=== PATIENT | female | born 1970 | race Caucasian/White ===

== ENCOUNTER 2019-02-23 17:58 | Emergency (ER) | payer SELFPAY ==
[~2019-02-23] VITALS: Ht 172.7 cm; Wt 212.3 kg
--- OUTSIDE RECORDS SUMMARY | ~2019-02-23 | XMS | Encounter Summary ---
Demographics + + + | Address | [address] | | | [place] [address] | + + + | Home Phone | | + + + | Preferred Language | Unknown | + + + | Marital Status | | + + + | Sikhism Affiliation | PEN | + + + | Race | White | + + + | Ethnic Group | Not or | + + + Author + + + | Author | [facility] | + + + | Organization | [facility] | + + + | Address | Unknown | + + + | Phone | Unavailable | + + + Support + + + + + | Name | Relationship | Address | Phone | + + + + + | Gigi nuno | [address] | | | | [place] | | | | | [phone] | | + + + + + Care Team Providers + +------+ + | Care Drywall Stripper Helper Name | Role | Phone | + +------+ + | No Pcp Per Patient | PCP | Unavailable | + +------+ + Reason for Visit + + + | Reason | Comments | + + + | Gallstones | | + + + | Obesity | | + + + AUTH/CERT +--------+--------+ + + + + | Status | Reason | Specialty | Diagnoses / | Referred By | Referred To | | | | | Procedures | Contact | Contact | +--------+--------+ + + + + | Closed | | | | | | +--------+--------+ + + + + Encounter Details +--------+---------+ + + + | Date | Type | Department | Care Team | Description | +--------+---------+ + + + | 07/19/ | Surgery | 6A Intra Op [facility] | Jaimee Gomez, | Hemodialysis | | 2014 | | [facility] | MD [address] | catheter placement | | | | Admitting Desk | [place], [place] | | | | | Located on the | [address] | | | | | floor [address] [facility] | [phone] | | | | | [address] | | | | | | [place], [place] | | | | | | [address] | | | +--------+---------+ + + + Social History + +-------+ +--------+------+ | Tobacco Use | Types | Packs/Day | Years | Date | | | | | Used | | + +-------+ +--------+------+ | Never Smoker | | | | | + +-------+ +--------+------+ + + +---------+ + | Alcohol Use | Drinks/Week | oz/Week | Comments | + + +---------+ + | No | | | | + + +---------+ + + + + | Sex Assigned at | Date Recorded | | | | + + + | Not on file | | + + + + + + + | Job Start Date | Occupation | Industry | + + + + | Not on file | Not on file | Not on file | + + + + + + + + | Travel History | Travel Start | Travel End | + + + + + + | No recent travel history available. | + + documented as of this encounter Last Filed Vital Signs + + + + + | Vital Sign | Reading | Time Taken | Comments | + + + + + | Blood Pressure | 141/73 | 07/27/2014 3:54 PM | | | | | PDT | | + + + + + | Pulse | 84 | 07/27/2014 3:54 PM | | | | | PDT | | + + + + + | Temperature | 37 C (98.6 F) | 07/27/2014 3:54 PM | | | | | PDT | | + + + + + | Respiratory Rate | 18 | 07/27/2014 3:54 PM | | | | | PDT | | + + + + + | Oxygen Saturation | 100% | 07/27/2014 3:54 PM | | | | | PDT | | + + + + + | Inhaled Oxygen | - | - | | | Concentration | | | | + + + + + | Weight | 198.2 kg (436 lb | 07/16/2014 11:00 AM | | | | 15.2 oz) | PDT | | + + + + + | Height | 172.7 cm (5' 8") | 07/16/2014 11:00 AM | | | | | PDT | | + + + + + | Body Mass Index | 66.44 | 07/16/2014 11:00 AM | | | | | PDT | | + + + + + documented in this encounter Discharge Summaries Dhaval Peres MD - 07/28/2014 2:49 PM PDT INPATIENT PROVIDER DISCHARGE Admission Date: 07/14/2014 Discharge Date: 07/27/2014 Service: General Medicine Patient PCP: KRYSTAL Malagon Principal Final Diagnosis: Diagnoses Patients Hospital Problem List: Active Hospital Problems 1) *Symptomatic cholelithiasis 2) Acute kidney injury 3) Acute tubular necrosis 4) Morbid obesity 5) Non-traumatic rhabdomyolysis 6) Chronic back pain 7) Physical deconditioning 8) Hyponatremia with excess extracellular fluid volume 9) Diabetes mellitus type 2, controlled, without complications 10) Essential hypertension 11) Mild intermittent asthma without complication 12) Gastroesophageal reflux disease without esophagitis Procedures while in house: Significant images/lab findings: Admitting Presentation: Borrowed and adapted from Dr. Case and Dr. Mayers's documentation: Ms. Nuno is a 43 yoF with morbid obesity, asthma, DM2, HTN, GERD, chronic low back pain wh o was transferred from [facility] in [facility] on 07/15 for abdominal pain, cholecy stitis and transferred for high-risk cholecystectomy. Underwent cholecystectomy on 07/16 at [facility]. Per gen surg, operation was done laparoscopically, but was very difficult, taking sever al hours because of her body habitus. She was transferred to the ICU post op for respiratory failure that resolved quickly. Post operatively, she had severe back and buttock pain which made it difficult for her to lie in bed, and so she sat in a bedside chair for many hours ( in spite of multiple attempt to get her to walk or get back into bed) with little movement. On POD#1, her creatinine began to rise and she became oliguric despite of aggressive fluid r esuscitation. The nephrology team was consulted on POD#2 and labs were checked, including a CK which was > 26K. She remained anuric.. Her CK peaked at >42K on 4. A RIJ HD line was p laced on 07/19 and iHD was initiated on 07/20. She continues on iHD with her last run 07/21. H er CK continued to trend down and her creatinine and urine output began to recover. Eventua lly she returned to a normal urine output and her creatinine trended down from 5.6 down to 3 .2 on discharge. She was discharged home to [place] with close follow up from her PCP and plans for a local referral to a general surgeon and a vocational nurse lvn for one visit, repeated labs to ensure resolution of ARF. 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 Brief Hospital Course: #Oliguric BARBIE - resolved #Rhabdo #Hyperhosphatemia - resolved 2/2 ATN with muddy brown casts in the setting of rhabdo likely due to immobility post-op. P atient with 2L UOP on day of discharge and downtending BUN/Cr with Cr at 3.2 on DC . Phos no rmalized. We discharged her on renal and diabetic diet while she recovers from ARF. Will malik ve short term follow up with labs next week. - Diabetic and renal diet until renal function improves - Renal panel within a week #Hyponatremia - resolved #Volume status - improving Difficult to tell volume status on exam, but likely volume up given IV fluids. Will closely monitor UOP as she is at risk for post-ATN diuresis. Per renal, will give small bolus of IV F for SBP <100. Sodium has normalized, 137 today. -Instructed patient to not take her diuretics on discharge -PCP to determine optimal time for restarting diuretics #Chronic low back pain - stable, constant #Post-op pain - improving Post-op pain is stable, but low back pain is chronic and we will have patient follow up wit h PCP to determine if referral to ortho spine as an outpatient for further management would be useful. Per patient, pain is controlled on the current regimen, no changes. Provided wit h short term oxycodone prescription. Has post-op instructions and precautions for post-chol e. -acetaminophen 650mg q6h prn -Lidocaine patch q24h to low back -oxycodone 5mg q6h prn #DM2 - CBGs conrolled 100s-140s in house. Resume metformin on discharge #Asthma - continue home albuterol #KYLER - RT following in house. Will need outpatient sleep study #HTN - continue home metoprolol #GERD - continue home omeprazole Discharge Physical Exam: Vital Signs at discharge as appropriate: BP: 141/73 mmHg (07/27/14 1554) Pulse: 84 (07/27/14 1554) Resp: 18 (07/27/14 1554) Weight: 198.2 kg (436 lb 15.2 oz) (07/16/14 1100) Gen: NAD, pleasant, cooperative HEENT: EOMI, anicteric sclerae, MMM Resp: CTAB CV: Distant heart sounds, but normal rate, regular rhythm, no m/g/r Abd: obese, soft, non-tender. Multiple incision sites from laparoscope c/d/i, with no drain age or hematoma. Ext: BLE edema +1 pitting Discharge Medications: Discharge Medication List as of 07/27/2014 3:25 PM START taking these medications Details acetaminophen 325 mg oral tablet Take 2 tablets by mouth every six hours., OTC albuterol 90 mcg/actuation inhalation HFA aerosol inhaler Inhale 2 puffs every four hours a s needed., Disp-18 g, R-0, Print Prescription lidocaine 5 %(700 mg/patch) topical adhesive patch,medicated Apply 2 patches to skin every twenty-four hours. Apply patch to most painful area; Patch may remain in place for up to 12 hours in any 24-hour period., Disp-60 patch, R-0, Print Prescription oxyCODONE, immediate release, 5 mg oral tablet Take 1 tablet by mouth every four hours as n eeded for moderate pain., Disp-10 tablet, R-0, Print Prescription polyethylene glycol 17 gram/dose oral powder Take 17 g by mouth once daily., Disp-119 g, R- 0, Print Prescription senna-docusate 8.6-50 mg oral tablet Take 1 tablet by mouth two times daily., Disp-60 table t, R-0, Print Prescription CONTINUE these medications which have NOT CHANGED Details aspirin 81.25 mg oral tablet Take by mouth once daily., Historical Med cholecalciferol, Vitamin D3, 1,000 unit oral tablet Take 1,000 Units by mouth once daily., Historical Med ferrous sulfate 325 mg (65 mg iron) oral tablet Take by mouth once daily. Patient does not know dose that she takes., Historical Med metFORMIN 500 mg oral tablet Take 500 mg by mouth once daily., Historical Med metoprolol tartrate 50 mg oral tablet Take 50 mg by mouth two times daily., Historical Med omeprazole 20 mg oral capsule,delayed release(DR/EC) Take 20 mg by mouth once daily., Histo rical Med zinc sulfate 220 (50) mg oral capsule Take 50 mg by mouth once daily., Historical Med STOP taking these medications furosemide 40 mg oral tablet Comments: Reason for Stopping: metolazone 5 mg oral tablet Comments: Reason for Stopping: potassium chloride SR 10 mEq oral tablet,ER particles/crystals Comments: Reason for Stopping: Discharge Activity: Activity No activity restrictions, follow surgery precautions Follow Up Appointments: Destination: Destination: Home Condition on Discharge Good Schedule the following appointment(s) when you get home Follow up with Ophelia Villalta On 07/31/2014. Specialty: NURSE PRACTITIONER FAMILY Why: hospital follow up Contact information [facility] [address] [place] [address] [place] [address] Follow up with Local nephrology In 2 weeks. Contact information PCP will make referral Follow up with Local general surgery In 2 weeks. Contact information PCP will make a referral Follow Up Tests: None Need BMP within 1 week Determine when to start diuretics Nephrology and Gen Surg referral Discharging Attending: Jerry Bañuelos MD Physician Signature: Dhaval Peres MD Internal Medicine, PGY-3 Pager: [phone] Associated attestation - Jerry Bañuelos MD - 07/29/2014 11:36 AM PDTGeneral Medicine Att ending Note I personally evaluated the patient, performed the sosa elements of the physical examination, and personally formulated the assessment and plan with Dr. Peres. I have reviewed the [facility] documentation and I agree with the findings, assessment, advice, orders and plan as [facility] are documented. Jerry Bañuelos MD Systems Designer Clinical Hospitalist and Medicine Teaching Services [facility] DEPARTMENT: Hosp- [id number] Place of Service: Date of Service: 07/27/2014 CSN: [id number] Modifiers:GC Resident Involved: Yes Suggested CPT: 29706 Discharge Management < 30 minute I spent 10 minutes in coordination of care and mxja-fz-[id number] with the patient and/or their s urrogate of which greater than 50% was spent counseling. documented in this encounter Discharge Instructions Instructions Zuleika Shaw - 07/27/2014 [facility] for home Physical and Occup ational therapies.- [phone]. Home health will come out early next week to see you, vince park will call you to set up appointment. documented in this encounter Medications at Time of Discharge + + + +---------+ + + | Medication | Sig | Dispensed | Refills | Start | End Date | | | | | | Date | | + + + +---------+ + + | acetaminophen 325 | Take 2 tablets by | | 0 | 07/28/19 | | | mg oral tablet | mouth every six | | | 15 | | | | hours. | | | | | + + + +---------+ + + | albuterol 90 | Inhale 2 puffs every | 18 g | 0 | 07/28/19 | | | mcg/actuation | four hours as | | | 15 | | | inhalation HFA | needed. | | | | | | aerosol inhaler | | | | | | + + + +---------+ + + | aspirin 81.25 mg | Take by mouth once | | 0 | | | | oral tablet | daily. | | | | | + + + +---------+ + + | cholecalciferol, | Take 1,000 Units by | | 0 | | | | Vitamin D3, 1,000 | mouth once daily. | | | | | | unit oral tablet | | | | | | + + + +---------+ + + | ferrous sulfate | Take by mouth once | | 0 | | | | 325 mg (65 mg iron) | daily. Patient does | | | | | | oral tablet | not know dose that | | | | | | | she takes. | | | | | + + + +---------+ + + | lidocaine 5 %(700 | Apply 2 patches to | 60 | 0 | 05/01/20 | | | mg/patch) topical | skin every | patch | | 15 | | | adhesive | twenty-four hours. | | | | | | patch,medicated | Apply patch to most | | | | | | | painful area; Patch | | | | | | | may remain in place | | | | | | | for up to 12 hours | | | | | | | in any 24-hour | | | | | | | period. | | | | | + + + +---------+ + + | metFORMIN 500 mg | Take 500 mg by mouth | | 0 | | | | oral tablet | once daily. | | | | | + + + +---------+ + + | metoprolol | Take 50 mg by mouth | | 0 | | | | tartrate 50 mg oral | two times daily. | | | | | | tablet | | | | | | + + + +---------+ + + | omeprazole 20 mg | Take 20 mg by mouth | | 0 | | | | oral capsule,delayed | once daily. | | | | | | release(DR/EC) | | | | | | + + + +---------+ + + | oxyCODONE, | Take 1 tablet by | 10 | 0 | /04/17 | | | immediate release, 5 | mouth every four | tablet | | 15 | | | mg oral tablet | hours as needed for | | | | | | | moderate pain. | | | | | + + + +---------+ + + | polyethylene | Take 17 g by mouth | 119 g | 0 | 07/28/19 | | | glycol 17 gram/dose | once daily. | | | 15 | | | oral powder | | | | | | + + + +---------+ + + | senna-docusate | Take 1 tablet by | 60 | 0 | 07/28/19 | | | 8.6-50 mg oral | mouth two times | tablet | | 15 | | | tablet | daily. | | | | | + + + +---------+ + + | zinc sulfate 220 | Take 50 mg by mouth | | 0 | | | | (50) mg oral capsule | once daily. | | | | | + + + +---------+ + + documented as of this encounter Progress Notes Rosa Marti MD - 07/27/2014 9:20 AM PDTFormatting of this note might be different f rom the original. Nephrology Inpatient Consult Follow Up Note IDENTIFICATION: PATIENT NAME: Vineet Nuno : 1970 DATE OF ADMISSION: 07/14/2014 DATE OF SERVICE: 07/27/2014 HOSPITAL DAY: 13 PCP: KRYSTAL Malagon REQUESTING PROVIDER: General Surgery Team REASON FOR CONSULTATION: BARBIE, low UOP IMPRESSION & RECOMMENDATIONS: Mrs. Vineet Nuno is a 43 y/o female with PMH significant for obesity, pre-DM on metformin, asthma, GERD, HTN, LE edema s/p laparoscopic cholecystectomy on 07/16/14 for acute on chroni c cholecystitis. Had anuric BARBIE requiring HD, improving. Problem List BARBIE w/ ATN 584.5 Oliguria, Anuria 788.5 Hypertension, Essential Benign 401.1 Periphreal Edema 782.3 Hyponatremia 276.1 #Acute Renal Failure: In setting of rhabdo. Showing continued improvement in UOP and Cr no w trending down. -Urine microscopy: [place] brown casts -UOP picking up -Started on iHD 07/19/14 (Access: Right Tempt line placed 07/19/14) -Dialyzed last 07/23/14 with 3 liter UF. Tolerated it well -removing RIJ today is appropriate #Volume/BP: Renal function improving, now starting to experience post-ATN diuresis. Having some contraction alkalosis (as BUN and bicarb both up today in setting of 2.5L UOP), likely 2/2 auto-diuresis. Would monitor I&O closely and avoid volume depletion. -If SBP <100, would give small fluid bolus (250 ml) to ensure adequate renal perfusion duri ng tenuous time of improvement -would avoid net negative >1L, goal closer to even #Hyponatremia: Currently 139. Improving. -Stable/improving -ok to remove fluid restriction on diet #Hyperphosphatemia; in setting of BARBIE; -monitor We will sign off at this time. Expect continued improvement, but at risk for post-ATN diure sis. Education provided to patient regarding importance of keeping ins = outs so that new pr e-renal insult doesn't develop. Would appreciate primary team also re-iterating this with clarence lindsey prior to discharge. Patient was staffed with Dr. Torres, who agrees with the assessment and plan. Please do not hesitate to call our team with any questions. Rosa Marti MD Internal Medicine PGY2 Pg [id number] Interval events/subjective: -no acute overnight events -feeling well this am MEDICATIONS: Scheduled Medications Medication Dose Route Frequency Last Rate acetaminophen (TYLENOL) tablet 650 mg 650 mg oral Q6H heparin injection 5,000 Units 5,000 Units subcutaneous Q8H lidocaine (LIDODERM) 5 %(700 mg/patch) patch 2 patch 2 patch transdermal Q24H metoprolol tartrate (LOPRESSOR) tablet 75 mg 75 mg oral BID nystatin (MYCOSTATIN) powder topical BID omeprazole (PRILOSEC) capsule 20 mg 20 mg oral DAILY polyethylene glycol (MIRALAX) powder 17 g 17 g oral DAILY senna-docusate (SENOKOT S) 8.6-50 mg 1 tablet 1 tablet oral BID PRN Medications Medication Dose Route Frequency Last Rate albuterol (PROVENTIL, VENTOLIN) 90 mcg/actuation inhaler 2 puff 2 puff inhalation Q4H PRN bisacodyl (DULCOLAX) suppository 10 mg 10 mg rectal DAILY PRN ondansetron (ZOFRAN) injection 4 mg 4 mg intravenous Q12H PRN oxyCODONE (immediate release) (ROXICODONE) tablet 5 mg 5 mg oral Q4H PRN PHYSICAL EXAM: Last Vitals: BP 148/61 | Pulse 97 | Temp 36.5 C (97.7 F) | RR 16 | Ht 1.727 m (5' 8") | Wt 198.2 kg (436 lb 15.2 oz) | SpO2 99% | BMI 66.45 kg/(m^2)FIO2 (%): 40 fraction of O2 (07/16/141999) O2 Delivery Device: None (room air) (07/27/14 0832) 24 Hour Vital Min/Max: Systolic (24hrs), Av mmHg, Min:122 mmHg, Max:148 mmHg Diastolic (24hrs), Av mmHg, Min:57 mmHg, Max:61 mmHg Pulse Min: 80 Max: 97 Temp Min: 36.5 C (97.7 F) Max: 36.9 C (98.4 F) Resp Min: 16 Max: 16 SpO2 Min: 98 % Max: 100 % Intake/Output Summary (Last 24 hours) at 07/27/14 0920 Last data filed at 07/27/14 0830 Gross per 24 hour Intake 1030 ml Output 3500 ml Net -2470 ml Constitutional: NAD, alert, chatty and pleasant. Lying in bed. HEENT: NCAT, anicteric sclera, mucosa moist, oropharynx is clear. Neck: Supple, trachea midline. Respiratory: Clear to auscultation bilaterally, normal respiratory effort. CV: Regular rhythm, normal rate. S1 and S2 normal, no m/r/g. Pulses JVD difficult to asses s GI: Soft, non-tender, non-distended, normoactive bowel sounds. No Organomegaly. Extremities: Obese extremities, difficult to assess edema, but does have 1+ in both hands a nd lower ext. Skin: Warm and dry. No rashes or concerning lesions noted. Normal nail-beds. Neurologic / Musculoskeletal: Grossly non-focal. No Tremor or asterixis. Psychiatric: Normal mood and affect. Access: Right IJ temp line 07/19/14 LAB / STUDIES: All blood, urine, radiographic, and other diagnostic test results noted below were personal ly reviewed. Recent Labs 07/14/14200107/17/14 0255 07/25/14 0745 07/26/14 0530 07/27/14 0518 NA 136 < > 134* < > 134* 137 139 K 3.3* < > 3.9 < > 3.9 4.0 3.9 CL 98 < > 97 < > 100 101 103 BICARB 30 < > 29 < > 25 26 28 BUN 12 < > 15 < > 46* 55* 63* CR 1.04 < > 2.04* < > 4.19* 3.76* 3.28* GLU 128* < > 138* < > 103* 108* 104* CA 8.8 < > 7.8* < > 7.7* 8.2* 8.2* AST 46* -- 696* -- -- -- -- ALT 40 -- 189* -- -- -- -- AP -- -- -- -- TBILI 1.0 -- 0.9 -- -- -- -- TP 7.6 -- 7.5 -- -- -- -- ALB 3.5 < > 2.7* < > 2.0* 2.2* 2.3* < > = values in this interval not displayed. Recent Labs 07/14/14200107/17/14 0255 07/25/14 0745 07/26/14 0530 07/27/14 0518 AST 46* -- 696* -- -- -- -- ALT 40 -- 189* -- -- -- -- TBILI 1.0 -- 0.9 -- -- -- -- AP -- -- -- -- ALB 3.5 < > 2.7* < > 2.0* 2.2* 2.3* TP 7.6 -- 7.5 -- -- -- -- < > = values in this interval not displayed. YNEWhJerry rich M D - 07/26/2014 10:32 PM PDT General Medicine Attending Note I personally evaluated the patient, performed the sosa elements of the physical examination, and personally formulated the assessment and plan with Drs. Peres and Joce. I have revie wed the written documentation and I agree with the findings, assessment, advice, orders and plan as they are documented with the following clarifications. Assessment 1. Acute kidney injury, oligoanuric, with acute tubular necrosis, due to pigment nephropath y 2. Rhabdomyolysis, resolved 3. Morbid obesity 4. Obstructive sleep apnea, probable 5. Asthma 6. Essential hypertension 7. Symptomatic cholelithiasis, s/p laparoscopic cholecystectomy 8. Hyperphosphatemia 9. Hyponatremia 10. Hypoalbuminemia 11. Volume overload, due to renal failure 12. Acute post operative nociceptive pain 13. Chronic low back pain Jerry Bañuelos MD Systems Designer Clinical Hospitalist and Medicine Teaching Services [facility] DEPARTMENT: Hosp- [id number] Place of Service: - Date of Service: 07/26/2014 CSN: [id number] Modifiers:GC Resident Involved: Yes Suggested CPT: 91131 Subsequent Visit Exp Prob Foc/Mod Complexity 25 min I spent more than 20 minutes in coordination of care and [id number] with the patient and/ or their surrogate of which 10 minutes was spent counseling. ice, Brenda Mariano MD - 07/26/2014 4:17 PM PDT [facility] PROGRESS NOTE/Transfer Accept Note Date: 07/22/2014 Hospital Day: 12 Author: BRENDA MAYERS MD, MD Attending Physician: Jerry Bañuelos MD Interval events: -Last HD 07/23 -No events o/n Subjective: Patient feeling well, reports that her low back pain is better this AM. Some drainage from MICHELE drain site - clear. No increased abdominal pain. Medications: Current Inpatient Medications Medication Dose Route Frequency acetaminophen (TYLENOL) tablet 650 mg 650 mg oral Q6H albuterol (PROVENTIL, VENTOLIN) 90 mcg/actuation inhaler 2 puff 2 puff inhalation Q4H PRN bisacodyl (DULCOLAX) suppository 10 mg 10 mg rectal DAILY PRN heparin injection 5,000 Units 5,000 Units subcutaneous Q8H lidocaine (LIDODERM) 5 %(700 mg/patch) patch 2 patch 2 patch transdermal Q24H metoprolol tartrate (LOPRESSOR) tablet 75 mg 75 mg oral BID nystatin (MYCOSTATIN) powder topical BID omeprazole (PRILOSEC) capsule 20 mg 20 mg oral DAILY ondansetron (ZOFRAN) injection 4 mg 4 mg intravenous Q12H PRN oxyCODONE (immediate release) (ROXICODONE) tablet 5 mg 5 mg oral Q4H PRN polyethylene glycol (MIRALAX) powder 17 g 17 g oral DAILY senna-docusate (SENOKOT S) 8.6-50 mg 1 tablet 1 tablet oral BID Physical Exam: Last Vitals: BP 147/43 | Pulse 85 | Temp 36.7 C (98.1 F) | RR 16 | Ht 1.727 m (5' 8") | Wt 198.2 kg (436 lb 15.2 oz) | SpO2 99% | BMI 66.45 kg/(m^2) 24 Hour Vital Min/Max: Systolic (24hrs), Av mmHg, Min:90 mmHg, Max:147 mmHg Diastolic (24hrs), Av mmHg, Min:30 mmHg, Max:63 mmHg Pulse Min: 85 Max: 88 Temp Min: 36.4 C (97.5 F) Max: 36.8 C (98.2 F) Resp Min: 16 Max: 16 SpO2 Min: 97 % Max: 100 % Intake/Output Summary (Last 24 hours) at 07/26/14 1621 Last data filed at 07/26/14 1400 Gross per 24 hour Intake 1005 ml Output 2405 ml Net -1400 ml Gen: NAD, pleasant, cooperative HEENT: EOMI, anicteric sclerae, MMM Neck: Dialysis line in R neck Resp: CTAB CV: Distant heart sounds, but normal rate, regular rhythm, no m/g/r Abd: obese, soft, non-tender. Multiple incision sites from laparoscope c/d/i, with no drain age or hematoma. Ext: BLE edema +1 pitting Labs/Imaging: Chemistries: Last 72 Hours (or 3 results): Recent Labs 07/24/14 0510 07/25/14 0745 07/26/14 0530 NA 134* 134* 137 K 3.6 3.9 4.0 CL 100 100 101 BICARB 29 25 26 BUN 32* 46* 55* CR 4.06* 4.19* 3.76* GLU 109* 103* 108* CA 7.2* 7.7* 8.2* MG 1.9 2.0 2.0 PO4 3.6 4.0 4.1 CBC with diff last 72 hours (or 3 results) Recent Labs 07/26/14 0530 WBC 9.95 HB 7.6* HCT 24.7* PLT 182 Assessment & Plan: 43 y.o. female with PMH of morbid obesity, asthma, DM2 (on metformin), asthma, HTN, GERD, c hronic low back pain, s/p laparoscopic cholecystectomy, course complicated by rhabdo with ol igo-anuric BARBIE requiring HD, now improving. #Oliguric BARBIE - resolving #Rhabdo #Hyperhosphatemia - resolved 2/2 ATN with muddy brown casts in the setting of rhabdo likely due to immobility post-op. P atient with 1.8L UOP yesterday and downtending BUN/Cr despite no HD since Wednesday. Can pull f oley today, with continued close monitoring of UOP, patient at risk for post-ATN diuresis. P er renal, would not want to see more than a 1L out. Anticipate removal of IJ cath tomorrow w ith discharge home after that (patient cleared for home by PT). Of note, CK peaked >42k, sto pped checking after <5k. Phos normalized. -Appreciate renal assistance -D/C vigil -Strict UOP monitoring with bedpan -No HD today -Daily renal function panel and magnesium -Consider removing R IJ, will call EGS -Renal diet -Nutrition consult for education -Consider phos binders if phos becomes elevated #Hyponatremia - resolved #Volume status - improving Difficult to tell volume status on exam, but likely volume up given IV fluids. Will closely monitor UOP as she is at risk for post-ATN diuresis. Per renal, will give small bolus of IV F for SBP <100. Sodium has normalized, 137 today. -Small 250ml IVF bolus for SBP <100 per renal -Monitor volume status -Volume restrict 1.5 L #Chronic low back pain - stable, constant #Post-op pain - improving Per post-op pain is stable, but low back pain is chronic and we will have patient follow up with ortho spine as an outpatient for further management. Per patient, pain is controlled o n the current regimen, no changes today. -Scheduled acetaminophen 650mg q6h -Lidocaine patch q24h to low back -oxycodone 5mg q3h #Deconditioning -PT/OT - okay to d/c home -Encourage mobilization, OOB as frequently as possible. -Limit chair to 1-2 hours at a time Chronic, stable, resolved issues: #DM2 - CBGs conrolled 100s-140s in house. Stopped insulin and CBGs. #S/p [place] - f/u with Gen Surg for outpatient follow up plan #Asthma - continue home albuterol #KYLER - RT following in house. Will need outpatient sleep study, order placed #HTN - continue home metoprolol #GERD - continue home omeprazole Food: Renal diet Access: Dialysis line in R neck, PIV DVT: heparin subQ, SCDs Code: Full Dispo: Pending This patient has been seen and discussed with Dr. Bañuelos who agrees with the assessment an d plan. Brenda Mayers MD Neurology PGY-1 Medicine Service Pager [phone] eiss, Brenda Frances MD - 07/26/2014 9:53 AM PDTNephrology Attending Note I have seen and examined this patient and I have discussed this patient with Dr. Marti; I agree with the assessment and plan in Dr. Marti's note. I have reviewed laboratory data f rom today. Please d/w nephrology fellow in am on 07/27 BEFORE removing HD catheter so we can assess her recovery with you prior to that step (given OR required to place catheter). In ad dition, should uop become very brisk today (>3L), please consider bid labs to ensure she triana s not require electrolyte repletion in the setting of post-ATN diuresis. Please call with questions/concerns. Brenda Mark Division of Nephrology and Hypertension Pager #[phone] Office: [phone] [facility] DEPARTMENT: [id number]- [facility] NEPHROLOGY [facility] Place of Service: [id number] - IP CSN: [id number] Suggested Modifier: GC Resident Involved Rosa Tobar M D - 07/26/2014 9:53 AM PDT Nephrology Inpatient Consult Follow Up Note IDENTIFICATION: PATIENT NAME: Vineet Nuno : 1970 DATE OF ADMISSION: 07/14/2014 DATE OF SERVICE: 07/26/2014 HOSPITAL DAY: 12 PCP: KRYSTAL Malagon REQUESTING PROVIDER: General Surgery Team REASON FOR CONSULTATION: BARBIE, low UOP IMPRESSION & RECOMMENDATIONS: Mrs. Vineet Nuno is a 43 y/o female with PMH significant for obesity, pre-DM on metformin, asthma, GERD, HTN, LE edema s/p laparoscopic cholecystectomy on 07/16/14 for acute on chroni c cholecystitis. Had anuric BARBIE requiring HD, improving. Problem List BARBIE w/ ATN 584.5 Oliguria, Anuria 788.5 Hypertension, Essential Benign 401.1 Periphreal Edema 782.3 Hyponatremia 276.1 #Acute Renal Failure: In setting of rhabdo. Showing continued improvement in UOP and Cr no w trending down. -Urine microscopy: [place] brown casts -UOP picking up -ok to remove Vigil today -Started on iHD 07/19/14 (Access: Right Tempt line placed 07/19/14) -Dialyzed last 07/23/14 with 3 liter UF. Tolerated it well -plan to hold off further iHD at this time -- would consider removing RIJ tomorrow am (marianne mariano for today, primary team should touch base with surgery as they placed the line) #Volume/BP: Renal function improving, at risk for post-ATN diuresis, would monitor for this and avoid volume depletion. -If SBP <100, would give small fluid bolus (250 ml) to ensure adequate renal perfusion duri ng tenuous time of improvement -would avoid net negative >1L, goal closer to even -Volume up in setting of IV fluids and anuric BARBIE but suspect continued improvement as UOP picks up -no need for HD today #Hyponatremia: Suspect hypervolemic, currently 137. Improving. -Stable/improving -Fluid restrict to 1.5 liters #Hyperphosphatemia; in setting of BARBIE; -monitor General Recs: -continue Renal and Diabetic diet with 1.5L fluid restriction Patient was staffed with Dr. Mark, who agrees with the assessment and plan. Please do not hesitate to call our team with any questions. Rosa Marti MD Internal Medicine PGY2 Pg [phone] Interval events/subjective: -no acute overnight events -feeling well this am -made 1.8L urine in past 24 hours! MEDICATIONS: Scheduled Medications Medication Dose Route Frequency Last Rate acetaminophen (TYLENOL) tablet 650 mg 650 mg oral Q6H heparin injection 5,000 Units 5,000 Units subcutaneous Q8H lidocaine (LIDODERM) 5 %(700 mg/patch) patch 2 patch 2 patch transdermal Q24H metoprolol tartrate (LOPRESSOR) tablet 75 mg 75 mg oral BID nystatin (MYCOSTATIN) powder topical BID omeprazole (PRILOSEC) capsule 20 mg 20 mg oral DAILY polyethylene glycol (MIRALAX) powder 17 g 17 g oral DAILY senna-docusate (SENOKOT S) 8.6-50 mg 1 tablet 1 tablet oral BID PRN Medications Medication Dose Route Frequency Last Rate albuterol (PROVENTIL, VENTOLIN) 90 mcg/actuation inhaler 2 puff 2 puff inhalation Q4H PRN bisacodyl (DULCOLAX) suppository 10 mg 10 mg rectal DAILY PRN ondansetron (ZOFRAN) injection 4 mg 4 mg intravenous Q12H PRN oxyCODONE (immediate release) (ROXICODONE) tablet 5 mg 5 mg oral Q4H PRN PHYSICAL EXAM: Last Vitals: BP 147/43 | Pulse 85 | Temp 36.7 C (98.1 F) | RR 16 | Ht 1.727 m (5' 8") | Wt 198.2 kg (436 lb 15.2 oz) | SpO2 99% | BMI 66.45 kg/(m^2)FIO2 (%): 40 fraction of O2 (07/16/141999) O2 Delivery Device: None (room air) (07/26/14 0816) 24 Hour Vital Min/Max: Systolic (24hrs), Av mmHg, Min:90 mmHg, Max:147 mmHg Diastolic (24hrs), Av mmHg, Min:30 mmHg, Max:63 mmHg Pulse Min: 85 Max: 89 Temp Min: 36.4 C (97.5 F) Max: 36.8 C (98.2 F) Resp Min: 16 Max: 16 SpO2 Min: 97 % Max: 100 % Intake/Output Summary (Last 24 hours) at 07/26/14 0953 Last data filed at 07/26/14 0830 Gross per 24 hour Intake 1175 ml Output 1680 ml Net -505 ml Constitutional: NAD, alert, chatty and pleasant. Lying in bed. HEENT: NCAT, anicteric sclera, mucosa moist, oropharynx is clear. Neck: Supple, trachea midline. Respiratory: Clear to auscultation bilaterally, normal respiratory effort. CV: Regular rhythm, normal rate. S1 and S2 normal, no m/r/g. Pulses JVD difficult to asses s GI: Soft, non-tender, non-distended, normoactive bowel sounds. No Organomegaly. Extremities: Obese extremities, difficult to assess edema, but does have 1+ in both hands a nd lower ext. Skin: Warm and dry. No rashes or concerning lesions noted. Normal nail-beds. Neurologic / Musculoskeletal: Grossly non-focal. No Tremor or asterixis. Psychiatric: Normal mood and affect. Access: Right IJ temp line 07/19/14 LAB / STUDIES: All blood, urine, radiographic, and other diagnostic test results noted below were personal ly reviewed. Recent Labs 07/14/14200107/17/14 0255 07/24/14 0510 07/25/14 0745 07/26/14 0530 NA 136 < > 134* < > 134* 134* 137 K 3.3* < > 3.9 < > 3.6 3.9 4.0 CL 98 < > 97 < > 100 100 101 BICARB 30 < > 29 < > 29 25 26 BUN 12 < > 15 < > 32* 46* 55* CR 1.04 < > 2.04* < > 4.06* 4.19* 3.76* GLU 128* < > 138* < > 109* 103* 108* CA 8.8 < > 7.8* < > 7.2* 7.7* 8.2* AST 46* -- 696* -- -- -- -- ALT 40 -- 189* -- -- -- -- AP 67 -- 89 -- -- -- -- TBILI 1.0 -- 0.9 -- -- -- -- TP 7.6 -- 7.5 -- -- -- -- ALB 3.5 < > 2.7* < > 1.9* 2.0* 2.2* < > = values in this interval not displayed. Lab Results Component Value Date WBC 9.95 07/26/2014 HB 7.6 07/26/2014 HCT 24.7 07/26/2014 PLT 182 07/26/2014 MCV 101.6 07/26/2014 RDW 57.1 07/26/2014 Recent Labs 07/14/14200107/17/14 0255 07/24/14 0510 07/25/14 0745 07/26/14 0530 AST 46* -- 696* -- -- -- -- ALT 40 -- 189* -- -- -- -- TBILI 1.0 -- 0.9 -- -- -- -- AP 67 -- 89 -- -- -- -- ALB 3.5 < > 2.7* < > 1.9* 2.0* 2.2* TP 7.6 -- 7.5 -- -- -- -- < > = values in this interval not displayed. Tony Herrera - 7:09 AM PDT Medical Student Progress Note - for educational purposes only Overnight: -no acute events overnight -nephrology would like to take Musa out today. Plan to remove IJ Wednesday, with possibly d/c home Wednesday. -PT will assess today for safety at home -no PRN oxycodone used on 07/25, 5mg last night Subjective: Back pain much better this morning. Increased drainage from surgical site; rashel r fluid, no change in color or pain over site. Objective: Vitals: Last Vitals: BP 119/30 | Pulse 88 | Temp 36.5 C (97.7 F) | RR 16 | Ht 1.727 m ( 5' 8") | Wt 198.2 kg (436 lb 15.2 oz) | SpO2 100% | BMI 66.45 kg/(m^2) 24 Hour Vital Min/Max: Systolic (24hrs), Av mmHg, Min:90 mmHg, Max:145 mmHg Diastolic (24hrs), Av mmHg, Min:30 mmHg, Max:103 mmHg Pulse Min: 86 Max: 89 Temp Min: 36.5 C (97.7 F) Max: 36.9 C (98.4 F) Resp Min: 16 Max: 16 SpO2 Min: 98 % Max: 100 % Intake/Output Summary (Last 24 hours) at 07/26/14 0709 Last data filed at 07/26/14 0500 Gross per 24 hour Intake 1060 ml Output 1880 ml Net -820 ml General: resting comfortably in bed, NAD HEENT: anicteric sclerae, extraocular movements intact, mucus membranes moist Neck: dialysis line in right neck Heart: regular rate and rhythm, no m/r/g, JVP not able to visualize due to body habitus Lungs: no increased work of breathing, good air movement. Lungs clear to auscultation bilat erally, no wheezes rales or rhonchi. Abd: bowel sounds present, soft, nondistended. Some tenderness on the left side, no guardin g. Drain site covered by gauze with no drainage. Right surgical site has mild erythema, no w armth, no drainage seen. Ext: LE pitting edema unchanged from yest, no rashes Neuro: ANOx4 Pertinent Medications: Current Inpatient Medications Medication Dose Route Frequency acetaminophen (TYLENOL) tablet 650 mg 650 mg oral Q6H albuterol (PROVENTIL, VENTOLIN) 90 mcg/actuation inhaler 2 puff 2 puff inhalation Q4H PRN bisacodyl (DULCOLAX) suppository 10 mg 10 mg rectal DAILY PRN heparin injection 5,000 Units 5,000 Units subcutaneous Q8H lidocaine (LIDODERM) 5 %(700 mg/patch) patch 2 patch 2 patch transdermal Q24H metoprolol tartrate (LOPRESSOR) tablet 75 mg 75 mg oral BID nystatin (MYCOSTATIN) powder topical BID omeprazole (PRILOSEC) capsule 20 mg 20 mg oral DAILY ondansetron (ZOFRAN) injection 4 mg 4 mg intravenous Q12H PRN oxyCODONE (immediate release) (ROXICODONE) tablet 5 mg 5 mg oral Q4H PRN polyethylene glycol (MIRALAX) powder 17 g 17 g oral DAILY senna-docusate (SENOKOT S) 8.6-50 mg 1 tablet 1 tablet oral BID Pertinent Labs/Studies: Mg 2 CBC HCt 24.7 Renal function set: BUN 55 (yest 46), Cr 3.76 (yest 4.19), EGFR 13 mL/min (yest 12), Na 137 (normalized), K 4.0, Ca 8.2 (yest 7.7), alb 2.2 (stable since 07/19) Assessment/Plan: Ms. Nuno is a 43 year old woman with morbid obesity, DM2 on metformin, HT N, and chronic low back pain who presents s/p laproscopic cholecystectomy on 07/16 c/b rhabdo myalysis peak 42K on 07/19 with anuric BARBIE requiring intermittent hemodialysis, now improving . #Anuric BARBIE: Acute tubular necrosis with muddy brown casts secondary to rhabdomyalysis s/p cholecystectomy. CK peaked 07/19, trending downward. GFR continues to be very low but stable since 07/19. Nephrology following. Receiving iHD. 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 Fluid overload risks pulmonary edema a nd volume overload. Hyponatremia corrected on 07/26. -no further action needed #Obesity/immmobility/deconditiong: Chronic obesity and limited mobility with acute post op immobility. On bariatric bed, in chair 1 hour at a time. Encourage patient to ambulate. -PT/OT consulting; signing off today because back to baseline function -Patient will be self sufficient enough for discharge home per PT/OT, with help from katlyn saul #S/p cholecystectomy: Recovered well. Renal diet. Increased weeping from right surgical sit e. No increase erythema or warmth, no fever or leukocytosis so no concern for infection at t his time. -Being followed peripherally by EGS -F/u with EGS outpt in 2 weeks. -Aggressive bowel regimen per surg recs -Check wound site tomorrow AM #Acute post operative pain: Improving. IV dilaudid d/c on 07/23. Currently using oxycodone. -Limit opioids as possible #Chronic low back pain: Constant and unchanged. Ortho spine says no further action at this time. -Pain control as above -lidocaine patches q24 to low back -Continue heat application #KYLER: Needs outpatient polysomnography. RT following while in house. -overnight oximetry also a viable option to obtain more information Stable or resolved: #DM: prediabetes per chart. Blood glucose WNL at hospital. CBG, insulin discontinued. -order A1C value #Hyperphosphatemia: Secondary to BARBIE. Peaked at 6.1 on 07/21, now 4.6 -continue to monitor with daily renal f(x) labs -consider phosphate binders if phos becomes elevated again #HTN: On home dose metoprolol PO #GERD: Omeprazole #PPX: On SQ heparin, SCD's #Asthma: Home albuterol Dispo: Discharge home when cleared by nephrology team. If UOP remains stable or improves, n ephrology team will feel comfortable with removing Vigil tomorrow and dialysis line the day. If improvement continues, anticipate discharge by end of week. Discharge planning: -f/u EGS 2 weeks -outpatient polysomnography -ortho f/u spine scans as outpatient Routine care: DVT prophylaxis: heparin Diet: renal Code: full TONY Elizabeth hJerry rich MD - 07/25/2014 10:28 PM PDT General Medicine Attending Note I personally evaluated the patient, performed the sosa elements of the physical examination, and personally formulated the assessment and plan with Dr. Mera. I have reviewed the peoples hospital documentation and I agree with the findings, assessment, advice, orders and plan as they a re documented. Assessment 1. Acute kidney injury, oligoanuric, with acute tubular necrosis, due to pigment nephropath y 2. Rhabdomyolysis, resolved 3. Morbid obesity 4. Obstructive sleep apnea, probable 5. Asthma 6. Essential hypertension 7. Symptomatic cholelithiasis, s/p laparoscopic cholecystectomy 8. Hyperphosphatemia 9. Hyponatremia 10. Hypoalbuminemia 11. Volume overload, due to renal failure 12. Acute post operative nociceptive pain 13. Chronic low back pain Jerry Bañuelos MD Systems Designer Clinical Hospitalist and Medicine Teaching Services [facility] DEPARTMENT: Hosp- [id number] Place of Service: - Date of Service: 07/25/2014 CSN: [id number] Modifiers:GC Resident Involved: Yes Suggested CPT: 67321 Subsequent Visit Exp Prob Foc/Mod Complexity 25 min I spent more than 20 minutes in coordination of care and [id number] with the patient and/ or their surrogate of which 15 minutes was spent in face to face and counseling. Brenda Engle MD - 07/25/2014 9:51 AM PDTNephrology Attending Note I have seen and examined this patient and I have discussed this patient with Dr. Marti; I agree with the assessment and plan in Dr. Marti's note. I have reviewed laboratory data f rom today. Increase in uop encouraging - holding HD today and will assess uop and clearance daily. Agree with vigil out tomorrow; if uop appears to decline p vigil removal, may requir e intermittent straight cath to ensure no retention (do not feel bladder scans would be accu rate given body habitus). Please call with questions/concerns. Brenda Mark Division of Nephrology and Hypertension Pager #[phone] Office: [phone] [facility] DEPARTMENT: [id number] Place of Service: CSN: [id number] Suggested Modifier: GC Resident Involved Rosa Tobar M D - 07/25/2014 9:51 AM PDT Nephrology Inpatient Consult Follow Up Note IDENTIFICATION: PATIENT NAME: Vineet Nuno : 1970 DATE OF ADMISSION: 07/14/2014 DATE OF SERVICE: 07/25/2014 HOSPITAL DAY: 11 PCP: KRYSTAL Malagon REQUESTING PROVIDER: General Surgery Team REASON FOR CONSULTATION: BARBIE, low UOP IMPRESSION & RECOMMENDATIONS: Mrs. Vineet Nuno is a 43 y/o female with PMH significant for obesity, pre-DM on metformin, asthma, GERD, HTN, LE edema s/p laparoscopic cholecystectomy on 07/16/14 for acute on chroni c cholecystitis. Now with anuric BARBIE requiring HD. Problem List BARBIE w/ ATN 584.5 Oliguria, Anuria 788.5 Hypertension, Essential Benign 401.1 Periphreal Edema 782.3 Hyponatremia 276.1 #Acute Renal Failure: In setting of rhabdo. Showing some improvement in UOP and Cr did not rise significantly in between HD sessions, this is encouraging. Will trial without HD today to see how she tolerates this. -Urine microscopy: [place] brown casts -UOP starting to slowly picker tender -please keep in Vigil for 1 more day -- need very accurate UOP as this is our main measurem ent of improvement in renal function -- likely able to remove tomorrow (07/26) and have patie nt use bedside commode for accurate I&O's -Started on iHD 07/19/14 (Access: Right Tempt line placed 07/19/14) -Dialyzed last 07/23/14 with 3 liter UF. Tolerated it well -plan to hold off on iHD today and reassess needs tomorrow #Volume/BP -BP at goal -Volume up in setting of IV fluids and anuric BARBIE -Avoid IVF -Will remove volume with iHD as tolerated #Hyponatremia: Currently 141. -Stable/improving -Fluid restrict to 1.5 liters #Hyperphosphatemia; in setting of BARBIE; -Will manage with iHD and diet for now, but will consider binders if phos high General Recs: -continue Renal and Diabetic diet with 1.5L fluid restriction -no IVF given anuric Patient was staffed with Dr. Mark, who agrees with the assessment and plan. Please do not hesitate to call our team with any questions. Rosa Marti MD Internal Medicine [place]2 [place] [phone] Interval events/subjective: -no acute overnight events -feeling well this am -worked with PT and OT, did well MEDICATIONS: Scheduled Medications Medication Dose Route Frequency Last Rate acetaminophen (TYLENOL) tablet 650 mg 650 mg oral Q6H heparin injection 5,000 Units 5,000 Units subcutaneous Q8H lidocaine (LIDODERM) 5 %(700 mg/patch) patch 2 patch 2 patch transdermal Q24H metoprolol tartrate (LOPRESSOR) tablet 75 mg 75 mg oral BID nystatin (MYCOSTATIN) powder topical BID omeprazole (PRILOSEC) capsule 20 mg 20 mg oral DAILY polyethylene glycol (MIRALAX) powder 17 g 17 g oral DAILY senna-docusate (SENOKOT S) 8.6-50 mg 1 tablet 1 tablet oral BID PRN Medications Medication Dose Route Frequency Last Rate albuterol (PROVENTIL, VENTOLIN) 90 mcg/actuation inhaler 2 puff 2 puff inhalation Q4H PRN bisacodyl (DULCOLAX) suppository 10 mg 10 mg rectal DAILY PRN ondansetron (ZOFRAN) injection 4 mg 4 mg intravenous Q12H PRN oxyCODONE (immediate release) (ROXICODONE) tablet 5 mg 5 mg oral Q3H PRN PHYSICAL EXAM: Last Vitals: BP 120/103 | Pulse 89 | Temp 36.9 C (98.4 F) | RR 16 | Ht 1.727 m (5' 8") | Wt 198.2 kg (436 lb 15.2 oz) | SpO2 98% | BMI 66.45 kg/(m^2)FIO2 (%): 40 fraction of O2 (07/16/141999) O2 Delivery Device: None (room air) (07/25/14 0802) 24 Hour Vital Min/Max: Systolic (24hrs), Av mmHg, Min:114 mmHg, Max:140 mmHg Diastolic (24hrs), Av mmHg, Min:45 mmHg, Max:103 mmHg Pulse Min: 86 Max: 92 Temp Min: 36.6 C (97.9 F) Max: 36.9 C (98.4 F) Resp Min: 16 Max: 16 SpO2 Min: 96 % Max: 98 % Intake/Output Summary (Last 24 hours) at 07/25/14 0951 Last data filed at 07/25/14 0800 Gross per 24 hour Intake 710 ml Output 950 ml Net -240 ml Constitutional: NAD, alert, chatty and pleasant. Lying in bed. HEENT: NCAT, anicteric sclera, mucosa moist, oropharynx is clear. Neck: Supple, trachea midline. Respiratory: Clear to auscultation bilaterally, normal respiratory effort. CV: Regular rhythm, normal rate. S1 and S2 normal, no m/r/g. Pulses JVD difficult to asses s GI: Soft, non-tender, non-distended, normoactive bowel sounds. No Organomegaly. Extremities: Obese extremities, difficult to assess edema, but does have 1+ in both hands a nd lower ext. Skin: Warm and dry. No rashes or concerning lesions noted. Normal nail-beds. Neurologic / Musculoskeletal: Grossly non-focal. No Tremor or asterixis. Psychiatric: Normal mood and affect. Access: Right IJ temp line 07/19/14 LAB / STUDIES: All blood, urine, radiographic, and other diagnostic test results noted below were personal ly reviewed. Recent Labs 07/14/14200107/17/14 0255 07/23/14 0520 07/23/14 2220 07/24/14 0510 07/25/14 0745 NA 136 < > 134* < > 131* -- 134* 134* K 3.3* < > 3.9 < > 3.3* -- 3.6 3.9 CL 98 < > 97 < > 95* -- 100 100 BICARB 30 < > 29 < > 27 -- 29 25 BUN 12 < > 15 < > 45* -- 32* 46* CR 1.04 < > 2.04* < > 5.81* -- 4.06* 4.19* GLU 128* < > 138* < > 109* 139* 109* 103* CA 8.8 < > 7.8* < > 7.4* -- 7.2* 7.7* AST 46* -- 696* -- -- -- -- -- ALT 40 -- 189* -- -- -- -- -- AP 67 -- 89 -- -- -- -- -- TBILI 1.0 -- 0.9 -- -- -- -- -- TP 7.6 -- 7.5 -- -- -- -- -- ALB 3.5 < > 2.7* < > 2.0* -- 1.9* 2.0* < > = values in this interval not displayed. Lab Results Component Value Date WBC 10.52 07/22/2014 HB 8.5 07/22/2014 HCT 26.9 07/22/2014 PLT 180 07/22/2014 MCV 100.7 07/22/2014 RDW 56.4 07/22/2014 Recent Labs 07/14/14200107/17/14 0255 07/23/14 0520 07/24/14 0510 07/25/14 0745 AST 46* -- 696* -- -- -- -- ALT 40 -- 189* -- -- -- -- TBILI 1.0 -- 0.9 -- -- -- -- AP 67 -- 89 -- -- -- -- ALB 3.5 < > 2.7* < > 2.0* 1.9* 2.0* TP 7.6 -- 7.5 -- -- -- -- < > = values in this interval not displayed. Lab Results Component Value Date CK 4953 07/24/2014 CK 7423 07/23/2014 CK 9587 07/22/2014 [place] [address] 07/22/2014 [place] [address] 07/21/2014 [place] [address] 07/21/2014 [place] [address] 07/21/2014 Urine Cr 316 Urine sodium 7 TTE 07/15/14: EF normal Mild increased RVSP of 50 mmHg Urine spin revealed muddy brown casts Arielle Crowe Md, I - 07/25/2014 8:23 AM PDT Progress Note: 24hr events -no HD yeseterday S: no complaints Last 24 hour min/max Temp: 36.9 C (98.4 F) Temp Min: 36.6 C (97.9 F) Max: 36.9 C (98.4 F) Pulse: 89 Pulse Min: 86 Max: 92 Resp: 16 Resp Min: 16 Max: 16 BP: 120/103 mmHg BP Min: 114/50 Max: 140/61 SpO2: 98 % SpO2 Min: 96 % Max: 98 % Body mass index is 66.45 kg/(m^2). Sitting in chair, NAD brething comfortably, ctab Heart rrr no murmur A&O Labs: BUN 32-->46, Cr 4-->4.2. Phos 4. CBGs 90-140 Imaging/other data No new imaging Assessment and Plan: 43yoF with h/o morbid obesity, asthma, TIIDM, HTN, GERD, chronic LBP, who presented with ch olecystitis and is s/p lap [place], with a course c/b rhabdomyolysis resulting in oliguria ATN requiring HD. #ATN #Oliguric renal failure #Rhabdomyolysis #Hyponatremia ATN (muddy brown casts) with renal failure requiring HD 2/2 rhabdo in the s/o prolonged sit ting post-op. CK peaked 40K, stopped checking once <5K. UOP improving. Lat HD 07/23, UOP impr oving, will cont to monitor daily for HD needs. If all goes well, will pull vigil tomorrow, remove IJ Wednesday and DC home Wednesday. Hyponatremia from vol overload in the s/o oliguria impr oving. Hyperphosphatemia resolved. -appreciate nephrology assistance -no HD today -DC vigil tomorrow if UOP still doing well -fluid restrict 1.5L -petit renal panel #Chronic LBP: improving with improved mobility. Xray with severe L4-S1 disease. Per ortho, no IP surgical mgmt needed. -f/u with ortho as OP -cont pain regimen as below. #Post-op pain: s/p cholecystectomy. Pain improving. C/b chronic LBP. -scheduled tylenol -lidocaine patch -prn oxycodone q3h --> q4h #Deconditioning -PT/OT -Limit chair to 1-2 hours at a time (rhabdo) -home with HHPT, possibly Wednesday Chronic, stable, resolved issues: #DM2: CBGs 100-140 without intervention, stopped checking CBGs. Stop MFN 2/2 renal function . #S/p [place]: this admission. F/u with Gen Surg as OP #Asthma: cont home albuterol #KYLER: Will need outpatient sleep study, order placed #HTN: cont home metoprolol #GERD: cont home omeprazole Diet: renal PPX: sqhep Code: FULL CODE Dispo: pending renal recovery, still evaluating need for OP hemodialysis The assessment and plan were discussed with Dr. Bañuelos who agrees with the above. Arielle Mera MD Internal Medicine Resident [id number] signed by Arielle Mera Md at 07/25/2014 11:51 AM PDTTony Elizabeth - 07/25/2014 6:51 AM PDT Medical Student Progress Note - for educational purposes only Interval: -nephrology would like to keep vigil in; will re-evaluate daily -overnight, nystatin powder was started for itchy right breast -no dialysis needed this morning -OT is signing off; feels she has returned to home baseline and has her for assista nce. -10mg PRN oxycodone used yesterday (25mg the day before) Subjective: Experiencing back pain this morning, but at baseline from before hospitalizati on. Objective: Vitals: Last Vitals: BP 125/45 | Pulse 86 | Temp 36.8 C (98.2 F) | RR 16 | Ht 1.727 m ( 5' 8") | Wt 198.2 kg (436 lb 15.2 oz) | SpO2 96% | BMI 66.45 kg/(m^2) 24 Hour Vital Min/Max: Systolic (24hrs), Av mmHg, Min:114 mmHg, Max:140 mmHg Diastolic (24hrs), Av mmHg, Min:45 mmHg, Max:66 mmHg Pulse Min: 86 Max: 92 Temp Min: 36.6 C (97.9 F) Max: 36.9 C (98.4 F) Resp Min: 16 Max: 16 SpO2 Min: 96 % Max: 99 % Intake/Output Summary (Last 24 hours) at 07/25/14 0652 Last data filed at 07/24/14 2100 Gross per 24 hour Intake 705 ml Output 600 ml Net 105 ml UOP down from 675 yesterday. 350ml this AM General: resting comfortably in bed, NAD HEENT: anicteric sclerae, extraocular movements intact, mucus membranes moist Neck: dialysis line in right neck Heart: regular rate and rhythm, no m/r/g, JVP not able to visualize due to body habitus Lungs: no increased work of breathing, good air movement. Lungs clear to auscultation bilat erally, no wheezes rales or rhonchi. Abd: bowel sounds present, soft, nondistended. Some tenderness on the left side, no guardin g. Drain site covered by gauze with no drainage. Ext: LE pitting edema unchanged from yest, no rashes Neuro: ANOx4 Pertinent Medications: Current Inpatient Medications Medication Dose Route Frequency acetaminophen (TYLENOL) tablet 650 mg 650 mg oral Q6H albuterol (PROVENTIL, VENTOLIN) 90 mcg/actuation inhaler 2 puff 2 puff inhalation Q4H PRN bisacodyl (DULCOLAX) suppository 10 mg 10 mg rectal DAILY PRN heparin injection 5,000 Units 5,000 Units subcutaneous Q8H lidocaine (LIDODERM) 5 %(700 mg/patch) patch 2 patch 2 patch transdermal Q24H metoprolol tartrate (LOPRESSOR) tablet 75 mg 75 mg oral BID nystatin (MYCOSTATIN) powder topical BID omeprazole (PRILOSEC) capsule 20 mg 20 mg oral DAILY ondansetron (ZOFRAN) injection 4 mg 4 mg intravenous Q12H PRN oxyCODONE (immediate release) (ROXICODONE) tablet 5 mg 5 mg oral Q3H PRN polyethylene glycol (MIRALAX) powder 17 g 17 g oral DAILY senna-docusate (SENOKOT S) 8.6-50 mg 1 tablet 1 tablet oral BID Pertinent Labs/Studies: Mg 2 Renal function set: BUN 46 (yest 32), Cr 4.19 (yest 4.06), EGFR 12 mL/min (yest 12), Na 134 , K 3.9, Ca 7.7 (stable since 07/18), alb 2.0 (stable since 07/19) Assessment/Plan: Ms. Nuno is a 43 year old woman with morbid obesity, DM2 on metformin, HT N, and chronic low back pain who presents s/p laproscopic cholecystectomy on 07/16 c/b rhabdo myalysis peak 42K on 07/19 with anuric BARBIE requiring intermittent hemodialysis, now improving . #Anuric BARBIE: Acute tubular necrosis with muddy brown casts secondary to rhabdomyalysis s/p cholecystectomy. CK peaked 07/19, trending downward. GFR continues to be very low but stable since 07/19. Nephrology following. Receiving iHD. No longer oliguric (UOP >500ml) -Vigil in place for uop monitoring, nephrology will notify GM team when it can be removed, likely tomorrow -Next HD TBD -Recs from nephrology, appreciate involvement -Daily labs: Mg, renal f(x) -Renal diet #Hypervolemic hyponatremia: Secondary to anuric BARBIE. Fluid overload risks pulmonary edema a nd volume overload. Hyponatremia has been stable. -Fluid restricted 1500 ml. -Careful daily physical exam for lung crackles, extremity edema, elevated JVP -Hemodialysis to remove volume -lower Na bath with dialysis per nephrology #Obesity/immmobility/deconditiong: Chronic obesity and limited mobility with acute post op immobility. On bariatric bed, in chair 1 hour at a time. Encourage patient to ambulate. -PT/OT consulting; signing off today because back to baseline function -Patient will be self sufficient enough for discharge home, with help from #S/p cholecystectomy: Recovered well. Renal diet. -Being followed peripherally by EGS -F/u with EGS outpt in 2 weeks. -Aggressive bowel regimen per surg recs #Acute post operative pain: Improving. IV dilaudid d/c on 07/23. Currently using oxycodone. -Limit opioids as possible #Chronic low back pain: Constant and unchanged. Ortho spine says no further action at this time. -Pain control as above -lidocaine patches q24 to low back -Continue heat application #KYLER: Needs outpatient polysomnography. RT following while in house. -overnight oximetry also a viable option to obtain more information Stable or resolved: #DM: prediabetes per chart. Blood glucose WNL at hospital. CBG, insulin discontinued. -order A1C value #Hyperphosphatemia: Secondary to BARBIE. Peaked at 6.1 on 07/21, now 4.6 -continue to monitor with daily renal f(x) labs -consider phosphate binders if phos becomes elevated again #HTN: On home dose metoprolol PO #GERD: Omeprazole #PPX: On SQ heparin, SCD's #Asthma: Home albuterol Dispo: Discharge home when cleared by nephrology team. If UOP remains stable or improves, n ephrology team will feel comfortable with removing Vigil tomorrow and dialysis line the day. If improvement continues, anticipate discharge by end of week. Discharge planning: -f/u EGS 2 weeks -outpatient polysomnography -ortho f/u spine scans as outpatient Routine care: DVT prophylaxis: heparin Diet: renal Code: full TONY LINNEY Tony Linney Jerry Rosenbaum MD - 07/24/2014 5:27 PM PDT General Medicine Attending Note I personally evaluated the patient, performed the sosa elements of the physical examination, and personally formulated the assessment and plan with Drs. Mera and Joce. I have reviewed the written documentation and I agree with the findings, assessment, advice, orders and plan as they are documented with the following clarifications. Assessment 1. Acute kidney injury, oligoanuric, with acute tubular necrosis, due to pigment nephropath y 2. Rhabdomyolysis, resolved 3. Morbid obesity 4. Obstructive sleep apnea, probable 5. Asthma 6. Essential hypertension 7. Symptomatic cholelithiasis, s/p laparoscopic cholecystectomy 8. Hyperphosphatemia 9. Hyponatremia 10. Hypoalbuminemia 11. Volume overload, due to renal failure 12. Acute post operative nociceptive pain 13. Chronic low back pain Jerry Bañuelos MD Systems Designer Clinical Hospitalist and Medicine Teaching Services [facility] DEPARTMENT: Hosp- [phone] Place of Service: - Date of Service: 07/24/2014 CSN: [id number] Modifiers:GC Resident Involved: Yes Suggested CPT: 80223 Subsequent Visit Exp Prob Foc/Mod Complexity 25 min I spent more than 20 minutes in coordination of care and [id number] with the patient and/ or their surrogate of which greater than 50% was spent counseling. Brenda Lane MD - 07/24/2014 11:29 AM PDT GM3 PROGRESS NOTE/Transfer Accept Note Date: 07/22/2014 Hospital Day: 10 Author: BRENDA MAYERS MD, MD Attending Physician: Jerry Bañuelos MD Interval events: -HD yesterday, 3L UF removed - tripped on cath last night, now with small amount of bloody output -Continuous pulse ox d/c'd last night per tele -Ortho spin rec outpatient f/u Subjective: Patient feeling well, reports that her low back pain is better this AM. No new complaints. Medications: Current Inpatient Medications Medication Dose Route Frequency acetaminophen (TYLENOL) tablet 650 mg 650 mg oral Q6H albuterol (PROVENTIL, VENTOLIN) 90 mcg/actuation inhaler 2 puff 2 puff inhalation Q4H PRN bisacodyl (DULCOLAX) suppository 10 mg 10 mg rectal DAILY PRN heparin injection 5,000 Units 5,000 Units subcutaneous Q8H lidocaine (LIDODERM) 5 %(700 mg/patch) patch 2 patch 2 patch transdermal Q24H metoprolol tartrate (LOPRESSOR) tablet 75 mg 75 mg oral BID omeprazole (PRILOSEC) capsule 20 mg 20 mg oral DAILY ondansetron (ZOFRAN) injection 4 mg 4 mg intravenous Q12H PRN oxyCODONE (immediate release) (ROXICODONE) tablet 5 mg 5 mg oral Q3H PRN polyethylene glycol (MIRALAX) powder 17 g 17 g oral DAILY senna-docusate (SENOKOT S) 8.6-50 mg 1 tablet 1 tablet oral BID Physical Exam: Last Vitals: Ht 1.727 m (5' 8"), Wt 198.2 kg (436 lb 15.2 oz), BP 115/52, Pulse 88, Temperature 36.8 C (98.2 F), RR 16, SpO2 98%, BMI 66.45 kg/(m^2). 24 Hour Min/Max: Temp Av.7 C (98.1 F) Min: 36.4 C (97.5 F) Max: 36.9 C (98.4 F) Pulse Av.7 Min: 80 Max: 89 Systolic (24hrs), Av mmHg, Min:97 mmHg, Max:151 mmHg Diastolic (24hrs), Av mmHg, Min:52 mmHg, Max:77 mmHg Resp Av.2 Min: 16 Max: 20 SpO2 Av % Min: 94 % Max: 100 % Intake/Output Summary (Last 24 hours) at 07/22/14 1611 Last data filed at 07/22/14 1521 Gross per 24 hour Intake 650 ml Output 155 ml Net 495 ml Gen: NAD, sitting up in chair, pleasant cooperative HEENT: EOMI, anicteric sclerae, MMM Neck: Dialysis line in R neck Resp: CTAB CV: Distant heart sounds, but normal rate, regular rhythm, no m/g/r Abd: obese, soft, non-tender. Multiple incision sites from laparoscope c/d/i, with no drain age or hematoma. Ext: Interval improvement in BLE edema, +1 pitting Skin: No rashes or erythema Labs/Imaging: Chemistries: Last 72 Hours (or 3 results): Recent Labs 07/21/14 1939 07/22/14 0556 07/22/14 1013 07/22/14 1217 07/22/14 1423 NA 131* -- 130* -- 131* -- K 3.7 -- 4.0 -- 3.9 -- CL 96* -- 96* -- 95* -- BICARB 27 -- 22 -- 24 -- BUN 26* -- 31* -- 34* -- CR 4.60* -- 5.16* -- 5.45* -- GLU 94 < > 86 111* 103* 99 CA 7.3* -- 7.4* -- 7.4* -- PO4 3.9 -- 4.9* -- 4.6 -- < > = values in this interval not displayed. CBC with diff last 72 hours (or 3 results) Recent Labs 07/20/14 0239 07/22/14 0917 WBC 15.91* 10.52 HB 8.7* 8.5* HCT 27.4* 26.9* PLT 228 180 NEUTROPERC 83.2* -- LYMPHPERC 6.0* -- MONOPERC 6.8 -- BASOPERC 0.2 -- EOSPERC 0.3* -- 07/20/14 XR - Lumbosacral IMPRESSION: Moderate to severe L4-S1 degenerative disc disease. No acute osseous abnormality. 07/20/14 XR Thoracolumbar IMPRESSION: Mild degenerative disc disease of the lower thoracic spine. No acute osseous abnormality.. Assessment & Plan: 43 y.o. female with PMH of morbid obesity, asthma, DM2 (on metformin), asthma, HTN, GERD, c hronic low back pain, now POD#8 s/p laparoscopic cholecystectomy for cholecystitis, course c omplicated by rhabdo with oligo-anuric BARBIE requiring HD. #Oliguric BARBIE #Rhabdo #Hyperhosphatemia - resolved 2/2 ATN with muddy brown casts in the setting of rhabdo likely due to immobility post-op. T delilah patient is not oliguric, UOP up to 675ml yesterday (double UOP from day before - 305ml) . Too early to tell any renal recovery. CK peaked to >42k, consistently trending down, CK 49 53 today, no need to check further. Phos peaked at 6.1 on 07/21, down today at 3.6. Will sharad sely monitor electrolytes with daily labs. Per renal, we will continue vigil as it is requir ed for strict UOP monitoring. -Nephrology on board -Next HD planned for tomorrow, 07/25 -Last HD yesterday, tolerated well, 3L UF off -Daily renal function panel -Daily magnesium -Continue vigil - will continue to assess daily -Renal diet -Consider phos binders if phos becomes elevated #Hyponatremia - stable #Volume status - improving Hypervolemic in the setting of anuric BARBIE. She is at risk for pulmonary edema given anuric /oliguric state, will monitor volume status closely as HD will be needed to remove volume. P atient's sodium stable at 134, improved from 131 previously, presumed 2/2 hypervolemia. -Monitor volume status, HD as above -Volume restrict 1.5 L -Lower Na bath with dialysis per nephrology #Chronic low back pain - stable, constant #Post-op pain - improving Per post-op pain is stable, but low back pain is chronic and we will have patient follow up with ortho spine as an outpatient for further management. Per patient, pain is controlled o nt he current regimen, no changes today. -Scheduled acetaminophen 650mg q6h -Lidocaine patch q24h to low back -oxycodone 5mg q3h #Deconditioning -PT/OT -Encourage mobilization, OOB as frequently as possible. -Limit chair to 1-2 hours at a time -Per PT, patient progressing well, may be able to d/c home wih HHPT vs SNF Chronic, stable, resolved issues: #DM2 - CBGs conrolled 100s-140s in house. Stopped insulin and CBGs. #S/p [place] - f/u with Gen Surg for outpatient follow up plan #Asthma - continue home albuterol #KYLER - RT following in house. Will need outpatient sleep study, order placed #HTN - continue home metoprolol #GERD - continue home omeprazole Food: Renal diet Access: Dialysis line in R neck, PIV, vigil - will reassess need daily DVT: heparin subQ, SCDs Code: Full Dispo: Pending This patient has been seen and discussed with Dr. Bañuelos who agrees with the assessment an d plan. Brenda Mayers MD Neurology PGY-1 Medicine Service Pager [phone] eiss, Brenda Frances MD - 07/24/2014 9:48 AM PDTNephrology Attending Note I have seen and examined this patient and I have discussed this patient with Dr. Marti; I agree with the assessment and plan in Dr. Marti's note. I have reviewed laboratory data f rom today. Some ?vigil injury per IM note ( tripped on it?) - given uop a bit lower today than yesterday, please consider flushing vigil to ensure no blood clot inhibiting flow . No urgent dialytic indications today but we will cont to assess daily with you. Likely nex t HD tomorrow. We will follow c you. Please call with questions/concerns. Brenda Mark Division of Nephrology and Hypertension Pager #[phone] Office: [phone] [facility] DEPARTMENT: [id number]- [facility] Place of Service: [id number] - CSN: [id number] Suggested Modifier: GC Resident Involved Rosa Tobar M D - 07/24/2014 9:48 AM PDT Nephrology Inpatient Consult Follow Up Note IDENTIFICATION: PATIENT NAME: Vineet Nuno : 1970 DATE OF ADMISSION: 07/14/2014 DATE OF SERVICE: 07/24/2014 HOSPITAL DAY: 10 PCP: KRYSTAL Malagon REQUESTING PROVIDER: General Surgery Team REASON FOR CONSULTATION: BARBIE, low UOP IMPRESSION & RECOMMENDATIONS: Mrs. Vineet Nuno is a 43 y/o female with PMH significant for obesity, pre-DM on metformin, asthma, GERD, HTN, LE edema s/p laparoscopic cholecystectomy on 07/16/14 for acute on chroni c cholecystitis. Now with anuric BARBIE requiring HD. Problem List BARBIE w/ ATN 584.5 Oliguria, Anuria 788.5 Hypertension, Essential Benign 401.1 Periphreal Edema 782.3 Hyponatremia 276.1 #Acute Renal Failure 2/2 ATN, anuric: In setting of rhabdo -Urine microscopy: [place] brown casts -Still very minimal urine out-put; essentially anuric-oliguric --> though slight improvemen t -please keep in Vigil for now -- need very accurate UOP as this is our main measurement of improvement in renal function (given on HD now). Understand risks of infection with Vigil ho wever feel this is important enough for her care plan to keep in for now. Suspect she would not be able to collect urine easily otherwise. We will think about this daily and alert prim percy team to when we can take it out. -Started on iHD 07/19/14 (Access: Right Tempt line placed 07/19/14) -Dialyzed last 07/23/14 with 3 liter UF. Tolerated it well -plan for iHD next 07/25 #Volume/BP -BP at goal -Volume up in setting of IV fluids and anuric BARBIE -At risk for developing pulmonary edema -Avoid IVF -Will remove volume with iHD as tolerated #Hyponatremia: Hypervolemic, in setting of BARBIE (poor free water clearance) and likely a com ponent of SIADH -Stable/improving -Will use lower Na bath with dialysis -Fluid restrict to 1.5 liters #Hyperphosphatemia; in setting of BARBIE; -Will manage with iHD and diet for now, but will consider binders if phos continues to stay high. General Recs: -continue Renal and Diabetic diet with 1.5L fluid restriction -no IVF given anuric Patient was staffed with Dr. Mark, who agrees with the assessment and plan. Please do not hesitate to call our team with any questions. Rosa Marti MD Internal Medicine [place]2 [place] [phone] Interval events/subjective: -no acute overnight events -had HD yesterday, 3L removed MEDICATIONS: Scheduled Medications Medication Dose Route Frequency Last Rate acetaminophen (TYLENOL) tablet 650 mg 650 mg oral Q6H heparin injection 5,000 Units 5,000 Units subcutaneous Q8H lidocaine (LIDODERM) 5 %(700 mg/patch) patch 2 patch 2 patch transdermal Q24H metoprolol tartrate (LOPRESSOR) tablet 75 mg 75 mg oral BID omeprazole (PRILOSEC) capsule 20 mg 20 mg oral DAILY polyethylene glycol (MIRALAX) powder 17 g 17 g oral DAILY senna-docusate (SENOKOT S) 8.6-50 mg 1 tablet 1 tablet oral BID PRN Medications Medication Dose Route Frequency Last Rate albuterol (PROVENTIL, VENTOLIN) 90 mcg/actuation inhaler 2 puff 2 puff inhalation Q4H PRN bisacodyl (DULCOLAX) suppository 10 mg 10 mg rectal DAILY PRN ondansetron (ZOFRAN) injection 4 mg 4 mg intravenous Q12H PRN oxyCODONE (immediate release) (ROXICODONE) tablet 5 mg 5 mg oral Q3H PRN PHYSICAL EXAM: Last Vitals: BP 134/60 | Pulse 90 | Temp 36.8 C (98.2 F) | RR 16 | Ht 1.727 m (5' 8") | Wt 198.2 kg (436 lb 15.2 oz) | SpO2 98% | BMI 66.45 kg/(m^2)FIO2 (%): 40 fraction of O2 (07/16/141999) O2 Delivery Device: Nasal cannula (07/24/14 0436) 24 Hour Vital Min/Max: Systolic (24hrs), Av mmHg, Min:97 mmHg, Max:151 mmHg Diastolic (24hrs), Av mmHg, Min:54 mmHg, Max:77 mmHg Pulse Min: 81 Max: 96 Temp Min: 36.6 C (97.9 F) Max: 37.6 C (99.7 F) Resp Min: 16 Max: 18 SpO2 Min: 98 % Max: 100 % Intake/Output Summary (Last 24 hours) at 07/24/14 0916 Last data filed at 07/24/14 0403 Gross per 24 hour Intake 400 ml Output 3675 ml Net -3275 ml Constitutional: NAD, more alert today. Lying in bed. HEENT: NCAT, anicteric sclera, mucosa moist, oropharynx is clear. Neck: Supple, trachea midline. Respiratory: Clear to auscultation bilaterally, normal respiratory effort. CV: Regular rhythm, normal rate. S1 and S2 normal, no m/r/g. Pulses JVD difficult to asses s GI: Soft, non-tender, non-distended, normoactive bowel sounds. No Organomegaly. Extremities: Obese extremities, difficult to assess edema, but does have 1+ in both hands a nd lower ext. Skin: Warm and dry. No rashes or concerning lesions noted. Normal nail-beds. Neurologic / Musculoskeletal: Grossly non-focal. No Tremor or asterixis. Psychiatric: Normal mood and affect. Access: Right IJ temp line 07/19/14 LAB / STUDIES: All blood, urine, radiographic, and other diagnostic test results noted below were personal ly reviewed. Recent Labs 07/14/14200107/17/14 0255 07/22/14 1217 07/23/14 0520 07/23/14 2220 07/24/14 0510 NA 136 < > 134* < > 131* -- 131* -- 134* K 3.3* < > 3.9 < > 3.9 -- 3.3* -- 3.6 CL 98 < > 97 < > 95* -- 95* -- 100 BICARB 30 < > 29 < > 24 -- 27 -- 29 BUN 12 < > 15 < > 34* -- 45* -- 32* CR 1.04 < > 2.04* < > 5.45* -- 5.81* -- 4.06* GLU 128* < > 138* < > 103* < > 109* 139* 109* CA 8.8 < > 7.8* < > 7.4* -- 7.4* -- 7.2* AST 46* -- 696* -- -- -- -- -- -- ALT 40 -- 189* -- -- -- -- -- -- AP 67 -- 89 -- -- -- -- -- -- TBILI 1.0 -- 0.9 -- -- -- -- -- -- TP 7.6 -- 7.5 -- -- -- -- -- -- ALB 3.5 < > 2.7* < > 1.9* -- 2.0* -- 1.9* < > = values in this interval not displayed. Lab Results Component Value Date WBC 10.52 07/22/2014 HB 8.5 07/22/2014 HCT 26.9 07/22/2014 PLT 180 07/22/2014 MCV 100.7 07/22/2014 RDW 56.4 07/22/2014 Recent Labs 07/14/14200107/17/14 0255 07/22/14 1217 07/23/14 0520 07/24/14 0510 AST 46* -- 696* -- -- -- -- ALT 40 -- 189* -- -- -- -- TBILI 1.0 -- 0.9 -- -- -- -- AP 67 -- 89 -- -- -- -- ALB 3.5 < > 2.7* < > 1.9* 2.0* 1.9* TP 7.6 -- 7.5 -- -- -- -- < > = values in this interval not displayed. Lab Results Component Value Date CK 4953 07/24/2014 CK 7423 07/23/2014 CK 9587 07/22/2014 [place] [address] 07/22/2014 [place] [address] 07/21/2014 [place] [address] 07/21/2014 [place] [address] 07/21/2014 Urine Cr 316 Urine sodium 7 TTE 07/15/14: EF normal Mild increased RVSP of 50 mmHg Urine spin revealed muddy brown casts Tony Herrera - 6:50 AM PDT Medical Student Progress Note - for educational purposes only Interval: -dialysis completed -no change in renal recs, next anticipated HD 07/25 -ortho/spine: no further intervention -d/c pulse ox (no desats for entire stay) -25mg oxycodone PRN used yesterday Subjective: Feels much better this morning. Was able to adjust bed to be more comfortable. Back pain is better. Using hot pack was helpful. tripped over Vigil last night; josh e blood in the urine. Objective: Vitals: Last Vitals: BP 134/60 | Pulse 90 | Temp 36.8 C (98.2 F) | RR 16 | Ht 1.727 m ( 5' 8") | Wt 198.2 kg (436 lb 15.2 oz) | SpO2 98% | BMI 66.45 kg/(m^2) 24 Hour Vital Min/Max: Systolic (24hrs), Av mmHg, Min:97 mmHg, Max:151 mmHg Diastolic (24hrs), Av mmHg, Min:54 mmHg, Max:77 mmHg Pulse Min: 81 Max: 96 Temp Min: 36.6 C (97.9 F) Max: 37.6 C (99.7 F) Resp Min: 16 Max: 20 SpO2 Min: 98 % Max: 100 % Intake/Output Summary (Last 24 hours) at 07/24/14 0650 Last data filed at 07/24/14 0403 Gross per 24 hour Intake 410 ml Output 3675 ml Net -3265 ml UOP 675 (305 yest), ultrafiltrate 3000 General: resting comfortably in bed, NAD HEENT: anicteric sclerae, extraocular movements intact, mucus membranes moist Neck: dialysis line in left neck Heart: regular rate and rhythm, no m/r/g, JVP not able to visualize due to body habitus Lungs: no increased work of breathing, good air movement. Lungs clear to auscultation bilat erally, no wheezes rales or rhonchi. Abd: bowel sounds present, soft, nondistended. Some tenderness on the left side, no guardin g. Drain site covered by gauze with no drainage. Ext: LE pitting edema extending mid calf, no rashes Neuro: ANOx4 Pertinent Medications: Current Inpatient Medications Medication Dose Route Frequency acetaminophen (TYLENOL) tablet 650 mg 650 mg oral Q6H albuterol (PROVENTIL, VENTOLIN) 90 mcg/actuation inhaler 2 puff 2 puff inhalation Q4H PRN bisacodyl (DULCOLAX) suppository 10 mg 10 mg rectal DAILY PRN heparin injection 5,000 Units 5,000 Units subcutaneous Q8H lidocaine (LIDODERM) 5 %(700 mg/patch) patch 2 patch 2 patch transdermal Q24H metoprolol tartrate (LOPRESSOR) tablet 75 mg 75 mg oral BID omeprazole (PRILOSEC) capsule 20 mg 20 mg oral DAILY ondansetron (ZOFRAN) injection 4 mg 4 mg intravenous Q12H PRN oxyCODONE (immediate release) (ROXICODONE) tablet 5 mg 5 mg oral Q3H PRN polyethylene glycol (MIRALAX) powder 17 g 17 g oral DAILY senna-docusate (SENOKOT S) 8.6-50 mg 1 tablet 1 tablet oral BID Pertinent Labs/Studies: Plasma CK: 4953 (peak 42K on 07/19) Renal function set: BUN 32 (yest 45), Cr 4.06 (yest 5.81), EGFR 12 mL/min (yest 8), Na 131 (L), K 3.3 (slight L), Ca 7.2 (stable since 07/18), alb 1.9 (stable since 07/19) M.9 Assessment/Plan: Ms. Nuno is a 43 year old woman with morbid obesity, DM2 on metformin, HT N, and chronic low back pain who presents s/p laproscopic cholecystectomy on 07/16 c/b rhabdo myalysis peak 42K on 07/19 with anuric BARBIE requiring intermittent hemodialysis, now improving . #Anuric BARBIE: Acute tubular necrosis with muddy brown casts secondary to rhabdomyalysis s/p cholecystectomy. CK peaked 07/19, trending downward. GFR continues to be very low but stable since 07/19. Nephrology following. Receiving iHD. No longer oliguric (UOP >500ml) -Vigil in place for uop monitoring. -Next HD 07/25 -Recs from nephrology, appreciate involvement -Daily labs: Mg, renal f(x) -Renal diet -Talk to nephrology about Vigil removal date -stop checking CK #Hypervolemic hyponatremia: Secondary to anuric BARBIE. Fluid overload risks pulmonary edema a nd volume overload. Hyponatremia has been stable. -Fluid restricted 1500 ml. -Careful daily physical exam for lung crackles, extremity edema, elevated JVP -Hemodialysis to remove volume -lower Na bath with dialysis per nephrology #Obesity/immmobility/deconditiong: post op immobility. On bariatric bed, in chair 1 hour at a time. Encourage patient to ambulate. -PT/OT consulting. -Will likely need SNF for d/c. Patient is aware and agrees. #S/p cholecystectomy: Recovered well. Renal diet. -Being followed peripherally by EGS -F/u with EGS outpt in 2 weeks. -Aggressive bowel regimen per surg recs #Acute post operative pain: Improving. IV dilaudid d/c on 07/23. Currently using oxycodone. -Limit opioids as possible #Chronic low back pain: Constant and unchanged. Ortho spine says no further action at this time. -Pain control as above -lidocaine patches q24 to low back -Continue heat application #KYLER: Needs outpatient polysomnography. RT following while in house. -overnight oximetry also a viable option to obtain more information #DM: prediabetes per chart. Blood glucose WNL at hospital. -order A1C value Stable or resolved: #Hyperphosphatemia: Secondary to BARBIE. Peaked at 6.1 on 07/21, now 4.6 -continue to monitor with daily renal f(x) labs -consider phosphate binders if phos becomes elevated again #HTN: On home dose metoprolol PO #GERD: Omeprazole #PPX: On SQ heparin, SCD's #Asthma: Home albuterol Dispo: Discharge to SNF when medically stable. Dispo criteria: improvement of renal functio n and determination of the rate of recovery. If recovery will need continued dialysis, will need dialysis center arranged and vocational nurse lvn to follow. Discharge planning: -f/u EGS 2 weeks -outpatient polysomnography -ortho f/u scans as outpatient Routine care: DVT prophylaxis: heparin Diet: renal Code: full TONY Elizabeth Jerry Rosenbaum MD - 07/23/2014 10:38 PM PDT General Medicine Attending Note I personally evaluated the patient, performed the sosa elements of the physical examination, and personally formulated the assessment and plan with Dr. Mayers. I have reviewed the writte n documentation and I agree with the findings, assessment, advice, orders and plan as they a re documented. Assessment 1. Acute kidney injury, oligoanuric, with acute tubular necrosis, due to pigment nephropath y 2. Rhabdomyolysis 3. Morbid obesity 4. Obstructive sleep apnea, probable 5. Asthma 6. Essential hypertension 7. Symptomatic cholelithiasis, s/p laparoscopic cholecystectomy 8. Hyperphosphatemia 9. Hyponatremia 10. Volume overload, due to renal failure 11. Acute post operative nociceptive pain 12. Chronic low back pain Jerry Bañuelos MD Systems Designer Clinical Hospitalist and Medicine Teaching Services [facility] DEPARTMENT: Hosp- [id number] Place of Service: - [id number] Date of Service: 07/23/2014 CSN: [id number] Modifiers:GC Resident Involved: Yes Suggested CPT: 39866 Subsequent Visit Detailed/High complexity 35 min I spent more than 40 minutes in coordination of care and [id number] with the patient and/ or their surrogate of which greater than 50% was spent counseling. ice, Brenda Mariano MD - 07/23/2014 4:44 PM PDT GM3 PROGRESS NOTE/Transfer Accept Note Date: 07/22/2014 Hospital Day: 9 Author: BRENDA MAYERS MD, MD Attending Physician: Jerry Bañuelos MD Interval events: -No acute events o/n -305ml UOP yesterday Subjective: Patient laying down in bed this AM. Low back pain worse today. Medications: Current Inpatient Medications Medication Dose Route Frequency acetaminophen (TYLENOL) tablet 650 mg 650 mg oral Q6H albuterol (PROVENTIL, VENTOLIN) 90 mcg/actuation inhaler 2 puff 2 puff inhalation Q4H PRN bisacodyl (DULCOLAX) suppository 10 mg 10 mg rectal DAILY PRN heparin injection 5,000 Units 5,000 Units subcutaneous Q8H lidocaine (LIDODERM) 5 %(700 mg/patch) patch 2 patch 2 patch transdermal Q24H metoprolol tartrate (LOPRESSOR) tablet 75 mg 75 mg oral BID omeprazole (PRILOSEC) capsule 20 mg 20 mg oral DAILY ondansetron (ZOFRAN) injection 4 mg 4 mg intravenous Q12H PRN oxyCODONE (immediate release) (ROXICODONE) tablet 5 mg 5 mg oral Q3H PRN polyethylene glycol (MIRALAX) powder 17 g 17 g oral DAILY senna-docusate (SENOKOT S) 8.6-50 mg 1 tablet 1 tablet oral BID Physical Exam: Last Vitals: Ht 1.727 m (5' 8"), Wt 198.2 kg (436 lb 15.2 oz), BP 143/77, Pulse 88, Temperature 36.6 C (97.9 F), RR 16, SpO2 99%, BMI 66.45 kg/(m^2). 24 Hour Min/Max: Temp Av.7 C (98.1 F) Min: 36.4 C (97.5 F) Max: 36.9 C (98.4 F) Pulse Av.7 Min: 80 Max: 89 Systolic (24hrs), Av mmHg, Min:97 mmHg, Max:151 mmHg Diastolic (24hrs), Av mmHg, Min:53 mmHg, Max:77 mmHg Resp Av.2 Min: 16 Max: 20 SpO2 Av % Min: 94 % Max: 100 % Intake/Output Summary (Last 24 hours) at 07/22/14 1611 Last data filed at 07/22/14 1521 Gross per 24 hour Intake 650 ml Output 155 ml Net 495 ml Gen: NAD, laying in bed, resting comfortably. AAOx3 HEENT: EOMI, anicteric sclerae, MMM Neck: Dialysis line in R neck Resp: CTAB CV: Distant heart sounds, but normal rate, regular rhythm, no m/g/r Abd: obese, but soft, non-tender. Multiple incision sites from laparoscope c/d/i, with no d rainage or hematoma. Ext: Edematous, but non-pitting Skin: No rashes or erythema Labs/Imaging: Chemistries: Last 72 Hours (or 3 results): Recent Labs 07/21/14 1939 07/22/14 0556 07/22/14 1013 07/22/14 1217 07/22/14 1423 NA 131* -- 130* -- 131* -- K 3.7 -- 4.0 -- 3.9 -- CL 96* -- 96* -- 95* -- BICARB 27 -- 22 -- 24 -- BUN 26* -- 31* -- 34* -- CR 4.60* -- 5.16* -- 5.45* -- GLU 94 < > 86 111* 103* 99 CA 7.3* -- 7.4* -- 7.4* -- PO4 3.9 -- 4.9* -- 4.6 -- < > = values in this interval not displayed. CBC with diff last 72 hours (or 3 results) Recent Labs 07/20/14 0239 07/22/14 0917 WBC 15.91* 10.52 HB 8.7* 8.5* HCT 27.4* 26.9* PLT 228 180 NEUTROPERC 83.2* -- LYMPHPERC 6.0* -- MONOPERC 6.8 -- BASOPERC 0.2 -- EOSPERC 0.3* -- 07/20/14 XR - Lumbosacral IMPRESSION: Moderate to severe L4-S1 degenerative disc disease. No acute osseous abnormality. 07/20/14 XR Thoracolumbar IMPRESSION: Mild degenerative disc disease of the lower thoracic spine. No acute osseous abnormality.. Assessment & Plan: 43 y.o. female with PMH of morbid obesity, asthma, DM2 (on metformin), asthma, HTN, GERD, c hronic low back pain, now POD#6 s/p laparoscopic cholecystectomy for cholecystitis, course c omplicated by rhabdo with anuric BARBIE requiring HD. #Oliguric BARBIE #Rhabdo #Hyperhosphatemia - resolved 2/2 ATN with muddy brown casts in the setting of rhabdo likely due to immobility post-op. U OP 305ml yesterday, more of oliguric picture. Too early to tell any renal recovery. CK nayely d to >42k, now consistently trending down, CK 7423 today. Phos peaked at 6.1 on 07/21, now s table at 4.6 again today. Will closely monitor electrolytes with daily labs. -Nephrology on board -Anticipate HD today. Last HD 07/21/14. -Daily renal function panel -Daily magnesium -Trend daily CK -Renal diet -Consider phos binders if phos becomes elevated #Hyponatremia - stable #Volume status Hypervolemic in the setting of anuric BARBIE. She is at risk for pulmonary edema and volume ov erload given anuric/oliguric state, will monitor volume status closely as HD will be needed to remove volume. Patient's sodium stable at 131, unchanged from previous, presumed 2/2 hype rvolemia. -Monitor volume status, HD as above -Volume restrict 1.5 L -Lower Na bath with dialysis per nephrology #Chronic low back pain - stable, constant #Post-op pain - improving Discussed spine images with ortho spine today, no current indication for surgical managemen t, patient should follow up in clinic in several weeks. Per post-op pain is stable, but low back pain continues to be a problem. Per patient, pain is controlled with orals, will discontinue IV dilaudid today as patient was rarely using it. -Scheduled acetaminophen 650mg q6h -Lidocaine patch q24h to low back -oxycodone 5mg q3h -D/C dilaudid IV #Deconditioning -PT/OT -Encourage mobilization, OOB as frequently as possible. -Limit chair to 1-2 hours at a time -Anticipate SNF for discharge. Patient understands and agrees. Chronic, stable, resolved issues: #DM2 - CBGs conrolled 100s-140s in house. Stopped insulin and CBGs. #S/p [place] - f/u with Gen Surg for outpatient follow up plan #Asthma - continue home albuterol #KYLER - RT following in house. Will need outpatient sleep study, order placed #HTN - continue home metoprolol #GERD - continue home omeprazole Food: Renal diet Access: Dialysis line in R neck, PIV, vigil DVT: heparin subQ, SCDs Code: Full Dispo: Pending This patient has been seen and discussed with Dr. Bañuelos who agrees with the assessment an d plan. Brenda Mayers MD Neurology PGY-1 Medicine Service Pager [phone] Brenda Engle MD - 07/23/2014 10:15 AM PDTNephrology Attending Note I have seen and examined this patient and I have discussed this patient with Dr. Marti; I agree with the assessment and plan in Dr. Marti's note. I have reviewed laboratory data f rom today. Patient remains oliguric with brisk creatinine rise during 24 hr non-dialytic in terval. Plan for HD today; anticipate next HD 07/25 unless urgent indications prior. Cont to monitor for any e/o renal recovery. Please call with questions/concerns. Brenda Mark Division of Nephrology and Hypertension Pager #[phone] Office: [phone] [facility] DEPARTMENT: [id number] NEPHROLOGY [facility] Place of Service: [id number] - CSN: [id number] Suggested Modifier: GC Resident Involved Rosa Tobar M D - 07/23/2014 10:15 AM PDT Nephrology Inpatient Consult Follow Up Note IDENTIFICATION: PATIENT NAME: Vineet Nuno : 1970 DATE OF ADMISSION: 07/14/2014 DATE OF SERVICE: 07/23/2014 HOSPITAL DAY: 9 PCP: KRYSTAL Malagon REQUESTING PROVIDER: General Surgery Team REASON FOR CONSULTATION: BARBIE, low UOP IMPRESSION & RECOMMENDATIONS: Mrs. Vineet Nuno is a 43 y/o female with PMH significant for obesity, pre-DM on metformin, asthma, GERD, HTN, LE edema s/p laparoscopic cholecystectomy on 07/16/14 for acute on chroni c cholecystitis. Now with anuric BARBIE requiring HD. Problem List BARBIE w/ ATN 584.5 Oliguria, Anuria 788.5 Hypertension, Essential Benign 401.1 Periphreal Edema 782.3 Hyponatremia 276.1 #Acute Renal Failure 2/2 ATN, anuric: In setting of rhabdo -Urine microscopy: [place] brown casts -Still very minimal urine out-put; essentially anuric-oliguric. -Started on iHD 07/19/14 (Access: Right Tempt line placed 07/19/14) -Dialyzed last 07/21/14 with 2.2 liter UF. Tolerated it well -plan for iHD today #Volume/BP -BP at goal -Volume up in setting of IV fluids and anuric BARBIE -At risk for developing pulmonary edema -Avoid IVF -Will remove volume with iHD as tolerated #Hyponatremia: Hypervolemic, in setting of BARBIE (poor free water clearance) and likely a com ponent of SIAD -Stable/improving -Will use lower Na bath with dialysis -Fluid restrict to 1.5 liters #Hyperphosphatemia; in setting of BARBIE; -Will manage with iHD and diet for now, but will consider binders if phos continues to stay high. General Recs: -continue Renal and Diabetic diet with 1.5L fluid restriction -no IVF given anuric Patient was staffed with Dr. Mark, who agrees with the assessment and plan. Please do not hesitate to call our team with any questions. Rosa Marti MD Internal Medicine PGY2 Pg [phone] Interval events/subjective: -no acute overnight events -transferred to [facility] Team -denies any shortness of breath -feeling sleepy MEDICATIONS: Scheduled Medications Medication Dose Route Frequency Last Rate acetaminophen (TYLENOL) tablet 650 mg 650 mg oral Q6H heparin injection 5,000 Units 5,000 Units subcutaneous Q8H lidocaine (LIDODERM) 5 %(700 mg/patch) patch 2 patch 2 patch transdermal Q24H metoprolol tartrate (LOPRESSOR) tablet 75 mg 75 mg oral BID omeprazole (PRILOSEC) capsule 20 mg 20 mg oral DAILY polyethylene glycol (MIRALAX) powder 17 g 17 g oral DAILY senna-docusate (SENOKOT S) 8.6-50 mg 1 tablet 1 tablet oral BID PRN Medications Medication Dose Route Frequency Last Rate albuterol (PROVENTIL, VENTOLIN) 90 mcg/actuation inhaler 2 puff 2 puff inhalation Q4H PRN bisacodyl (DULCOLAX) suppository 10 mg 10 mg rectal DAILY PRN HYDROmorphone (DILAUDID) injection 0.2-0.4 mg 0.2-0.4 mg intravenous Q2H PRN nalOXone (NARCAN) injection intravenous PRN ondansetron (ZOFRAN) injection 4 mg 4 mg intravenous Q12H PRN oxyCODONE (immediate release) (ROXICODONE) tablet 5 mg 5 mg oral Q3H PRN PHYSICAL EXAM: Last Vitals: BP 113/56 | Pulse 85 | Temp 36.6 C (97.9 F) | RR 20 | Ht 1.727 m (5' 8") | Wt 198.2 kg (436 lb 15.2 oz) | SpO2 94% | BMI 66.45 kg/(m^2)FIO2 (%): 40 fraction of O2 (07/16/141999) O2 Delivery Device: Nasal cannula (07/23/14 0900) 24 Hour Vital Min/Max: Systolic (24hrs), Av mmHg, Min:100 mmHg, Max:143 mmHg Diastolic (24hrs), Av mmHg, Min:53 mmHg, Max:64 mmHg Pulse Min: 80 Max: 85 Temp Min: 36.6 C (97.9 F) Max: 36.9 C (98.4 F) Resp Min: 20 Max: 20 SpO2 Min: 94 % Max: 100 % Intake/Output Summary (Last 24 hours) at 07/23/14 1015 Last data filed at 07/23/14 0515 Gross per 24 hour Intake 780 ml Output 305 ml Net 475 ml Constitutional: NAD, sleepy, but arousable. Lying in bed. HEENT: NCAT, anicteric sclera, mucosa moist, oropharynx is clear. Neck: Supple, trachea midline. Respiratory: Clear to auscultation bilaterally, normal respiratory effort. CV: Regular rhythm, normal rate. S1 and S2 normal, no m/r/g. Pulses JVD difficult to asses s GI: Soft, non-tender, non-distended, normoactive bowel sounds. No Organomegaly. Extremities: Obese extremities, difficult to assess edema, but does have 1+ in both hands a nd lower ext. Skin: Warm and dry. No rashes or concerning lesions noted. Normal nail-beds. Neurologic / Musculoskeletal: Grossly non-focal. No Tremor or asterixis. Psychiatric: Normal mood and affect. Access: Right IJ temp line 07/19/14 LAB / STUDIES: All blood, urine, radiographic, and other diagnostic test results noted below were personal ly reviewed. Recent Labs 04/18/15 2002 07/17/1425407/22/1456 07/22/14121607/22/14 1934 07/22/14224507/23/14 0520 NA 136 < > 134* < > 130* -- 131* -- -- -- 131* K 3.3* < > 3.9 < > 4.0 -- 3.9 -- -- -- 3.3* CL 98 < > 97 < > 96* -- 95* -- -- -- 95* BICARB 30 < > 29 < > 22 -- 24 -- -- -- 27 BUN 12 < > 15 < > 31* -- 34* -- -- -- 45* CR 1.04 < > 2.04* < > 5.16* -- 5.45* -- -- -- 5.81* GLU 128* < > 138* < > 86 < > 103* < > 120* 125* 109* CA 8.8 < > 7.8* < > 7.4* -- 7.4* -- -- -- 7.4* AST 46* -- 696* -- -- -- -- -- -- -- -- ALT 40 -- 189* -- -- -- -- -- -- -- -- AP 67 -- 89 -- -- -- -- -- -- -- -- TBILI 1.0 -- 0.9 -- -- -- -- -- -- -- -- TP 7.6 -- 7.5 -- -- -- -- -- -- -- -- ALB 3.5 < > 2.7* < > 1.7* -- 1.9* -- -- -- 2.0* < > = values in this interval not displayed. Lab Results Component Value Date WBC 10.52 07/22/2014 HB 8.5 07/22/2014 HCT 26.9 07/22/2014 PLT 180 07/22/2014 MCV 100.7 07/22/2014 RDW 56.4 07/22/2014 Recent Labs 07/14/14200107/17/1425407/22/[id number]/22/14121607/23/14 0520 AST 46* -- 696* -- -- -- -- ALT 40 -- 189* -- -- -- -- TBILI 1.0 -- 0.9 -- -- -- -- AP 67 -- 89 -- -- -- -- ALB 3.5 < > 2.7* < > 1.7* 1.9* 2.0* TP 7.6 -- 7.5 -- -- -- -- < > = values in this interval not displayed. Lab Results Component Value Date CK 7423 07/23/2014 CK 9587 07/22/[place] [address] 07/22/2014 [place] [address] 07/21/2014 [place] [address] 07/21/2014 [place] [address] 07/21/2014 [place] [address] 07/20/2014 Urine Cr 316 Urine sodium 7 TTE 07/15/14: EF normal Mild increased RVSP of 50 mmHg Urine spin revealed muddy brown casts Tony Herrera - 7:07 AM PDT Medical Student Progress Note - for educational purposes only Overnight: -SpO2 sats mostly 100%, with brief dips into the 70s and 80s at night while sleeping -no acute overnight events Subjective: -ate breakfast in chair -bad back pain this morning, lower back bilaterally Objective: Vitals: Last Vitals: BP 121/53 | Pulse 81 | Temp 36.9 C (98.4 F) | RR 20 | Ht 1.727 m ( 5' 8") | Wt 198.2 kg (436 lb 15.2 oz) | SpO2 94% | BMI 66.45 kg/(m^2) 24 Hour Vital Min/Max: Systolic (24hrs), Av mmHg, Min:100 mmHg, Max:143 mmHg Diastolic (24hrs), Av mmHg, Min:53 mmHg, Max:70 mmHg Pulse Min: 80 Max: 83 Temp Min: 36.7 C (98.1 F) Max: 36.9 C (98.4 F) Resp Min: 20 Max: 20 SpO2 Min: 94 % Max: 100 % Intake/Output Summary (Last 24 hours) at 07/23/14 0707 Last data filed at 07/23/14 0515 Gross per 24 hour Intake 1280 ml Output 305 ml Net 975 ml Net 16L positive during hospitalization General: resting comfortably in bed, NAD HEENT: anicteric sclerae, extraocular movements intact, mucus membranes moist Neck: dialysis line in left neck Heart: regular rate and rhythm, no m/r/g, JVP not able to visualize due to body habitus Lungs: no increased work of breathing, good air movement. Lungs clear to auscultation bilat erally, no wheezes rales or rhonchi. Abd: bowel sounds present, soft, nondistended. Some tenderness on the left side, no guardin g. Drain site covered by gauze with no drainage. Ext: LE pitting edema extending mid calf, no rashes Neuro: ANOx4 Pertinent Medications: Current Inpatient Medications Medication Dose Route Frequency acetaminophen (TYLENOL) tablet 650 mg 650 mg oral Q6H albuterol (PROVENTIL, VENTOLIN) 90 mcg/actuation inhaler 2 puff 2 puff inhalation Q4H PRN bisacodyl (DULCOLAX) suppository 10 mg 10 mg rectal DAILY PRN heparin injection 5,000 Units 5,000 Units subcutaneous Q8H HYDROmorphone (DILAUDID) injection 0.2-0.4 mg 0.2-0.4 mg intravenous Q2H PRN lidocaine (LIDODERM) 5 %(700 mg/patch) patch 2 patch 2 patch transdermal Q24H metoprolol tartrate (LOPRESSOR) tablet 75 mg 75 mg oral BID nalOXone (NARCAN) injection intravenous PRN omeprazole (PRILOSEC) capsule 20 mg 20 mg oral DAILY ondansetron (ZOFRAN) injection 4 mg 4 mg intravenous Q12H PRN oxyCODONE (immediate release) (ROXICODONE) tablet 5 mg 5 mg oral Q3H PRN polyethylene glycol (MIRALAX) powder 17 g 17 g oral DAILY senna-docusate (SENOKOT S) 8.6-50 mg 1 tablet 1 tablet oral BID Pertinent Labs/Studies: Plasma CK: 7423 (peak 42K on 07/19) Renal function set: BUN 45, Cr 5.81 (both trending up since 07/21), EGFR 8 mL/min (stable si nce 07/19), Na 131 (L), K 3.3 (slight L), Ca 7.4 (stable since 07/18), alb 2.0 (stable since ) M.2 Blood glucose: 100-125 CBC 07/22: WBC WNL, HCt 26.9 (L, down and stable postop) Assessment/Plan: Ms. Nuno is a 43 year old woman with morbid obesity, DM2 on metformin, HT N, and chronic low back pain who presents s/p laproscopic cholecystectomy on 07/16 c/b rhabdo myalysis peak 42K on 07/19 with anuric BARBIE requiring intermittent hemodialysis, now improving . #Anuric BARBIE: Acute tubular necrosis with muddy brown casts secondary to rhabdomyalysis s/p cholecystectomy. CK peaked 07/19, trending downward. GFR continues to be very low but stable since 07/19. Nephrology following. Receiving iHD. -Vigil in place for uop monitoring. -Hemodialysis this afternoon (last HD 07/21/14) -Recs from nephrology, appreciate involvement -Daily labs: Mg, CK, renal f(x) -Renal diet #Hypervolemic hyponatremia: Secondary to anuric BARBIE. Fluid overload risks pulmonary edema a nd volume overload. Hyponatremia has been stable. -Fluid restricted 1500 ml. -Careful daily physical exam for lung crackles, extremity edema, elevated JVP -Hemodialysis to remove volume -lower Na bath with dialysis per nephrology #Obesity/immmobility/deconditiong: post op immobility. On bariatric bed, in chair 1 hour at a time. Encourage patient to ambulate. -PT/OT consulting. -Will likely need SNF for d/c. Patient is aware and agrees. #S/p cholecystectomy: Recovered well. Renal diet. -Being followed peripherally by EGS -F/u with EGS outpt in 2 weeks. -Aggressive bowel regimen per surg recs #Acute post operative pain: Improving -oxycodone, dilaudid -Limit opioids as possible -D/c IV dilaudid #Chronic low back pain: Constant and unchanged. -Pain control as above -lidocaine patches q24 to low back -Ortho spine to review x rays from 07/20 and make recs (likely outpatient mgmt) -Try heat application #KYLER: Needs outpatient polysomnography. RT following while in house. #DM: prediabetes per chart. Blood glucose WNL at hospital. -look up A1C value Stable or resolved: #Hyperphosphatemia: Secondary to BARBIE. Peaked at 6.1 on 07/21, now 4.6 -continue to monitor with daily renal f(x) labs -consider phosphate binders if phos becomes elevated again #HTN: On home dose metoprolol PO #GERD: Omeprazole #PPX: On SQ heparin, SCD's #Asthma: Home albuterol Dispo: Discharge to SNF when medically stable. Dispo criteria: improvement of renal functio n and determination of the rate of recovery. If recovery will need continued dialysis, will need dialysis center arranged and vocational nurse lvn to follow. Discharge planning: -f/u EGS 2 weeks -outpatient polysomnography -ortho f/u scans as outpatient Routine care: DVT prophylaxis: heparin Diet: renal Code: full TONY Elizabeth ice, Brenda Mariano MD - 07/22/2014 4:11 PM PDT GM3 PROGRESS NOTE/Transfer Accept Note Date: 07/22/2014 Hospital Day: 8 Author: BRENDA MAYERS MD, MD Attending Physician: Jerry Bañuelos MD Transfer Summary: Adapted from Dr. Case's excellent note 07/22/14: Ms. Nuno is a 43 yoF with morbid obesity, asthma, DM2, HTN, GERD, chronic low back pain wh o was transferred from [facility] in [facility] on 07/15 for abdominal pain, cholecy stitis and transferred for high-risk cholecystectomy. Now s/p cholecystectomy on 07/16 at [facility]. Per gen surg, operation was done laparoscopically, but was very difficult, taking several hours because of her body habitus. She was transferred to the ICU post op for respiratory f ailure. Post operatively, she had severe back and buttock pain which made it difficult for h er to lie in bed, and so she sat in a bedside chair for many hours (in spite of multiple att empt to get her to walk or get back into bed) with little movement. On POD#1, her creatinine began to rise and she became oliguric in spite of aggressive fluid resuscitation. The nephr ology team was consulted on POD#2 and labs were checked, including a CK which was > 26K. She remained anuric.. Her CK peaked at >42K on 07/19. A RIJ HD line was placed on 07/19 and iHD w as initiated on 07/20. She continues on iHD with her last run 07/21, with next planned 07/23/14 . Given acute kidney failure, HD needs, and rhabdomyolysis, patient is being transferred to [facility] general medicine service. Of note, the ortho spine team was called to evaluate her severe back pain and recommended s pine x-rays which were not obtained because of her inability to stand long enough for the im ages Subjective: Patient sitting up on edge of bed this PM. She feels diffusely weak with only mild muscle s oreness. She is trying to get up out of bed as much as she can, so so far she has been up (w ith assistance) around the room and to the bathroom. She complains of her chronic, persisten t low back pain without radiation, as well as some tenderness on the L side of her abdomen. Medications: Current Inpatient Medications Medication Dose Route Frequency acetaminophen (TYLENOL) tablet 650 mg 650 mg oral Q6H albuterol (PROVENTIL, VENTOLIN) 90 mcg/actuation inhaler 2 puff 2 puff inhalation Q4H PRN bisacodyl (DULCOLAX) suppository 10 mg 10 mg rectal DAILY PRN dextrose 50 % IV 25 mL 25 mL intravenous PRN glucagon (GLUCAGEN) injection 1 mg 1 mg intramuscular PRN glucose chewable tablet 16 g 16 g oral PRN heparin injection 5,000 Units 5,000 Units subcutaneous Q8H HYDROmorphone (DILAUDID) injection 0.2-0.4 mg 0.2-0.4 mg intravenous Q2H PRN insulin lispro (HUMALOG) injection subcutaneous QID lidocaine (LIDODERM) 5 %(700 mg/patch) patch 2 patch 2 patch transdermal Q24H metoprolol tartrate (LOPRESSOR) tablet 75 mg 75 mg oral BID nalOXone (NARCAN) injection intravenous PRN omeprazole (PRILOSEC) capsule 20 mg 20 mg oral DAILY ondansetron (ZOFRAN) injection 4 mg 4 mg intravenous Q12H PRN oxyCODONE (immediate release) (ROXICODONE) tablet 5 mg 5 mg oral Q3H PRN polyethylene glycol (MIRALAX) powder 17 g 17 g oral DAILY senna-docusate (SENOKOT S) 8.6-50 mg 1 tablet 1 tablet oral BID Physical Exam: Last Vitals: Ht 1.727 m (5' 8"), Wt 198.2 kg (436 lb 15.2 oz), BP 100/61, Pulse 80, Temperature 36.9 C (98.4 F), RR 20, SpO2 99%, BMI 66.45 kg/(m^2). 24 Hour Min/Max: Temp Av.7 C (98.1 F) Min: 36.4 C (97.5 F) Max: 36.9 C (98.4 F) Pulse Av.7 Min: 80 Max: 89 Systolic (24hrs), Av mmHg, Min:100 mmHg, Max:131 mmHg Diastolic (24hrs), Av mmHg, Min:56 mmHg, Max:76 mmHg Resp Av.2 Min: 16 Max: 20 SpO2 Av % Min: 94 % Max: 100 % Intake/Output Summary (Last 24 hours) at 07/22/14 1611 Last data filed at 07/22/14 1521 Gross per 24 hour Intake 650 ml Output 155 ml Net 495 ml Gen: NAD, pleasant, cooperative Neuro: Non-focal. Strength 5/5 in BUE and bilat DF,PF. HEENT: EOMI, anicteric sclerae, MMM Neck: Dialysis line in L neck Resp: CTAB CV: Distant heart sounds, but normal rate, regular rhythm, no m/g/r Abd: obese, but soft, non-tender. Multiple incision sites from laparoscope c/d/i, with no d rainage or hematoma. Drain site covered by gauze, but no drainage. Some serous discoloration of bandage. Ext: Edematous, but non-pitting. Skin: No rashes or erythema Labs/Imaging: Chemistries: Last 72 Hours (or 3 results): Recent Labs 07/21/14 1939 07/22/14 0556 07/22/14 1013 07/22/14 1217 07/22/14 1423 NA 131* -- 130* -- 131* -- K 3.7 -- 4.0 -- 3.9 -- CL 96* -- 96* -- 95* -- BICARB 27 -- 22 -- 24 -- BUN 26* -- 31* -- 34* -- CR 4.60* -- 5.16* -- 5.45* -- GLU 94 < > 86 111* 103* 99 CA 7.3* -- 7.4* -- 7.4* -- PO4 3.9 -- 4.9* -- 4.6 -- < > = values in this interval not displayed. CBC with diff last 72 hours (or 3 results) Recent Labs 07/20/14 0239 07/22/14 0917 WBC 15.91* 10.52 HB 8.7* 8.5* HCT 27.4* 26.9* PLT 228 180 NEUTROPERC 83.2* -- LYMPHPERC 6.0* -- MONOPERC 6.8 -- BASOPERC 0.2 -- EOSPERC 0.3* -- 07/20/14 XR - Lumbosacral IMPRESSION: Moderate to severe L4-S1 degenerative disc disease. No acute osseous abnormality. 07/20/14 XR Thoracolumbar IMPRESSION: Mild degenerative disc disease of the lower thoracic spine. No acute osseous abnormality.. Assessment & Plan: 43 y.o. female with PMH of morbid obesity, asthma, DM2 (on metformin), asthma, HTN, GERD, c hronic low back pain, now POD#6 s/p laparoscopic cholecystectomy for cholecystitis, course c omplicated by rhabdo with anuric BARBIE requiring HD. #Anuric BARBIE #Rhabdo #Hyperhosphatemia - resolved 2/2 ATN with muddy brown casts in the setting of rhabdo likely due to immobility post-op. U OP 55ml today. CK peaked to >42k, now consistently trending down, CK 9587 today. Phos nayely d at 6.1 on 07/21, now down to 4.6. Will closely monitor electrolytes with daily labs. -Nephrology on board -Anticipate HD tomorrow. Last HD 07/21/14. -Daily renal function -Daily magnesium -Trend daily CK -Renal diet -Consider phos binders if phos becomes elevated #Hyponatremia - stable #Volume status Hypervolemic in the setting of anuric BARBIE. She is at risk for pulmonary edema and volume ov erload given anuric/oliguric state, will monitor volume status closely as HD will be needed to remove volume. -Monitor volume status -Volume restrict 1.5 L -Lower Na bath with dialysis per nephrology #Chronic low back pain - stable, constant #Post-op pain - improving Ortho spine consulted for low back pain and recommended AP ad lateral images of Thoracic an d L/S spine, but was initially unable to get these images. XR able to be completed on 07/20, so will re-consult ortho spine to review the imaging tomorrow. As post-op pain improves, patient has continued, chronic low back pain. Pain does not radia te into the legs, does not have radicular pattern. Pain is persistent, but would like to tra nsition away from IV pain meds in consideration of future placement for rehab once medical i ssues resolve. -Call ortho spine re: spine XR completed 07/20 -Scheduled acetaminophen 650mg q6h -Lidocaine patch q24h to low back -oxycodone 5mg q3h -Dilaudid IV 0.2-0.4 mg q2h - would like to minimize use. Currently using about 1x per day #DM2 Per chart, pre-diabetes, but cannot find Hgb A1c on initial chart review. Will review furth er. CBGs conrolled 100s-140s in house. Will d/c insulin and CBGs. -D/C insulin -D/C CBGs #Deconditioning -PT/OT -Encourage mobilization, OOB as frequently as possible. -Limit chair to 1-2 hours at a time -Anticipate SNF for discharge. Patient understands and agrees. Chronic, stable, resolved issues: #S/p [place] - f/u with Gen Surg for outpatient follow up plan #Asthma - continue home albuterol #KYLER - RT following in house. Will need outpatient sleep study, order placed #HTN - continue home metoprolol #GERD - continue home omeprazole Food: Renal diet Access: Dialysis line in R neck, PIV, vigil DVT: heparin subQ, SCDs Code: Full Dispo: Pending This patient will be staffed with Dr. Bañuelos within 24 hours. Brenda Mayers MD Neurology PGY-1 Medicine Service Pager [phone] Ailyn Ni MD - 07/22/2014 7:01 AM PDTI saw and examined this patient with Dr. Garrett and agree with his findings and plan. Answered Mr. Nuno's many excellent questions today. Plan for HD tomorrow absent e/o renal recovery. [facility] DEPARTMENT: [id number] NEPHROLOGY [facility] Place of Service: [id number] - CSN: [id number] Suggested Modifier: GC Resident Involved Mark Arce MD - 07/22/2014 7:01 AM PDT Nephrology Inpatient Consult Follow Up Note IDENTIFICATION: PATIENT NAME: Vineet Nuno : 1970 DATE OF ADMISSION: 07/14/2014 DATE OF SERVICE: 07/20/2014 HOSPITAL DAY: 8 PCP: No Pcp Per PATIENT REQUESTING PROVIDER: General Surgery Team REASON FOR CONSULTATION: BARBIE, low UOP IMPRESSION & RECOMMENDATIONS: Mrs. Vineet Nuno is a 43 y/o female with PMH significant for obesity, pre-DM on metformin, asthma, GERD, HTN, LE edema s/p laparoscopic cholecystectomy on 07/16/14 for acute on chroni c cholecystitis. Now with anuric BARBIE requiring HD. Problem List BARBIE w/ ATN 584.5 Oliguria, Anuria 788.5 Hypertension, Essential Benign 401.1 Periphreal Edema 782.3 Hyponatremia 276.1 #Acute Renal Failure 2/2 ATN, anuric: In setting of rhabdo -Urine microscopy: [place] brown casts -Still very minimal urine out-put; essentially anuric-oliguric. -Started on iHD 07/19/14 (Access: Right Tempt line placed 07/19/14) -Dialyzed yesterday, 07/21/14 with 2.2 liter UF. Tolerated it well -No iHD today, but will assess dialytic need tomorrow. #Volume/BP -BP at goal -Volume up in setting of IV fluids and anuric BARBIE -At risk for developing pulmonary edema -Avoid IVF -Will remove volume with iHD as tolerated - #Hyponatremia: Hypervolemic, in setting of BARBIE (poor free water clearance) and likely a com ponent of SIAD -Stable/improving -Will use lower Na bath with dialysis -Fluid restrict to 1.5 liters Hyperphosphatemia; in setting of BARBIE; resolved -Will manage with iHD and diet for now, but will consider binders if phos continues to stay high. -continue Renal and Diabetic diet with 1.5L fluid restriction -no IVF given anuric Patient was staffed with Dr. Adams, who agrees with the assessment and plan. Please do not hesitate to call our team with any questions. Osiel Garrett MD Nephrology Fellow Pager [phone] Interval events/subjective: Dialyzed yesterday No acute overnight events Denies any shortness of breath, nausea and vomiting ROS 5/8 Ros are negative unless stated otherwise MEDICATIONS: Scheduled Medications Medication Dose Route Frequency Last Rate acetaminophen (TYLENOL) tablet 650 mg 650 mg oral Q6H heparin injection 5,000 Units 5,000 Units subcutaneous Q8H insulin lispro (HUMALOG) injection subcutaneous QID lidocaine (LIDODERM) 5 %(700 mg/patch) patch 2 patch 2 patch transdermal Q24H metoprolol tartrate (LOPRESSOR) tablet 75 mg 75 mg oral BID omeprazole (PRILOSEC) capsule 20 mg 20 mg oral DAILY polyethylene glycol (MIRALAX) powder 17 g 17 g oral DAILY senna-docusate (SENOKOT S) 8.6-50 mg 1 tablet 1 tablet oral BID PRN Medications Medication Dose Route Frequency Last Rate albuterol (PROVENTIL, VENTOLIN) 90 mcg/actuation inhaler 2 puff 2 puff inhalation Q4H PRN bisacodyl (DULCOLAX) suppository 10 mg 10 mg rectal DAILY PRN dextrose 50 % IV 25 mL 25 mL intravenous PRN glucagon (GLUCAGEN) injection 1 mg 1 mg intramuscular PRN glucose chewable tablet 16 g 16 g oral PRN HYDROmorphone (DILAUDID) injection 0.2-0.4 mg 0.2-0.4 mg intravenous Q2H PRN nalOXone (NARCAN) injection intravenous PRN ondansetron (ZOFRAN) injection 4 mg 4 mg intravenous Q12H PRN oxyCODONE (immediate release) (ROXICODONE) tablet 5 mg 5 mg oral Q3H PRN PHYSICAL EXAM: Last Vitals: BP 128/76 | Pulse 81 | Temp 36.9 C (98.4 F) | RR 20 | Ht 1.727 m (5' 8") | Wt 198.2 kg (436 lb 15.2 oz) | SpO2 99% | BMI 66.45 kg/(m^2)FIO2 (%): 40 fraction of O2 (07/16/141999) O2 Delivery Device: Nasal cannula (07/22/14420) 24 Hour Vital Min/Max: Systolic (24hrs), Av mmHg, Min:101 mmHg, Max:171 mmHg Diastolic (24hrs), Av mmHg, Min:43 mmHg, Max:87 mmHg Pulse Min: 81 Max: 100 Temp Min: 36.4 C (97.5 F) Max: 36.9 C (98.4 F) Resp Min: 16 Max: 26 SpO2 Min: 94 % Max: 99 % Intake/Output Summary (Last 24 hours) at 07/22/14 0701 Last data filed at 07/22/14 0517 Gross per 24 hour Intake 180 ml Output 2408 ml Net -2228 ml Constitutional: NAD, sleepy, but arousable. Lying in bed. HEENT: NCAT, anicteric sclera, mucosa moist, oropharynx is clear. Neck: Supple, trachea midline. Respiratory: Clear to auscultation bilaterally, normal respiratory effort. CV: Regular rhythm, normal rate. S1 and S2 normal, no m/r/g. Pulses JVD difficult to asses s GI: Soft, non-tender, non-distended, normoactive bowel sounds. No Organomegaly. Extremities: Obese extremities, difficult to assess edema, but does have 1+ in both hands a nd lower ext. Skin: Warm and dry. No rashes or concerning lesions noted. Normal nail-beds. Neurologic / Musculoskeletal: Grossly non-focal. No Tremor or asterixis. Psychiatric: Normal mood and affect. Access: Right IJ tempt line 07/19/14 LAB / STUDIES: All blood, urine, radiographic, and other diagnostic test results noted below were personal ly reviewed. Recent Labs 07/14/14200107/17/1425407/21/[id number]/21/14171307/21/14192707/21/14193807/21/14 2251 NA 136 < > 134* < > 127* -- 131* -- 131* -- K 3.3* < > 3.9 < > 3.5 -- 4.0 -- 3.7 -- CL 98 < > 97 < > 90* -- 96* -- 96* -- BICARB 30 < > 29 < > 23 -- 26 -- 27 -- BUN 12 < > 15 < > 42* -- 26* -- 26* -- CR 1.04 < > 2.04* < > 6.78* -- 4.29* -- 4.60* -- GLU 128* < > 138* < > 82 < > 85 92 94 97 CA 8.8 < > 7.8* < > 7.1* -- 7.3* -- 7.3* -- AST 46* -- 696* -- -- -- -- -- -- -- ALT 40 -- 189* -- -- -- -- -- -- -- AP 67 -- 89 -- -- -- -- -- -- -- TBILI 1.0 -- 0.9 -- -- -- -- -- -- -- TP 7.6 -- 7.5 -- -- -- -- -- -- -- ALB 3.5 < > 2.7* < > 1.9* -- 2.1* -- 1.8* -- < > = values in this interval not displayed. Lab Results Component Value Date WBC 15.91 07/20/2014 HB 8.7 07/20/2014 HCT 27.4 07/20/2014 PLT 228 07/20/2014 MCV 99.6 07/20/2014 RDW 54.9 07/20/2014 Recent Labs 04/18/15 2002 04/21/15 0255 04/25/15 0534 04/25/15 1714 04/25/15 1939 AST 46* -- 696* -- -- -- -- ALT 40 -- 189* -- -- -- -- TBILI 1.0 -- 0.9 -- -- -- -- AP 67 -- 89 -- -- -- -- ALB 3.5 < > 2.7* < > 1.9* 2.1* 1.8* TP 7.6 -- 7.5 -- -- -- -- < > = values in this interval not displayed. [place] [address] 07/21/2014 [place] [address] 07/21/2014 [place] 41172 07/21/2014 [place] [address] 07/20/2014 [place] [address] 07/20/2014 CK >62941 07/20/2014 [place] [address] 07/20/2014 [place] [address] 07/19/2014 Urine Cr 316 Urine sodium 7 TTE 07/15/14: EF normal Mild increased RVSP of 50 mmHg Urine spin revealed muddy brown casts Ailyn Ni MD - 0 07/21/2014 8:45 AM PDTI saw and examined patient on hemodialysis with Dr. Garrett and faustino mariano with his findings and plan. [facility] DEPARTMENT: [id number] NEPHROLOGY [facility] Place of Service: CSN: [id number] Suggested Modifier: GC Resident Involved Mrak Arce MD - 07/21/2014 8:45 AM PDT Nephrology Inpatient Consult Follow Up Note IDENTIFICATION: PATIENT NAME: Vineet Nuno : 1970 DATE OF ADMISSION: 07/14/2014 DATE OF SERVICE: 07/20/2014 HOSPITAL DAY: 7 PCP: No Pcp Per PATIENT REQUESTING PROVIDER: General Surgery Team REASON FOR CONSULTATION: BARBIE, low UOP IMPRESSION & RECOMMENDATIONS: Mrs. Vineet Nuno is a 43 y/o female with PMH significant for obesity, pre-DM on metformin, asthma, GERD, HTN, LE edema s/p laparoscopic cholecystectomy on 4/20/15 for acute on chroni c cholecystitis. Now with anuric BARBIE requiring HD. Problem List BARBIE w/ ATN 584.5 Oliguria, Anuria 788.5 Hypertension, Essential Benign 401.1 Periphreal Edema 782.3 Hyponatremia 276.1 #Acute Renal Failure 2/2 ATN, anuric: In setting of rhabdo -Urine microscopy: [place] brown casts -Very minimal improve to urine out-put, but still essentially anuric-oliguric. -Unable to tolerate fluids. -Started on iHD 07/19/14 (Access: Right Tempt line placed 07/19/14) -Unable to complete iHD run yesterday due to high catheter pressure, less likely clot, but most likely positional -Packed with tPA. -Will dialyze again today with heparin (OK with primary team) -no IVF, including maintenance -Strict Is/Os #Volume/BP -BP at goal -Volume up in setting of IV fluids and anuric BARBIE -At risk for developing pulmonary edema -Avoid IVF - #Hyponatremia: Hypervolemic, in setting of BARBIE (poor free water clearance) and likely a com ponent of SIAD -Stable/improving -Will use lower Na bath -Fluid restrict to 1.5 liters Hyperphosphatemia; in setting of BARBIE -On renal diet -Will manage with iHD and diet for now, but will consider binders if phos continues to stay high. Pyuria on UA: -will f/u UCx and consider treating UTI if clinically indicated --monitor UOP -avoid nephrotoxins, no NSAIDs or toradol -ensure Vigil adequately draining please -continue Renal and Diabetic diet with 1.5L fluid restriction -no IVF given anuric Patient was staffed with Dr. Adams, who agrees with the assessment and plan. Please do not hesitate to call our team with any questions. Osiel Garrett MD Nephrology Fellow Pager [phone] Interval events/subjective: Dialyzed yesterday, but was shorter run due to dialysis catheter problems Catheter was packed with tPA More awake this morning, back pain is 7/10 Denies any shortness of breath, nausea and vomiting ROS 5/8 Ros are negative unless stated otherwise MEDICATIONS: Scheduled Medications Medication Dose Route Frequency Last Rate acetaminophen (TYLENOL) tablet 650 mg 650 mg oral Q6H heparin injection 5,000 Units 5,000 Units subcutaneous Q8H insulin lispro (HUMALOG) injection subcutaneous QID lidocaine (LIDODERM) 5 %(700 mg/patch) patch 2 patch 2 patch transdermal Q24H metoprolol tartrate (LOPRESSOR) tablet 75 mg 75 mg oral BID omeprazole (PRILOSEC) capsule 20 mg 20 mg oral DAILY polyethylene glycol (MIRALAX) powder 17 g 17 g oral DAILY senna-docusate (SENOKOT S) 8.6-50 mg 1 tablet 1 tablet oral BID PRN Medications Medication Dose Route Frequency Last Rate albuterol (PROVENTIL, VENTOLIN) 90 mcg/actuation inhaler 2 puff 2 puff inhalation Q4H PRN bisacodyl (DULCOLAX) suppository 10 mg 10 mg rectal DAILY PRN dextrose 50 % IV 25 mL 25 mL intravenous PRN glucagon (GLUCAGEN) injection 1 mg 1 mg intramuscular PRN glucose chewable tablet 16 g 16 g oral PRN HYDROmorphone (DILAUDID) injection 0.2-0.4 mg 0.2-0.4 mg intravenous Q2H PRN nalOXone (NARCAN) injection intravenous PRN ondansetron (ZOFRAN) injection 4 mg 4 mg intravenous Q12H PRN oxyCODONE (immediate release) (ROXICODONE) tablet 5 mg 5 mg oral Q3H PRN PHYSICAL EXAM: Last Vitals: BP 134/67 | Pulse 91 | Temp 36.7 C (98.1 F) | RR 18 | Ht 1.727 m (5' 8") | Wt 198.2 kg (436 lb 15.2 oz) | SpO2 98% | BMI 66.45 kg/(m^2)FIO2 (%): 40 fraction of O2 (07/16/14 2000) O2 Delivery Device: Nasal cannula (07/21/14 0715) 24 Hour Vital Min/Max: Systolic (24hrs), Av mmHg, Min:83 mmHg, Max:144 mmHg Diastolic (24hrs), Av mmHg, Min:31 mmHg, Max:72 mmHg Pulse Min: 85 Max: 91 Temp Min: 36.3 C (97.4 F) Max: 37 C (98.6 F) Resp Min: 14 Max: 26 SpO2 Min: 93 % Max: 98 % Intake/Output Summary (Last 24 hours) at 07/21/14 0845 Last data filed at 07/21/14 0549 Gross per 24 hour Intake 990 ml Output 1215 ml Net -225 ml Constitutional: NAD. More awake, sitting up in bed, just came out of bathroom. Trying to ly down in bed. HEENT: NCAT, anicteric sclera, mucosa moist, oropharynx is clear. Neck: Supple, trachea midline. Respiratory: Clear to auscultation bilaterally, normal respiratory effort. CV: Regular rhythm, normal rate. S1 and S2 normal, no m/r/g. Pulses JVD difficult to asses s GI: Soft, non-tender, non-distended, normoactive bowel sounds. No Organomegaly. Extremities: Obese extremities, difficult to assess edema, but does have 1+ in both hands Skin: Warm and dry. No rashes or concerning lesions noted. Normal nail-beds. Neurologic / Musculoskeletal: Grossly non-focal. No Tremor or asterixis. Psychiatric: Normal mood and affect. Access: Right IJ tempt line 07/19/14 LAB / STUDIES: All blood, urine, radiographic, and other diagnostic test results noted below were personal ly reviewed. Recent Labs 07/14/14200107/17/14 0255 07/20/14 1037 07/20/14 2034 07/20/14 2222 07/21/14 0534 NA 136 < > 134* < > 124* 125* -- 127* K 3.3* < > 3.9 < > 3.7 3.6 -- 3.5 CL 98 < > 97 < > 90* 91* -- 90* BICARB 30 < > 29 < > 22 22 -- 23 BUN 12 < > 15 < > 47* 39* -- 42* CR 1.04 < > 2.04* < > 7.12* 6.26* -- 6.78* GLU 128* < > 138* < > 83 80 93 82 CA 8.8 < > 7.8* < > 7.0* 7.2* -- 7.1* AST 46* -- 696* -- -- -- -- -- ALT 40 -- 189* -- -- -- -- -- AP - 89 -- -- -- -- -- TBILI 1.0 -- 0.9 -- -- -- -- -- TP 7.6 -- 7.5 -- -- -- -- -- ALB 3.5 < > 2.7* < > 1.9* 1.9* -- 1.9* < > = values in this interval not displayed. Lab Results Component Value Date WBC 15.91 07/20/2014 HB 8.7 07/20/2014 HCT 27.4 07/20/2014 PLT 228 07/20/2014 MCV 99.6 07/20/2014 RDW 54.9 07/20/2014 Recent Labs 07/14/14 2002 07/17/14 0255 07/20/14103607/20/14203307/21/14 0534 AST 46* -- 696* -- -- -- -- ALT 40 -- 189* -- -- -- -- TBILI 1.0 -- 0.9 -- -- -- -- AP -- -- -- -- ALB 3.5 < > 2.7* < > 1.9* 1.9* 1.9* TP 7.6 -- 7.5 -- -- -- -- < > = values in this interval not displayed. [place] [address] 07/21/2014 [place] [address]67 07/20/2014 [place] 18547 07/20/2014 CK >99731 07/20/2014 [place] [address]980 07/20/2014 [place] [address]649 07/19/2014 [place] 20627 07/19/2014 [place] [address]22 07/19/2014 Urine Cr 316 Urine sodium 7 TTE 07/15/14: EF normal Mild increased RVSP of 50 mmHg Urine spin revealed muddy brown casts Aleena Estrella DO - 07/21/2014 6:23 AM PDT [facility] DEPARTMENT OF SURGERY EMERGENCY GENERAL SURGERY Division of Trauma and Critical Care Attending Physician: Deacon Mendez MD Progress Note Note Date: 07/21/2014 Admission Date: 07/14/2014 VINEET NUNO, Hospital Day #7 HPI: 43 y/o morbidly obese F s/p laparoscopic cholecystectomy 07/16/14 INTERVAL HISTORY: To dialysis on 07/20 Hypotensive overnight to 70's/30's when asleep, rechecked at 90's/50's when awake Made 215 mL urine in past 24 hours Pain improving Plan for dialysis on 07/21 REVIEW OF SYSTEMS: Pain lumbar pain poorly controlled Flatus: YES Tolerating diet: YES Nausea/Vomiting: Nausea Bowel movement: NO Progressing with Physical Therapy NO The remainder of the complete review of system was negative. OBJECTIVE: I have reviewed the interval history and events. I have revewed the patients medications, l abs, vitals, and other applicable data points. Please refer to [facility] for this information . PHYSICAL EXAM: LAST VITALS: BP 133/70 | Pulse 89 | Temp 36.8 C (98.2 F) | RR 20 | Ht 1.727 m (5' 8") | Wt 198.2 kg (436 lb 15.2 oz) | SpO2 97% | BMI 66.45 kg/(m^2) 24 Hour Vital Min/Max: Systolic (24hrs), Av mmHg, Min:83 mmHg, Max:144 mmHg Diastolic (24hrs), Av mmHg, Min:31 mmHg, Max:72 mmHg GENERAL: laying in bed, somnolent, NAD NEURO: AAOx3 LUNGS: significantly diminished 2/2 body habitus, unlabored on 2L NC CV: RRR ABDOMEN: obese, soft, mildly TTP at port sites : scant clear yellow urine in Vigil tubing Extremities:cool and grossly edematous bilaterally, pulses biphasic on doppler but non-palp able 2/2 edema, SCDs in place Intake/Output Summary (Last 24 hours) at 07/21/14 0623 Last data filed at 07/21/14 0549 Gross per 24 hour Intake 995 ml Output 1215 ml Net -220 ml CBC with diff last 72 hours (or 3 results) Recent Labs 07/19/14 1250 07/20/14 0239 WBC 18.09* 15.91* HB 8.9* 8.7* HCT 27.7* 27.4* PLT 213 228 NEUTROPERC 80.9* 83.2* LYMPHPERC 6.0* 6.0* MONOPERC 8.6 6.8 BASOPERC 0.3 0.2 EOSPERC 0.2* 0.3* Chemistries: Last 72 Hours (or 3 results): Recent Labs 07/18/14 2143 07/19/14 0517 07/20/14 0231 07/20/14 1037 07/20/14 2034 07/20/14 2222 NA 127* -- 126* < > 123* -- 124* 125* -- K 3.6 -- 3.8 < > 3.8 -- 3.7 3.6 -- CL 90* -- 88* < > 90* -- 90* 91* -- BICARB 23 -- 22 < > 20* -- 22 22 -- BUN 31* -- 34* < > 44* -- 47* 39* -- CR 5.11* -- 5.49* < > 6.73* -- 7.12* 6.26* -- GLU 108* < > 109* < > 84 < > 83 80 93 CA 7.5* -- 7.6* < > 7.1* -- 7.0* 7.2* -- MG 1.8 -- 1.8 -- -- -- -- -- -- PO4 4.5 -- 5.2* < > 5.9* -- 6.0* 5.1* -- < > = values in this interval not displayed. No Data Recorded Last Patients Hospital Problem List: Active Hospital Problems 1) Symptomatic cholelithiasis ASSESSMENT, MEDICAL DECISION MAKING AND PLAN: VINEET NUNO- 43 y.o. y/o female admitted on 07/14/2014 6:21 PM and hospital day 7 with following current issues. Cholelithiasis s/p cholecystectomy c/b liver laceration - pain management with APAP, oxycodone, IV dilaudid -Limit opioids 2/2 somnolence and obesity associated hypoventilation - bowel regimen - ppx: hep SQ BARBIE, likely 2/2 increased OR time with high abd presures - appreciate nephrology recs - Continue hemodialysis per Nephro recs -Patient making urine Acute on chronic lumbar back pain - c/s ortho today for recs on imaging to assess and thoughts on pain management - appreciate ortho recs for diazepam for muscle spasms - add lidocaine patch KYLER, post-op adm to ICU to monitor resp status - order in place for outpatient referral to polysomnography when pt returns to [place] - Will ask RT to provide CPAP while inpt if able Discharge Plan: Requires acute care Signed: Aleena Boswell DO PGY-1 [facility] General Surgery EGS Surgery Service Pager: [phone] oops, Kemi Mariano MD - 07/20/2014 5:40 AM PDTEGS DAILY PROGRESS NOTE S: Slept OK Pain well controlled CK downtrending, creatinine still rising. K still low (3.8) O: BP 136/73 | Pulse 94 | Temp 37 C (98.6 F) | RR 15 | Ht 1.727 m (5' 8") | Wt 198.2 kg (4 36 lb 15.2 oz) | SpO2 88% | BMI 66.45 kg/(m^2) Gen: sitting on edge of bed, NAD Neuro: AAOx4, CN II-XII grossly intact HENT: NC/AT Neck: HD cath in RIJ. Site without erythema Resp: CTAB, unlabored CV: RRR Abd: obese, soft, minimally tender around incisions. Incisions c/d/i with dermabond in plac e, no erythema : vigil with minimal concentrated urine in bag Ext: WWP, BLE edema A/P: Vineet Nuno is a 43 y.o. Female with BARBIE, rhabdomyolysis s/p lap [place] on 07/17/2014. No event overnight in the ICU s/p temporary hemodialysis catheter placement 07/19 in the OR under GETA. - Transfer to floor this morning - Hemodialysis per nephrology today - continuous pulse ox - continue vigil - trend CK, BMP - renal diet - frequent turns Kemi Posadas MD General Surgery Resident, R2 EGS Julien Pager [phone] Mark Arce MD - 07/19/2014 5:14 PM PDT Nephrology Addendum: Still waiting for dialysis line to be placed. She was in pre-op, waiting to be taken to OR to have the line placed. As discussed with primary team earlier, there is no emergent need for dialysis today based on volume or electrolytes. However, she continues to be anuric and we don't expect her to malik ve much renal recovery soon. Will check labs tonight, after she is back from OR. If there is an urgent need, e.g. Hyperk alemia, we will dialyze her tonight. Otherwise will plan to dialyze her tomorrow morning. Plan was discussed with surgery team. Please call for questions or concerns Osiel Garrett MD Nephrology Fellow Pager [phone] Darius Damico - 07/19/2014 2:04 PM PDTMed Student Procedure Note 07/19/2014 14:06 RUQ drain removed due to low drain output. The patient tolerated the procedure well. The dr tenorio site was clean and pink, without erythema or purulent material. The stitch was removed a nd the site was covered with clean gauze and medipore tape Darius Cantrell [id number] signed by Aleena Boswell DO at 07/19/2014 6:14 PM PDT Richar Craft MD - 07/19/2014 1:21 AM PDTInterval events note Emergency General Surgery Author: Richar Craft MD Had long discussion this evening with patient, patient's partner, and patient's RN about he r acute kidney failure. Patient with rising Cr since 07/16. Cr 0.93-->2.04-->3.25--->3.59-->4 .1 (07/18 AM). CK noted to be extremely high at 26k this morning, consistent with rhabdomyoly sis, Nephrology consulted. Repeat labs this evening at 9:40PM showed further increase in Cr to 5.11, CK with continued rise to 33,200. Possible etiology of rhabdo includes long period of immobility during OR case in the context of morbid obesity. After obtaining PM repeat CK we spoke with on-call vocational nurse lvn again who recommended d/c'ing IVF given that patient is o liguric to prevent fluid overload, and repeating BMP and CK at 5AM, which is ordered. Discus sed with on-call vocational nurse lvn and then with patient that there is currently no indication fo r emergent dialysis. K 3.6, Phos 4.5. Volume up per I/Os, however no clinical evidence of pu lmonary edema as she is breathing comfortably on RA. If AM CK continues to rise, may pursue further studies to identify which muscle group is leading to rhabdo. Otherwise has been hemodynamically stable with good respiratory status. EGS team to continu e to follow closely overnight. Richar Craft MD R1, Department of General Surgery [facility] Pager [phone] YNETBabita hairston MD - 07/18/2014 10:26 PM PDTAcute Pain Service Note: Consult for possible epidural placement. History obtained from chart review and discussion with primary team provider. Vineet Nuno is a 43 yo F with PMH of morbid obesity, GERD, asthma, nephrolithiasis, and ch ronic low back pain (takes ibuprofen as outpatient, opioid naive) who was admitted with acut e cholecystitis and is now POD#2 s/p laparoscopic cholecystectomy with course complicated by acute renal failure and rhabo. She has complained of worse low back pain since her operati on which was approximately 6 hours in duration. Since the operation, she is only comfortabl e sitting upright in a chair and is unable to stand or lay on her back due to pain. Her [facility] team is concerned that she will develop compartment syndrome if she remains immobile an d with lower extremities in a dependent position. APS was consulted for possible epidural p lacement for analgesia and mobility. An epidural is not indicated in this patient. Because her pain is in the low back, a lumba r epidural would be necessary for analgesia. A lumbar epidural would cause numbness in her lower extremities and render her immobile. In addition, it could mask pain in her lower ext remities if she were to develop compartment syndrome. We will evaluate the patient in the morning for consideration for trigger point injections if the pain is myofascial. This would only be a temporizing measure but could potentially i mprove her pain in the short-term. Prior to a procedure, we would need to review spine imag ing. Unfortunately, the patient has been unable to tolerate standing for lumbar spine radio graphs. Our initial recommendations include: --Schedule acetaminophen 650 mg po q4h. --Lidocaine patches to low back. Not to exceed 2 patches due to renal failure. --Continue oxycodone prn. --Consider long acting opioid like OxyContin 10 mg po BID for short-term. --Continue remote NEUROPSYCHIATRIST while on opioids and diazepam. --Offer heating pad and ice for back pain. --Use abdominal binder. --Consult PT for TENS unit. --Obtain thoracolumbar and lumbar spinal radiographs. APS will evaluate Ms. Nuno in the morning for consideration of trigger point injections. Discussed with attending physician, Yarely Boone MD who agrees with the above recommenda tions. Recommendations communicated to primary bioinformatics team member, Rolando Case MD. Babita Grey MD Anesthesiology/[facility] [place] Pager [phone] Snehal Pradhan MD - 07/18/2014 11:42 AM PDT [facility] DEPARTMENT OF SURGERY EMERGENCY GENERAL SURGERY Division of Trauma and Critical Care Attending Physician: Deacon Mendez MD Progress Note Note Date: 07/18/2014 Admission Date: 07/14/2014 VINEET NUNO, Hospital Day #4 HPI: 43 y/o morbidly obese F s/p laparoscopic cholecystectomy 07/16/14 INTERVAL HISTORY: BARBIE with UOP <150 over 24 hrs and Cr 4.1 this AM Lumbar pain positional and she is unable to lay flat in bed for an extended period of time. Has been trying to sleep standing up. Abd pain well controlled REVIEW OF SYSTEMS: Pain lumbar pain poorly controlled Flatus: YES Tolerating diet: YES Nausea/Vomiting: Nausea Bowel movement: NO Progressing with Physical Therapy NO The remainder of the complete review of system was negative. OBJECTIVE: I have reviewed the interval history and events. I have revewed the patients medications, l abs, vitals, and other applicable data points. Please refer to [facility] for this information . PHYSICAL EXAM: LAST VITALS: BP 132/46 | Pulse 94 | Temp 36.7 C (98.1 F) | RR 18 | Ht 1.727 m (5' 8") | Wt 198.2 kg (436 lb 15.2 oz) | SpO2 94% | BMI 66.45 kg/(m^2) 24 Hour Vital Min/Max: Systolic (24hrs), Av mmHg, Min:104 mmHg, Max:137 mmHg Diastoli c (24hrs), Av mmHg, Min:46 mmHg, Max:92 mmHg GENERAL: sitting at side of bed in chair, NAD NEURO: AAOx3 LUNGS: significantly diminished 2/2 body habitus, unlabored on 1L O2 CV: RRR ABDOMEN: obses, soft, mildly TTP at port sites, drain with serosanguinous output (mostly se oleg) : scant dark anupama urine in Vigil tubing Extremities:cool and grossly edematous bilaterally, pulses biphasic on doppler but non-palp able 2/2 edema, SCDs in place Intake/Output Summary (Last 24 hours) at 07/18/14 1142 Last data filed at 07/18/14 1100 Gross per 24 hour Intake 3466.67 ml Output 137 ml Net 3329.67 ml CBC with diff last 72 hours (or 3 results) Recent Labs 07/16/14 0629 07/17/14 0255 WBC 12.40* 20.80* HB 10.6* 11.3* HCT 33.3* 35.7* PLT 169 263 Chemistries: Last 72 Hours (or 3 results): Recent Labs 07/16/14 0629 07/17/14 1715 07/17/14 2222 07/18/14 0028 07/18/14 0542 07/18/14 0807 NA 137 < > 130* -- 132* -- 129* -- K 3.2* < > 3.9 -- 3.8 -- 3.9 -- CL 99 < > 96* -- 94* -- 94* -- BICARB 30 < > 27 -- 28 -- 25 -- BUN 6 < > 21* -- 21* -- 25* -- CR 0.93 < > 3.25* -- 3.59* -- 4.10* -- GLU 134* < > 130* < > 125* 116* 128* 122* CA 8.0* < > 7.7* -- 7.3* -- 7.2* -- MG 2.2 -- -- -- -- -- 2.0 -- PO4 1.9* -- -- -- -- -- 4.5 -- < > = values in this interval not displayed. No Data Recorded Last Patients Hospital Problem List: Active Hospital Problems 1) Symptomatic cholelithiasis ASSESSMENT, MEDICAL DECISION MAKING AND PLAN: VINEET NUNO- 43 y.o. y/o female admitted on 07/14/2014 6:21 PM and hospital day 4 with following current issues. Cholelithiasis s/p cholecystectomy c/b liver laceration - pain management with APAP, oxycodone, IV dilaudid - bowel regimen - anticipate d/c drain 07/19 if continues to be non-bilious - ppx: hep SQ BARBIE, likely 2/2 increased OR time with high abd presures - appreciate nephrology recs - FeNa 0.1, so will continue low rate of fluids at 100 ml/hr - holding home lasix - f/u UA with micro - holding off on renal US at this time - Unable to accurately assess bladder pressure as pt unable to lay supine Acute on chronic lumbar back pain - c/s ortho today for recs on imaging to assess and thoughts on pain management - appreciate ortho recs for diazepam for muscle spasms - add lidocaine patch KYLER, post-op adm to ICU to monitor resp status - order in place for outpatient referral to polysomnography when pt returns to [place] - Will ask RT to provide CPAP while inpt if able Discharge Plan: Requires acute care Signed: Hien Solo MD [facility] General Surgery R1 Pager #[phone] Alverto Villegas MD - 07/17/2014 5:04 AM PDTEGS progress note Lap marietta yesterday To ICU after for respiratory monitoring Satting well on 5L NC this am Lots of back pain issues overnight UOP low o/n. Bolus x 500 ml Cr up to 2 this am Tolerating CLD O: BP 128/77 | Pulse 98 | Temp 36.9 C (98.4 F) | RR 20 | Ht 1.727 m (5' 8") | Wt 198.2 kg (436 lb 15.2 oz) | SpO2 99% | BMI 66.45 kg/(m^2) Gen: NAD, responds appropriately CV: Regular, slight tachycardia Lungs: Breathing comfortably Abd: Obese, soft, appropriately tender, port sites c/d/i, drain sso Ext: wwp AP: 43F POD#1 s/p lap marietta for acute on chronic cholecystitis. In ICU overnight for respir atory monitoring given obesity. S/p lap marietta: ADAT today. Continue drain until tolerating diet. OOBTC, IS, PT. Lovenox ton ight. Acute post operative pain: PO as tolerated BARBIE: Likely dry, bolus 1L. Recheck Cr later today, follow lytes, uop. Hold home diuretics f or now. Respiratory insufficiency/Asthma: Home inhalers, nebs prn. Wean O2 as tolerated GERD: Home omep HTN: Hold home diuretics for now. Give home metop Pre DM/DM: SSI Dispo: To floor today as long as respiratory status stable, urinating. ALVERTO CASE MD SURGERY [phone] Ren Mendoza - 07/16/2014 6:58 PM PDTPatient extubated on 10L high flow oxymask with O2 sat of 88-90%. Virgilio bert on CPAP due to concern for respiratory insufficiency. Will transfer to ICU for closer mo nitoring of respiratory status and BIPAP. Electronically signed by Ren Castellanos at 2014 7:00 PM Monica Flannery MD - 07/16/2014 4:56 PM PDTINPATIENT BRIEF OPERATIVE NOTE Procedure Date: 07/16/2014 Author: REN CASTELLANOS Attending Physician: Jaimee Gomez MD Assistants: Monica Yanez MD. Alex Whitehead MD. Ren Castellanos MD. Prior to the beginning of the procedure, the team paused to verify the patient s identity , the procedure to be performed (in accordance with the consent,) and the correct side/site. The patient was positioned appropriately. All relevant images and results were properly lab eled and displayed. We addressed antibiotic prophylaxis and fluids for irrigation as applica ble to this patient. Any safety precautions were addressed. Preoperative Diagnosis: Acute on chronic cholecystitis Postoperative Diagnosis: Same Procedure Performed: Laparoscopic cholecystectomy Estimated Blood Loss: 150 ml Fluids: 1600 ml crystalloid Specimens: Gallbladder Complications: liver laceration Drains: subhepatic 19 [place] Piero drain in the gallbladder fossa Disposition: to florez Findings: Very large gallstone 2 x 3 cm obstructing the neck. Very edematous, thick gallbla dder wall. Dictatioon [id number] signed by Monica Yanez MD at 07/16/2014 7:38 PM PDTPeters on, June - 07/15/2014 2:36 PM PDTTransthoracic echocardiogram completed. Final report t o follow. documented in this enco unter Plan of Treatment Not on filedocumented as of this encounter Procedures + +--------+ + + + | Procedure Name | Priori | Date/Time | Associated Diagnosis | Comments | | | ty | | | | + +--------+ + + + | PROCEDURE NOTE | Routin | 05/02/2015 | | Results for this | | | e | 2:41 PM | | procedure are in the | | | | PST | | results section. | + +--------+ + + + | PROCEDURE NOTE | Routin | 05/02/2015 | | Results for this | | | e | 2:41 PM | | procedure are in the | | | | PST | | results section. | + +--------+ + + + | PROCEDURE NOTE | Routin | 05/02/2015 | | Results for this | | | e | 2:32 PM | | procedure are in the | | | | PST | | results section. | + +--------+ + + + | PROCEDURE NOTE | Routin | 05/02/2015 | | Results for this | | | e | 2:32 PM | | procedure are in the | | | | PST | | results section. | + +--------+ + + + | PROCEDURE NOTE | Routin | 05/02/2015 | | Results for this | | | e | 2:28 PM | | procedure are in the | | | | PST | | results section. | + +--------+ + + + | PROCEDURE NOTE | Routin | 05/02/2015 | | Results for this | | | e | 2:28 PM | | procedure are in the | | | | PST | | results section. | + +--------+ + + + | OPERATION RECORD | | 07/29/2014 | | Results for this | | | | 12:52 PM | | procedure are in the | | | | PDT | | results section. | + +--------+ + + + | RENAL FUNCTION SET | Routin | 07/27/2014 | | Results for this | | (NA,K,CL,CO2,BUN,CRE | e | 5:18 AM | | procedure are in the | | AT,GLUC,CA,PHOS,ALB | | PDT | | results section. | | ) | | | | | + +--------+ + + + | MAGNESIUM, PLASMA | Routin | 07/27/2014 | | Results for this | | | e | 5:18 AM | | procedure are in the | | | | PDT | | results section. | + +--------+ + + + | CBC (HEMOGRAM) ONLY | Routin | 07/26/2014 | | Results for this | | | e | 5:30 AM | | procedure are in the | | | | PDT | | results section. | + +--------+ + + + | RENAL FUNCTION SET | Routin | 07/26/2014 | | Results for this | | (NA,K,CL,CO2,BUN,CRE | e | 5:30 AM | | procedure are in the | | AT,GLUC,CA,PHOS,ALB | | PDT | | results section. | | ) | | | | | + +--------+ + + + | CBC ONLY | Routin | 07/26/2014 | | Results for this | | | e | 5:30 AM | | procedure are in the | | | | PDT | | results section. | + +--------+ + + + | MAGNESIUM, PLASMA | Routin | 07/26/2014 | | Results for this | | | e | 5:30 AM | | procedure are in the | | | | PDT | | results section. | + +--------+ + + + | RENAL FUNCTION SET | Routin | 07/25/2014 | | Results for this | | (NA,K,CL,CO2,BUN,CRE | e | 7:45 AM | | procedure are in the | | AT,GLUC,CA,PHOS,ALB | | PDT | | results section. | | ) | | | | | + +--------+ + + + | MAGNESIUM, PLASMA | Urgent | 07/25/2014 | | Results for this | | | | 7:45 AM | | procedure are in the | | | | PDT | | results section. | + +--------+ + + + | RENAL FUNCTION SET | Routin | 07/24/2014 | | Results for this | | (NA,K,CL,CO2,BUN,CRE | e | 5:10 AM | | procedure are in the | | AT,GLUC,CA,PHOS,ALB | | PDT | | results section. | | ) | | | | | + +--------+ + + + | MAGNESIUM, PLASMA | Routin | 07/24/2014 | | Results for this | | | e | 5:10 AM | | procedure are in the | | | | PDT | | results section. | + +--------+ + + + | CK, PLASMA | Routin | 07/24/2014 | | Results for this | | | e | 5:10 AM | | procedure are in the | | | | PDT | | results section. | + +--------+ + + + | CAPILLARY BLOOD | Routin | 07/23/2014 | | Results for this | | GLUCOSE (NO CHG), | e | 10:20 PM | | procedure are in the | | POC | | PDT | | results section. | + +--------+ + + + | HEMODIALYSIS | Routin | 07/23/2014 | | | | | e | 10:10 AM | | | | | | PDT | | | + +--------+ + + + | RENAL FUNCTION SET | Routin | 07/23/2014 | | Results for this | | (NA,K,CL,CO2,BUN,CRE | e | 5:20 AM | | procedure are in the | | AT,GLUC,CA,PHOS,ALB | | PDT | | results section. | | ) | | | | | + +--------+ + + + | MAGNESIUM, PLASMA | Routin | 07/23/2014 | | Results for this | | | e | 5:20 AM | | procedure are in the | | | | PDT | | results section. | + +--------+ + + + | CK, PLASMA | Routin | 07/23/2014 | | Results for this | | | e | 5:20 AM | | procedure are in the | | | | PDT | | results section. | + +--------+ + + + | CARDIOLOGY | | 07/23/2014 | | Results for this | | | | 12:00 AM | | procedure are in the | | | | PDT | | results section. | + +--------+ + + + | CARDIOLOGY | | 07/23/2014 | | Results for this | | | | 12:00 AM | | procedure are in the | | | | PDT | | results section. | + +--------+ + + + | CAPILLARY BLOOD | Routin | 07/22/2014 | | Results for this | | GLUCOSE (NO CHG), | e | 10:46 PM | | procedure are in the | | POC | | PDT | | results section. | + +--------+ + + + | CAPILLARY BLOOD | Routin | 07/22/2014 | | Results for this | | GLUCOSE (NO CHG), | e | 7:34 PM | | procedure are in the | | POC | | PDT | | results section. | + +--------+ + + + | CAPILLARY BLOOD | Routin | 07/22/2014 | | Results for this | | GLUCOSE (NO CHG), | e | 2:23 PM | | procedure are in the | | POC | | PDT | | results section. | + +--------+ + + + | RENAL FUNCTION SET | Routin | 07/22/2014 | | Results for this | | (NA,K,CL,CO2,BUN,CRE | e | 12:17 PM | | procedure are in the | | AT,GLUC,CA,PHOS,ALB | | PDT | | results section. | | ) | | | | | + +--------+ + + + | CK, PLASMA | Routin | 07/22/2014 | | Results for this | | | e | 12:17 PM | | procedure are in the | | | | PDT | | results section. | + +--------+ + + + | CAPILLARY BLOOD | Routin | 07/22/2014 | | Results for this | | GLUCOSE (NO CHG), | e | 10:13 AM | | procedure are in the | | POC | | PDT | | results section. | + +--------+ + + + | CBC (HEMOGRAM) ONLY | Routin | 07/22/2014 | | Results for this | | | e | 9:17 AM | | procedure are in the | | | | PDT | | results section. | + +--------+ + + + | CBC ONLY | Routin | 07/22/2014 | | Results for this | | | e | 9:17 AM | | procedure are in the | | | | PDT | | results section. | + +--------+ + + + | RENAL FUNCTION SET | Routin | 07/22/2014 | | Results for this | | (NA,K,CL,CO2,BUN,CRE | e | 5:56 AM | | procedure are in the | | AT,GLUC,CA,PHOS,ALB | | PDT | | results section. | | ) | | | | | + +--------+ + + + | CK, PLASMA | Routin | 07/22/2014 | | Results for this | | | e | 5:56 AM | | procedure are in the | | | | PDT | | results section. | + +--------+ + + + | CARDIOLOGY | | 07/22/2014 | | Results for this | | | | 12:00 AM | | procedure are in the | | | | PDT | | results section. | + +--------+ + + + | CARDIOLOGY | | 07/22/2014 | | Results for this | | | | 12:00 AM | | procedure are in the | | | | PDT | | results section. | + +--------+ + + + | CARDIOLOGY | | 07/22/2014 | | Results for this | | | | 12:00 AM | | procedure are in the | | | | PDT | | results section. | + +--------+ + + + | CAPILLARY BLOOD | Routin | 07/21/2014 | | Results for this | | GLUCOSE (NO CHG), | e | 10:51 PM | | procedure are in the | | POC | | PDT | | results section. | + +--------+ + + + | RENAL FUNCTION SET | Routin | 07/21/2014 | | Results for this | | (NA,K,CL,CO2,BUN,CRE | e | 7:39 PM | | procedure are in the | | AT,GLUC,CA,PHOS,ALB | | PDT | | results section. | | ) | | | | | + +--------+ + + + | CK, PLASMA | Routin | 07/21/2014 | | Results for this | | | e | 7:39 PM | | procedure are in the | | | | PDT | | results section. | + +--------+ + + + | CAPILLARY BLOOD | Routin | 07/21/2014 | | Results for this | | GLUCOSE (NO CHG), | e | 7:28 PM | | procedure are in the | | POC | | PDT | | results section. | + +--------+ + + + | RENAL FUNCTION SET | Routin | 07/21/2014 | | Results for this | | (NA,K,CL,CO2,BUN,CRE | e | 5:14 PM | | procedure are in the | | AT,GLUC,CA,PHOS,ALB | | PDT | | results section. | | ) | | | | | + +--------+ + + + | CK, PLASMA | Routin | 07/21/2014 | | Results for this | | | e | 5:14 PM | | procedure are in the | | | | PDT | | results section. | + +--------+ + + + | CAPILLARY BLOOD | Routin | 07/21/2014 | | Results for this | | GLUCOSE (NO CHG), | e | 5:00 PM | | procedure are in the | | POC | | PDT | | results section. | + +--------+ + + + | CAPILLARY BLOOD | Routin | 07/21/2014 | | Results for this | | GLUCOSE (NO CHG), | e | 3:50 PM | | procedure are in the | | POC | | PDT | | results section. | + +--------+ + + + | HEMODIALYSIS | Routin | 07/21/2014 | | | | | e | 9:10 AM | | | | | | PDT | | | + +--------+ + + + | CAPILLARY BLOOD | Routin | 07/21/2014 | | Results for this | | GLUCOSE (NO CHG), | e | 9:03 AM | | procedure are in the | | POC | | PDT | | results section. | + +--------+ + + + | RENAL FUNCTION SET | Routin | 07/21/2014 | | Results for this | | (NA,K,CL,CO2,BUN,CRE | e | 5:34 AM | | procedure are in the | | AT,GLUC,CA,PHOS,ALB | | PDT | | results section. | | ) | | | | | + +--------+ + + + | CK, PLASMA | Routin | 07/21/2014 | | Results for this | | | e | 5:34 AM | | procedure are in the | | | | PDT | | results section. | + +--------+ + + + | CAPILLARY BLOOD | Routin | 07/20/2014 | | Results for this | | GLUCOSE (NO CHG), | e | 10:22 PM | | procedure are in the | | POC | | PDT | | results section. | + +--------+ + + + | RENAL FUNCTION SET | Routin | 07/20/2014 | | Results for this | | (NA,K,CL,CO2,BUN,CRE | e | 8:34 PM | | procedure are in the | | AT,GLUC,CA,PHOS,ALB | | PDT | | results section. | | ) | | | | | + +--------+ + + + | CK, PLASMA | Routin | 07/20/2014 | | Results for this | | | e | 8:34 PM | | procedure are in the | | | | PDT | | results section. | + +--------+ + + + | X-RAY SPINE | Routin | 07/20/2014 | | Results for this | | THORACOLUMBAR 2 | e | 3:57 PM | | procedure are in the | | VIEWS | | PDT | | results section. | + +--------+ + + + | X-RAY SPINE | Routin | 07/20/2014 | | Results for this | | LUMBOSACRAL 2 VIEWS | e | 3:57 PM | | procedure are in the | | | | PDT | | results section. | + +--------+ + + + | HEPATITIS B SURFACE | Routin | 07/20/2014 | | Results for this | | AG, SERUM | e | 11:36 AM | | procedure are in the | | | | PDT | | results section. | + +--------+ + + + | RENAL FUNCTION SET | Routin | 07/20/2014 | | Results for this | | (NA,K,CL,CO2,BUN,CRE | e | 10:37 AM | | procedure are in the | | AT,GLUC,CA,PHOS,ALB | | PDT | | results section. | | ) | | | | | + +--------+ + + + | CK, PLASMA | Routin | 07/20/2014 | | Results for this | | | e | 10:37 AM | | procedure are in the | | | | PDT | | results section. | + +--------+ + + + | CK, PLASMA | Routin | 07/20/2014 | | Results for this | | | e | 10:37 AM | | procedure are in the | | | | PDT | | results section. | + +--------+ + + + | HEMODIALYSIS | Routin | 07/20/2014 | | | | | e | 9:46 AM | | | | | | PDT | | | + +--------+ + + + | CAPILLARY BLOOD | Routin | 07/20/2014 | | Results for this | | GLUCOSE (NO CHG), | e | 8:23 AM | | procedure are in the | | POC | | PDT | | results section. | + +--------+ + + + | CBC AND AUTO DIFF | Urgent | 07/20/2014 | | Results for this | | | | 2:39 AM | | procedure are in the | | | | PDT | | results section. | + +--------+ + + + | CBC, WITH | Urgent | 07/20/2014 | | Results for this | | DIFFERENTIAL | | 2:39 AM | | procedure are in the | | | | PDT | | results section. | + +--------+ + + + | RENAL FUNCTION SET | Routin | 07/20/2014 | | Results for this | | (NA,K,CL,CO2,BUN,CRE | e | 2:31 AM | | procedure are in the | | AT,GLUC,CA,PHOS,ALB | | PDT | | results section. | | ) | | | | | + +--------+ + + + | CK, PLASMA | Routin | 07/20/2014 | | Results for this | | | e | 2:31 AM | | procedure are in the | | | | PDT | | results section. | + +--------+ + + + | RENAL FUNCTION SET | Routin | 07/19/2014 | | Results for this | | (NA,K,CL,CO2,BUN,CRE | e | 7:08 PM | | procedure are in the | | AT,GLUC,CA,PHOS,ALB | | PDT | | results section. | | ) | | | | | + +--------+ + + + | CK, PLASMA | Urgent | 07/19/2014 | | Results for this | | | | 7:08 PM | | procedure are in the | | | | PDT | | results section. | + +--------+ + + + | X-RAY PORTABLE CHEST | Urgent | 07/19/2014 | | Results for this | | 1 VIEW | | 7:04 PM | | procedure are in the | | | | PDT | | results section. | + +--------+ + + + | CAPILLARY BLOOD | Routin | 07/19/2014 | | Results for this | | GLUCOSE (NO CHG), | e | 7:00 PM | | procedure are in the | | POC | | PDT | | results section. | + +--------+ + + + | CENTRAL VENOUS | | 07/19/2014 | Acute renal | | | CATHETER PLACEMENT | | 4:34 PM | failure | | | TUNNELED | | PDT | | | + +--------+ + + + | BLOOD GASES, | Urgent | 07/19/2014 | | Results for this | | ARTERIAL - LAB | | 1:47 PM | | procedure are in the | | | | PDT | | results section. | + +--------+ + + + | RBC MORPHOLOGY | Routin | 07/19/2014 | | Results for this | | | e | 12:50 PM | | procedure are in the | | | | PDT | | results section. | + +--------+ + + + | CBC AND AUTO DIFF | Routin | 07/19/2014 | | Results for this | | | e | 12:50 PM | | procedure are in the | | | | PDT | | results section. | + +--------+ + + + | CBC, WITH | Routin | 07/19/2014 | | Results for this | | DIFFERENTIAL | e | 12:50 PM | | procedure are in the | | | | PDT | | results section. | + +--------+ + + + | RENAL FUNCTION SET | Routin | 07/19/2014 | | Results for this | | (NA,K,CL,CO2,BUN,CRE | e | 12:50 PM | | procedure are in the | | AT,GLUC,CA,PHOS,ALB | | PDT | | results section. | | ) | | | | | + +--------+ + + + | CK, PLASMA | Routin | 07/19/2014 | | Results for this | | | e | 12:50 PM | | procedure are in the | | | | PDT | | results section. | + +--------+ + + + | CAPILLARY BLOOD | Routin | 07/19/2014 | | Results for this | | GLUCOSE (NO CHG), | e | 11:21 AM | | procedure are in the | | POC | | PDT | | results section. | + +--------+ + + + | RENAL FUNCTION SET | Routin | 07/19/2014 | | Results for this | | (NA,K,CL,CO2,BUN,CRE | e | 5:17 AM | | procedure are in the | | AT,GLUC,CA,PHOS,ALB | | PDT | | results section. | | ) | | | | | + +--------+ + + + | MAGNESIUM, PLASMA | Routin | 07/19/2014 | | Results for this | | | e | 5:17 AM | | procedure are in the | | | | PDT | | results section. | + +--------+ + + + | CK, PLASMA | Urgent | 07/19/2014 | | Results for this | | | | 5:17 AM | | procedure are in the | | | | PDT | | results section. | + +--------+ + + + | CAPILLARY BLOOD | Routin | 07/18/2014 | | Results for this | | GLUCOSE (NO CHG), | e | 11:58 PM | | procedure are in the | | POC | | PDT | | results section. | + +--------+ + + + | RENAL FUNCTION SET | Urgent | 07/18/2014 | | Results for this | | (NA,K,CL,CO2,BUN,CRE | | 9:43 PM | | procedure are in the | | AT,GLUC,CA,PHOS,ALB | | PDT | | results section. | | ) | | | | | + +--------+ + + + | MAGNESIUM, PLASMA | Urgent | 07/18/2014 | | Results for this | | | | 9:43 PM | | procedure are in the | | | | PDT | | results section. | + +--------+ + + + | CK, PLASMA | Urgent | 07/18/2014 | | Results for this | | | | 9:43 PM | | procedure are in the | | | | PDT | | results section. | + +--------+ + + + | CAPILLARY BLOOD | Routin | 07/18/2014 | | Results for this | | GLUCOSE (NO CHG), | e | 8:37 PM | | procedure are in the | | POC | | PDT | | results section. | + +--------+ + + + | UA, DIPSTICK ONLY | Routin | 07/18/2014 | | Results for this | | | e | 3:45 PM | | procedure are in the | | | | PDT | | results section. | + +--------+ + + + | URINE, MICROSCOPIC | Routin | 07/18/2014 | | Results for this | | EXAM | e | 3:45 PM | | procedure are in the | | | | PDT | | results section. | + +--------+ + + + | CAPILLARY BLOOD | Routin | 07/18/2014 | | Results for this | | GLUCOSE (NO CHG), | e | 1:33 PM | | procedure are in the | | POC | | PDT | | results section. | + +--------+ + + + | CAPILLARY BLOOD | Routin | 07/18/2014 | | Results for this | | GLUCOSE (NO CHG), | e | 8:07 AM | | procedure are in the | | POC | | PDT | | results section. | + +--------+ + + + | BASIC METABOLIC SET | Urgent | 07/18/2014 | | Results for this | | (NA, K, CL, TCO2, | | 5:42 AM | | procedure are in the | | BUN, CR, GLU, CA) | | PDT | | results section. | + +--------+ + + + | PHOSPHORUS, PLASMA | Routin | 07/18/2014 | | Results for this | | | e | 5:42 AM | | procedure are in the | | | | PDT | | results section. | + +--------+ + + + | MAGNESIUM, PLASMA | Routin | 07/18/2014 | | Results for this | | | e | 5:42 AM | | procedure are in the | | | | PDT | | results section. | + +--------+ + + + | CK, PLASMA | Routin | 07/18/2014 | | Results for this | | | e | 5:42 AM | | procedure are in the | | | | PDT | | results section. | + +--------+ + + + | CAPILLARY BLOOD | Routin | 07/18/2014 | | Results for this | | GLUCOSE (NO CHG), | e | 12:28 AM | | procedure are in the | | POC | | PDT | | results section. | + +--------+ + + + | SODIUM TOTAL, URINE | Routin | 07/17/2014 | | Results for this | | | e | 11:08 PM | | procedure are in the | | | | PDT | | results section. | + +--------+ + + + | UREA NITROGEN, URINE | Routin | 07/17/2014 | | Results for this | | | e | 11:08 PM | | procedure are in the | | | | PDT | | results section. | + +--------+ + + + | CREATININE, URINE | Routin | 07/17/2014 | | Results for this | | | e | 11:08 PM | | procedure are in the | | | | PDT | | results section. | + +--------+ + + + | BASIC METABOLIC SET | Routin | 07/17/2014 | | Results for this | | (NA, K, CL, TCO2, | e | 10:22 PM | | procedure are in the | | BUN, CR, GLU, CA) | | PDT | | results section. | + +--------+ + + + | CAPILLARY BLOOD | Routin | 07/17/2014 | | Results for this | | GLUCOSE (NO CHG), | e | 8:09 PM | | procedure are in the | | POC | | PDT | | results section. | + +--------+ + + + | CAPILLARY BLOOD | Routin | 07/17/2014 | | Results for this | | GLUCOSE (NO CHG), | e | 5:18 PM | | procedure are in the | | POC | | PDT | | results section. | + +--------+ + + + | BASIC METABOLIC SET | Urgent | 07/17/2014 | | Results for this | | (NA, K, CL, TCO2, | | 5:15 PM | | procedure are in the | | BUN, CR, GLU, CA) | | PDT | | results section. | + +--------+ + + + | CAPILLARY BLOOD | Routin | 07/17/2014 | | Results for this | | GLUCOSE (NO CHG), | e | 2:13 PM | | procedure are in the | | POC | | PDT | | results section. | + +--------+ + + + | CAPILLARY BLOOD | Routin | 07/17/2014 | | Results for this | | GLUCOSE (NO CHG), | e | 8:45 AM | | procedure are in the | | POC | | PDT | | results section. | + +--------+ + + + | CBC (HEMOGRAM) ONLY | Urgent | 07/17/2014 | | Results for this | | | | 2:55 AM | | procedure are in the | | | | PDT | | results section. | + +--------+ + + + | LIVER SET | Urgent | 07/17/2014 | | Results for this | | (AST,ALT,BILI | | 2:55 AM | | procedure are in the | | TOTAL,BILI | | PDT | | results section. | | DIRECT,ALK | | | | | | PHOS,ALB,PROT TOTAL) | | | | | + +--------+ + + + | BASIC METABOLIC SET | Urgent | 07/17/2014 | | Results for this | | (NA, K, CL, TCO2, | | 2:55 AM | | procedure are in the | | BUN, CR, GLU, CA) | | PDT | | results section. | + +--------+ + + + | CBC ONLY | Urgent | 07/17/2014 | | Results for this | | | | 2:55 AM | | procedure are in the | | | | PDT | | results section. | + +--------+ + + + | CAPILLARY BLOOD | Routin | 07/16/2014 | | Results for this | | GLUCOSE (NO CHG), | e | 10:00 PM | | procedure are in the | | POC | | PDT | | results section. | + +--------+ + + + | CBC (HEMOGRAM) ONLY | Routin | 07/16/2014 | | Results for this | | | e | 6:29 AM | | procedure are in the | | | | PDT | | results section. | + +--------+ + + + | RENAL FUNCTION SET | Routin | 07/16/2014 | | Results for this | | (NA,K,CL,CO2,BUN,CRE | e | 6:29 AM | | procedure are in the | | AT,GLUC,CA,PHOS,ALB | | PDT | | results section. | | ) | | | | | + +--------+ + + + | CBC ONLY | Routin | 07/16/2014 | | Results for this | | | e | 6:29 AM | | procedure are in the | | | | PDT | | results section. | + +--------+ + + + | MAGNESIUM, PLASMA | Routin | 07/16/2014 | | Results for this | | | e | 6:29 AM | | procedure are in the | | | | PDT | | results section. | + +--------+ + + + | CAPILLARY BLOOD | Routin | 07/16/2014 | | Results for this | | GLUCOSE (NO CHG), | e | 6:10 AM | | procedure are in the | | POC | | PDT | | results section. | + +--------+ + + + | 12 LEAD ECG | Routin | 07/16/2014 | | Results for this | | | e | 12:48 AM | | procedure are in the | | | | PDT | | results section. | + +--------+ + + + | SURGICAL PATHOLOGY | Routin | 07/16/2014 | | Results for this | | | e | | | procedure are in the | | | | | | results section. | + +--------+ + + + | CAPILLARY BLOOD | Routin | 07/15/2014 | | Results for this | | GLUCOSE (NO CHG), | e | 11:48 PM | | procedure are in the | | POC | | PDT | | results section. | + +--------+ + + + | CAPILLARY BLOOD | Routin | 07/15/2014 | | Results for this | | GLUCOSE (NO CHG), | e | 5:33 PM | | procedure are in the | | POC | | PDT | | results section. | + +--------+ + + + | HCG QUAL, URINE | Urgent | 07/15/2014 | | Results for this | | | | 2:54 PM | | procedure are in the | | | | PDT | | results section. | + +--------+ + + + | EJECTION FRACTION | Routin | 07/15/2014 | | Results for this | | | e | 2:09 PM | | procedure are in the | | | | PDT | | results section. | + +--------+ + + + | X-RAY PORTABLE CHEST | Routin | 07/15/2014 | | Results for this | | 1 VIEW | e | 1:44 PM | | procedure are in the | | | | PDT | | results section. | + +--------+ + + + | CAPILLARY BLOOD | Routin | 07/15/2014 | | Results for this | | GLUCOSE (NO CHG), | e | 11:40 AM | | procedure are in the | | POC | | PDT | | results section. | + +--------+ + + + | CBC (HEMOGRAM) ONLY | Routin | 07/15/2014 | | Results for this | | | e | 10:38 AM | | procedure are in the | | | | PDT | | results section. | + +--------+ + + + | RENAL FUNCTION SET | Routin | 07/15/2014 | | Results for this | | (NA,K,CL,CO2,BUN,CRE | e | 10:38 AM | | procedure are in the | | AT,GLUC,CA,PHOS,ALB | | PDT | | results section. | | ) | | | | | + +--------+ + + + | CBC ONLY | Routin | 07/15/2014 | | Results for this | | | e | 10:38 AM | | procedure are in the | | | | PDT | | results section. | + +--------+ + + + | MAGNESIUM, PLASMA | Routin | 07/15/2014 | | Results for this | | | e | 10:38 AM | | procedure are in the | | | | PDT | | results section. | + +--------+ + + + | CAPILLARY BLOOD | Routin | 07/15/2014 | | Results for this | | GLUCOSE (NO CHG), | e | 5:55 AM | | procedure are in the | | POC | | PDT | | results section. | + +--------+ + + + | TRANSTHORACIC | Routin | 07/15/2014 | | Results for this | | ECHOCARDIOGRAM, | e | 12:00 AM | | procedure are in the | | ADULT | | PDT | | results section. | + +--------+ + + + | CAPILLARY BLOOD | Routin | 07/14/2014 | | Results for this | | GLUCOSE (NO CHG), | e | 11:40 PM | | procedure are in the | | POC | | PDT | | results section. | + +--------+ + + + | CBC (HEMOGRAM) ONLY | Routin | 07/14/2014 | | Results for this | | | e | 8:02 PM | | procedure are in the | | | | PDT | | results section. | + +--------+ + + + | COMPLETE METABOLIC | Routin | 07/14/2014 | | Results for this | | SET | e | 8:02 PM | | procedure are in the | | (NA,K,CL,CO2,BUN,CRE | | PDT | | results section. | | AT,GLUC,CA,AST,ALT,B | | | | | | ROSIO TOTAL,ALK | | | | | | PHOS,ALB,PROT TOTAL) | | | | | + +--------+ + + + | CBC ONLY | Routin | 07/14/2014 | | Results for this | | | e | 8:02 PM | | procedure are in the | | | | PDT | | results section. | + +--------+ + + + | ANTIBODY SCREEN | Routin | 07/14/2014 | | Results for this | | | e | 8:02 PM | | procedure are in the | | | | PDT | | results section. | + +--------+ + + + | TYPE AND SCREEN | Routin | 07/14/2014 | | Results for this | | | e | 8:02 PM | | procedure are in the | | | | PDT | | results section. | + +--------+ + + + | ABO & RH TYPE | Routin | 07/14/2014 | | Results for this | | | e | 8:02 PM | | procedure are in the | | | | PDT | | results section. | + +--------+ + + + | LIPASE, PLASMA | Routin | 07/14/2014 | | Results for this | | | e | 8:02 PM | | procedure are in the | | | | PDT | | results section. | + +--------+ + + + | MAGNESIUM, PLASMA | Routin | 07/14/2014 | | Results for this | | | e | 8:02 PM | | procedure are in the | | | | PDT | | results section. | + +--------+ + + + | CARDIOLOGY | | 07/14/2014 | | Results for this | | | | 12:00 AM | | procedure are in the | | | | PDT | | results section. | + +--------+ + + + | CARDIOLOGY | | 07/14/2014 | | Results for this | | | | 12:00 AM | | procedure are in the | | | | PDT | | results section. | + +--------+ + + + | CARDIOLOGY | | 07/14/2014 | | Results for this | | | | 12:00 AM | | procedure are in the | | | | PDT | | results section. | + +--------+ + + + | CARDIOLOGY | | 07/14/2014 | | Results for this | | | | 12:00 AM | | procedure are in the | | | | PDT | | results section. | + +--------+ + + + documented in this encounter Results PROCEDURE NOTE (05/02/2015 2:41 PM PST)PROCEDURE NOTE (05/02/2015 2:41 PM PST)PROCEDURE N ARLENE (05/02/2015 2:32 PM PST) + + | Transcriptions | + + | Other, Faculty - 07/26/2014 9:37 AM PDT | + + PROCEDURE NOTE (05/02/2015 2:32 PM PST) + + | Transcriptions | + + | Other Faculty - 07/26/2014 9:37 AM PDT | + + PROCEDURE NOTE (05/02/2015 2:28 PM PST)PROCEDURE NOTE (05/02/2015 2:28 PM PST)OPERATION R ECORD (07/29/2014 12:52 PM PDT) + + | Transcriptions | + + | Monica Yanez MD - 07/16/2014 9:16 PM PDT Date of Service: 07/16/2014 Attending | | Surgeon: Jaimee Gomez MD Developmental Services Worker(s): Reji Whitehead MD. | | Developmental Services Worker(s): Monica Yanez MD, R5. Ren Castellanos MD, R3. | | Preoperative Diagnosis: Acute on chronic cholecystitis.Postoperative Diagnosis: Acute | | on chronic cholecystitis.Procedure Performed: Laparoscopic cholecystectomy.Estimated | | Blood Loss: 150 cc.Iv Fluids: 1.6 L crystalloid.Urinary Output: 40 cc.Specimens: | | Gallbladder.Drains: Piero in Morison's pouch.Indications: Ms. Nuno is a 43-year-old | | woman with morbid obesity, who was had over a year long history of bilateral upper | | quadrant abdominal pain which acutely worsened, most recently. She was subsequently | | admitted at a referring facility where a cholelithiasis with a very large gallstone | | measuring 2.9 cm. Subsequent ultrasound also demonstrated cholelithiasis but there was | | some thought that the stone was impacted at the infundibulum. She also had a notable | | leukocytosis in the low teens, but normal liver function tests and lipase levels. Given | | her morbid obesity, the patient was transferred to [facility] for further evaluation and | | care. A full PARQ discussion was held regarding the above procedure and the patient | | consented.Intraoperative Findings: The gallbladder was very thickened and inflamed upon | | aspiration of the fluid. It was noted to be clear, consistent with hydrops. There was | | a huge stone that was impacted at the neck of the gallbladder. We did have to use a | | liver tractor to help with our exposure given her morbid obesity, and unfortunately we | | did have a liver laceration with retraction using the liver retractor.Intraoperative | | Details: The patient was identified in the preoperative holding area and brought to the | | operating suite. She was placed in supine position on the operating table. Anesthesia | | proceeded with induction of general endotracheal anesthetic. Bilateral SCDs were | | placed on lower extremities. Orogastric tube was placed. Vigil catheter was placed. | | She was already receiving preoperative cefoxitin. Her abdomen was then prepped and | | draped in normal sterile fashion. A time clock inspector-out was performed. We began with entry | | into the abdomen via Veress needle in the left upper quadrant just off the subcostal | | margin. We checked with a saline drop test to ensure we were within the abdomen. We | | did have to attempt this a total of 3 times before we were successful. We then | | insufflated the abdomen with carbon dioxide. Given her morbid obesity, her starting | | pressures were already in the high teens, and we had to turn up the insufflation to | | 18mmHg to help with our insufflation. We proceeded then with placing a supraumbilical | | port which was actually approximately 10 cm above the umbilicus. This was done with the | | 12 mm Optiview trocar. Once we got into the abdomen, we could see that our working | | space was quite small given her morbid obesity. She had severely fatty liver which was | | easily injured with just very minor traction on the edges. We proceeded to place a | | total of 3 additional ports; a 12 mm in the subxiphoid region and two 5 mm in the right | | upper quadrant. The gallbladder was thick and tense so we did aspirate it and | | immediately noted return of clear fluid consistent with hydrops. We then grasped the | | fundus of the gallbladder and retracted this cephalad. Given her obesity, it was very | | difficult to get down towards the infundibulum. We could feel that there was a very | | large stone impacted at the neck of the gallbladder. We were able to carefully milk | | this more towards the body of the gallbladder. We then used the Bovie cautery to | | carefully incise the rind on the gallbladder along the medial edge and along the lateral | | edge. After doing so, we were able to begin getting into a plane which was higher on | | the mid body of the gallbladder between the gallbladder and the liver bed. We really | | could not dissect down safely towards the cystic duct because of the severe inflammation | | and chronic adhesions in this location. After a certain point, we were relatively well | | dissected posterior to the gallbladder between the gallbladder and liver bed; however, | | we could not fully achieve a window to the other side, given the large stone in the | | gallbladder. We thus decided it would be best to just proceed with a top-down approach. | | During this dissection, in order to help with our visualization, we did have to place | | an additional 5 mm port in the right upper quadrant, to place a triangular liver | | retractor to help with our exposure. We thus proceeded using the Bovie cautery to come | | through via a top-down approach. The posterior aspect of the posterior wall was | | somewhat necrotic and difficult to dissect off the liver bed, so there was some | | posterior wall of the gallbladder which was left near the fundus in the gallbladder. In | | doing so, we did get into the gallbladder. We spilled a significant amount of the | | clear bile. We suctioned it out as best as we could and then completed our top-down | | approach with the Bovie cautery until we got down towards the cystic duct. We were able | | to identify artery running adjacent to the cystic duct, which was running into the | | gallbladder, and we isolated this and placed 2 clips towards the patient's side and 1 | | clip towards the gallbladder side and transected. It appeared to be consistent with the | | cystic artery. Once we narrowed it down to the cystic duct, we then were able to use a | | total of 3 Endoloops, 2 PDS, and 1 Polysorb Endoloop to ligate the cystic duct. We then | | came through just distal to all the Endoloops with Bovie cautery. The gallbladder was | | retrieved with an EndoCatch bag via the subxiphoid port. We did have to extend the | | fascial opening in the skin incision in order to do so. When we did so, there was a | | very large subcutaneous vein approximately 5 mm in diameter which we got into and had to | | tie off with some 2-0 Polysorb ties. The gallbladder was externalized from the | | subxiphoid port and the port was placed back in. We used a 2nd EndoCatch bag to | | retrieve the gallstone separately as it did not fit together with the gallbladder. We | | then took a look back inside. We thoroughly irrigated and noted that we had good | | hemostasis. There was about a 4 cm liver laceration on the medial aspect of the | | gallbladder fossa from our liver retractor, but this was hemostatic by the end of the | | case. We then threaded a MICHELE drain through one of our right upper quadrant ports and | | placed it into Morison's pouch. It was stitched in with a 3-0 nylon stitch. The ports | | were then removed. The abdomen was desufflated. The supraumbilical port site felt very | | small, and given her morbid obesity we could not close it, but we did not feel it | | required closure. The subxiphoid port site was closed with interrupted 0-Vicryl | | stitches. We thoroughly irrigated all the subcutaneous ports. We then closed the skin | | incisions with subcuticular 4-0 Monocryl, and Dermabond was used as a dressing. The | | drain was placed to bulb suction. All counts were correct at the end of the case. The | | patient tolerated the procedure without any issues and was extubated in the operating | | room. However, given her morbid obesity, she will be requiring CPAP postoperatively and | | will be monitored in the ICU overnight. Dr. Gomez was present and scrubbed for the | | critical portions of the case.Lee Miller MDLYC/MODLDD: 07/16/2014 | | 19:38:09DT: 07/16/2014 21:16:14Job #: [id number] was present for the critical | | portions of the procedure as described in the note for this encounter.Jaimee Gomez, | | [id number] [place] [address] | + + MAGNESIUM, PLASMA (07/27/2014 5:18 AM PDT) + +---------+ + + + | Component | Value | Ref Range | Performed | Pathologist | | | | | At | Signature | + +---------+ + + + | MAGNESIUM,P | 1.6 (L) | 1.8 - 2.5 mg/dL | [facility] | | | LASMA | | | LABORATORY | | | | | | SERVICES, | | | | | | CORE | | + +---------+ + + + + + | Specimen | + + | Blood - Blood | + + + + + + + | Performing | Address | City/State/Zipcode | Phone Number | | Organization | | | | + + + + + | [facility] | [address] | [place] [address] | | | SERVICES, CORE | [address] | | | + + + + + RENAL FUNCTION SET (NA,K,CL,CO2,BUN,CREAT,GLUC,CA,PHOS,ALB ) (07/27/2014 5:18 AM PDT) + + + + + + | Component | Value | Ref Range | Performed | Pathologist | | | | | At | Signature | + + + + + + | GLUCOSE, | 104 (H) | 60 - 99 mg/dL | [facility] | | | PLASMA | | | LABORATORY | | | (LAB) | | | SERVICES, | | | | | | CORE | | + + + + + + | BUN, PLASMA | 63 (H) | 6 - 20 mg/dL | [facility] | | | (LAB) | | | LABORATORY | | | | | | SERVICES, | | | | | | CORE | | + + + + + + | CREATININE | 3.28 (H) | 0.60 - 1.10 | [facility] | | | PLASMA | | mg/dL | LABORATORY | | | (LAB) | | | SERVICES, | | | | | | CORE | | + + + + + + | EGFR | 19 (L) | >60 mL/min | [facility] | | | - | | | LABORATORY | | | CROATIAN | | | SERVICES, | | | | | | CORE | | + + + + + + | EGFR NON | 15 (L) | >60 mL/min | [facility] | | | -SANDY | | | LABORATORY | | | RICAN | | | SERVICES, | | | | | | CORE | | + + + + + + | SODIUM, | 139 | 136 - 145 | [facility] | | | PLASMA | | mmol/L | LABORATORY | | | (LAB) | | | SERVICES, | | | | | | CORE | | + + + + + + | POTASSIUM, | 3.9 | 3.4 - 5.0 | [facility] | | | PLASMA | | mmol/L | LABORATORY | | | (LAB) | | | SERVICES, | | | | | | CORE | | + + + + + + | CHLORIDE, | 103 | 97 - 108 mmol/L | [facility] | | | PLASMA | | | LABORATORY | | | (LAB) | | | SERVICES, | | | | | | CORE | | + + + + + + | TOTAL CO2, | 28 | 21 - 32 mmol/L | [facility] | | | PLASMA | | | LABORATORY | | | (LAB) | | | SERVICES, | | | | | | CORE | | + + + + + + | CALCIUM, | 8.2 (L) | 8.6 - 10.2 | [facility] | | | PLASMA | | mg/dL | LABORATORY | | | (LAB) | | | SERVICES, | | | | | | CORE | | + + + + + + | ALBUMIN, | 2.3 (L) | 3.5 - 4.7 g/dL | [facility] | | | PLASMA | | | LABORATORY | | | (LAB) | | | SERVICES, | | | | | | CORE | | + + + + + + | PHOSPHORUS, | 4.2 | 2.4 - 4.7 mg/dL | [facility] | | | PLASMA | | | LABORATORY | | | (LAB) | | | SERVICES, | | | | | | CORE | | + + + + + + | POTASSIUM | No Hemo | | [facility] | | | CMNT | | | LABORATORY | | | | | | SERVICES, | | | | | | CORE | | + + + + + + | ANION GAP | 8 | mmol/L | [facility] | | | | | | LABORATORY | | | | | | SERVICES, | | | | | | CORE | | + + + + + + | ANION | 12 (H) | 4 - 11 mmol/L | [facility] | | | GAP(ALB | | | LABORATORY | | | CORRECTED) | | | SERVICES, | | | | | | CORE | | + + + + + + + + | Specimen | + + | Blood - Blood | + + + + + | Narrative | Performed At | + + + | GFR is estimated using the MDRD equation recommended by the | [facility] | | National Kidney Disease Education Program. Estimated GFR | LABORATORY | | Interpretive Information: <60 mL/min/1.73 sq m | SERVICES, CORE | | Chronic Kidney Disease <15 mL/min/1.73 sq m | | | Kidney Failure Estimated GFR greater that 60 mL/min/1.73 sq m is of | | | limited clinical value. The MDRD equation is not valid in the | | | following situations: - Patients under 18 years of age - Severe | | | malnutrition or obesity - Vegetarian diet - Rapidly changing kidney | | | function | | + + + + + + + + | Performing | Address | City/State/Zipcode | Phone Number | | Organization | | | | + + + + + | [facility] | [address] | [place] [address] | | | SERVICES, CORE | [address] | | | + + + + + CBC (HEMOGRAM) ONLY (07/26/2014 5:30 AM PDT) + + + + + + | Component | Value | Ref Range | Performed | Pathologist | | | | | At | Signature | + + + + + + | WHITE CELL | 9.95 | 4.40 - 11.00 | [facility] | | | COUNT | | K/cu mm | LABORATORY | | | | | | SERVICES, | | | | | | CORE | | + + + + + + | RED CELL | 2.43 (L) | 4.00 - 5.20 | [facility] | | | COUNT | | M/cu mm | LABORATORY | | | | | | SERVICES, | | | | | | CORE | | + + + + + + | HEMOGLOBIN | 7.6 (L) | 12.0 - 16.0 | [facility] | | | | | g/dL | LABORATORY | | | | | | SERVICES, | | | | | | CORE | | + + + + + + | HEMATOCRIT | 24.7 (L) | 36.0 - 46.0 % | [facility] | | | | | | LABORATORY | | | | | | SERVICES, | | | | | | CORE | | + + + + + + | MCV | 101.6 (H) | 80.0 - 96.0 fL | [facility] | | | | | | LABORATORY | | | | | | SERVICES, | | | | | | CORE | | + + + + + + | MCHC | 30.8 | 33.0 - 35.5 | [facility] | | | | | g/dL | LABORATORY | | | | | | SERVICES, | | | | | | CORE | | + + + + + + | RDW SD | 57.1 (H) | 35.1 - 46.3 fL | [facility] | | | | | | LABORATORY | | | | | | SERVICES, | | | | | | CORE | | + + + + + + | PLATELET | 182 | 150 - 400 K/cu | [facility] | | | COUNT | | mm | LABORATORY | | | | | | SERVICES, | | | | | | CORE | | + + + + + + | MPV | 11.1 | 9.7 - 12.3 fL | [facility] | | | | | | LABORATORY | | | | | | SERVICES, | | | | | | CORE | | + + + + + + | NRBC% | 0.0 | 0.0 - 0.3 % | [facility] | | | | | | LABORATORY | | | | | | SERVICES, | | | | | | CORE | | + + + + + + | NRBC# | 0.00 | 0.00 - 0.02 | [facility] | | | | | K/cu mm | LABORATORY | | | | | | SERVICES, | | | | | | CORE | | + + + + + + + + | Specimen | + + | Blood - Blood | + + + + + + + | Performing | Address | City/State/Zipcode | Phone Number | | Organization | | | | + + + + + | [facility] | [address] | [place] [address] | | | SERVICES, CORE | [address] | | | + + + + + MAGNESIUM, PLASMA (07/26/2014 5:30 AM PDT) + +-------+ + + + | Component | Value | Ref Range | Performed | Pathologist | | | | | At | Signature | + +-------+ + + + | MAGNESIUM,P | 2.0 | 1.8 - 2.5 mg/dL | [facility] | | | LASMA | | | LABORATORY | | | | | | SEVEN, | | | | | | CORE | | + +-------+ + + + + + | Specimen | + + | Blood - Blood | + + + + + + + | Performing | Address | City/State/Zipcode | Phone Number | | Organization | | | | + + + + + | [facility] | [address] | [place] [address] | | | SERVICES, CORE | [address] | | | + + + + + RENAL FUNCTION SET (NA,K,CL,CO2,BUN,CREAT,GLUC,CA,PHOS,ALB ) (07/26/2014 5:30 AM PDT) + + + + + + | Component | Value | Ref Range | Performed | Pathologist | | | | | At | Signature | + + + + + + | GLUCOSE, | 108 (H) | 60 - 99 mg/dL | [facility] | | | PLASMA | | | LABORATORY | | | (LAB) | | | SERVICES, | | | | | | CORE | | + + + + + + | BUN, PLASMA | 55 (H) | 6 - 20 mg/dL | [facility] | | | (LAB) | | | LABORATORY | | | | | | SERVICES, | | | | | | CORE | | + + + + + + | CREATININE | 3.76 (H) | 0.60 - 1.10 | [facility] | | | PLASMA | | mg/dL | LABORATORY | | | (LAB) | | | SERVICES, | | | | | | CORE | | + + + + + + | EGFR | 16 (L) | >60 mL/min | [facility] | | | - | | | LABORATORY | | | CROATIAN | | | SERVICES, | | | | | | CORE | | + + + + + + | EGFR NON | 13 (L) | >60 mL/min | [facility] | | | -SANDY | | | LABORATORY | | | RICAN | | | SERVICES, | | | | | | CORE | | + + + + + + | SODIUM, | 137 | 136 - 145 | [facility] | | | PLASMA | | mmol/L | LABORATORY | | | (LAB) | | | SERVICES, | | | | | | CORE | | + + + + + + | POTASSIUM, | 4.0 | 3.4 - 5.0 | [facility] | | | PLASMA | | mmol/L | LABORATORY | | | (LAB) | | | SERVICES, | | | | | | CORE | | + + + + + + | CHLORIDE, | 101 | 97 - 108 mmol/L | [facility] | | | PLASMA | | | LABORATORY | | | (LAB) | | | SERVICES, | | | | | | CORE | | + + + + + + | TOTAL CO2, | 26 | 21 - 32 mmol/L | [facility] | | | PLASMA | | | LABORATORY | | | (LAB) | | | SERVICES, | | | | | | CORE | | + + + + + + | CALCIUM, | 8.2 (L) | 8.6 - 10.2 | [facility] | | | PLASMA | | mg/dL | LABORATORY | | | (LAB) | | | SERVICES, | | | | | | CORE | | + + + + + + | ALBUMIN, | 2.2 (L) | 3.5 - 4.7 g/dL | [facility] | | | PLASMA | | | LABORATORY | | | (LAB) | | | SERVICES, | | | | | | CORE | | + + + + + + | PHOSPHORUS, | 4.1 | 2.4 - 4.7 mg/dL | [facility] | | | PLASMA | | | LABORATORY | | | (LAB) | | | SERVICES, | | | | | | CORE | | + + + + + + | POTASSIUM | No Hemo | | [facility] | | | CMNT | | | LABORATORY | | | | | | SERVICES, | | | | | | CORE | | + + + + + + | ANION GAP | 10 | mmol/L | [facility] | | | | | | LABORATORY | | | | | | SERVICES, | | | | | | CORE | | + + + + + + | ANION | 14 (H) | 4 - 11 mmol/L | [facility] | | | GAP(ALB | | | LABORATORY | | | CORRECTED) | | | SERVICES, | | | | | | CORE | | + + + + + + + + | Specimen | + + | Blood - Blood | + + + + + | Narrative | Performed At | + + + | GFR is estimated using the MDRD equation recommended by the | [facility] | | National Kidney Disease Education Program. Estimated GFR | LABORATORY | | Interpretive Information: <60 mL/min/1.73 sq m | SERVICES, CORE | | Chronic Kidney Disease <15 mL/min/1.73 sq m | | | Kidney Failure Estimated GFR greater that 60 mL/min/1.73 sq m is of | | | limited clinical value. The MDRD equation is not valid in the | | | following situations: - Patients under 18 years of age - Severe | | | malnutrition or obesity - Vegetarian diet - Rapidly changing kidney | | | function | | + + + + + + + + | Performing | Address | City/State/Zipcode | Phone Number | | Organization | | | | + + + + + | [facility] | [address] | [place] [address] | | | SEVEN, CORE | [address] | | | + + + + + MAGNESIUM, PLASMA (07/25/2014 7:45 AM PDT) + +-------+ + + + | Component | Value | Ref Range | Performed | Pathologist | | | | | At | Signature | + +-------+ + + + | MAGNESIUM,P | 2.0 | 1.8 - 2.5 mg/dL | [facility] | | | [facility] | | | LABORATORY | | | | | | SEVEN, | | | | | | CORE | | + +-------+ + + + + + | Specimen | + + | Blood - Blood | + + + + + + + | Performing | Address | City/State/Zipcode | Phone Number | | Organization | | | | + + + + + | [facility] | [address] | [place] [address] | | | SERVICES, CORE | [address] | | | + + + + + RENAL FUNCTION SET (NA,K,CL,CO2,BUN,CREAT,GLUC,CA,PHOS,ALB ) (07/25/2014 7:45 AM PDT) + + + + + + | Component | Value | Ref Range | Performed | Pathologist | | | | | At | Signature | + + + + + + | GLUCOSE, | 103 (H) | 60 - 99 mg/dL | [facility] | | | PLASMA | | | LABORATORY | | | (LAB) | | | SERVICES, | | | | | | CORE | | + + + + + + | BUN, PLASMA | 46 (H) | 6 - 20 mg/dL | [facility] | | | (LAB) | | | LABORATORY | | | | | | SERVICES, | | | | | | CORE | | + + + + + + | CREATININE | 4.19 (H) | 0.60 - 1.10 | [facility] | | | PLASMA | | mg/dL | LABORATORY | | | (LAB) | | | SERVICES, | | | | | | CORE | | + + + + + + | EGFR | 14 (L) | >60 mL/min | [facility] | | | - | | | LABORATORY | | | CROATIAN | | | SERVICES, | | | | | | CORE | | + + + + + + | EGFR NON | 12 (L) | >60 mL/min | [facility] | | | -SANDY | | | LABORATORY | | | RICAN | | | SERVICES, | | | | | | CORE | | + + + + + + | SODIUM, | 134 (L) | 136 - 145 | [facility] | | | PLASMA | | mmol/L | LABORATORY | | | (LAB) | | | SERVICES, | | | | | | CORE | | + + + + + + | POTASSIUM, | 3.9 | 3.4 - 5.0 | [facility] | | | PLASMA | | mmol/L | LABORATORY | | | (LAB) | | | SERVICES, | | | | | | CORE | | + + + + + + | CHLORIDE, | 100 | 97 - 108 mmol/L | [facility] | | | PLASMA | | | LABORATORY | | | (LAB) | | | SERVICES, | | | | | | CORE | | + + + + + + | TOTAL CO2, | 25 | 21 - 32 mmol/L | [facility] | | | PLASMA | | | LABORATORY | | | (LAB) | | | SERVICES, | | | | | | CORE | | + + + + + + | CALCIUM, | 7.7 (L) | 8.6 - 10.2 | [facility] | | | PLASMA | | mg/dL | LABORATORY | | | (LAB) | | | SERVICES, | | | | | | CORE | | + + + + + + | ALBUMIN, | 2.0 (L) | 3.5 - 4.7 g/dL | [facility] | | | PLASMA | | | LABORATORY | | | (LAB) | | | SERVICES, | | | | | | CORE | | + + + + + + | PHOSPHORUS, | 4.0 | 2.4 - 4.7 mg/dL | [facility] | | | PLASMA | | | LABORATORY | | | (LAB) | | | SERVICES, | | | | | | CORE | | + + + + + + | POTASSIUM | No Hemo | | [facility] | | | CMNT | | | LABORATORY | | | | | | SERVICES, | | | | | | CORE | | + + + + + + | ANION GAP | 9 | mmol/L | [facility] | | | | | | LABORATORY | | | | | | SERVICES, | | | | | | CORE | | + + + + + + | ANION | 14 (H) | 4 - 11 mmol/L | [facility] | | | GAP(ALB | | | LABORATORY | | | CORRECTED) | | | SERVICES, | | | | | | CORE | | + + + + + + + + | Specimen | + + | Blood - Blood | + + + + + | Narrative | Performed At | + + + | GFR is estimated using the MDRD equation recommended by the | [facility] | | National Kidney Disease Education Program. Estimated GFR | LABORATORY | | Interpretive Information: <60 mL/min/1.73 sq m | SERVICES, CORE | | Chronic Kidney Disease <15 mL/min/1.73 sq m | | | Kidney Failure Estimated GFR greater that 60 mL/min/1.73 sq m is of | | | limited clinical value. The MDRD equation is not valid in the | | | following situations: - Patients under 18 years of age - Severe | | | malnutrition or obesity - Vegetarian diet - Rapidly changing kidney | | | function | | + + + + + + + + | Performing | Address | City/State/Zipcode | Phone Number | | Organization | | | | + + + + + | [facility] | [address] | [place] [address] | | | SEVEN, MAGDA | [address] | | | + + + + + MAGNESIUM, PLASMA (07/24/2014 5:10 AM PDT) + +-------+ + + + | Component | Value | Ref Range | Performed | Pathologist | | | | | At | Signature | + +-------+ + + + | MAGNESIUM,P | 1.9 | 1.8 - 2.5 mg/dL | [facility] | | | LASMA | | | LABORATORY | | | | | | SERVICES, | | | | | | CORE | | + +-------+ + + + + + | Specimen | + + | Blood - Blood | + + + + + + + | Performing | Address | City/State/Zipcode | Phone Number | | Organization | | | | + + + + + | [facility] | [address] | [place] [address] | | | SERVICES, CORE | [address] | | | + + + + + RENAL FUNCTION SET (NA,K,CL,CO2,BUN,CREAT,GLUC,CA,PHOS,ALB ) (07/24/2014 5:10 AM PDT) + + + + + + | Component | Value | Ref Range | Performed | Pathologist | | | | | At | Signature | + + + + + + | GLUCOSE, | 109 (H) | 60 - 99 mg/dL | [facility] | | | PLASMA | | | LABORATORY | | | (LAB) | | | SEVEN, | | | | | | CORE | | + + + + + + | BUN, PLASMA | 32 (H) | 6 - 20 mg/dL | [facility] | | | (LAB) | | | LABORATORY | | | | | | SERVICES, | | | | | | CORE | | + + + + + + | CREATININE | 4.06 (H) | 0.60 - 1.10 | [facility] | | | PLASMA | | mg/dL | LABORATORY | | | (LAB) | | | SERVICES, | | | | | | CORE | | + + + + + + | EGFR | 15 (L) | >60 mL/min | [facility] | | | - | | | LABORATORY | | | CROATIAN | | | SERVICES, | | | | | | CORE | | + + + + + + | EGFR NON | 12 (L) | >60 mL/min | [facility] | | | -SANDY | | | LABORATORY | | | RICAN | | | SERVICES, | | | | | | CORE | | + + + + + + | SODIUM, | 134 (L) | 136 - 145 | [facility] | | | PLASMA | | mmol/L | LABORATORY | | | (LAB) | | | SERVICES, | | | | | | CORE | | + + + + + + | POTASSIUM, | 3.6 | 3.4 - 5.0 | [facility] | | | PLASMA | | mmol/L | LABORATORY | | | (LAB) | | | SERVICES, | | | | | | CORE | | + + + + + + | CHLORIDE, | 100 | 97 - 108 mmol/L | [facility] | | | PLASMA | | | LABORATORY | | | (LAB) | | | SERVICES, | | | | | | CORE | | + + + + + + | TOTAL CO2, | 29 | 21 - 32 mmol/L | [facility] | | | PLASMA | | | LABORATORY | | | (LAB) | | | SERVICES, | | | | | | CORE | | + + + + + + | CALCIUM, | 7.2 (L) | 8.6 - 10.2 | [facility] | | | PLASMA | | mg/dL | LABORATORY | | | (LAB) | | | SERVICES, | | | | | | CORE | | + + + + + + | ALBUMIN, | 1.9 (L) | 3.5 - 4.7 g/dL | [facility] | | | PLASMA | | | LABORATORY | | | (LAB) | | | SERVICES, | | | | | | CORE | | + + + + + + | PHOSPHORUS, | 3.6 | 2.4 - 4.7 mg/dL | [facility] | | | PLASMA | | | LABORATORY | | | (LAB) | | | SERVICES, | | | | | | CORE | | + + + + + + | POTASSIUM | No Hemo | | [facility] | | | CMNT | | | LABORATORY | | | | | | SERVICES, | | | | | | CORE | | + + + + + + | ANION GAP | 5 | mmol/L | [facility] | | | | | | LABORATORY | | | | | | SERVICES, | | | | | | CORE | | + + + + + + | ANION | 10 | 4 - 11 mmol/L | [facility] | | | GAP(ALB | | | LABORATORY | | | CORRECTED) | | | SERVICES, | | | | | | CORE | | + + + + + + + + | Specimen | + + | Blood - Blood | + + + + + | Narrative | Performed At | + + + | GFR is estimated using the MDRD equation recommended by the | [facility] | | National Kidney Disease Education Program. Estimated GFR | LABORATORY | | Interpretive Information: <60 mL/min/1.73 sq m | SERVICES, CORE | | Chronic Kidney Disease <15 mL/min/1.73 sq m | | | Kidney Failure Estimated GFR greater that 60 mL/min/1.73 sq m is of | | | limited clinical value. The MDRD equation is not valid in the | | | following situations: - Patients under 18 years of age - Severe | | | malnutrition or obesity - Vegetarian diet - Rapidly changing kidney | | | function | | + + + + + + + + | Performing | Address | City/State/Zipcode | Phone Number | | Organization | | | | + + + + + | [facility] | [address] | [place] [address] | | | SEVEN, MAGDA | [address] | | | + + + + + CK, PLASMA (07/24/2014 5:10 AM PDT) + + + + + + | Component | Value | Ref Range | Performed | Pathologist | | | | | At | Signature | + + + + + + | CK | 4,953 (H) | 38 - 234 U/L | [facility] | | | | | | LABORATORY | | | | | | SERVICES, | | | | | | CORE | | + + + + + + + + | Specimen | + + | Blood - Blood | + + + + + + + | Performing | Address | City/State/Zipcode | Phone Number | | Organization | | | | + + + + + | [facility] | [address] | [place] [address] | | | MAGDA AMEZCUA | [address] | | | + + + + + CAPILLARY BLOOD GLUCOSE (NO CHG), POC (07/23/2014 10:20 PM PDT) + +---------+ + + + | Component | Value | Ref Range | Performed | Pathologist | | | | | At | Signature | + +---------+ + + + | BLOOD | 139 (H) | 60 - 99 mg/dL | [facility] | | | GLUCOSE, | | | [facility] | | | POC | | | [facility] | | | | | | OF CARE | | | | | | TESTS | | + +---------+ + + + + + | Specimen | + + | | + + + + + + + | Performing | Address | City/State/Zipcode | Phone Number | | Organization | | | | + + + + + | [facility] | [address] | [place], [place] | | | [facility] | [address] | [address] | | | TESTS | | | | + + + + + MAGNESIUM, PLASMA (07/23/2014 5:20 AM PDT) + +-------+ + + + | Component | Value | Ref Range | Performed | Pathologist | | | | | At | Signature | + +-------+ + + + | MAGNESIUM,P | 2.2 | 1.8 - 2.5 mg/dL | [facility] | | | LASMA | | | LABORATORY | | | | | | SERVICES, | | | | | | CORE | | + +-------+ + + + + + | Specimen | + + | Blood - Blood | + + + + + + + | Performing | Address | City/State/Zipcode | Phone Number | | Organization | | | | + + + + + | [facility] | [address] | [place] [address] | | | SERVICES, CORE | [address] | | | + + + + + RENAL FUNCTION SET (NA,K,CL,CO2,BUN,CREAT,GLUC,CA,PHOS,ALB ) (07/23/2014 5:20 AM PDT) + + + + + + | Component | Value | Ref Range | Performed | Pathologist | | | | | At | Signature | + + + + + + | GLUCOSE, | 109 (H) | 60 - 99 mg/dL | [facility] | | | PLASMA | | | LABORATORY | | | (LAB) | | | SERVICES, | | | | | | CORE | | + + + + + + | BUN, PLASMA | 45 (H) | 6 - 20 mg/dL | [facility] | | | (LAB) | | | LABORATORY | | | | | | SERVICES, | | | | | | CORE | | + + + + + + | CREATININE | 5.81 (H) | 0.60 - 1.10 | [facility] | | | PLASMA | | mg/dL | LABORATORY | | | (LAB) | | | SERVICES, | | | | | | CORE | | + + + + + + | EGFR | 10 (L) | >60 mL/min | [facility] | | | - | | | LABORATORY | | | CROATIAN | | | SERVICES, | | | | | | CORE | | + + + + + + | EGFR NON | 8 (L) | >60 mL/min | [facility] | | | -SANDY | | | LABORATORY | | | RICAN | | | SERVICES, | | | | | | CORE | | + + + + + + | SODIUM, | 131 (L) | 136 - 145 | [facility] | | | PLASMA | | mmol/L | LABORATORY | | | (LAB) | | | SERVICES, | | | | | | CORE | | + + + + + + | POTASSIUM, | 3.3 (L) | 3.4 - 5.0 | [facility] | | | PLASMA | | mmol/L | LABORATORY | | | (LAB) | | | SERVICES, | | | | | | CORE | | + + + + + + | CHLORIDE, | 95 (L) | 97 - 108 mmol/L | [facility] | | | PLASMA | | | LABORATORY | | | (LAB) | | | SERVICES, | | | | | | CORE | | + + + + + + | TOTAL CO2, | 27 | 21 - 32 mmol/L | [facility] | | | PLASMA | | | LABORATORY | | | (LAB) | | | SERVICES, | | | | | | CORE | | + + + + + + | CALCIUM, | 7.4 (L) | 8.6 - 10.2 | [facility] | | | PLASMA | | mg/dL | LABORATORY | | | (LAB) | | | SERVICES, | | | | | | CORE | | + + + + + + | ALBUMIN, | 2.0 (L) | 3.5 - 4.7 g/dL | [facility] | | | PLASMA | | | LABORATORY | | | (LAB) | | | SERVICES, | | | | | | CORE | | + + + + + + | PHOSPHORUS, | 4.6 | 2.4 - 4.7 mg/dL | [facility] | | | PLASMA | | | LABORATORY | | | (LAB) | | | SERVICES, | | | | | | CORE | | + + + + + + | POTASSIUM | No Hemo | | [facility] | | | CMNT | | | LABORATORY | | | | | | SERVICES, | | | | | | CORE | | + + + + + + | ANION GAP | 9 | mmol/L | [facility] | | | | | | LABORATORY | | | | | | SERVICES, | | | | | | CORE | | + + + + + + | ANION | 14 (H) | 4 - 11 mmol/L | [facility] | | | GAP(ALB | | | LABORATORY | | | CORRECTED) | | | SERVICES, | | | | | | CORE | | + + + + + + + + | Specimen | + + | Blood - Blood | + + + + + | Narrative | Performed At | + + + | GFR is estimated using the MDRD equation recommended by the | [facility] | | National Kidney Disease Education Program. Estimated GFR | LABORATORY | | Interpretive Information: <60 mL/min/1.73 sq m | SERVICES, CORE | | Chronic Kidney Disease <15 mL/min/1.73 sq m | | | Kidney Failure Estimated GFR greater that 60 mL/min/1.73 sq m is of | | | limited clinical value. The MDRD equation is not valid in the | | | following situations: - Patients under 18 years of age - Severe | | | malnutrition or obesity - Vegetarian diet - Rapidly changing kidney | | | function | | + + + + + + + + | Performing | Address | City/State/Zipcode | Phone Number | | Organization | | | | + + + + + | [facility] | [address] | [place] [address] | | | SERVICES, CORE | [address] | | | + + + + + CK, PLASMA (07/23/2014 5:20 AM PDT) + + + + + + | Component | Value | Ref Range | Performed | Pathologist | | | | | At | Signature | + + + + + + | CK | 7,423 (H) | 38 - 234 U/L | [facility] | | | | | | LABORATORY | | | | | | SERVICES, | | | | | | CORE | | + + + + + + + + | Specimen | + + | Blood - Blood | + + + + + + + | Performing | Address | City/State/Zipcode | Phone Number | | Organization | | | | + + + + + | [facility] | [address] | [place] [address] | | | SERVICES, CORE | [address] | | | + + + + + CARDIOLOGY (07/23/2014 12:00 AM PDT) + + + | Narrative | Performed At | + + + | | | | | | + + + + + | Procedure Note | + + | Cherry Woodard - 07/23/2014 9:27 PM PDT | + + CARDIOLOGY (07/23/2014 12:00 AM PDT) + + + | Narrative | Performed At | + + + | | | | | | + + + + + | Procedure Note | + + | Other, Faculty - 07/23/2014 10:10 AM PDT | + + CAPILLARY BLOOD GLUCOSE (NO CHG), POC (07/22/2014 10:46 PM PDT) + +---------+ + + + | Component | Value | Ref Range | Performed | Pathologist | | | | | At | Signature | + +---------+ + + + | BLOOD | 125 (H) | 60 - 99 mg/dL | [facility] - | | | GLUCOSE, | | | [facility] | | | POC | | | [facility] | | | | | | OF CARE | | | | | | TESTS | | + +---------+ + + + + + | Specimen | + + | | + + + + + + + | Performing | Address | City/State/Zipcode | Phone Number | | Organization | | | | + + + + + | [facility] | [address] | [place], [place] | | | [facility] | [address] | [address] | | | TESTS | | | | + + + + + CAPILLARY BLOOD GLUCOSE (NO CHG), POC (07/22/2014 7:34 PM PDT) + +---------+ + + + | Component | Value | Ref Range | Performed | Pathologist | | | | | At | Signature | + +---------+ + + + | BLOOD | 120 (H) | 60 - 99 mg/dL | [facility] - | | | GLUCOSE, | | | [facility] | | | POC | | | [facility] | | | | | | OF CARE | | | | | | TESTS | | + +---------+ + + + + + | Specimen | + + | | + + + + + + + | Performing | Address | City/State/Zipcode | Phone Number | | Organization | | | | + + + + + | [facility] | [address] | [place], [place] | | | [facility] | [address] | [address] | | | TESTS | | | | + + + + + CAPILLARY BLOOD GLUCOSE (NO CHG), POC (07/22/2014 2:23 PM PDT) + +-------+ + + + | Component | Value | Ref Range | Performed | Pathologist | | | | | At | Signature | + +-------+ + + + | BLOOD | 99 | 60 - 99 mg/dL | [facility] - | | | GLUCOSE, | | | [facility] | | | POC | | | [facility] | | | | | | OF CARE | | | | | | TESTS | | + +-------+ + + + + + | Specimen | + + | | + + + + + + + | Performing | Address | City/State/Zipcode | Phone Number | | Organization | | | | + + + + + | [facility] | [address] | [place], [place] | | | [facility] | [address] | [address] | | | TESTS | | | | + + + + + CK, PLASMA (07/22/2014 12:17 PM PDT) + + + + + + | Component | Value | Ref Range | Performed | Pathologist | | | | | At | Signature | + + + + + + | CK | 9,587 (H) | 38 - 234 U/L | [facility] | | | | | | LABORATORY | | | | | | SERVICES, | | | | | | CORE | | + + + + + + + + | Specimen | + + | Blood - Blood | + + + + + + + | Performing | Address | City/State/Zipcode | Phone Number | | Organization | | | | + + + + + | [facility] | [address] | [place] [address] | | | SERVICES, CORE | [address] | | | + + + + + RENAL FUNCTION SET (NA,K,CL,CO2,BUN,CREAT,GLUC,CA,PHOS,ALB ) (07/22/2014 12:17 PM PDT) + + + + + + | Component | Value | Ref Range | Performed | Pathologist | | | | | At | Signature | + + + + + + | GLUCOSE, | 103 (H) | 60 - 99 mg/dL | [facility] | | | PLASMA | | | LABORATORY | | | (LAB) | | | SERVICES, | | | | | | CORE | | + + + + + + | BUN, PLASMA | 34 (H) | 6 - 20 mg/dL | [facility] | | | (LAB) | | | LABORATORY | | | | | | SERVICES, | | | | | | CORE | | + + + + + + | CREATININE | 5.45 (H) | 0.60 - 1.10 | [facility] | | | PLASMA | | mg/dL | LABORATORY | | | (LAB) | | | SERVICES, | | | | | | CORE | | + + + + + + | EGFR | 10 (L) | >60 mL/min | [facility] | | | - | | | LABORATORY | | | CROATIAN | | | SERVICES, | | | | | | CORE | | + + + + + + | EGFR NON | 9 (L) | >60 mL/min | [facility] | | | -SANDY | | | LABORATORY | | | RICAN | | | SERVICES, | | | | | | CORE | | + + + + + + | SODIUM, | 131 (L) | 136 - 145 | [facility] | | | PLASMA | | mmol/L | LABORATORY | | | (LAB) | | | SERVICES, | | | | | | CORE | | + + + + + + | POTASSIUM, | 3.9 | 3.4 - 5.0 | [facility] | | | PLASMA | | mmol/L | LABORATORY | | | (LAB) | | | SERVICES, | | | | | | CORE | | + + + + + + | CHLORIDE, | 95 (L) | 97 - 108 mmol/L | [facility] | | | PLASMA | | | LABORATORY | | | (LAB) | | | SERVICES, | | | | | | CORE | | + + + + + + | TOTAL CO2, | 24 | 21 - 32 mmol/L | [facility] | | | PLASMA | | | LABORATORY | | | (LAB) | | | SERVICES, | | | | | | CORE | | + + + + + + | CALCIUM, | 7.4 (L) | 8.6 - 10.2 | [facility] | | | PLASMA | | mg/dL | LABORATORY | | | (LAB) | | | SERVICES, | | | | | | CORE | | + + + + + + | ALBUMIN, | 1.9 (L) | 3.5 - 4.7 g/dL | [facility] | | | PLASMA | | | LABORATORY | | | (LAB) | | | SERVICES, | | | | | | CORE | | + + + + + + | PHOSPHORUS, | 4.6 | 2.4 - 4.7 mg/dL | [facility] | | | PLASMA | | | LABORATORY | | | (LAB) | | | SERVICES, | | | | | | CORE | | + + + + + + | POTASSIUM | No Hemo | | [facility] | | | CMNT | | | LABORATORY | | | | | | SERVICES, | | | | | | CORE | | + + + + + + | ANION GAP | 12 | mmol/L | [facility] | | | | | | LABORATORY | | | | | | SERVICES, | | | | | | CORE | | + + + + + + | ANION | 17 (H) | 4 - 11 mmol/L | [facility] | | | GAP(ALB | | | LABORATORY | | | CORRECTED) | | | SERVICES, | | | | | | CORE | | + + + + + + + + | Specimen | + + | Blood - Blood | + + + + + | Narrative | Performed At | + + + | GFR is estimated using the MDRD equation recommended by the | [facility] | | National Kidney Disease Education Program. Estimated GFR | LABORATORY | | Interpretive Information: <60 mL/min/1.73 sq m | [facility], CORE | | Chronic Kidney Disease <15 mL/min/1.73 sq m | | | Kidney Failure Estimated GFR greater that 60 mL/min/1.73 sq m is of | | | limited clinical value. The MDRD equation is not valid in the | | | following situations: - Patients under 18 years of age - Severe | | | malnutrition or obesity - Vegetarian diet - Rapidly changing kidney | | | function | | + + + + + + + + | Performing | Address | City/State/Zipcode | Phone Number | | Organization | | | | + + + + + | [facility] | [address] | [place] [address] | | | [place] | [address] | | | + + + + + CAPILLARY BLOOD GLUCOSE (NO CHG), POC (07/22/2014 10:13 AM PDT) + +---------+ + + + | Component | Value | Ref Range | Performed | Pathologist | | | | | At | Signature | + +---------+ + + + | BLOOD | 111 (H) | 60 - 99 mg/dL | [facility] - | | | GLUCOSE, | | | [facility] | | | POC | | | [facility] | | | | | | OF CARE | | | | | | TESTS | | + +---------+ + + + + + | Specimen | + + | | + + + + + + + | Performing | Address | City/State/Zipcode | Phone Number | | Organization | | | | + + + + + | [facility] | [address] | [place], [place] | | | [facility] | [address] | [address] | | | TESTS | | | | + + + + + CBC (HEMOGRAM) ONLY (07/22/2014 9:17 AM PDT) + + + + + + | Component | Value | Ref Range | Performed | Pathologist | | | | | At | Signature | + + + + + + | WHITE CELL | 10.52 | 4.40 - 11.00 | [facility] | | | COUNT | | K/cu mm | LABORATORY | | | | | | SERVICES, | | | | | | CORE | | + + + + + + | RED CELL | 2.67 (L) | 4.00 - 5.20 | [facility] | | | COUNT | | M/cu mm | LABORATORY | | | | | | SERVICES, | | | | | | CORE | | + + + + + + | HEMOGLOBIN | 8.5 (L) | 12.0 - 16.0 | [facility] | | | | | g/dL | LABORATORY | | | | | | SERVICES, | | | | | | CORE | | + + + + + + | HEMATOCRIT | 26.9 (L) | 36.0 - 46.0 % | [facility] | | | | | | LABORATORY | | | | | | SERVICES, | | | | | | CORE | | + + + + + + | MCV | 100.7 (H) | 80.0 - 96.0 fL | [facility] | | | | | | LABORATORY | | | | | | SERVICES, | | | | | | CORE | | + + + + + + | MCHC | 31.6 | 33.0 - 35.5 | [facility] | | | | | g/dL | LABORATORY | | | | | | SERVICES, | | | | | | CORE | | + + + + + + | RDW SD | 56.4 (H) | 35.1 - 46.3 fL | [facility] | | | | | | LABORATORY | | | | | | SERVICES, | | | | | | CORE | | + + + + + + | PLATELET | 180 | 150 - 400 K/cu | [facility] | | | COUNT | | mm | LABORATORY | | | | | | SERVICES, | | | | | | CORE | | + + + + + + | MPV | 10.8 | 9.7 - 12.3 fL | [facility] | | | | | | LABORATORY | | | | | | SERVICES, | | | | | | CORE | | + + + + + + | NRBC% | 0.4 (H) | 0.0 - 0.3 % | [facility] | | | | | | LABORATORY | | | | | | SERVICES, | | | | | | CORE | | + + + + + + | NRBC# | 0.04 (H) | 0.00 - 0.02 | [facility] | | | | | K/cu mm | LABORATORY | | | | | | SERVICES, | | | | | | CORE | | + + + + + + + + | Specimen | + + | Blood - Blood | + + + + + + + | Performing | Address | City/State/Zipcode | Phone Number | | Organization | | | | + + + + + | [facility] | [address] | [place] [address] | | | SERVICES, CORE | [address] | | | + + + + + CK, PLASMA (07/22/2014 5:56 AM PDT) + + + + + + | Component | Value | Ref Range | Performed | Pathologist | | | | | At | Signature | + + + + + + | CK | 10,255 (H) | 38 - 234 U/L | [facility] | | | | | | LABORATORY | | | | | | SERVICES, | | | | | | CORE | | + + + + + + + + | Specimen | + + | Blood - Blood | + + + + + + + | Performing | Address | City/State/Zipcode | Phone Number | | Organization | | | | + + + + + | [facility] | [address] | [place] [address] | | | SERVICES, CORE | [address] | | | + + + + + RENAL FUNCTION SET (NA,K,CL,CO2,BUN,CREAT,GLUC,CA,PHOS,ALB ) (07/22/2014 5:56 AM PDT) + + + + + + | Component | Value | Ref Range | Performed | Pathologist | | | | | At | Signature | + + + + + + | GLUCOSE, | 86 | 60 - 99 mg/dL | [facility] | | | PLASMA | | | LABORATORY | | | (LAB) | | | SERVICES, | | | | | | CORE | | + + + + + + | BUN, PLASMA | 31 (H) | 6 - 20 mg/dL | [facility] | | | (LAB) | | | LABORATORY | | | | | | SERVICES, | | | | | | CORE | | + + + + + + | CREATININE | 5.16 (H) | 0.60 - 1.10 | [facility] | | | PLASMA | | mg/dL | LABORATORY | | | (LAB) | | | SERVICES, | | | | | | CORE | | + + + + + + | EGFR | 11 (L) | >60 mL/min | [facility] | | | - | | | LABORATORY | | | CROATIAN | | | SERVICES, | | | | | | CORE | | + + + + + + | EGFR NON | 9 (L) | >60 mL/min | [facility] | | | -SANDY | | | LABORATORY | | | RICAN | | | SERVICES, | | | | | | CORE | | + + + + + + | SODIUM, | 130 (L) | 136 - 145 | [facility] | | | PLASMA | | mmol/L | LABORATORY | | | (LAB) | | | SERVICES, | | | | | | CORE | | + + + + + + | POTASSIUM, | 4.0 | 3.4 - 5.0 | [facility] | | | PLASMA | | mmol/L | LABORATORY | | | (LAB) | | | SERVICES, | | | | | | CORE | | + + + + + + | CHLORIDE, | 96 (L) | 97 - 108 mmol/L | [facility] | | | PLASMA | | | LABORATORY | | | (LAB) | | | SERVICES, | | | | | | CORE | | + + + + + + | TOTAL CO2, | 22 | 21 - 32 mmol/L | [facility] | | | PLASMA | | | LABORATORY | | | (LAB) | | | SERVICES, | | | | | | CORE | | + + + + + + | CALCIUM, | 7.4 (L) | 8.6 - 10.2 | [facility] | | | PLASMA | | mg/dL | LABORATORY | | | (LAB) | | | SERVICES, | | | | | | CORE | | + + + + + + | ALBUMIN, | 1.7 (L) | 3.5 - 4.7 g/dL | [facility] | | | PLASMA | | | LABORATORY | | | (LAB) | | | SERVICES, | | | | | | CORE | | + + + + + + | PHOSPHORUS, | 4.9 (H) | 2.4 - 4.7 mg/dL | [facility] | | | PLASMA | | | LABORATORY | | | (LAB) | | | SERVICES, | | | | | | CORE | | + + + + + + | POTASSIUM | Sl Hemo | | [facility] | | | CMNT | | | LABORATORY | | | | | | SERVICES, | | | | | | CORE | | + + + + + + | ANION GAP | 12 | mmol/L | [facility] | | | | | | LABORATORY | | | | | | SERVICES, | | | | | | CORE | | + + + + + + | ANION | 17 (H) | 4 - 11 mmol/L | [facility] | | | GAP(ALB | | | LABORATORY | | | CORRECTED) | | | SERVICES, | | | | | | CORE | | + + + + + + + + | Specimen | + + | Blood - Blood | + + + + + | Narrative | Performed At | + + + | Sample hemolyzed. Results for K, Total Bili, Direct Bili, AST, | [facility] | | LDH, or HDL may be inaccurate. Refer to comment under test result. | LABORATORY | | GFR is estimated using the MDRD equation recommended by the National | SERVICES, [facility] | | Kidney Disease Education Program. Estimated GFR Interpretive | | | Information: <60 mL/min/1.73 sq m Chronic Kidney | | | Disease <15 mL/min/1.73 sq m Kidney Failure | | | Estimated GFR greater that 60 mL/min/1.73 sq m is of limited clinical | | | value. The MDRD equation is not valid in the following situations: | | | - Patients under 18 years of age - Severe malnutrition or obesity | | | - Vegetarian diet - Rapidly changing kidney function | | + + + + + + + + | Performing | Address | City/State/Zipcode | Phone Number | | Organization | | | | + + + + + | [facility] | [address] | [place] [address] | | | SERVICES, [facility] | [address] | | | + + + + + CARDIOLOGY (07/22/2014 12:00 AM PDT) + + + | Narrative | Performed At | + + + | | | + + + CARDIOLOGY (07/22/2014 12:00 AM PDT) + + + | Narrative | Performed At | + + + | | | | | | + + + + + | Procedure Note | + + | Cherry Woodard - 07/23/2014 7:58 AM PDT | + + CARDIOLOGY (07/22/2014 12:00 AM PDT) + + + | Narrative | Performed At | + + + | | | | | | + + + + + | Procedure Note | + + | Other, Faculty - 07/22/2014 6:06 PM PDT | + + CAPILLARY BLOOD GLUCOSE (NO CHG), POC (07/21/2014 10:51 PM PDT) + +-------+ + + + | Component | Value | Ref Range | Performed | Pathologist | | | | | At | Signature | + +-------+ + + + | BLOOD | 97 | 60 - 99 mg/dL | [facility] - | | | GLUCOSE, | | | [facility] | | | POC | | | [facility] | | | | | | OF CARE | | | | | | TESTS | | + +-------+ + + + + + | Specimen | + + | | + + + + + + + | Performing | Address | City/State/Zipcode | Phone Number | | Organization | | | | + + + + + | [facility] | [address] | [place], [place] | | | [facility] | [facility] | [address] | | | TESTS | | | | + + + + + CK, PLASMA (07/21/2014 7:39 PM PDT) + + + + + + | Component | Value | Ref Range | Performed | Pathologist | | | | | At | Signature | + + + + + + | CK | 12,077 (H) | 38 - 234 U/L | [facility] | | | | | | LABORATORY | | | | | | SERVICES, | | | | | | CORE | | + + + + + + + + | Specimen | + + | Blood - Blood | + + + + + + + | Performing | Address | City/State/Zipcode | Phone Number | | Organization | | | | + + + + + | [facility] | [address] | [place] [address] | | | SERVICES, CORE | [address] | | | + + + + + RENAL FUNCTION SET (NA,K,CL,CO2,BUN,CREAT,GLUC,CA,PHOS,ALB ) (07/21/2014 7:39 PM PDT) + + + + + + | Component | Value | Ref Range | Performed | Pathologist | | | | | At | Signature | + + + + + + | GLUCOSE, | 94 | 60 - 99 mg/dL | [facility] | | | PLASMA | | | LABORATORY | | | (LAB) | | | SERVICES, | | | | | | CORE | | + + + + + + | BUN, PLASMA | 26 (H) | 6 - 20 mg/dL | [facility] | | | (LAB) | | | LABORATORY | | | | | | SERVICES, | | | | | | CORE | | + + + + + + | CREATININE | 4.60 (H) | 0.60 - 1.10 | [facility] | | | PLASMA | | mg/dL | LABORATORY | | | (LAB) | | | SERVICES, | | | | | | CORE | | + + + + + + | EGFR | 13 (L) | >60 mL/min | [facility] | | | - | | | LABORATORY | | | CROATIAN | | | SERVICES, | | | | | | CORE | | + + + + + + | EGFR NON | 10 (L) | >60 mL/min | [facility] | | | -SANDY | | | LABORATORY | | | RICAN | | | SERVICES, | | | | | | CORE | | + + + + + + | SODIUM, | 131 (L) | 136 - 145 | [facility] | | | PLASMA | | mmol/L | LABORATORY | | | (LAB) | | | SERVICES, | | | | | | CORE | | + + + + + + | POTASSIUM, | 3.7 | 3.4 - 5.0 | [facility] | | | PLASMA | | mmol/L | LABORATORY | | | (LAB) | | | SERVICES, | | | | | | CORE | | + + + + + + | CHLORIDE, | 96 (L) | 97 - 108 mmol/L | [facility] | | | PLASMA | | | LABORATORY | | | (LAB) | | | SERVICES, | | | | | | CORE | | + + + + + + | TOTAL CO2, | 27 | 21 - 32 mmol/L | [facility] | | | PLASMA | | | LABORATORY | | | (LAB) | | | SERVICES, | | | | | | CORE | | + + + + + + | CALCIUM, | 7.3 (L) | 8.6 - 10.2 | [facility] | | | PLASMA | | mg/dL | LABORATORY | | | (LAB) | | | SERVICES, | | | | | | CORE | | + + + + + + | ALBUMIN, | 1.8 (L) | 3.5 - 4.7 g/dL | [facility] | | | PLASMA | | | LABORATORY | | | (LAB) | | | SERVICES, | | | | | | CORE | | + + + + + + | PHOSPHORUS, | 3.9 | 2.4 - 4.7 mg/dL | [facility] | | | PLASMA | | | LABORATORY | | | (LAB) | | | SERVICES, | | | | | | CORE | | + + + + + + | POTASSIUM | No Hemo | | [facility] | | | CMNT | | | LABORATORY | | | | | | SERVICES, | | | | | | CORE | | + + + + + + | ANION GAP | 8 | mmol/L | [facility] | | | | | | LABORATORY | | | | | | SERVICES, | | | | | | CORE | | + + + + + + | ANION | 13 (H) | 4 - 11 mmol/L | [facility] | | | GAP(ALB | | | LABORATORY | | | CORRECTED) | | | SERVICES, | | | | | | CORE | | + + + + + + + + | Specimen | + + | Blood - Blood | + + + + + | Narrative | Performed At | + + + | GFR is estimated using the MDRD equation recommended by the | [facility] | | National Kidney Disease Education Program. Estimated GFR | LABORATORY | | Interpretive Information: <60 mL/min/1.73 sq m | SERVICES, CORE | | Chronic Kidney Disease <15 mL/min/1.73 sq m | | | Kidney Failure Estimated GFR greater that 60 mL/min/1.73 sq m is of | | | limited clinical value. The MDRD equation is not valid in the | | | following situations: - Patients under 18 years of age - Severe | | | malnutrition or obesity - Vegetarian diet - Rapidly changing kidney | | | function | | + + + + + + + + | Performing | Address | City/State/Zipcode | Phone Number | | Organization | | | | + + + + + | [facility] | [address] | [place] [address] | | | SERVICES, CORE | [address] | | | + + + + + CAPILLARY BLOOD GLUCOSE (NO CHG), POC (07/21/2014 7:28 PM PDT) + +-------+ + + + | Component | Value | Ref Range | Performed | Pathologist | | | | | At | Signature | + +-------+ + + + | BLOOD | 92 | 60 - 99 mg/dL | [facility] - | | | GLUCOSE, | | | [facility] | | | POC | | | [facility] | | | | | | OF CARE | | | | | | TESTS | | + +-------+ + + + + + | Specimen | + + | | + + + + + + + | Performing | Address | City/State/Zipcode | Phone Number | | Organization | | | | + + + + + | [facility] | [address] | [place], [place] | | | [facility] | [address] | [address] | | | TESTS | | | | + + + + + CK, PLASMA (07/21/2014 5:14 PM PDT) + + + + + + | Component | Value | Ref Range | Performed | Pathologist | | | | | At | Signature | + + + + + + | CK | 13,071 (H) | 38 - 234 U/L | [facility] | | | | | | LABORATORY | | | | | | SERVICES, | | | | | | CORE | | + + + + + + + + | Specimen | + + | Blood - Blood | + + + + + + + | Performing | Address | City/State/Zipcode | Phone Number | | Organization | | | | + + + + + | [facility] | [address] | [place] [address] | | | SERVICES, CORE | [address] | | | + + + + + RENAL FUNCTION SET (NA,K,CL,CO2,BUN,CREAT,GLUC,CA,PHOS,ALB ) (07/21/2014 5:14 PM PDT) + + + + + + | Component | Value | Ref Range | Performed | Pathologist | | | | | At | Signature | + + + + + + | GLUCOSE, | 85 | 60 - 99 mg/dL | [facility] | | | PLASMA | | | LABORATORY | | | (LAB) | | | SERVICES, | | | | | | CORE | | + + + + + + | BUN, PLASMA | 26 (H) | 6 - 20 mg/dL | [facility] | | | (LAB) | | | LABORATORY | | | | | | SERVICES, | | | | | | CORE | | + + + + + + | CREATININE | 4.29 (H) | 0.60 - 1.10 | [facility] | | | PLASMA | | mg/dL | LABORATORY | | | (LAB) | | | SERVICES, | | | | | | CORE | | + + + + + + | EGFR | 14 (L) | >60 mL/min | [facility] | | | - | | | LABORATORY | | | CROATIAN | | | SERVICES, | | | | | | CORE | | + + + + + + | EGFR NON | 11 (L) | >60 mL/min | [facility] | | | -SANDY | | | LABORATORY | | | RICAN | | | SERVICES, | | | | | | CORE | | + + + + + + | SODIUM, | 131 (L) | 136 - 145 | [facility] | | | PLASMA | | mmol/L | LABORATORY | | | (LAB) | | | SERVICES, | | | | | | CORE | | + + + + + + | POTASSIUM, | 4.0 | 3.4 - 5.0 | [facility] | | | PLASMA | | mmol/L | LABORATORY | | | (LAB) | | | SERVICES, | | | | | | CORE | | + + + + + + | CHLORIDE, | 96 (L) | 97 - 108 mmol/L | [facility] | | | PLASMA | | | LABORATORY | | | (LAB) | | | SERVICES, | | | | | | CORE | | + + + + + + | TOTAL CO2, | 26 | 21 - 32 mmol/L | [facility] | | | PLASMA | | | LABORATORY | | | (LAB) | | | SERVICES, | | | | | | CORE | | + + + + + + | CALCIUM, | 7.3 (L) | 8.6 - 10.2 | [facility] | | | PLASMA | | mg/dL | LABORATORY | | | (LAB) | | | SERVICES, | | | | | | CORE | | + + + + + + | ALBUMIN, | 2.1 (L) | 3.5 - 4.7 g/dL | [facility] | | | PLASMA | | | LABORATORY | | | (LAB) | | | SERVICES, | | | | | | CORE | | + + + + + + | PHOSPHORUS, | 3.7 | 2.4 - 4.7 mg/dL | [facility] | | | PLASMA | | | LABORATORY | | | (LAB) | | | SERVICES, | | | | | | CORE | | + + + + + + | POTASSIUM | No Hemo | | [facility] | | | CMNT | | | LABORATORY | | | | | | SERVICES, | | | | | | CORE | | + + + + + + | ANION GAP | 9 | mmol/L | [facility] | | | | | | LABORATORY | | | | | | SERVICES, | | | | | | CORE | | + + + + + + | ANION | 13 (H) | 4 - 11 mmol/L | [facility] | | | GAP(ALB | | | LABORATORY | | | CORRECTED) | | | SERVICES, | | | | | | CORE | | + + + + + + + + | Specimen | + + | Blood - Blood | + + + + + | Narrative | Performed At | + + + | GFR is estimated using the MDRD equation recommended by the | [facility] | | National Kidney Disease Education Program. Estimated GFR | LABORATORY | | Interpretive Information: <60 mL/min/1.73 sq m | SERVICES, CORE | | Chronic Kidney Disease <15 mL/min/1.73 sq m | | | Kidney Failure Estimated GFR greater that 60 mL/min/1.73 sq m is of | | | limited clinical value. The MDRD equation is not valid in the | | | following situations: - Patients under 18 years of age - Severe | | | malnutrition or obesity - Vegetarian diet - Rapidly changing kidney | | | function | | + + + + + + + + | Performing | Address | City/State/Zipcode | Phone Number | | Organization | | | | + + + + + | [facility] | [address] | [place] [address] | | | SERVICES, CORE | [address] | | | + + + + + CAPILLARY BLOOD GLUCOSE (NO CHG), POC (07/21/2014 5:00 PM PDT) + +-------+ + + + | Component | Value | Ref Range | Performed | Pathologist | | | | | At | Signature | + +-------+ + + + | BLOOD | 79 | 60 - 99 mg/dL | [facility] - | | | GLUCOSE, | | | [facility] | | | POC | | | [facility] | | | | | | OF CARE | | | | | | TESTS | | + +-------+ + + + + + | Specimen | + + | | + + + + + + + | Performing | Address | City/State/Zipcode | Phone Number | | Organization | | | | + + + + + | [facility] | [address] | [place], [place] | | | [facility] | [facility] | [address] | | | TESTS | | | | + + + + + CAPILLARY BLOOD GLUCOSE (NO CHG), POC (07/21/2014 3:50 PM PDT) + +-------+ + + + | Component | Value | Ref Range | Performed | Pathologist | | | | | At | Signature | + +-------+ + + + | BLOOD | 77 | 60 - 99 mg/dL | [facility] - | | | GLUCOSE, | | | [facility] | | | POC | | | [place] | | | | | | OF CARE | | | | | | TESTS | | + +-------+ + + + + + | Specimen | + + | | + + + + + + + | Performing | Address | City/State/Zipcode | Phone Number | | Organization | | | | + + + + + | [facility] | [address] | [place], [place] | | | [facility] | [facility] | [address] | | | TESTS | | | | + + + + + CAPILLARY BLOOD GLUCOSE (NO CHG), POC (07/21/2014 9:03 AM PDT) + +-------+ + + + | Component | Value | Ref Range | Performed | Pathologist | | | | | At | Signature | + +-------+ + + + | BLOOD | 91 | 60 - 99 mg/dL | [facility] - | | | GLUCOSE, | | | [facility] | | | POC | | | [facility] | | | | | | OF CARE | | | | | | TESTS | | + +-------+ + + + + + | Specimen | + + | | + + + + + + + | Performing | Address | City/State/Zipcode | Phone Number | | Organization | | | | + + + + + | [facility] | [address] | [place], [place] | | | [facility] | [facility] | [address] | | | TESTS | | | | + + + + + CK, PLASMA (07/21/2014 5:34 AM PDT) + + + + + + | Component | Value | Ref Range | Performed | Pathologist | | | | | At | Signature | + + + + + + | CK | 14,567 (H) | 38 - 234 U/L | [facility] | | | | | | LABORATORY | | | | | | SERVICES, | | | | | | CORE | | + + + + + + + + | Specimen | + + | Blood - Blood | + + + + + + + | Performing | Address | City/State/Zipcode | Phone Number | | Organization | | | | + + + + + | [facility] | [address] | [place] [address] | | | SERVICES, CORE | [address] | | | + + + + + RENAL FUNCTION SET (NA,K,CL,CO2,BUN,CREAT,GLUC,CA,PHOS,ALB ) (07/21/2014 5:34 AM PDT) + + + + + + | Component | Value | Ref Range | Performed | Pathologist | | | | | At | Signature | + + + + + + | GLUCOSE, | 82 | 60 - 99 mg/dL | [facility] | | | PLASMA | | | LABORATORY | | | (LAB) | | | SERVICES, | | | | | | CORE | | + + + + + + | BUN, PLASMA | 42 (H) | 6 - 20 mg/dL | [facility] | | | (LAB) | | | LABORATORY | | | | | | SERVICES, | | | | | | CORE | | + + + + + + | CREATININE | 6.78 (H) | 0.60 - 1.10 | [facility] | | | PLASMA | | mg/dL | LABORATORY | | | (LAB) | | | SERVICES, | | | | | | CORE | | + + + + + + | EGFR | 8 (L) | >60 mL/min | [facility] | | | - | | | LABORATORY | | | CROATIAN | | | SERVICES, | | | | | | CORE | | + + + + + + | EGFR NON | 7 (L) | >60 mL/min | [facility] | | | -[facility] | | | LABORATORY | | | RICAN | | | SERVICES, | | | | | | CORE | | + + + + + + | SODIUM, | 127 (L) | 136 - 145 | [facility] | | | PLASMA | | mmol/L | LABORATORY | | | (LAB) | | | SERVICES, | | | | | | CORE | | + + + + + + | POTASSIUM, | 3.5 | 3.4 - 5.0 | [facility] | | | PLASMA | | mmol/L | LABORATORY | | | (LAB) | | | SERVICES, | | | | | | CORE | | + + + + + + | CHLORIDE, | 90 (L) | 97 - 108 mmol/L | [facility] | | | PLASMA | | | LABORATORY | | | (LAB) | | | SERVICES, | | | | | | CORE | | + + + + + + | TOTAL CO2, | 23 | 21 - 32 mmol/L | [facility] | | | PLASMA | | | LABORATORY | | | (LAB) | | | SERVICES, | | | | | | CORE | | + + + + + + | CALCIUM, | 7.1 (L) | 8.6 - 10.2 | [facility] | | | PLASMA | | mg/dL | LABORATORY | | | (LAB) | | | SERVICES, | | | | | | CORE | | + + + + + + | ALBUMIN, | 1.9 (L) | 3.5 - 4.7 g/dL | [facility] | | | PLASMA | | | LABORATORY | | | (LAB) | | | SERVICES, | | | | | | CORE | | + + + + + + | PHOSPHORUS, | 6.1 (H) | 2.4 - 4.7 mg/dL | [facility] | | | PLASMA | | | LABORATORY | | | (LAB) | | | SERVICES, | | | | | | CORE | | + + + + + + | POTASSIUM | No Hemo | | [facility] | | | CMNT | | | LABORATORY | | | | | | SERVICES, | | | | | | CORE | | + + + + + + | ANION GAP | 14 | mmol/L | [facility] | | | | | | LABORATORY | | | | | | SERVICES, | | | | | | CORE | | + + + + + + | ANION | 19 (H) | 4 - 11 mmol/L | [facility] | | | GAP(ALB | | | LABORATORY | | | CORRECTED) | | | SERVICES, | | | | | | CORE | | + + + + + + + + | Specimen | + + | Blood - Blood | + + + + + | Narrative | Performed At | + + + | GFR is estimated using the MDRD equation recommended by the | [facility] | | National Kidney Disease Education Program. Estimated GFR | LABORATORY | | Interpretive Information: <60 mL/min/1.73 sq m | SERVICES, CORE | | Chronic Kidney Disease <15 mL/min/1.73 sq m | | | Kidney Failure Estimated GFR greater that 60 mL/min/1.73 sq m is of | | | limited clinical value. The MDRD equation is not valid in the | | | following situations: - Patients under 18 years of age - Severe | | | malnutrition or obesity - Vegetarian diet - Rapidly changing kidney | | | function | | + + + + + + + + | Performing | Address | City/State/Zipcode | Phone Number | | Organization | | | | + + + + + | [facility] | [address] | [place] [address] | | | SERVICES, CORE | [address] | | | + + + + + CAPILLARY BLOOD GLUCOSE (NO CHG), POC (07/20/2014 10:22 PM PDT) + +-------+ + + + | Component | Value | Ref Range | Performed | Pathologist | | | | | At | Signature | + +-------+ + + + | BLOOD | 93 | 60 - 99 mg/dL | [facility] - | | | GLUCOSE, | | | [facility] | | | POC | | | [facility] | | | | | | OF CARE | | | | | | TESTS | | + +-------+ + + + + + | Specimen | + + | | + + + + + + + | Performing | Address | City/State/Zipcode | Phone Number | | Organization | | | | + + + + + | [facility] | [address] | [place], [place] | | | [facility] | [facility] | [address] | | | TESTS | | | | + + + + + CK, PLASMA (07/20/2014 8:34 PM PDT) + + + + + + | Component | Value | Ref Range | Performed | Pathologist | | | | | At | Signature | + + + + + + | CK | 15,549 (H) | 38 - 234 U/L | [facility] | | | | | | LABORATORY | | | | | | SERVICES, | | | | | | CORE | | + + + + + + + + | Specimen | + + | Blood - Blood | + + + + + + + | Performing | Address | City/State/Zipcode | Phone Number | | Organization | | | | + + + + + | [facility] | [address] | [place] [address] | | | SERVICES, CORE | [address] | | | + + + + + RENAL FUNCTION SET (NA,K,CL,CO2,BUN,CREAT,GLUC,CA,PHOS,ALB ) (07/20/2014 8:34 PM PDT) + + + + + + | Component | Value | Ref Range | Performed | Pathologist | | | | | At | Signature | + + + + + + | GLUCOSE, | 80 | 60 - 99 mg/dL | [facility] | | | PLASMA | | | LABORATORY | | | (LAB) | | | SERVICES, | | | | | | CORE | | + + + + + + | BUN, PLASMA | 39 (H) | 6 - 20 mg/dL | [facility] | | | (LAB) | | | LABORATORY | | | | | | SERVICES, | | | | | | CORE | | + + + + + + | CREATININE | 6.26 (H) | 0.60 - 1.10 | [facility] | | | PLASMA | | mg/dL | LABORATORY | | | (LAB) | | | SERVICES, | | | | | | CORE | | + + + + + + | EGFR | 9 (L) | >60 mL/min | [facility] | | | - | | | LABORATORY | | | CROATIAN | | | SERVICES, | | | | | | CORE | | + + + + + + | EGFR NON | 7 (L) | >60 mL/min | [facility] | | | -SANDY | | | LABORATORY | | | RICAN | | | SERVICES, | | | | | | CORE | | + + + + + + | SODIUM, | 125 (L) | 136 - 145 | [facility] | | | PLASMA | | mmol/L | LABORATORY | | | (LAB) | | | SERVICES, | | | | | | CORE | | + + + + + + | POTASSIUM, | 3.6 | 3.4 - 5.0 | [facility] | | | PLASMA | | mmol/L | LABORATORY | | | (LAB) | | | SERVICES, | | | | | | CORE | | + + + + + + | CHLORIDE, | 91 (L) | 97 - 108 mmol/L | [facility] | | | PLASMA | | | LABORATORY | | | (LAB) | | | SERVICES, | | | | | | CORE | | + + + + + + | TOTAL CO2, | 22 | 21 - 32 mmol/L | [facility] | | | PLASMA | | | LABORATORY | | | (LAB) | | | SERVICES, | | | | | | CORE | | + + + + + + | CALCIUM, | 7.2 (L) | 8.6 - 10.2 | [facility] | | | PLASMA | | mg/dL | LABORATORY | | | (LAB) | | | SERVICES, | | | | | | CORE | | + + + + + + | ALBUMIN, | 1.9 (L) | 3.5 - 4.7 g/dL | [facility] | | | PLASMA | | | LABORATORY | | | (LAB) | | | SERVICES, | | | | | | CORE | | + + + + + + | PHOSPHORUS, | 5.1 (H) | 2.4 - 4.7 mg/dL | [facility] | | | PLASMA | | | LABORATORY | | | (LAB) | | | SERVICES, | | | | | | CORE | | + + + + + + | POTASSIUM | No Hemo | | [facility] | | | CMNT | | | LABORATORY | | | | | | SERVICES, | | | | | | CORE | | + + + + + + | ANION GAP | 12 | mmol/L | [facility] | | | | | | LABORATORY | | | | | | SERVICES, | | | | | | CORE | | + + + + + + | ANION | 17 (H) | 4 - 11 mmol/L | [facility] | | | GAP(ALB | | | LABORATORY | | | CORRECTED) | | | SERVICES, | | | | | | CORE | | + + + + + + + + | Specimen | + + | Blood - Blood | + + + + + | Narrative | Performed At | + + + | GFR is estimated using the MDRD equation recommended by the | [facility] | | National Kidney Disease Education Program. Estimated GFR | LABORATORY | | Interpretive Information: <60 mL/min/1.73 sq m | SERVICES, CORE | | Chronic Kidney Disease <15 mL/min/1.73 sq m | | | Kidney Failure Estimated GFR greater that 60 mL/min/1.73 sq m is of | | | limited clinical value. The MDRD equation is not valid in the | | | following situations: - Patients under 18 years of age - Severe | | | malnutrition or obesity - Vegetarian diet - Rapidly changing kidney | | | function | | + + + + + + + + | Performing | Address | City/State/Zipcode | Phone Number | | Organization | | | | + + + + + | [facility] | [address] | [place] [address] | | | SERVICES, CORE | [address] | | | + + + + + X-RAY SPINE THORACOLUMBAR 2 VIEWS (07/20/2014 3:57 PM PDT) + + + + + + | Component | Value | Ref Range | Performed | Pathologist | | | | | At | Signature | + + + + + + | SPINE | STUDY: SPINE | | | | | THORACOLUMB | THORACOLUMBAR 2VIEWS | | | | | AR 2 VIEWS | 07/20/14 15:57:00 | | | | | | HISTORY: Pain. | | | | | | COMPARISON: None. | | | | | | FINDINGS: Alignment is | | | | | | normal. There is no | | | | | | fracture, focal osseous | | | | | | destruction, or | | | | | | softtissue abnormality. | | | | | | Mild disc space | | | | | | narrowing and endplate | | | | | | spurs are seen inthe | | | | | | lower thoracic spine | | | | | | with preservation of | | | | | | remaining disc spaces. | | | | | | No softtissue | | | | | | abnormality is detected. | | | | | | IMPRESSION: Mild | | | | | | degenerative disc | | | | | | disease of the lower | | | | | | thoracic spine. No acute | | | | | | osseous abnormality.. | | | | | | Attending Radiologists: | | | | | | ARCELIA AVILA, | | | | | | MDAuthor: ARCELIA | | | | | | MD AUSTIN I have | | | | | | personally viewed this | | | | | | procedure/exam, reviewed | | | | | | this report, and | | | | | | madechanges to it where | | | | | | appropriate. | | | | | | Final/Electronically | | | | | | signed / ARCELIA | | | | | | AUSTIN 07/20/2014 | | | | | | 16:18 PM | | | | + + + + + + + + | Specimen | + + | | + + + +---------+ + + | Performing | Address | City/State/Zipcode | Phone Number | | Organization | | | | + +---------+ + + | [facility] DEPARTMENT OF | | | | | RADIOLOGY | | | | + +---------+ + + X-RAY SPINE LUMBOSACRAL 2 VIEWS (07/20/2014 3:57 PM PDT) + + + + + + | Component | Value | Ref Range | Performed | Pathologist | | | | | At | Signature | + + + + + + | SPINE | STUDY: SPINE LUMBOSACRAL | | | | | LUMBOSACRAL | 2 VIEWS 07/20/14 | | | | | 2 VIEWS | 15:57:00 COMPARISON: | | | | | | None. HISTORY: Pain. | | | | | | FINDINGS: The lateral | | | | | | view is degraded by | | | | | | technique and body | | | | | | habitus. Lumbar | | | | | | vertebralbodies are in | | | | | | normal alignment with | | | | | | preservation of | | | | | | vertebral body | | | | | | height.Moderate L4-L5 | | | | | | and moderate to severe | | | | | | L5-S1 disc space | | | | | | narrowing is observed.No | | | | | | obvious fracture is | | | | | | seen. No focal | | | | | | destruction is seen. | | | | | | Linear | | | | | | radiopacitiespresumably | | | | | | external to the patient | | | | | | project at the right | | | | | | lateral aspect of theL1 | | | | | | vertebral body, suggest | | | | | | clinical correlation. | | | | | | The SI joints are | | | | | | grossly unremarkable. A | | | | | | single surgical clip | | | | | | projects in theright | | | | | | upper quadrant.. | | | | | | IMPRESSION: Moderate to | | | | | | severe L4-S1 | | | | | | degenerative disc | | | | | | disease. No acute | | | | | | osseous abnormality. | | | | | | Attending Radiologists: | | | | | | ARCELIA AVILA, | | | | | | MDAuthor: ARCELIA | | | | | | MD AUSTIN I have | | | | | | personally viewed this | | | | | | procedure/exam, reviewed | | | | | | this report, and | | | | | | madechanges to it where | | | | | | appropriate. | | | | | | Final/Electronically | | | | | | holli / ARCELIA | | | | | | AUSTIN 07/20/2014 | | | | | | 16:17 PM | | | | + + + + + + + + | Specimen | + + | | + + + +---------+ + + | Performing | Address | City/State/Zipcode | Phone Number | | Organization | | | | + +---------+ + + | [facility] DEPARTMENT OF | | | | | RADIOLOGY | | | | + +---------+ + + HEPATITIS B SURFACE AG, SERUM (07/20/2014 11:36 AM PDT) + + + + + + | Component | Value | Ref Range | Performed | Pathologist | | | | | At | Signature | + + + + + + | HEPATITIS B | NegativeComment: | Negative | [facility] | | | SURFACE | Negative | | [facility] | | | AG, SERUM | | | [place] | | + + + + + + + + | Specimen | + + | Blood - Blood | + + + + + + + | Performing | Address | City/State/Zipcode | Phone Number | | Organization | | | | + + + + + | [facility] | [address] | [place] [address] | | | [place] | | | | + + + + + CK, PLASMA (07/20/2014 10:37 AM PDT) + + + + + + | Component | Value | Ref Range | Performed | Pathologist | | | | | At | Signature | + + + + + + | CK | >51913 (H) | 38 - 234 U/L | [facility] | | | | | | LABORATORY | | | | | | SERVICES, | | | | | | CORE | | + + + + + + + + | Specimen | + + | Blood - Blood | + + + + + + + | Performing | Address | City/State/Zipcode | Phone Number | | Organization | | | | + + + + + | [facility] | [address] | [place] [address] | | | SERVICES, CORE | [address] | | | + + + + + RENAL FUNCTION SET (NA,K,CL,CO2,BUN,CREAT,GLUC,CA,PHOS,ALB ) (07/20/2014 10:37 AM PDT) + + + + + + | Component | Value | Ref Range | Performed | Pathologist | | | | | At | Signature | + + + + + + | GLUCOSE, | 83 | 60 - 99 mg/dL | [facility] | | | PLASMA | | | LABORATORY | | | (LAB) | | | SERVICES, | | | | | | CORE | | + + + + + + | BUN, PLASMA | 47 (H) | 6 - 20 mg/dL | [facility] | | | (LAB) | | | LABORATORY | | | | | | SERVICES, | | | | | | CORE | | + + + + + + | CREATININE | 7.12 (H) | 0.60 - 1.10 | [facility] | | | PLASMA | | mg/dL | LABORATORY | | | (LAB) | | | SERVICES, | | | | | | CORE | | + + + + + + | EGFR | 8 (L) | >60 mL/min | [facility] | | | - | | | LABORATORY | | | CROATIAN | | | SERVICES, | | | | | | CORE | | + + + + + + | EGFR NON | 6 (L) | >60 mL/min | [facility] | | | -SANDY | | | LABORATORY | | | RICAN | | | SERVICES, | | | | | | CORE | | + + + + + + | SODIUM, | 124 (L) | 136 - 145 | [facility] | | | PLASMA | | mmol/L | LABORATORY | | | (LAB) | | | SERVICES, | | | | | | CORE | | + + + + + + | POTASSIUM, | 3.7 | 3.4 - 5.0 | [facility] | | | PLASMA | | mmol/L | LABORATORY | | | (LAB) | | | SERVICES, | | | | | | CORE | | + + + + + + | CHLORIDE, | 90 (L) | 97 - 108 mmol/L | [facility] | | | PLASMA | | | LABORATORY | | | (LAB) | | | SERVICES, | | | | | | CORE | | + + + + + + | TOTAL CO2, | 22 | 21 - 32 mmol/L | [facility] | | | PLASMA | | | LABORATORY | | | (LAB) | | | SERVICES, | | | | | | CORE | | + + + + + + | CALCIUM, | 7.0 (LL) | 8.6 - 10.2 | [facility] | | | PLASMA | | mg/dL | LABORATORY | | | (LAB) | | | SERVICES, | | | | | | CORE | | + + + + + + | ALBUMIN, | 1.9 (L) | 3.5 - 4.7 g/dL | [facility] | | | PLASMA | | | LABORATORY | | | (LAB) | | | SERVICES, | | | | | | CORE | | + + + + + + | PHOSPHORUS, | 6.0 (H) | 2.4 - 4.7 mg/dL | [facility] | | | PLASMA | | | LABORATORY | | | (LAB) | | | SERVICES, | | | | | | CORE | | + + + + + + | POTASSIUM | No Hemo | | [facility] | | | CMNT | | | LABORATORY | | | | | | SERVICES, | | | | | | CORE | | + + + + + + | ANION GAP | 12 | mmol/L | [facility] | | | | | | LABORATORY | | | | | | SERVICES, | | | | | | CORE | | + + + + + + | ANION | 17 (H) | 4 - 11 mmol/L | [facility] | | | GAP(ALB | | | LABORATORY | | | CORRECTED) | | | SERVICES, | | | | | | CORE | | + + + + + + + + | Specimen | + + | Blood - Blood | + + + + + | Narrative | Performed At | + + + | GFR is estimated using the MDRD equation recommended by the | [facility] | | National Kidney Disease Education Program. Estimated GFR | LABORATORY | | Interpretive Information: <60 mL/min/1.73 sq m | SERVICES, CORE | | Chronic Kidney Disease <15 mL/min/1.73 sq m | | | Kidney Failure Estimated GFR greater that 60 mL/min/1.73 sq m is of | | | limited clinical value. The MDRD equation is not valid in the | | | following situations: - Patients under 18 years of age - Severe | | | malnutrition or obesity - Vegetarian diet - Rapidly changing kidney | | | function | | + + + + + + + + | Performing | Address | City/State/Zipcode | Phone Number | | Organization | | | | + + + + + | [facility] | [address] | [place] [address] | | | SERVICES, CORE | [address] | | | + + + + + CK, PLASMA (07/20/2014 10:37 AM PDT) + + + + + + | Component | Value | Ref Range | Performed | Pathologist | | | | | At | Signature | + + + + + + | CK | 16,455 (H) | 38 - 234 U/L | [facility] | | | | | | LABORATORY | | | | | | SERVICES, | | | | | | CORE | | + + + + + + + + | Specimen | + + | Blood - Blood | + + + + + + + | Performing | Address | City/State/Zipcode | Phone Number | | Organization | | | | + + + + + | [facility] | [address] | [place] [address] | | | SERVICES, CORE | [address] | | | + + + + + CAPILLARY BLOOD GLUCOSE (NO CHG), POC (07/20/2014 8:23 AM PDT) + +-------+ + + + | Component | Value | Ref Range | Performed | Pathologist | | | | | At | Signature | + +-------+ + + + | BLOOD | 85 | 60 - 99 mg/dL | [facility] - | | | GLUCOSE, | | | [facility] | | | POC | | | [facility] | | | | | | OF CARE | | | | | | TESTS | | + +-------+ + + + + + | Specimen | + + | | + + + + + + + | Performing | Address | City/State/Zipcode | Phone Number | | Organization | | | | + + + + + | [facility] | [address] | [place], [place] | | | [facility] | [address] | [address] | | | TESTS | | | | + + + + + CBC AND AUTO DIFF (07/20/2014 2:39 AM PDT) + + + + + + | Component | Value | Ref Range | Performed | Pathologist | | | | | At | Signature | + + + + + + | WHITE CELL | 15.91 (H) | 4.40 - 11.00 | [facility] | | | COUNT | | K/cu mm | LABORATORY | | | | | | SERVICES, | | | | | | CORE | | + + + + + + | RED CELL | 2.75 (L) | 4.00 - 5.20 | [facility] | | | COUNT | | M/cu mm | LABORATORY | | | | | | SERVICES, | | | | | | CORE | | + + + + + + | HEMOGLOBIN | 8.7 (L) | 12.0 - 16.0 | [facility] | | | | | g/dL | LABORATORY | | | | | | SERVICES, | | | | | | CORE | | + + + + + + | HEMATOCRIT | 27.4 (L) | 36.0 - 46.0 % | [facility] | | | | | | LABORATORY | | | | | | SERVICES, | | | | | | CORE | | + + + + + + | MCV | 99.6 (H) | 80.0 - 96.0 fL | [facility] | | | | | | LABORATORY | | | | | | SERVICES, | | | | | | CORE | | + + + + + + | MCHC | 31.8 | 33.0 - 35.5 | [facility] | | | | | g/dL | LABORATORY | | | | | | SERVICES, | | | | | | CORE | | + + + + + + | RDW SD | 54.9 (H) | 35.1 - 46.3 fL | [facility] | | | | | | LABORATORY | | | | | | SERVICES, | | | | | | CORE | | + + + + + + | PLATELET | 228 | 150 - 400 K/cu | [facility] | | | COUNT | | mm | LABORATORY | | | | | | SERVICES, | | | | | | CORE | | + + + + + + | MPV | 10.7 | 9.7 - 12.3 fL | [facility] | | | | | | LABORATORY | | | | | | SERVICES, | | | | | | CORE | | + + + + + + | NRBC% | 0.2 | 0.0 - 0.3 % | [facility] | | | | | | LABORATORY | | | | | | SERVICES, | | | | | | CORE | | + + + + + + | NRBC# | 0.03 (H) | 0.00 - 0.02 | [facility] | | | | | K/cu mm | LABORATORY | | | | | | SERVICES, | | | | | | CORE | | + + + + + + | NEUTROPHIL | 83.2 (H) | 50.0 - 70.0 % | [facility] | | | % | | | LABORATORY | | | | | | SERVICES, | | | | | | CORE | | + + + + + + | LYMPHOCYTE | 6.0 (L) | 18.0 - 42.0 % | [facility] | | | % | | | LABORATORY | | | | | | SERVICES, | | | | | | CORE | | + + + + + + | MONOCYTE % | 6.8 | 3.5 - 9.0 % | [facility] | | | | | | LABORATORY | | | | | | SERVICES, | | | | | | CORE | | + + + + + + | EOS % | 0.3 (L) | 1.0 - 3.0 % | [facility] | | | | | | LABORATORY | | | | | | SERVICES, | | | | | | CORE | | + + + + + + | BASO % | 0.2 | 0.0 - 2.0 % | [facility] | | | | | | LABORATORY | | | | | | SERVICES, | | | | | | CORE | | + + + + + + | IG% | 3.5 (H)Comment: Immature | 0.0 - 0.6 % | [facility] | | | | Granulocytes (IG) | | LABORATORY | | | | include metamyelocytes, | | SERVICES, | | | | myelocytes and | | CORE | | | | promyelocytes. Bands | | | | | | are not included in the | | | | | | IG count. Bands are | | | | | | included in the | | | | | | neutrophil count. | | | | + + + + + + | NEUTROPHIL | 13.25 (H) | 1.80 - 7.70 | [facility] | | | # | | K/cu mm | LABORATORY | | | | | | SERVICES, | | | | | | CORE | | + + + + + + | LYMPHOCYTE | 0.95 (L) | 1.00 - 4.80 | [facility] | | | # | | K/cu mm | LABORATORY | | | | | | SERVICES, | | | | | | CORE | | + + + + + + | MONOCYTE # | 1.08 (H) | 0.10 - 0.90 | [facility] | | | | | K/cu mm | LABORATORY | | | | | | SERVICES, | | | | | | CORE | | + + + + + + | EOS # | 0.04 | 0.00 - 0.50 | [facility] | | | | | K/cu mm | LABORATORY | | | | | | SERVICES, | | | | | | CORE | | + + + + + + | BASO # | 0.03 | 0.00 - 0.10 | [facility] | | | | | K/cu mm | LABORATORY | | | | | | SERVICES, | | | | | | CORE | | + + + + + + | IG# | 0.56 (H) | 0.00 - 0.03 | [facility] | | | | | K/cu mm | LABORATORY | | | | | | SERVICES, | | | | | | CORE | | + + + + + + + + | Specimen | + + | Blood - Blood | + + + + + | Narrative | Performed At | + + + | Immature Granulocytes (IG) include metamyelocytes, myelocytes | [facility] | | and promyelocytes. Bands are not included in the IG count. Bands are | LABORATORY | | included in the neutrophil count. | SERVICES, CORE | + + + + + + + + | Performing | Address | City/State/Zipcode | Phone Number | | Organization | | | | + + + + + | [facility] | [address] | [place] [address] | | | SERVICES, CORE | [address] | | | + + + + + CK, PLASMA (07/20/2014 2:31 AM PDT) + + + + + + | Component | Value | Ref Range | Performed | Pathologist | | | | | At | Signature | + + + + + + | CK | 21,806 (H) | 38 - 234 U/L | [facility] | | | | | | LABORATORY | | | | | | SERVICES, | | | | | | CORE | | + + + + + + + + | Specimen | + + | Blood - Blood | + + + + + + + | Performing | Address | City/State/Zipcode | Phone Number | | Organization | | | | + + + + + | [facility] | [address] | [place] [address] | | | SERVICES, CORE | [address] | | | + + + + + RENAL FUNCTION SET (NA,K,CL,CO2,BUN,CREAT,GLUC,CA,PHOS,ALB ) (07/20/2014 2:31 AM PDT) + + + + + + | Component | Value | Ref Range | Performed | Pathologist | | | | | At | Signature | + + + + + + | GLUCOSE, | 84 | 60 - 99 mg/dL | [facility] | | | PLASMA | | | LABORATORY | | | (LAB) | | | SERVICES, | | | | | | CORE | | + + + + + + | BUN, PLASMA | 44 (H) | 6 - 20 mg/dL | [facility] | | | (LAB) | | | LABORATORY | | | | | | SERVICES, | | | | | | CORE | | + + + + + + | CREATININE | 6.73 (H) | 0.60 - 1.10 | [facility] | | | PLASMA | | mg/dL | LABORATORY | | | (LAB) | | | SERVICES, | | | | | | CORE | | + + + + + + | EGFR | 8 (L) | >60 mL/min | [facility] | | | - | | | LABORATORY | | | CROATIAN | | | SERVICES, | | | | | | CORE | | + + + + + + | EGFR NON | 7 (L) | >60 mL/min | [facility] | | | -SANDY | | | LABORATORY | | | RICAN | | | SERVICES, | | | | | | CORE | | + + + + + + | SODIUM, | 123 (L) | 136 - 145 | [facility] | | | PLASMA | | mmol/L | LABORATORY | | | (LAB) | | | SERVICES, | | | | | | CORE | | + + + + + + | POTASSIUM, | 3.8 | 3.4 - 5.0 | [facility] | | | PLASMA | | mmol/L | LABORATORY | | | (LAB) | | | SERVICES, | | | | | | CORE | | + + + + + + | CHLORIDE, | 90 (L) | 97 - 108 mmol/L | [facility] | | | PLASMA | | | LABORATORY | | | (LAB) | | | SERVICES, | | | | | | CORE | | + + + + + + | TOTAL CO2, | 20 (L) | 21 - 32 mmol/L | [facility] | | | PLASMA | | | LABORATORY | | | (LAB) | | | SERVICES, | | | | | | CORE | | + + + + + + | CALCIUM, | 7.1 (L) | 8.6 - 10.2 | [facility] | | | PLASMA | | mg/dL | LABORATORY | | | (LAB) | | | SERVICES, | | | | | | CORE | | + + + + + + | ALBUMIN, | 2.1 (L) | 3.5 - 4.7 g/dL | [facility] | | | PLASMA | | | LABORATORY | | | (LAB) | | | SERVICES, | | | | | | CORE | | + + + + + + | PHOSPHORUS, | 5.9 (H) | 2.4 - 4.7 mg/dL | [facility] | | | PLASMA | | | LABORATORY | | | (LAB) | | | SERVICES, | | | | | | CORE | | + + + + + + | POTASSIUM | No Hemo | | [facility] | | | CMNT | | | LABORATORY | | | | | | SERVICES, | | | | | | CORE | | + + + + + + | ANION GAP | 13 | mmol/L | [facility] | | | | | | LABORATORY | | | | | | SERVICES, | | | | | | CORE | | + + + + + + | ANION | 17 (H) | 4 - 11 mmol/L | [facility] | | | GAP(ALB | | | LABORATORY | | | CORRECTED) | | | SERVICES, | | | | | | CORE | | + + + + + + + + | Specimen | + + | Blood - Blood | + + + + + | Narrative | Performed At | + + + | GFR is estimated using the MDRD equation recommended by the | [facility] | | National Kidney Disease Education Program. Estimated GFR | LABORATORY | | Interpretive Information: <60 mL/min/1.73 sq m | SERVICES, CORE | | Chronic Kidney Disease <15 mL/min/1.73 sq m | | | Kidney Failure Estimated GFR greater that 60 mL/min/1.73 sq m is of | | | limited clinical value. The MDRD equation is not valid in the | | | following situations: - Patients under 18 years of age - Severe | | | malnutrition or obesity - Vegetarian diet - Rapidly changing kidney | | | function | | + + + + + + + + | Performing | Address | City/State/Zipcode | Phone Number | | Organization | | | | + + + + + | [facility] | [address] | [place] [address] | | | SERVICES, CORE | [address] | | | + + + + + CK, PLASMA (07/19/2014 7:08 PM PDT) + + + + + + | Component | Value | Ref Range | Performed | Pathologist | | | | | At | Signature | + + + + + + | CK | 22,936 (H) | 38 - 234 U/L | [facility] | | | | | | LABORATORY | | | | | | SERVICES, | | | | | | CORE | | + + + + + + + + | Specimen | + + | Blood - Blood | + + + + + + + | Performing | Address | City/State/Zipcode | Phone Number | | Organization | | | | + + + + + | [facility] | [address] | [place] [address] | | | SERVICES, CORE | [address] | | | + + + + + RENAL FUNCTION SET (NA,K,CL,CO2,BUN,CREAT,GLUC,CA,PHOS,ALB ) (07/19/2014 7:08 PM PDT) + + + + + + | Component | Value | Ref Range | Performed | Pathologist | | | | | At | Signature | + + + + + + | GLUCOSE, | 102 (H) | 60 - 99 mg/dL | [facility] | | | PLASMA | | | LABORATORY | | | (LAB) | | | SERVICES, | | | | | | CORE | | + + + + + + | BUN, PLASMA | 40 (H) | 6 - 20 mg/dL | [facility] | | | (LAB) | | | LABORATORY | | | | | | SERVICES, | | | | | | CORE | | + + + + + + | CREATININE | 6.44 (H) | 0.60 - 1.10 | [facility] | | | PLASMA | | mg/dL | LABORATORY | | | (LAB) | | | SERVICES, | | | | | | CORE | | + + + + + + | EGFR | 9 (L) | >60 mL/min | [facility] | | | - | | | LABORATORY | | | CROATIAN | | | SERVICES, | | | | | | CORE | | + + + + + + | EGFR NON | 7 (L) | >60 mL/min | [facility] | | | -SANDY | | | LABORATORY | | | RICAN | | | SERVICES, | | | | | | CORE | | + + + + + + | SODIUM, | 125 (L) | 136 - 145 | [facility] | | | PLASMA | | mmol/L | LABORATORY | | | (LAB) | | | SERVICES, | | | | | | CORE | | + + + + + + | POTASSIUM, | 3.9 | 3.4 - 5.0 | [facility] | | | PLASMA | | mmol/L | LABORATORY | | | (LAB) | | | SERVICES, | | | | | | CORE | | + + + + + + | CHLORIDE, | 89 (L) | 97 - 108 mmol/L | [facility] | | | PLASMA | | | LABORATORY | | | (LAB) | | | SERVICES, | | | | | | CORE | | + + + + + + | TOTAL CO2, | 23 | 21 - 32 mmol/L | [facility] | | | PLASMA | | | LABORATORY | | | (LAB) | | | SERVICES, | | | | | | CORE | | + + + + + + | CALCIUM, | 7.4 (L) | 8.6 - 10.2 | [facility] | | | PLASMA | | mg/dL | LABORATORY | | | (LAB) | | | SERVICES, | | | | | | CORE | | + + + + + + | ALBUMIN, | 2.1 (L) | 3.5 - 4.7 g/dL | [facility] | | | PLASMA | | | LABORATORY | | | (LAB) | | | SERVICES, | | | | | | CORE | | + + + + + + | PHOSPHORUS, | 6.2 (H) | 2.4 - 4.7 mg/dL | [facility] | | | PLASMA | | | LABORATORY | | | (LAB) | | | SERVICES, | | | | | | CORE | | + + + + + + | POTASSIUM | No Hemo | | [facility] | | | CMNT | | | LABORATORY | | | | | | SERVICES, | | | | | | CORE | | + + + + + + | ANION GAP | 13 | mmol/L | [facility] | | | | | | LABORATORY | | | | | | SERVICES, | | | | | | CORE | | + + + + + + | ANION | 17 (H) | 4 - 11 mmol/L | [facility] | | | GAP(ALB | | | LABORATORY | | | CORRECTED) | | | SERVICES, | | | | | | CORE | | + + + + + + + + | Specimen | + + | Blood - Blood | + + + + + | Narrative | Performed At | + + + | GFR is estimated using the MDRD equation recommended by the | [facility] | | National Kidney Disease Education Program. Estimated GFR | LABORATORY | | Interpretive Information: <60 mL/min/1.73 sq m | SERVICES, CORE | | Chronic Kidney Disease <15 mL/min/1.73 sq m | | | Kidney Failure Estimated GFR greater that 60 mL/min/1.73 sq m is of | | | limited clinical value. The MDRD equation is not valid in the | | | following situations: - Patients under 18 years of age - Severe | | | malnutrition or obesity - Vegetarian diet - Rapidly changing kidney | | | function | | + + + + + + + + | Performing | Address | City/State/Zipcode | Phone Number | | Organization | | | | + + + + + | [facility] | [address] | [place] [address] | | | SERVICES, CORE | [address] | | | + + + + + X-RAY PORTABLE CHEST 1 VIEW (07/19/2014 7:04 PM PDT) + + + + + + | Component | Value | Ref Range | Performed | Pathologist | | | | | At | Signature | + + + + + + | X-RAY | EXAM: IN CHEST 1 VIEW | | | | | PORTABLE | 07/19/14 19:04:00 | | | | | CHEST 1 | HISTORY: Right IJ | | | | | VIEW | hemodialysis catheter | | | | | | placement. COMPARISON: | | | | | | 07/15/2014 FINDINGS: | | | | | | Evaluation somewhat | | | | | | limited by overlying | | | | | | soft tissue. Right IJ | | | | | | hemodialysiscatheter | | | | | | terminates in the lower | | | | | | SVC. Low lung volumes | | | | | | with bilateral | | | | | | perihilaratelectasis. No | | | | | | pneumothorax or large | | | | | | pleural effusion. | | | | | | Cardiac silhouette | | | | | | isstable. Mediastinum is | | | | | | unremarkable. | | | | | | IMPRESSION: Right IJ | | | | | | hemodialysis catheter | | | | | | terminates in the lower | | | | | | SVC. Low lung volumes | | | | | | with mild bilateral | | | | | | perihilar atelectasis. | | | | | | Attending Radiologists: | | | | | | REHAN OSPINA, MDAuthor: | | | | | | MICHAEL GUARDADO MD I | | | | | | have personally viewed | | | | | | this procedure/exam, | | | | | | reviewed this report, | | | | | | and madechanges to it | | | | | | where appropriate. | | | | | | Final/Electronically | | | | | | signed / REHAN | | | | | | BHAVESH 07/20/2014 9:59 AM | | | | + + + + + + + + | Specimen | + + | | + + + +---------+ + + | Performing | Address | City/State/Zipcode | Phone Number | | Organization | | | | + +---------+ + + | [facility] DEPARTMENT OF | | | | | RADIOLOGY | | | | + +---------+ + + CAPILLARY BLOOD GLUCOSE (NO CHG), POC (07/19/2014 7:00 PM PDT) + +-------+ + + + | Component | Value | Ref Range | Performed | Pathologist | | | | | At | Signature | + +-------+ + + + | BLOOD | 91 | 60 - 99 mg/dL | [facility] - | | | GLUCOSE, | | | [facility] | | | POC | | | [facility] | | | | | | OF CARE | | | | | | TESTS | | + +-------+ + + + + + | Specimen | + + | | + + + + + + + | Performing | Address | City/State/Zipcode | Phone Number | | Organization | | | | + + + + + | [facility] | [address] | [place], [place] | | | [facility] | [address] | [address] | | | TESTS | | | | + + + + + BLOOD GASES, ARTERIAL - LAB (07/19/2014 1:47 PM PDT) + + + + + + | Component | Value | Ref Range | Performed | Pathologist | | | | | At | Signature | + + + + + + | PAT TEMP | ng | Degree C | [facility] | | | ARTERIAL | | | LABORATORY | | | | | | SERVICES, | | | | | | CORE | | + + + + + + | FIO2 | Comment: ng | | [facility] | | | ARTERIAL | | | LABORATORY | | | | | | SERVICES, | | | | | | CORE | | + + + + + + | PH ARTERIAL | 7.35 (L) | 7.37 - 7.44 | [facility] | | | | | | LABORATORY | | | | | | SERVICES, | | | | | | CORE | | + + + + + + | PCO2 | 38 | 32 - 43 mmHg | [facility] | | | ARTERIAL | | | LABORATORY | | | | | | SERVICES, | | | | | | CORE | | + + + + + + | PO2 | 163 (H) | 72 - 104 mmHg | [facility] | | | ARTERIAL | | | LABORATORY | | | | | | SERVICES, | | | | | | CORE | | + + + + + + | HCO3 | 20 (L) | 21 - 28 mmol/L | [facility] | | | ARTERIAL | | | LABORATORY | | | | | | SERVICES, | | | | | | CORE | | + + + + + + | TOTAL CO2 | 21 (L) | 22 - 28 mmol/L | [facility] | | | ARTERIAL | | | LABORATORY | | | | | | SERVICES, | | | | | | CORE | | + + + + + + | BASE EXCESS | -4.4 | | [facility] | | | ARTERIAL | | | LABORATORY | | | | | | SERVICES, | | | | | | CORE | | + + + + + + | O2 SAT, | 99.7 (H) | 92.0 - 98.0 | [facility] | | | ARTERIAL | | | LABORATORY | | | | | | SERVICES, | | | | | | CORE | | + + + + + + | PAO2/FIO2 | | >300 mmHg | [facility] | | | RATIO | | | LABORATORY | | | | | | SERVICES, | | | | | | CORE | | + + + + + + + + | Specimen | + + | Blood - Blood | + + + + + | Narrative | Performed At | + + + | Air Bubble in Specimen; Results May Be Erroneous. | [facility] | | | LABORATORY | | | SERVICES, CORE | + + + + + + + + | Performing | Address | City/State/Zipcode | Phone Number | | Organization | | | | + + + + + | [facility] | [address] | [place] [address] | | | SERVICES, CORE | [address] | | | + + + + + RBC MORPHOLOGY (07/19/2014 12:50 PM PDT) + + + + + + | Component | Value | Ref Range | Performed | Pathologist | | | | | At | Signature | + + + + + + | ANISOCYTOSI | 1+(10-25cells/HPF) | | [facility] | | | S | | | LABORATORY | | | | | | SERVICES, | | | | | | CORE | | + + + + + + | MACROCYTOSI | 1+(10-25cells/HPF) | | [facility] | | | S | | | LABORATORY | | | | | | SERVICES, | | | | | | CORE | | + + + + + + | POLYCHROMAS | 1+ (<1-2cells/HPF) | | [facility] | | | IA | | | LABORATORY | | | | | | SERVICES, | | | | | | CORE | | + + + + + + + + | Specimen | + + | Blood - Blood | + + + + + + + | Performing | Address | City/State/Zipcode | Phone Number | | Organization | | | | + + + + + | [facility] | [address] | [place] [address] | | | MAGDA AMEZCUA | [address] | | | + + + + + CBC AND AUTO DIFF (07/19/2014 12:50 PM PDT) + + + + + + | Component | Value | Ref Range | Performed | Pathologist | | | | | At | Signature | + + + + + + | WHITE CELL | 18.09 (H) | 4.40 - 11.00 | [facility] | | | COUNT | | K/cu mm | LABORATORY | | | | | | SERVICES, | | | | | | CORE | | + + + + + + | RED CELL | 2.77 (L) | 4.00 - 5.20 | [facility] | | | COUNT | | M/cu mm | LABORATORY | | | | | | SERVICES, | | | | | | CORE | | + + + + + + | HEMOGLOBIN | 8.9 (L) | 12.0 - 16.0 | [facility] | | | | | g/dL | LABORATORY | | | | | | SERVICES, | | | | | | CORE | | + + + + + + | HEMATOCRIT | 27.7 (L) | 36.0 - 46.0 % | [facility] | | | | | | LABORATORY | | | | | | SERVICES, | | | | | | CORE | | + + + + + + | MCV | 100.0 (H) | 80.0 - 96.0 fL | [facility] | | | | | | LABORATORY | | | | | | SERVICES, | | | | | | CORE | | + + + + + + | MCHC | 32.1 | 33.0 - 35.5 | [facility] | | | | | g/dL | LABORATORY | | | | | | SERVICES, | | | | | | CORE | | + + + + + + | RDW SD | 55.4 (H) | 35.1 - 46.3 fL | [facility] | | | | | | LABORATORY | | | | | | SERVICES, | | | | | | CORE | | + + + + + + | PLATELET | 213Comment: Few platelet | 150 - 400 K/cu | [facility] | | | COUNT | clumps on smear. | mm | LABORATORY | | | | | | SERVICES, | | | | | | CORE | | + + + + + + | MPV | 10.9 | 9.7 - 12.3 fL | [facility] | | | | | | LABORATORY | | | | | | SERVICES, | | | | | | CORE | | + + + + + + | NRBC% | 0.3 | 0.0 - 0.3 % | [facility] | | | | | | LABORATORY | | | | | | SERVICES, | | | | | | CORE | | + + + + + + | NRBC# | 0.06 (H) | 0.00 - 0.02 | [facility] | | | | | K/cu mm | LABORATORY | | | | | | SERVICES, | | | | | | CORE | | + + + + + + | NEUTROPHIL | 80.9 (H) | 50.0 - 70.0 % | [facility] | | | % | | | LABORATORY | | | | | | SERVICES, | | | | | | CORE | | + + + + + + | LYMPHOCYTE | 6.0 (L) | 18.0 - 42.0 % | [facility] | | | % | | | LABORATORY | | | | | | SERVICES, | | | | | | CORE | | + + + + + + | MONOCYTE % | 8.6 | 3.5 - 9.0 % | [facility] | | | | | | LABORATORY | | | | | | SERVICES, | | | | | | CORE | | + + + + + + | EOS % | 0.2 (L) | 1.0 - 3.0 % | [facility] | | | | | | LABORATORY | | | | | | SERVICES, | | | | | | CORE | | + + + + + + | BASO % | 0.3 | 0.0 - 2.0 % | [facility] | | | | | | LABORATORY | | | | | | SERVICES, | | | | | | CORE | | + + + + + + | IG% | 4.0 (H)Comment: Immature | 0.0 - 0.6 % | [facility] | | | | Granulocytes (IG) | | LABORATORY | | | | include metamyelocytes, | | SERVICES, | | | | myelocytes and | | CORE | | | | promyelocytes. Bands | | | | | | are not included in the | | | | | | IG count. Bands are | | | | | | included in the | | | | | | neutrophil count. | | | | + + + + + + | NEUTROPHIL | 14.65 (H) | 1.80 - 7.70 | [facility] | | | # | | K/cu mm | LABORATORY | | | | | | SERVICES, | | | | | | CORE | | + + + + + + | LYMPHOCYTE | 1.08 | 1.00 - 4.80 | [facility] | | | # | | K/cu mm | LABORATORY | | | | | | SERVICES, | | | | | | CORE | | + + + + + + | MONOCYTE # | 1.56 (H) | 0.10 - 0.90 | [facility] | | | | | K/cu mm | LABORATORY | | | | | | SERVICES, | | | | | | CORE | | + + + + + + | EOS # | 0.03 | 0.00 - 0.50 | [facility] | | | | | K/cu mm | LABORATORY | | | | | | SERVICES, | | | | | | CORE | | + + + + + + | BASO # | 0.05 | 0.00 - 0.10 | [facility] | | | | | K/cu mm | LABORATORY | | | | | | SERVICES, | | | | | | CORE | | + + + + + + | IG# | 0.72 (H) | 0.00 - 0.03 | [facility] | | | | | K/cu mm | LABORATORY | | | | | | SERVICES, | | | | | | CORE | | + + + + + + + + | Specimen | + + | Blood - Blood | + + + + + | Narrative | Performed At | + + + | Immature Granulocytes (IG) include metamyelocytes, myelocytes | [facility] | | and promyelocytes. Bands are not included in the IG count. Bands are | LABORATORY | | included in the neutrophil count. | SERVICES, CORE | + + + + + + + + | Performing | Address | City/State/Zipcode | Phone Number | | Organization | | | | + + + + + | [facility] | [address] | [place] [address] | | | SERVICES, CORE | [address] | | | + + + + + CK, PLASMA (07/19/2014 12:50 PM PDT) + + + + + + | Component | Value | Ref Range | Performed | Pathologist | | | | | At | Signature | + + + + + + | CK | 42,212 (H) | 38 - 234 U/L | [facility] | | | | | | LABORATORY | | | | | | SERVICES, | | | | | | CORE | | + + + + + + + + | Specimen | + + | Blood - Blood | + + + + + + + | Performing | Address | City/State/Zipcode | Phone Number | | Organization | | | | + + + + + | [facility] | [address] | [place] [address] | | | SERVICES, CORE | [address] | | | + + + + + RENAL FUNCTION SET (NA,K,CL,CO2,BUN,CREAT,GLUC,CA,PHOS,ALB ) (07/19/2014 12:50 PM PDT) + + + + + + | Component | Value | Ref Range | Performed | Pathologist | | | | | At | Signature | + + + + + + | GLUCOSE, | 105 (H) | 60 - 99 mg/dL | [facility] | | | PLASMA | | | LABORATORY | | | (LAB) | | | SERVICES, | | | | | | CORE | | + + + + + + | BUN, PLASMA | 39 (H) | 6 - 20 mg/dL | [facility] | | | (LAB) | | | LABORATORY | | | | | | SERVICES, | | | | | | CORE | | + + + + + + | CREATININE | 6.07 (H) | 0.60 - 1.10 | [facility] | | | PLASMA | | mg/dL | LABORATORY | | | (LAB) | | | SERVICES, | | | | | | CORE | | + + + + + + | EGFR | 9 (L) | >60 mL/min | [facility] | | | - | | | LABORATORY | | | CROATIAN | | | SERVICES, | | | | | | CORE | | + + + + + + | EGFR NON | 8 (L) | >60 mL/min | [facility] | | | -SANDY | | | LABORATORY | | | RICAN | | | SERVICES, | | | | | | CORE | | + + + + + + | SODIUM, | 123 (L) | 136 - 145 | [facility] | | | PLASMA | | mmol/L | LABORATORY | | | (LAB) | | | SERVICES, | | | | | | CORE | | + + + + + + | POTASSIUM, | 3.9 | 3.4 - 5.0 | [facility] | | | PLASMA | | mmol/L | LABORATORY | | | (LAB) | | | SERVICES, | | | | | | CORE | | + + + + + + | CHLORIDE, | 89 (L) | 97 - 108 mmol/L | [facility] | | | PLASMA | | | LABORATORY | | | (LAB) | | | SERVICES, | | | | | | CORE | | + + + + + + | TOTAL CO2, | 23 | 21 - 32 mmol/L | [facility] | | | PLASMA | | | LABORATORY | | | (LAB) | | | SERVICES, | | | | | | CORE | | + + + + + + | CALCIUM, | 7.3 (L) | 8.6 - 10.2 | [facility] | | | PLASMA | | mg/dL | LABORATORY | | | (LAB) | | | SERVICES, | | | | | | CORE | | + + + + + + | ALBUMIN, | 2.2 (L) | 3.5 - 4.7 g/dL | [facility] | | | PLASMA | | | LABORATORY | | | (LAB) | | | SERVICES, | | | | | | CORE | | + + + + + + | PHOSPHORUS, | 5.6 (H) | 2.4 - 4.7 mg/dL | [facility] | | | PLASMA | | | LABORATORY | | | (LAB) | | | SERVICES, | | | | | | CORE | | + + + + + + | POTASSIUM | No Hemo | | [facility] | | | CMNT | | | LABORATORY | | | | | | SERVICES, | | | | | | CORE | | + + + + + + | ANION GAP | 11 | mmol/L | [facility] | | | | | | LABORATORY | | | | | | SERVICES, | | | | | | CORE | | + + + + + + | ANION | 15 (H) | 4 - 11 mmol/L | [facility] | | | GAP(ALB | | | LABORATORY | | | CORRECTED) | | | SERVICES, | | | | | | CORE | | + + + + + + + + | Specimen | + + | Blood - Blood | + + + + + | Narrative | Performed At | + + + | GFR is estimated using the MDRD equation recommended by the | [facility] | | National Kidney Disease Education Program. Estimated GFR | LABORATORY | | Interpretive Information: <60 mL/min/1.73 sq m | [facility], CORE | | Chronic Kidney Disease <15 mL/min/1.73 sq m | | | Kidney Failure Estimated GFR greater that 60 mL/min/1.73 sq m is of | | | limited clinical value. The MDRD equation is not valid in the | | | following situations: - Patients under 18 years of age - Severe | | | malnutrition or obesity - Vegetarian diet - Rapidly changing kidney | | | function | | + + + + + + + + | Performing | Address | City/State/Zipcode | Phone Number | | Organization | | | | + + + + + | [facility] | [address] | [place] [address] | | | MAGDA AMEZCUA | [address] | | | + + + + + CAPILLARY BLOOD GLUCOSE (NO CHG), POC (07/19/2014 11:21 AM PDT) + +---------+ + + + | Component | Value | Ref Range | Performed | Pathologist | | | | | At | Signature | + +---------+ + + + | BLOOD | 105 (H) | 60 - 99 mg/dL | [facility] - | | | GLUCOSE, | | | [facility] | | | POC | | | [facility] | | | | | | OF CARE | | | | | | TESTS | | + +---------+ + + + + + | Specimen | + + | | + + + + + + + | Performing | Address | City/State/Zipcode | Phone Number | | Organization | | | | + + + + + | [facility] | [address] | [place], [place] | | | [facility] | [address] | [address] | | | TESTS | | | | + + + + + CK, PLASMA (07/19/2014 5:17 AM PDT) + + + + + + | Component | Value | Ref Range | Performed | Pathologist | | | | | At | Signature | + + + + + + | CK | 35,829 (H) | 38 - 234 U/L | [facility] | | | | | | LABORATORY | | | | | | SERVICES, | | | | | | CORE | | + + + + + + + + | Specimen | + + | Blood - Blood | + + + + + + + | Performing | Address | City/State/Zipcode | Phone Number | | Organization | | | | + + + + + | [facility] | [address] | [place] [address] | | | SERVICES, CORE | [address] | | | + + + + + MAGNESIUM, PLASMA (07/19/2014 5:17 AM PDT) + +-------+ + + + | Component | Value | Ref Range | Performed | Pathologist | | | | | At | Signature | + +-------+ + + + | MAGNESIUM,P | 1.8 | 1.8 - 2.5 mg/dL | [facility] | | | LASMA | | | LABORATORY | | | | | | SERVICES, | | | | | | CORE | | + +-------+ + + + + + | Specimen | + + | Blood - Blood | + + + + + + + | Performing | Address | City/State/Zipcode | Phone Number | | Organization | | | | + + + + + | [facility] | [address] | [place] [address] | | | SERVICES, CORE | [address] | | | + + + + + RENAL FUNCTION SET (NA,K,CL,CO2,BUN,CREAT,GLUC,CA,PHOS,ALB ) (07/19/2014 5:17 AM PDT) + + + + + + | Component | Value | Ref Range | Performed | Pathologist | | | | | At | Signature | + + + + + + | GLUCOSE, | 109 (H) | 60 - 99 mg/dL | [facility] | | | PLASMA | | | LABORATORY | | | (LAB) | | | SERVICES, | | | | | | CORE | | + + + + + + | BUN, PLASMA | 34 (H) | 6 - 20 mg/dL | [facility] | | | (LAB) | | | LABORATORY | | | | | | SERVICES, | | | | | | CORE | | + + + + + + | CREATININE | 5.49 (H) | 0.60 - 1.10 | [facility] | | | PLASMA | | mg/dL | LABORATORY | | | (LAB) | | | SERVICES, | | | | | | CORE | | + + + + + + | EGFR | 10 (L) | >60 mL/min | [facility] | | | - | | | LABORATORY | | | CROATIAN | | | SERVICES, | | | | | | CORE | | + + + + + + | EGFR NON | 8 (L) | >60 mL/min | [facility] | | | -SANDY | | | LABORATORY | | | RICAN | | | SERVICES, | | | | | | CORE | | + + + + + + | SODIUM, | 126 (L) | 136 - 145 | [facility] | | | PLASMA | | mmol/L | LABORATORY | | | (LAB) | | | SERVICES, | | | | | | CORE | | + + + + + + | POTASSIUM, | 3.8 | 3.4 - 5.0 | [facility] | | | PLASMA | | mmol/L | LABORATORY | | | (LAB) | | | SERVICES, | | | | | | CORE | | + + + + + + | CHLORIDE, | 88 (L) | 97 - 108 mmol/L | [facility] | | | PLASMA | | | LABORATORY | | | (LAB) | | | SERVICES, | | | | | | CORE | | + + + + + + | TOTAL CO2, | 22 | 21 - 32 mmol/L | [facility] | | | PLASMA | | | LABORATORY | | | (LAB) | | | SERVICES, | | | | | | CORE | | + + + + + + | CALCIUM, | 7.6 (L) | 8.6 - 10.2 | [facility] | | | PLASMA | | mg/dL | LABORATORY | | | (LAB) | | | SERVICES, | | | | | | CORE | | + + + + + + | ALBUMIN, | 2.4 (L) | 3.5 - 4.7 g/dL | [facility] | | | PLASMA | | | LABORATORY | | | (LAB) | | | SERVICES, | | | | | | CORE | | + + + + + + | PHOSPHORUS, | 5.2 (H) | 2.4 - 4.7 mg/dL | [facility] | | | PLASMA | | | LABORATORY | | | (LAB) | | | SERVICES, | | | | | | CORE | | + + + + + + | POTASSIUM | No Hemo | | [facility] | | | CMNT | | | LABORATORY | | | | | | SERVICES, | | | | | | CORE | | + + + + + + | ANION GAP | 16 | mmol/L | [facility] | | | | | | LABORATORY | | | | | | SERVICES, | | | | | | CORE | | + + + + + + | ANION | 20 (H) | 4 - 11 mmol/L | [facility] | | | GAP(ALB | | | LABORATORY | | | CORRECTED) | | | SERVICES, | | | | | | CORE | | + + + + + + + + | Specimen | + + | Blood - Blood | + + + + + | Narrative | Performed At | + + + | GFR is estimated using the MDRD equation recommended by the | [facility] | | National Kidney Disease Education Program. Estimated GFR | LABORATORY | | Interpretive Information: <60 mL/min/1.73 sq m | SERVICES, CORE | | Chronic Kidney Disease <15 mL/min/1.73 sq m | | | Kidney Failure Estimated GFR greater that 60 mL/min/1.73 sq m is of | | | limited clinical value. The MDRD equation is not valid in the | | | following situations: - Patients under 18 years of age - Severe | | | malnutrition or obesity - Vegetarian diet - Rapidly changing kidney | | | function | | + + + + + + + + | Performing | Address | City/State/Zipcode | Phone Number | | Organization | | | | + + + + + | [facility] | [address] | [place] [address] | | | SERVICES, CORE | [address] | | | + + + + + CAPILLARY BLOOD GLUCOSE (NO CHG), POC (07/18/2014 11:58 PM PDT) + +---------+ + + + | Component | Value | Ref Range | Performed | Pathologist | | | | | At | Signature | + +---------+ + + + | BLOOD | 117 (H) | 60 - 99 mg/dL | [facility] - | | | GLUCOSE, | | | [facility] | | | POC | | | [facility] | | | | | | OF CARE | | | | | | TESTS | | + +---------+ + + + + + | Specimen | + + | | + + + + + + + | Performing | Address | City/State/Zipcode | Phone Number | | Organization | | | | + + + + + | [facility] | [address] | [place], [place] | | | [facility] | [facility] | [address] | | | TESTS | | | | + + + + + CK, PLASMA (07/18/2014 9:43 PM PDT) + + + + + + | Component | Value | Ref Range | Performed | Pathologist | | | | | At | Signature | + + + + + + | CK | 33,212 (H) | 38 - 234 U/L | [facility] | | | | | | LABORATORY | | | | | | SERVICES, | | | | | | CORE | | + + + + + + + + | Specimen | + + | Blood - Blood | + + + + + + + | Performing | Address | City/State/Zipcode | Phone Number | | Organization | | | | + + + + + | [facility] | [address] | [place] [address] | | | SERVICES, CORE | [address] | | | + + + + + MAGNESIUM, PLASMA (07/18/2014 9:43 PM PDT) + +-------+ + + + | Component | Value | Ref Range | Performed | Pathologist | | | | | At | Signature | + +-------+ + + + | MAGNESIUM,P | 1.8 | 1.8 - 2.5 mg/dL | [facility] | | | LASMA | | | LABORATORY | | | | | | SERVICES, | | | | | | CORE | | + +-------+ + + + + + | Specimen | + + | Blood - Blood | + + + + + + + | Performing | Address | City/State/Zipcode | Phone Number | | Organization | | | | + + + + + | [facility] | [address] | [place] [address] | | | SERVICES, CORE | [address] | | | + + + + + RENAL FUNCTION SET (NA,K,CL,CO2,BUN,CREAT,GLUC,CA,PHOS,ALB ) (07/18/2014 9:43 PM PDT) + + + + + + | Component | Value | Ref Range | Performed | Pathologist | | | | | At | Signature | + + + + + + | GLUCOSE, | 108 (H) | 60 - 99 mg/dL | [facility] | | | PLASMA | | | LABORATORY | | | (LAB) | | | SERVICES, | | | | | | CORE | | + + + + + + | BUN, PLASMA | 31 (H) | 6 - 20 mg/dL | [facility] | | | (LAB) | | | LABORATORY | | | | | | SERVICES, | | | | | | CORE | | + + + + + + | CREATININE | 5.11 (H) | 0.60 - 1.10 | [facility] | | | PLASMA | | mg/dL | LABORATORY | | | (LAB) | | | SERVICES, | | | | | | CORE | | + + + + + + | EGFR | 11 (L) | >60 mL/min | [facility] | | | - | | | LABORATORY | | | CROATIAN | | | SERVICES, | | | | | | CORE | | + + + + + + | EGFR NON | 9 (L) | >60 mL/min | [facility] | | | -SANDY | | | LABORATORY | | | RICAN | | | SERVICES, | | | | | | CORE | | + + + + + + | SODIUM, | 127 (L) | 136 - 145 | [facility] | | | PLASMA | | mmol/L | LABORATORY | | | (LAB) | | | SERVICES, | | | | | | CORE | | + + + + + + | POTASSIUM, | 3.6 | 3.4 - 5.0 | [facility] | | | PLASMA | | mmol/L | LABORATORY | | | (LAB) | | | SERVICES, | | | | | | CORE | | + + + + + + | CHLORIDE, | 90 (L) | 97 - 108 mmol/L | [facility] | | | PLASMA | | | LABORATORY | | | (LAB) | | | SERVICES, | | | | | | CORE | | + + + + + + | TOTAL CO2, | 23 | 21 - 32 mmol/L | [facility] | | | PLASMA | | | LABORATORY | | | (LAB) | | | SERVICES, | | | | | | CORE | | + + + + + + | CALCIUM, | 7.5 (L) | 8.6 - 10.2 | [facility] | | | PLASMA | | mg/dL | LABORATORY | | | (LAB) | | | SERVICES, | | | | | | CORE | | + + + + + + | ALBUMIN, | 2.6 (L) | 3.5 - 4.7 g/dL | [facility] | | | PLASMA | | | LABORATORY | | | (LAB) | | | SERVICES, | | | | | | CORE | | + + + + + + | PHOSPHORUS, | 4.5 | 2.4 - 4.7 mg/dL | [facility] | | | PLASMA | | | LABORATORY | | | (LAB) | | | SERVICES, | | | | | | CORE | | + + + + + + | POTASSIUM | No Hemo | | [facility] | | | CMNT | | | LABORATORY | | | | | | SERVICES, | | | | | | CORE | | + + + + + + | ANION GAP | 14 | mmol/L | [facility] | | | | | | LABORATORY | | | | | | SERVICES, | | | | | | CORE | | + + + + + + | ANION | 17 (H) | 4 - 11 mmol/L | [facility] | | | GAP(ALB | | | LABORATORY | | | CORRECTED) | | | SERVICES, | | | | | | CORE | | + + + + + + + + | Specimen | + + | Blood - Blood | + + + + + | Narrative | Performed At | + + + | GFR is estimated using the MDRD equation recommended by the | [facility] | | National Kidney Disease Education Program. Estimated GFR | LABORATORY | | Interpretive Information: <60 mL/min/1.73 sq m | SERVICES, CORE | | Chronic Kidney Disease <15 mL/min/1.73 sq m | | | Kidney Failure Estimated GFR greater that 60 mL/min/1.73 sq m is of | | | limited clinical value. The MDRD equation is not valid in the | | | following situations: - Patients under 18 years of age - Severe | | | malnutrition or obesity - Vegetarian diet - Rapidly changing kidney | | | function | | + + + + + + + + | Performing | Address | City/State/Zipcode | Phone Number | | Organization | | | | + + + + + | [facility] | [address] | [place] [address] | | | SERVICES, [facility] | [address] | | | + + + + + CAPILLARY BLOOD GLUCOSE (NO CHG), POC (07/18/2014 8:37 PM PDT) + +-------+ + + + | Component | Value | Ref Range | Performed | Pathologist | | | | | At | Signature | + +-------+ + + + | BLOOD | 92 | 60 - 99 mg/dL | [facility] - | | | GLUCOSE, | | | [facility] | | | POC | | | [place] | | | | | | OF CARE | | | | | | TESTS | | + +-------+ + + + + + | Specimen | + + | | + + + + + + + | Performing | Address | City/State/Zipcode | Phone Number | | Organization | | | | + + + + + | [facility] | [address] | [place], [place] | | | [facility] | [address] | [address] | | | TESTS | | | | + + + + + MATEO NUGENT ONLY (07/18/2014 3:45 PM PDT) + + + + + + | Component | Value | Ref Range | Performed | Pathologist | | | | | At | Signature | + + + + + + | COLOR(UR) | Anupama | | [facility] | | | | | | LABORATORY | | | | | | SERVICES, | | | | | | CORE | | + + + + + + | APPEARANCE | Turbid | | [facility] | | | | | | LABORATORY | | | | | | SERVICES, | | | | | | CORE | | + + + + + + | GLUCOSE(UR) | 50.0 | Negative, 50.0 | [facility] | | | | | mg/dL | LABORATORY | | | | | | SERVICES, | | | | | | CORE | | + + + + + + | PROTEIN(LAB | 100.0 (A) | Negative, 30.0 | [facility] | | | ) | | mg/dL | LABORATORY | | | | | | SERVICES, | | | | | | CORE | | + + + + + + | BILIRUBIN | Negative | Negative | [facility] | | | | | | LABORATORY | | | | | | SERVICES, | | | | | | CORE | | + + + + + + | UROBILINOGE | <2.0 | <2.0 mg/dL | [facility] | | | N | | | LABORATORY | | | | | | SERVICES, | | | | | | CORE | | + + + + + + | PH(UR) | 5.0 | 5.0 - 8.0 | [facility] | | | | | | LABORATORY | | | | | | SERVICES, | | | | | | CORE | | + + + + + + | BLOOD | Large (A) | Negative | [facility] | | | | | | LABORATORY | | | | | | SERVICES, | | | | | | CORE | | + + + + + + | KETONES | 5.0 (A) | Negative mg/dL | [facility] | | | | | | LABORATORY | | | | | | SERVICES, | | | | | | CORE | | + + + + + + | NITRITES | Negative | Negative | [facility] | | | | | | LABORATORY | | | | | | SERVICES, | | | | | | CORE | | + + + + + + | LEUKOCYTE | Moderate (A) | Negative | [facility] | | | ESTERASE | | | LABORATORY | | | | | | SERVICES, | | | | | | CORE | | + + + + + + | SPECIFIC | 1.023 | 1.005 - 1.030 | [facility] | | | GRAVITY | | | LABORATORY | | | | | | SERVICES, | | | | | | CORE | | + + + + + + + + | Specimen | + + | Urine - Urine | + + + + + + + | Performing | Address | City/State/Zipcode | Phone Number | | Organization | | | | + + + + + | [facility] | [address] | [place] [address] | | | SERVICES, CORE | [address] | | | + + + + + URINE, MICROSCOPIC EXAM (07/18/2014 3:45 PM PDT) + + + + + + | Component | Value | Ref Range | Performed | Pathologist | | | | | At | Signature | + + + + + + | RED CELLS | 85 (H) | 0 - 3 /hpf | [facility] | | | | | | LABORATORY | | | | | | SERVICES, | | | | | | CORE | | + + + + + + | WHITE CELLS | 19 (H) | 0 - 5 /hpf | [facility] | | | | | | LABORATORY | | | | | | SERVICES, | | | | | | CORE | | + + + + + + | BACTERIA | Many (A) | None /hpf | [facility] | | | | | | LABORATORY | | | | | | SERVICES, | | | | | | CORE | | + + + + + + | YEAST (LAB) | None | None /hpf | [facility] | | | | | | LABORATORY | | | | | | SERVICES, | | | | | | CORE | | + + + + + + | SQUAMOUS | Few (A) | None /hpf | [facility] | | | EPITHELIAL | | | LABORATORY | | | | | | SERVICES, | | | | | | CORE | | + + + + + + | MUCOUS | None | None /hpf | [facility] | | | | | | LABORATORY | | | | | | SERVICES, | | | | | | CORE | | + + + + + + | TRICHOMONAS | None | None /hpf | [facility] | | | | | | LABORATORY | | | | | | SERVICES, | | | | | | CORE | | + + + + + + | NON-SQUAMOU | Few (A) | None /hpf | [facility] | | | S EPITH | | | LABORATORY | | | | | | SERVICES, | | | | | | CORE | | + + + + + + | HYALINE | 0 | 0 - 2 /lpf | [facility] | | | CASTS | | | LABORATORY | | | | | | SERVICES, | | | | | | CORE | | + + + + + + | GRANULAR | 0 | 0 - 2 /lpf | [facility] | | | CASTS | | | LABORATORY | | | | | | SERVICES, | | | | | | CORE | | + + + + + + | CELLULAR | 0 | <=0 /lpf | [facility] | | | CASTS | | | LABORATORY | | | | | | SERVICES, | | | | | | CORE | | + + + + + + | TRIPLE P04 | None | None /hpf | [facility] | | | [facility] | | | LABORATORY | | | | | | SERVICES, | | | | | | CORE | | + + + + + + | CALCIUM | None | None /hpf | [facility] | | | OXALATE | | | LABORATORY | | | GREGORIA | | | SERVICES, | | | | | | CORE | | + + + + + + | URIC ACID | None | None /hpf | [facility] | | | [facility] | | | LABORATORY | | | | | | SERVICES, | | | | | | CORE | | + + + + + + | AMORPHOUS | None | None /hpf | [facility] | | | [facility] | | | LABORATORY | | | | | | SERVICES, | | | | | | CORE | | + + + + + + + + | Specimen | + + | Urine - Urine | + + + + + + + | Performing | Address | City/State/Zipcode | Phone Number | | Organization | | | | + + + + + | [facility] | [address] | [place] [address] | | | SERVICES, CORE | [address] | | | + + + + + CAPILLARY BLOOD GLUCOSE (NO CHG), POC (07/18/2014 1:33 PM PDT) + +---------+ + + + | Component | Value | Ref Range | Performed | Pathologist | | | | | At | Signature | + +---------+ + + + | BLOOD | 120 (H) | 60 - 99 mg/dL | [facility] - | | | GLUCOSE, | | | [facility] | | | POC | | | [facility] | | | | | | OF CARE | | | | | | TESTS | | + +---------+ + + + + + | Specimen | + + | | + + + + + + + | Performing | Address | City/State/Zipcode | Phone Number | | Organization | | | | + + + + + | [facility] | [address] | [place], [place] | | | [facility] | [address] | [address] | | | TESTS | | | | + + + + + CAPILLARY BLOOD GLUCOSE (NO CHG), POC (07/18/2014 8:07 AM PDT) + +---------+ + + + | Component | Value | Ref Range | Performed | Pathologist | | | | | At | Signature | + +---------+ + + + | BLOOD | 122 (H) | 60 - 99 mg/dL | [facility] - | | | GLUCOSE, | | | [facility] | | | POC | | | [facility] | | | | | | OF CARE | | | | | | TESTS | | + +---------+ + + + + + | Specimen | + + | | + + + + + + + | Performing | Address | City/State/Zipcode | Phone Number | | Organization | | | | + + + + + | [facility] | [address] | [place], [place] | | | [facility] | [facility] | [address] | | | TESTS | | | | + + + + + CK, PLASMA (07/18/2014 5:42 AM PDT) + + + + + + | Component | Value | Ref Range | Performed | Pathologist | | | | | At | Signature | + + + + + + | CK | 26,203 (H) | 38 - 234 U/L | [facility] | | | | | | LABORATORY | | | | | | SERVICES, | | | | | | CORE | | + + + + + + + + | Specimen | + + | Blood - Blood | + + + + + + + | Performing | Address | City/State/Zipcode | Phone Number | | Organization | | | | + + + + + | [facility] | [address] | [place] [address] | | | SERVICES, CORE | [address] | | | + + + + + PHOSPHORUS, PLASMA (07/18/2014 5:42 AM PDT) + +-------+ + + + | Component | Value | Ref Range | Performed | Pathologist | | | | | At | Signature | + +-------+ + + + | PHOSPHORUS, | 4.5 | 2.4 - 4.7 mg/dL | [facility] | | | PLASMA | | | LABORATORY | | | (LAB) | | | SERVICES, | | | | | | CORE | | + +-------+ + + + + + | Specimen | + + | Blood - Blood | + + + + + + + | Performing | Address | City/State/Zipcode | Phone Number | | Organization | | | | + + + + + | [facility] | [address] | [place] [address] | | | SERVICES, CORE | [address] | | | + + + + + MAGNESIUM, PLASMA (07/18/2014 5:42 AM PDT) + +-------+ + + + | Component | Value | Ref Range | Performed | Pathologist | | | | | At | Signature | + +-------+ + + + | MAGNESIUM,P | 2.0 | 1.8 - 2.5 mg/dL | [facility] | | | LASMA | | | LABORATORY | | | | | | SERVICES, | | | | | | CORE | | + +-------+ + + + + + | Specimen | + + | Blood - Blood | + + + + + + + | Performing | Address | City/State/Zipcode | Phone Number | | Organization | | | | + + + + + | [facility] | [address] | [place] [address] | | | SERVICES, CORE | [address] | | | + + + + + BASIC METABOLIC SET (NA, K, CL, TCO2, BUN, CR, GLU, CA) (07/18/2014 5:42 AM PDT) + + + + + + | Component | Value | Ref Range | Performed | Pathologist | | | | | At | Signature | + + + + + + | GLUCOSE, | 128 (H) | 60 - 99 mg/dL | [facility] | | | PLASMA | | | LABORATORY | | | (LAB) | | | SERVICES, | | | | | | CORE | | + + + + + + | BUN, PLASMA | 25 (H) | 6 - 20 mg/dL | [facility] | | | (LAB) | | | LABORATORY | | | | | | SERVICES, | | | | | | CORE | | + + + + + + | CREATININE | 4.10 (H) | 0.60 - 1.10 | [facility] | | | PLASMA | | mg/dL | LABORATORY | | | (LAB) | | | SERVICES, | | | | | | CORE | | + + + + + + | EGFR | 14 (L) | >60 mL/min | [facility] | | | - | | | LABORATORY | | | CROATIAN | | | SERVICES, | | | | | | CORE | | + + + + + + | EGFR NON | 12 (L) | >60 mL/min | [facility] | | | -SANDY | | | LABORATORY | | | RICAN | | | SERVICES, | | | | | | CORE | | + + + + + + | SODIUM, | 129 (L) | 136 - 145 | [facility] | | | PLASMA | | mmol/L | LABORATORY | | | (LAB) | | | SERVICES, | | | | | | CORE | | + + + + + + | POTASSIUM, | 3.9 | 3.4 - 5.0 | [facility] | | | PLASMA | | mmol/L | LABORATORY | | | (LAB) | | | SERVICES, | | | | | | CORE | | + + + + + + | CHLORIDE, | 94 (L) | 97 - 108 mmol/L | [facility] | | | PLASMA | | | LABORATORY | | | (LAB) | | | SERVICES, | | | | | | CORE | | + + + + + + | TOTAL CO2, | 25 | 21 - 32 mmol/L | [facility] | | | PLASMA | | | LABORATORY | | | (LAB) | | | SERVICES, | | | | | | CORE | | + + + + + + | CALCIUM, | 7.2 (L) | 8.6 - 10.2 | [facility] | | | PLASMA | | mg/dL | LABORATORY | | | (LAB) | | | SERVICES, | | | | | | CORE | | + + + + + + | ANION GAP | 10 | mmol/L | [facility] | | | | | | LABORATORY | | | | | | SERVICES, | | | | | | CORE | | + + + + + + | POTASSIUM | No Hemo | | [facility] | | | CMNT | | | LABORATORY | | | | | | SERVICES, | | | | | | CORE | | + + + + + + + + | Specimen | + + | Blood - Blood | + + + + + | Narrative | Performed At | + + + | GFR is estimated using the MDRD equation recommended by the | [facility] | | National Kidney Disease Education Program. Estimated GFR | LABORATORY | | Interpretive Information: <60 mL/min/1.73 sq m | SERVICES, CORE | | Chronic Kidney Disease <15 mL/min/1.73 sq m | | | Kidney Failure Estimated GFR greater that 60 mL/min/1.73 sq m is of | | | limited clinical value. The MDRD equation is not valid in the | | | following situations: - Patients under 18 years of age - Severe | | | malnutrition or obesity - Vegetarian diet - Rapidly changing kidney | | | function | | + + + + + + + + | Performing | Address | City/State/Zipcode | Phone Number | | Organization | | | | + + + + + | [facility] | [address] | [place] [address] | | | SEVEN, MAGDA | [address] | | | + + + + + CAPILLARY BLOOD GLUCOSE (NO CHG), POC (07/18/2014 12:28 AM PDT) + +---------+ + + + | Component | Value | Ref Range | Performed | Pathologist | | | | | At | Signature | + +---------+ + + + | BLOOD | 116 (H) | 60 - 99 mg/dL | [facility] | | | GLUCOSE, | | | [facility] | | | POC | | | [place] | | | | | | OF CARE | | | | | | TESTS | | + +---------+ + + + + + | Specimen | + + | | + + + + + + + | Performing | Address | City/State/Zipcode | Phone Number | | Organization | | | | + + + + + | [facility] | [address] | [place], [place] | | | [facility] | [facility] | [address] | | | TESTS | | | | + + + + + UREA NITROGEN, URINE (07/17/2014 11:08 PM PDT) + +--------+ + + + | Component | Value | Ref Range | Performed | Pathologist | | | | | At | Signature | + +--------+ + + + | UREA NITRO | 103 | mg/dL | [facility] | | | CONC UR | | | LABORATORY | | | | | | SERVICES, | | | | | | CORE | | + +--------+ + + + | URINE | Random | | [facility] | | | INTERVAL | | | LABORATORY | | | | | | SERVICES, | | | | | | CORE | | + +--------+ + + + | URINE | Spot | | [facility] | | | VOLUME | | | LABORATORY | | | | | | SERVICES, | | | | | | CORE | | + +--------+ + + + + + | Specimen | + + | Urine - Urine | + + + + + | Narrative | Performed At | + + + | Normal values based on 24 hour collection interval. Patient | [facility] | | results are calculated from actual collection interval and volume. | LABORATORY | | | SERVICES, CORE | + + + + + + + + | Performing | Address | City/State/Zipcode | Phone Number | | Organization | | | | + + + + + | [facility] | [address] | [place] [address] | | | SERVICES, CORE | [address] | | | + + + + + SODIUM TOTAL, URINE (07/17/2014 11:08 PM PDT) + +--------+ + + + | Component | Value | Ref Range | Performed | Pathologist | | | | | At | Signature | + +--------+ + + + | SODIUM CONC | 7 | mmol/L | [facility] | | | URINE | | | LABORATORY | | | | | | SERVICES, | | | | | | CORE | | + +--------+ + + + | URINE | Random | | [facility] | | | INTERVAL | | | LABORATORY | | | | | | SERVICES, | | | | | | CORE | | + +--------+ + + + | URINE | Spot | | [facility] | | | VOLUME | | | LABORATORY | | | | | | SERVICES, | | | | | | CORE | | + +--------+ + + + + + | Specimen | + + | Urine - Urine | + + + + + | Narrative | Performed At | + + + | Normal values based on 24 hour collection interval. Patient | [facility] | | results are calculated from actual collection interval and volume. | LABORATORY | | | SERVICES, CORE | + + + + + + + + | Performing | Address | City/State/Zipcode | Phone Number | | Organization | | | | + + + + + | [facility] | [address] | [place] [address] | | | SERVICES, CORE | [address] | | | + + + + + CREATININE, URINE (07/17/2014 11:08 PM PDT) + +--------+ + + + | Component | Value | Ref Range | Performed | Pathologist | | | | | At | Signature | + +--------+ + + + | CREATININE | 316.00 | mg/dL | [facility] | | | CONC UR | | | LABORATORY | | | | | | SERVICES, | | | | | | CORE | | + +--------+ + + + | URINE | Random | | [facility] | | | INTERVAL | | | LABORATORY | | | | | | SERVICES, | | | | | | CORE | | + +--------+ + + + | URINE | Spot | | [facility] | | | VOLUME | | | LABORATORY | | | | | | SERVICES, | | | | | | CORE | | + +--------+ + + + + + | Specimen | + + | Urine - Urine | + + + + + | Narrative | Performed At | + + + | Normal values based on 24 hour collection interval. Patient | [facility] | | results are calculated from actual collection interval and volume. | LABORATORY | | | [facility] | + + + + + + + + | Performing | Address | City/State/Zipcode | Phone Number | | Organization | | | | + + + + + | [facility] | [address] | [place] [address] | | | SEVEN, MAGDA | [address] | | | + + + + + BASIC METABOLIC SET (NA, K, CL, TCO2, BUN, CR, GLU, CA) (07/17/2014 10:22 PM PDT) + + + + + + | Component | Value | Ref Range | Performed | Pathologist | | | | | At | Signature | + + + + + + | GLUCOSE, | 125 (H) | 60 - 99 mg/dL | [facility] | | | PLASMA | | | LABORATORY | | | (LAB) | | | SERVICES, | | | | | | CORE | | + + + + + + | BUN, PLASMA | 21 (H) | 6 - 20 mg/dL | [facility] | | | (LAB) | | | LABORATORY | | | | | | SERVICES, | | | | | | CORE | | + + + + + + | CREATININE | 3.59 (H) | 0.60 - 1.10 | [facility] | | | PLASMA | | mg/dL | LABORATORY | | | (LAB) | | | SERVICES, | | | | | | CORE | | + + + + + + | EGFR | 17 (L) | >60 mL/min | [facility] | | | - | | | LABORATORY | | | CROATIAN | | | SERVICES, | | | | | | CORE | | + + + + + + | EGFR NON | 14 (L) | >60 mL/min | [facility] | | | -SANDY | | | LABORATORY | | | RICAN | | | SERVICES, | | | | | | CORE | | + + + + + + | SODIUM, | 132 (L) | 136 - 145 | [facility] | | | PLASMA | | mmol/L | LABORATORY | | | (LAB) | | | SERVICES, | | | | | | CORE | | + + + + + + | POTASSIUM, | 3.8 | 3.4 - 5.0 | [facility] | | | PLASMA | | mmol/L | LABORATORY | | | (LAB) | | | SERVICES, | | | | | | CORE | | + + + + + + | CHLORIDE, | 94 (L) | 97 - 108 mmol/L | [facility] | | | PLASMA | | | LABORATORY | | | (LAB) | | | SERVICES, | | | | | | CORE | | + + + + + + | TOTAL CO2, | 28 | 21 - 32 mmol/L | [facility] | | | PLASMA | | | LABORATORY | | | (LAB) | | | SERVICES, | | | | | | CORE | | + + + + + + | CALCIUM, | 7.3 (L) | 8.6 - 10.2 | [facility] | | | PLASMA | | mg/dL | LABORATORY | | | (LAB) | | | SERVICES, | | | | | | CORE | | + + + + + + | ANION GAP | 10 | mmol/L | [facility] | | | | | | LABORATORY | | | | | | SERVICES, | | | | | | CORE | | + + + + + + | POTASSIUM | No Hemo | | [facility] | | | CMNT | | | LABORATORY | | | | | | SERVICES, | | | | | | CORE | | + + + + + + + + | Specimen | + + | Blood - Blood | + + + + + | Narrative | Performed At | + + + | GFR is estimated using the MDRD equation recommended by the | [facility] | | National Kidney Disease Education Program. Estimated GFR | LABORATORY | | Interpretive Information: <60 mL/min/1.73 sq m | SERVICES, CORE | | Chronic Kidney Disease <15 mL/min/1.73 sq m | | | Kidney Failure Estimated GFR greater that 60 mL/min/1.73 sq m is of | | | limited clinical value. The MDRD equation is not valid in the | | | following situations: - Patients under 18 years of age - Severe | | | malnutrition or obesity - Vegetarian diet - Rapidly changing kidney | | | function | | + + + + + + + + | Performing | Address | City/State/Zipcode | Phone Number | | Organization | | | | + + + + + | [facility] | [address] | [place] [address] | | | SERVICES, CORE | [address] | | | + + + + + CAPILLARY BLOOD GLUCOSE (NO CHG), POC (07/17/2014 8:09 PM PDT) + +---------+ + + + | Component | Value | Ref Range | Performed | Pathologist | | | | | At | Signature | + +---------+ + + + | BLOOD | 142 (H) | 60 - 99 mg/dL | [facility] | | | GLUCOSE, | | | [facility] | | | POC | | | [facility] | | | | | | OF CARE | | | | | | TESTS | | + +---------+ + + + + + | Specimen | + + | | + + + + + + + | Performing | Address | City/State/Zipcode | Phone Number | | Organization | | | | + + + + + | [facility] | [address] | [place], [place] | | | [facility] | [address] | [address] | | | TESTS | | | | + + + + + CAPILLARY BLOOD GLUCOSE (NO CHG), POC (07/17/2014 5:18 PM PDT) + +---------+ + + + | Component | Value | Ref Range | Performed | Pathologist | | | | | At | Signature | + +---------+ + + + | BLOOD | 149 (H) | 60 - 99 mg/dL | [facility] - | | | GLUCOSE, | | | [facility] | | | POC | | | [facility] | | | | | | OF CARE | | | | | | TESTS | | + +---------+ + + + + + | Specimen | + + | | + + + + + + + | Performing | Address | City/State/Zipcode | Phone Number | | Organization | | | | + + + + + | [facility] | [address] | [place], [place] | | | [facility] | [address] | [address] | | | TESTS | | | | + + + + + BASIC METABOLIC SET (NA, K, CL, TCO2, BUN, CR, GLU, CA) (07/17/2014 5:15 PM PDT) + + + + + + | Component | Value | Ref Range | Performed | Pathologist | | | | | At | Signature | + + + + + + | GLUCOSE, | 130 (H) | 60 - 99 mg/dL | [facility] | | | PLASMA | | | LABORATORY | | | (LAB) | | | SERVICES, | | | | | | CORE | | + + + + + + | BUN, PLASMA | 21 (H) | 6 - 20 mg/dL | [facility] | | | (LAB) | | | LABORATORY | | | | | | SERVICES, | | | | | | CORE | | + + + + + + | CREATININE | 3.25 (H) | 0.60 - 1.10 | [facility] | | | PLASMA | | mg/dL | LABORATORY | | | (LAB) | | | SERVICES, | | | | | | CORE | | + + + + + + | EGFR | 19 (L) | >60 mL/min | [facility] | | | - | | | LABORATORY | | | CROATIAN | | | SERVICES, | | | | | | CORE | | + + + + + + | EGFR NON | 16 (L) | >60 mL/min | [facility] | | | -SANDY | | | LABORATORY | | | RICAN | | | SERVICES, | | | | | | CORE | | + + + + + + | SODIUM, | 130 (L) | 136 - 145 | [facility] | | | PLASMA | | mmol/L | LABORATORY | | | (LAB) | | | SERVICES, | | | | | | CORE | | + + + + + + | POTASSIUM, | 3.9 | 3.4 - 5.0 | [facility] | | | PLASMA | | mmol/L | LABORATORY | | | (LAB) | | | SERVICES, | | | | | | CORE | | + + + + + + | CHLORIDE, | 96 (L) | 97 - 108 mmol/L | [facility] | | | PLASMA | | | LABORATORY | | | (LAB) | | | SERVICES, | | | | | | CORE | | + + + + + + | TOTAL CO2, | 27 | 21 - 32 mmol/L | [facility] | | | PLASMA | | | LABORATORY | | | (LAB) | | | SERVICES, | | | | | | CORE | | + + + + + + | CALCIUM, | 7.7 (L) | 8.6 - 10.2 | [facility] | | | PLASMA | | mg/dL | LABORATORY | | | (LAB) | | | SERVICES, | | | | | | CORE | | + + + + + + | ANION GAP | 7 | mmol/L | [facility] | | | | | | LABORATORY | | | | | | SERVICES, | | | | | | CORE | | + + + + + + | POTASSIUM | No Hemo | | [facility] | | | CMNT | | | LABORATORY | | | | | | SERVICES, | | | | | | CORE | | + + + + + + + + | Specimen | + + | Blood - Blood | + + + + + | Narrative | Performed At | + + + | GFR is estimated using the MDRD equation recommended by the | [facility] | | National Kidney Disease Education Program. Estimated GFR | LABORATORY | | Interpretive Information: <60 mL/min/1.73 sq m | SERVICES, CORE | | Chronic Kidney Disease <15 mL/min/1.73 sq m | | | Kidney Failure Estimated GFR greater that 60 mL/min/1.73 sq m is of | | | limited clinical value. The MDRD equation is not valid in the | | | following situations: - Patients under 18 years of age - Severe | | | malnutrition or obesity - Vegetarian diet - Rapidly changing kidney | | | function | | + + + + + + + + | Performing | Address | City/State/Zipcode | Phone Number | | Organization | | | | + + + + + | [facility] | [address] | [place] [address] | | | [facility] AME[facility]A | [address] | | | + + + + + CAPILLARY BLOOD GLUCOSE (NO CHG), POC (07/17/2014 2:13 PM PDT) + +---------+ + + + | Component | Value | Ref Range | Performed | Pathologist | | | | | At | Signature | + +---------+ + + + | BLOOD | 141 (H) | 60 - 99 mg/dL | [facility] - | | | GLUCOSE, | | | [facility] | | | POC | | | [facility] | | | | | | OF CARE | | | | | | TESTS | | + +---------+ + + + + + | Specimen | + + | | + + + + + + + | Performing | Address | City/State/Zipcode | Phone Number | | Organization | | | | + + + + + | [facility] | [address] | [place], [place] | | | [facility] | [address] | [address] | | | TESTS | | | | + + + + + CAPILLARY BLOOD GLUCOSE (NO CHG), POC (07/17/2014 8:45 AM PDT) + +---------+ + + + | Component | Value | Ref Range | Performed | Pathologist | | | | | At | Signature | + +---------+ + + + | BLOOD | 122 (H) | 60 - 99 mg/dL | [facility] - | | | GLUCOSE, | | | [facility] | | | POC | | | [facility] | | | | | | OF CARE | | | | | | TESTS | | + +---------+ + + + + + | Specimen | + + | | + + + + + + + | Performing | Address | City/State/Zipcode | Phone Number | | Organization | | | | + + + + + | [facility] | [address] | [place], [place] | | | [facility] | [facility] | [address] | | | TESTS | | | | + + + + + LIVER SET (AST,ALT,BILI TOTAL,BILI DIRECT,ALK PHOS,ALB,PROT TOTAL) (07/17/2014 2:55 AM PDT ) + +---------+ + + + | Component | Value | Ref Range | Performed | Pathologist | | | | | At | Signature | + +---------+ + + + | ALBUMIN, | 2.7 (L) | 3.5 - 4.7 g/dL | [facility] | | | PLASMA | | | LABORATORY | | | (LAB) | | | SERVICES, | | | | | | CORE | | + +---------+ + + + | BILIRUBIN | 0.9 | 0.3 - 1.2 mg/dL | [facility] | | | TOTAL | | | LABORATORY | | | | | | SERVICES, | | | | | | CORE | | + +---------+ + + + | BILIRUBIN | 0.3 | 0.0 - 0.3 mg/dL | [facility] | | | DIRECT | | | LABORATORY | | | | | | SERVICES, | | | | | | CORE | | + +---------+ + + + | ALK PHOS | 89 | 42 - 98 U/L | [facility] | | | | | | LABORATORY | | | | | | SERVICES, | | | | | | CORE | | + +---------+ + + + | AST(SGOT) | 696 (H) | <=41 U/L | [facility] | | | | | | LABORATORY | | | | | | SERVICES, | | | | | | CORE | | + +---------+ + + + | ALT (SGPT) | 189 (H) | <=60 U/L | [facility] | | | | | | LABORATORY | | | | | | SERVICES, | | | | | | CORE | | + +---------+ + + + | TOTAL | 7.5 | 6.4 - 8.2 g/dL | [facility] | | | PROTEIN, | | | LABORATORY | | | PLASMA | | | SERVICES, | | | (LAB) | | | CORE | | + +---------+ + + + + + | Specimen | + + | Blood - Blood | + + + + + + + | Performing | Address | City/State/Zipcode | Phone Number | | Organization | | | | + + + + + | [facility] | [address] | [place] [address] | | | SERVICES, CORE | [address] | | | + + + + + CBC (HEMOGRAM) ONLY (07/17/2014 2:55 AM PDT) + + + + + + | Component | Value | Ref Range | Performed | Pathologist | | | | | At | Signature | + + + + + + | WHITE CELL | 20.80 (H) | 4.40 - 11.00 | [facility] | | | COUNT | | K/cu mm | LABORATORY | | | | | | SERVICES, | | | | | | CORE | | + + + + + + | RED CELL | 3.49 (L) | 4.00 - 5.20 | [facility] | | | COUNT | | M/cu mm | LABORATORY | | | | | | SERVICES, | | | | | | CORE | | + + + + + + | HEMOGLOBIN | 11.3 (L) | 12.0 - 16.0 | [facility] | | | | | g/dL | LABORATORY | | | | | | SERVICES, | | | | | | CORE | | + + + + + + | HEMATOCRIT | 35.7 (L) | 36.0 - 46.0 % | [facility] | | | | | | LABORATORY | | | | | | SERVICES, | | | | | | CORE | | + + + + + + | MCV | 102.3 (H) | 80.0 - 96.0 fL | [facility] | | | | | | LABORATORY | | | | | | SERVICES, | | | | | | CORE | | + + + + + + | MCHC | 31.7 | 33.0 - 35.5 | [facility] | | | | | g/dL | LABORATORY | | | | | | SERVICES, | | | | | | CORE | | + + + + + + | RDW SD | 54.3 (H) | 35.1 - 46.3 fL | [facility] | | | | | | LABORATORY | | | | | | SERVICES, | | | | | | CORE | | + + + + + + | PLATELET | 263 | 150 - 400 K/cu | [facility] | | | COUNT | | mm | LABORATORY | | | | | | SERVICES, | | | | | | CORE | | + + + + + + | MPV | 11.0 | 9.7 - 12.3 fL | [facility] | | | | | | LABORATORY | | | | | | SERVICES, | | | | | | CORE | | + + + + + + | NRBC% | 0.2 | 0.0 - 0.3 % | [facility] | | | | | | LABORATORY | | | | | | SERVICES, | | | | | | CORE | | + + + + + + | NRBC# | 0.04 (H) | 0.00 - 0.02 | [facility] | | | | | K/cu mm | LABORATORY | | | | | | SERVICES, | | | | | | CORE | | + + + + + + + + | Specimen | + + | Blood - Blood | + + + + + + + | Performing | Address | City/State/Zipcode | Phone Number | | Organization | | | | + + + + + | [facility] | [address] | [place] [address] | | | SERVICES, CORE | [address] | | | + + + + + BASIC METABOLIC SET (NA, K, CL, TCO2, BUN, CR, GLU, CA) (07/17/2014 2:55 AM PDT) + + + + + + | Component | Value | Ref Range | Performed | Pathologist | | | | | At | Signature | + + + + + + | GLUCOSE, | 138 (H) | 60 - 99 mg/dL | [facility] | | | PLASMA | | | LABORATORY | | | (LAB) | | | SERVICES, | | | | | | CORE | | + + + + + + | BUN, PLASMA | 15 | 6 - 20 mg/dL | [facility] | | | (LAB) | | | LABORATORY | | | | | | SERVICES, | | | | | | CORE | | + + + + + + | CREATININE | 2.04 (H) | 0.60 - 1.10 | [facility] | | | PLASMA | | mg/dL | LABORATORY | | | (LAB) | | | SERVICES, | | | | | | CORE | | + + + + + + | EGFR | 32 (L) | >60 mL/min | [facility] | | | - | | | LABORATORY | | | CROATIAN | | | SERVICES, | | | | | | CORE | | + + + + + + | EGFR NON | 27 (L) | >60 mL/min | [facility] | | | -SANDY | | | LABORATORY | | | RICAN | | | SERVICES, | | | | | | CORE | | + + + + + + | SODIUM, | 134 (L) | 136 - 145 | [facility] | | | PLASMA | | mmol/L | LABORATORY | | | (LAB) | | | SERVICES, | | | | | | CORE | | + + + + + + | POTASSIUM, | 3.9 | 3.4 - 5.0 | [facility] | | | PLASMA | | mmol/L | LABORATORY | | | (LAB) | | | SERVICES, | | | | | | CORE | | + + + + + + | CHLORIDE, | 97 | 97 - 108 mmol/L | [facility] | | | PLASMA | | | LABORATORY | | | (LAB) | | | SERVICES, | | | | | | CORE | | + + + + + + | TOTAL CO2, | 29 | 21 - 32 mmol/L | [facility] | | | PLASMA | | | LABORATORY | | | (LAB) | | | SERVICES, | | | | | | CORE | | + + + + + + | CALCIUM, | 7.8 (L) | 8.6 - 10.2 | [facility] | | | PLASMA | | mg/dL | LABORATORY | | | (LAB) | | | SERVICES, | | | | | | CORE | | + + + + + + | ANION GAP | 8 | mmol/L | [facility] | | | | | | LABORATORY | | | | | | SERVICES, | | | | | | CORE | | + + + + + + | POTASSIUM | No Hemo | | [facility] | | | CMNT | | | LABORATORY | | | | | | SERVICES, | | | | | | CORE | | + + + + + + + + | Specimen | + + | Blood - Blood | + + + + + | Narrative | Performed At | + + + | GFR is estimated using the MDRD equation recommended by the | [facility] | | National Kidney Disease Education Program. Estimated GFR | LABORATORY | | Interpretive Information: <60 mL/min/1.73 sq m | [facility], CORE | | Chronic Kidney Disease <15 mL/min/1.73 sq m | | | Kidney Failure Estimated GFR greater that 60 mL/min/1.73 sq m is of | | | limited clinical value. The MDRD equation is not valid in the | | | following situations: - Patients under 18 years of age - Severe | | | malnutrition or obesity - Vegetarian diet - Rapidly changing kidney | | | function | | + + + + + + + + | Performing | Address | City/State/Zipcode | Phone Number | | Organization | | | | + + + + + | [facility] | [address] | [place] [address] | | | [place] | [address] | | | + + + + + CAPILLARY BLOOD GLUCOSE (NO CHG), POC (07/16/2014 10:00 PM PDT) + +---------+ + + + | Component | Value | Ref Range | Performed | Pathologist | | | | | At | Signature | + +---------+ + + + | BLOOD | 131 (H) | 60 - 99 mg/dL | [facility] - | | | GLUCOSE, | | | [facility] | | | POC | | | [facility] | | | | | | OF CARE | | | | | | TESTS | | + +---------+ + + + + + | Specimen | + + | | + + + + + + + | Performing | Address | City/State/Zipcode | Phone Number | | Organization | | | | + + + + + | [facility] | [address] | [place], [place] | | | [facility] | [address] | [address] | | | TESTS | | | | + + + + + CBC (HEMOGRAM) ONLY (07/16/2014 6:29 AM PDT) + + + + + + | Component | Value | Ref Range | Performed | Pathologist | | | | | At | Signature | + + + + + + | WHITE CELL | 12.40 (H) | 4.40 - 11.00 | [facility] | | | COUNT | | K/cu mm | LABORATORY | | | | | | SERVICES, | | | | | | CORE | | + + + + + + | RED CELL | 3.31 (L) | 4.00 - 5.20 | [facility] | | | COUNT | | M/cu mm | LABORATORY | | | | | | SERVICES, | | | | | | CORE | | + + + + + + | HEMOGLOBIN | 10.6 (L) | 12.0 - 16.0 | [facility] | | | | | g/dL | LABORATORY | | | | | | SERVICES, | | | | | | CORE | | + + + + + + | HEMATOCRIT | 33.3 (L) | 36.0 - 46.0 % | [facility] | | | | | | LABORATORY | | | | | | SERVICES, | | | | | | CORE | | + + + + + + | MCV | 100.6 (H) | 80.0 - 96.0 fL | [facility] | | | | | | LABORATORY | | | | | | SERVICES, | | | | | | CORE | | + + + + + + | MCHC | 31.8 | 33.0 - 35.5 | [facility] | | | | | g/dL | LABORATORY | | | | | | SERVICES, | | | | | | CORE | | + + + + + + | RDW SD | 52.1 (H) | 35.1 - 46.3 fL | [facility] | | | | | | LABORATORY | | | | | | SERVICES, | | | | | | CORE | | + + + + + + | PLATELET | 169 | 150 - 400 K/cu | [facility] | | | COUNT | | mm | LABORATORY | | | | | | SERVICES, | | | | | | CORE | | + + + + + + | MPV | 10.9 | 9.7 - 12.3 fL | [facility] | | | | | | LABORATORY | | | | | | SERVICES, | | | | | | CORE | | + + + + + + | NRBC% | 0.0 | 0.0 - 0.3 % | [facility] | | | | | | LABORATORY | | | | | | SERVICES, | | | | | | CORE | | + + + + + + | NRBC# | 0.00 | 0.00 - 0.02 | [facility] | | | | | K/cu mm | LABORATORY | | | | | | SERVICES, | | | | | | CORE | | + + + + + + + + | Specimen | + + | Blood - Blood | + + + + + + + | Performing | Address | City/State/Zipcode | Phone Number | | Organization | | | | + + + + + | [facility] | [address] | [place] [address] | | | SERVICES, CORE | [address] | | | + + + + + MAGNESIUM, PLASMA (07/16/2014 6:29 AM PDT) + +-------+ + + + | Component | Value | Ref Range | Performed | Pathologist | | | | | At | Signature | + +-------+ + + + | MAGNESIUM,P | 2.2 | 1.8 - 2.5 mg/dL | [facility] | | | LASMA | | | LABORATORY | | | | | | SEVEN, | | | | | | CORE | | + +-------+ + + + + + | Specimen | + + | Blood - Blood | + + + + + + + | Performing | Address | City/State/Zipcode | Phone Number | | Organization | | | | + + + + + | [facility] | [address] | [place] [address] | | | SERVICES, CORE | [address] | | | + + + + + RENAL FUNCTION SET (NA,K,CL,CO2,BUN,CREAT,GLUC,CA,PHOS,ALB ) (07/16/2014 6:29 AM PDT) + +---------+ + + + | Component | Value | Ref Range | Performed | Pathologist | | | | | At | Signature | + +---------+ + + + | GLUCOSE, | 134 (H) | 60 - 99 mg/dL | [facility] | | | PLASMA | | | LABORATORY | | | (LAB) | | | SERVICES, | | | | | | CORE | | + +---------+ + + + | BUN, PLASMA | 6 | 6 - 20 mg/dL | [facility] | | | (LAB) | | | LABORATORY | | | | | | SERVICES, | | | | | | CORE | | + +---------+ + + + | CREATININE | 0.93 | 0.60 - 1.10 | [facility] | | | PLASMA | | mg/dL | LABORATORY | | | (LAB) | | | SERVICES, | | | | | | CORE | | + +---------+ + + + | EGFR | >60 | >60 mL/min | [facility] | | | - | | | LABORATORY | | | CROATIAN | | | SERVICES, | | | | | | CORE | | + +---------+ + + + | EGFR NON | >60 | >60 mL/min | [facility] | | | -SANDY | | | LABORATORY | | | RICAN | | | SERVICES, | | | | | | CORE | | + +---------+ + + + | SODIUM, | 137 | 136 - 145 | [facility] | | | PLASMA | | mmol/L | LABORATORY | | | (LAB) | | | SERVICES, | | | | | | CORE | | + +---------+ + + + | POTASSIUM, | 3.2 (L) | 3.4 - 5.0 | [facility] | | | PLASMA | | mmol/L | LABORATORY | | | (LAB) | | | SERVICES, | | | | | | CORE | | + +---------+ + + + | CHLORIDE, | 99 | 97 - 108 mmol/L | [facility] | | | PLASMA | | | LABORATORY | | | (LAB) | | | SERVICES, | | | | | | CORE | | + +---------+ + + + | TOTAL CO2, | 30 | 21 - 32 mmol/L | [facility] | | | PLASMA | | | LABORATORY | | | (LAB) | | | SERVICES, | | | | | | CORE | | + +---------+ + + + | CALCIUM, | 8.0 (L) | 8.6 - 10.2 | [facility] | | | PLASMA | | mg/dL | LABORATORY | | | (LAB) | | | SERVICES, | | | | | | CORE | | + +---------+ + + + | ALBUMIN, | 2.8 (L) | 3.5 - 4.7 g/dL | [facility] | | | PLASMA | | | LABORATORY | | | (LAB) | | | SERVICES, | | | | | | CORE | | + +---------+ + + + | PHOSPHORUS, | 1.9 (L) | 2.4 - 4.7 mg/dL | [facility] | | | PLASMA | | | LABORATORY | | | (LAB) | | | SERVICES, | | | | | | CORE | | + +---------+ + + + | POTASSIUM | No Hemo | | [facility] | | | CMNT | | | LABORATORY | | | | | | SERVICES, | | | | | | CORE | | + +---------+ + + + | ANION GAP | 8 | mmol/L | [facility] | | | | | | LABORATORY | | | | | | SERVICES, | | | | | | CORE | | + +---------+ + + + | ANION | 11 | 4 - 11 mmol/L | [facility] | | | GAP(ALB | | | LABORATORY | | | CORRECTED) | | | SERVICES, | | | | | | CORE | | + +---------+ + + + + + | Specimen | + + | Blood - Blood | + + + + + | Narrative | Performed At | + + + | GFR is estimated using the MDRD equation recommended by the | [facility] | | National Kidney Disease Education Program. Estimated GFR | LABORATORY | | Interpretive Information: <60 mL/min/1.73 sq m | SEVEN, CORE | | Chronic Kidney Disease <15 mL/min/1.73 sq m | | | Kidney Failure Estimated GFR greater that 60 mL/min/1.73 sq m is of | | | limited clinical value. The MDRD equation is not valid in the | | | following situations: - Patients under 18 years of age - Severe | | | malnutrition or obesity - Vegetarian diet - Rapidly changing kidney | | | function | | + + + + + + + + | Performing | Address | City/State/Zipcode | Phone Number | | Organization | | | | + + + + + | [facility] | [address] | [place] [address] | | | SEVEN, MAGDA | [address] | | | + + + + + CAPILLARY BLOOD GLUCOSE (NO CHG), POC (07/16/2014 6:10 AM PDT) + +---------+ + + + | Component | Value | Ref Range | Performed | Pathologist | | | | | At | Signature | + +---------+ + + + | BLOOD | 124 (H) | 60 - 99 mg/dL | [facility] - | | | GLUCOSE, | | | [facility] | | | POC | | | [facility] | | | | | | OF CARE | | | | | | TESTS | | + +---------+ + + + + + | Specimen | + + | | + + + + + + + | Performing | Address | City/State/Zipcode | Phone Number | | Organization | | | | + + + + + | [facility] | [address] | [place], [place] | | | [facility] | [facility] | [address] | | | TESTS | | | | + + + + + 12 LEAD ECG (07/16/2014 12:48 AM PDT) + + + + + + | Component | Value | Ref Range | Performed | Pathologist | | | | | At | Signature | + + + + + + | VENTRICULAR | 101 | bpm | [facility] | | | RATE | | | OF | | | | | | CARDIOLOGY | | + + + + + + | ATRIAL RATE | 102 | bpm | [facility] | | | | | | OF | | | | | | CARDIOLOGY | | + + + + + + | P-R | 156 | ms | [facility] | | | INTERVAL | | | OF | | | | | | CARDIOLOGY | | + + + + + + | P AXIS | 53 | deg | [facility] | | | | | | OF | | | | | | CARDIOLOGY | | + + + + + + | QRS | 102 | ms | [facility] | | | DURATION | | | OF | | | | | | CARDIOLOGY | | + + + + + + | QT | 352 | ms | [facility] | | | | | | OF | | | | | | CARDIOLOGY | | + + + + + + | QTCB | 457 | ms | [facility] | | | | | | OF | | | | | | CARDIOLOGY | | + + + + + + | R AXIS | -15 | deg | [facility] | | | | | | OF | | | | | | CARDIOLOGY | | + + + + + + | T AXIS | 16 | deg | [facility] | | | | | | OF | | | | | | CARDIOLOGY | | + + + + + + | ECG | SINUS TACHYCARDIA- | | [facility] | | | IMPRESSION | OTHERWISE NORMAL ECG | | OF | | | | -Electronically signed | | CARDIOLOGY | | | | by: JOSÉ MIGUEL MYLES | | | | | | 07-16-2014 08:22:27 | | | | + + + + + + + + | Specimen | + + | | + + + + + | Narrative | Performed At | + + + | | [facility] | | | CARDIOLOGY | + + + + + | Procedure Note | + + | Other, Faculty - 07/16/2014 8:35 AM PDT | + + + + + + + | Performing | Address | City/State/Zipcode | Phone Number | | Organization | | | | + + + + + | [facility] | [address] | [place], [place] | | | CARDIOLOGY | [address] | [address] | | + + + + + SURGICAL PATHOLOGY (07/16/2014) + + + + + + | Component | Value | Ref Range | Performed | Pathologist | | | | | At | Signature | + + + + + + | SURGICAL | SOURCE OF SPECIMEN:A | | [facility] | | | PATHOLOGY | Gallbladder Final | | DEPARTMENT | | | | Pathologic | | OF | | | | Diagnosis:Gallbladder, | | PATHOLOGY | | | | cholecystectomy: - | | | | | | Gangrenous acute | | | | | | cholecystitis with | | | | | | cholelithiasis | | | | | | Case Seen By:Daisha | | | | | | Musa/Student Pathology | | | | | | FellowChristian | | | | | | Attila, | | | | | | M.D.,Ph.D/Pathologist | | | | | | Clinical History:The | | | | | | patient is a | | | | | | 43-year-old obese female | | | | | | with upper abdominal | | | | | | pain andimaging | | | | | | revealing | | | | | | cholelithiasis. | | | | | | Gross | | | | | | Description:Received is | | | | | | 1 specimen fresh in a | | | | | | container labeled with | | | | | | the patient's | | | | | | name(initials DR) and | | | | | | "gallbladder." The | | | | | | specimen consists of a | | | | | | previouslyopened | | | | | | gallbladder measuring 13 | | | | | | cm in length and 4.5 cm | | | | | | across the fundus.The | | | | | | serosal surface is | | | | | | vieyra-red, focally | | | | | | hemorrhagic, smooth and | | | | | | glistening.The lumen of | | | | | | the gallbladder contains | | | | | | a scant amount of | | | | | | blood-tinged mucoidbile | | | | | | and 2 dark green calculi | | | | | | measuring 0.8 and 5.5 | | | | | | cm in greatestdimension. | | | | | | The wall measures up | | | | | | to 0.8 cm in thickness. | | | | | | The mucosallining is | | | | | | dark red and granular. | | | | | | The cystic duct is not | | | | | | grossly identifieddue | | | | | | to specimen disruption | | | | | | at the neck region. | | | | | | Drafter Directional Survey | | | | | | sections aresubmitted. | | | | | | Cassette | | | | | | Index:A1-2, | | | | | | senior outside sales representative sections | | | | | | A1, perpendicular | | | | | | section of gallbladder | | | | | | neck A2, | | | | | | senior outside sales representative | | | | | | wallDJW/rdl My | | | | | | electronic signature | | | | | | indicates that I have | | | | | | personally reviewed | | | | | | alldiagnostic slides, | | | | | | the gross and/or | | | | | | microscopic portion of | | | | | | thisreport and | | | | | | formulated the final | | | | | | diagnosis. | | | | | | Rendering Diagnostician: | | | | | | Oscar Aiken | | | | | | M.D. | | | | | | Ph.D.PathologistElectron | | | | | | chris Signed 07/19/2014 | | | | | | 9:00AM | | | | + + + + + + + + | Specimen | + + | | + + + + + + + | Performing | Address | City/State/Zipcode | Phone Number | | Organization | | | | + + + + + | [facility] | [address] | [place] [address] | | | PATHOLOGY | [address] | | | + + + + + CAPILLARY BLOOD GLUCOSE (NO CHG), POC (07/15/2014 11:48 PM PDT) + +---------+ + + + | Component | Value | Ref Range | Performed | Pathologist | | | | | At | Signature | + +---------+ + + + | BLOOD | 113 (H) | 60 - 99 mg/dL | [facility] - | | | GLUCOSE, | | | [facility] | | | POC | | | [facility] | | | | | | OF CARE | | | | | | TESTS | | + +---------+ + + + + + | Specimen | + + | | + + + + + + + | Performing | Address | City/State/Zipcode | Phone Number | | Organization | | | | + + + + + | [facility] | [address] | [place], [place] | | | [facility] | [address] | [address] | | | TESTS | | | | + + + + + CAPILLARY BLOOD GLUCOSE (NO CHG), POC (07/15/2014 5:33 PM PDT) + +---------+ + + + | Component | Value | Ref Range | Performed | Pathologist | | | | | At | Signature | + +---------+ + + + | BLOOD | 103 (H) | 60 - 99 mg/dL | [facility] - | | | GLUCOSE, | | | [facility] | | | POC | | | [facility] | | | | | | OF CARE | | | | | | TESTS | | + +---------+ + + + + + | Specimen | + + | | + + + + + + + | Performing | Address | City/State/Zipcode | Phone Number | | Organization | | | | + + + + + | [facility] | [address] | [place], [place] | | | [facility] | [address] | [address] | | | TESTS | | | | + + + + + HCG QUAL, URINE (07/15/2014 2:54 PM PDT) + + + + + + | Component | Value | Ref Range | Performed | Pathologist | | | | | At | Signature | + + + + + + | HCG QUAL | NegativeComment: HCG= | mIU/mL | [facility] | | | URINE | <20mIU/mL. | | LABORATORY | | | | | | SERVICES, | | | | | | CORE | | + + + + + + + + | Specimen | + + | Urine - Urine | + + + + + + + | Performing | Address | City/State/Zipcode | Phone Number | | Organization | | | | + + + + + | [facility] | [address] | [place] [address] | | | SEVEN, MAG[place] | [address] | | | + + + + + EJECTION FRACTION (07/15/2014 2:09 PM PDT) + + + + + + | Component | Value | Ref Range | Performed | Pathologist | | | | | At | Signature | + + + + + + | EJECTION | 55 to 60 | | [facility] | | | FRACTION | | | OF | | | | | | CARDIOLOGY | | + + + + + + | BIPLANE, EF | 52.6 | | [facility] | | | | | | OF | | | | | | CARDIOLOGY | | + + + + + + | EJECTION | 57.5 | % | [facility] | | | FRACTION | | | OF | | | RANGE MEAN | | | CARDIOLOGY | | | VALUE | | | | | + + + + + + + + | Specimen | + + | | + + + + + + + | Performing | Address | City/State/Zipcode | Phone Number | | Organization | | | | + + + + + | [facility] | [address] | [place], [place] | | | CARDIOLOGY | [address] | [address] | | + + + + + X-RAY PORTABLE CHEST 1 VIEW (07/15/2014 1:44 PM PDT) + + + + + + | Component | Value | Ref Range | Performed | Pathologist | | | | | At | Signature | + + + + + + | X-RAY | EXAM: IN CHEST 1 VIEW | | | | | PORTABLE | 07/15/14 13:44:00 | | | | | CHEST 1 | HISTORY: Preop | | | | | VIEW | COMPARISON: None | | | | | | FINDINGS: Evaluation is | | | | | | limited by soft tissue | | | | | | plethora. Accounting for | | | | | | low lung volumes,the | | | | | | cardiomediastinal | | | | | | contour is normal, and | | | | | | the lungs are clear. | | | | | | There is nodefinite | | | | | | pleural effusion. There | | | | | | is no pneumothorax or | | | | | | pulmonary edema. | | | | | | Thebones are intact. | | | | | | IMPRESSION: No acute | | | | | | cardiopulmonary | | | | | | findings. Attending | | | | | | Radiologists: MACEY | | | | | | ARAM BALLuthor: MACEY | | | | | | MD LIZZY I have | | | | | | personally viewed this | | | | | | procedure/exam, reviewed | | | | | | this report, and | | | | | | madechanges to it where | | | | | | appropriate. | | | | | | Final/Electronically | | | | | | signed / MACEY BALL | | | | | | 07/15/2014 15:49 PM | | | | + + + + + + + + | Specimen | + + | | + + + +---------+ + + | Performing | Address | City/State/Zipcode | Phone Number | | Organization | | | | + +---------+ + + | [facility] DEPARTMENT OF | | | | | RADIOLOGY | | | | + +---------+ + + CAPILLARY BLOOD GLUCOSE (NO CHG), POC (07/15/2014 11:40 AM PDT) + +---------+ + + + | Component | Value | Ref Range | Performed | Pathologist | | | | | At | Signature | + +---------+ + + + | BLOOD | 126 (H) | 60 - 99 mg/dL | [facility] - | | | GLUCOSE, | | | [facility] | | | POC | | | [facility] | | | | | | OF CARE | | | | | | TESTS | | + +---------+ + + + + + | Specimen | + + | | + + + + + + + | Performing | Address | City/State/Zipcode | Phone Number | | Organization | | | | + + + + + | [facility] | [address] | [place], [place] | | | [facility] | [address] | [address] | | | TESTS | | | | + + + + + CBC (HEMOGRAM) ONLY (07/15/2014 10:38 AM PDT) + + + + + + | Component | Value | Ref Range | Performed | Pathologist | | | | | At | Signature | + + + + + + | WHITE CELL | 14.78 (H) | 4.40 - 11.00 | [facility] | | | COUNT | | K/cu mm | LABORATORY | | | | | | SERVICES, | | | | | | CORE | | + + + + + + | RED CELL | 3.55 (L) | 4.00 - 5.20 | [facility] | | | COUNT | | M/cu mm | LABORATORY | | | | | | SERVICES, | | | | | | CORE | | + + + + + + | HEMOGLOBIN | 11.5 (L) | 12.0 - 16.0 | [facility] | | | | | g/dL | LABORATORY | | | | | | SERVICES, | | | | | | CORE | | + + + + + + | HEMATOCRIT | 35.3 (L) | 36.0 - 46.0 % | [facility] | | | | | | LABORATORY | | | | | | SERVICES, | | | | | | CORE | | + + + + + + | MCV | 99.4 (H) | 80.0 - 96.0 fL | [facility] | | | | | | LABORATORY | | | | | | SERVICES, | | | | | | CORE | | + + + + + + | MCHC | 32.6 | 33.0 - 35.5 | [facility] | | | | | g/dL | LABORATORY | | | | | | SERVICES, | | | | | | CORE | | + + + + + + | RDW SD | 51.7 (H) | 35.1 - 46.3 fL | [facility] | | | | | | LABORATORY | | | | | | SERVICES, | | | | | | CORE | | + + + + + + | PLATELET | 159 | 150 - 400 K/cu | [facility] | | | COUNT | | mm | LABORATORY | | | | | | SERVICES, | | | | | | CORE | | + + + + + + | MPV | 10.9 | 9.7 - 12.3 fL | [facility] | | | | | | LABORATORY | | | | | | SERVICES, | | | | | | CORE | | + + + + + + | NRBC% | 0.0 | 0.0 - 0.3 % | [facility] | | | | | | LABORATORY | | | | | | SERVICES, | | | | | | CORE | | + + + + + + | NRBC# | 0.00 | 0.00 - 0.02 | [facility] | | | | | K/cu mm | LABORATORY | | | | | | SERVICES, | | | | | | CORE | | + + + + + + + + | Specimen | + + | Blood - Blood | + + + + + + + | Performing | Address | City/State/Zipcode | Phone Number | | Organization | | | | + + + + + | [facility] | [address] | [place] [address] | | | SERVICES, CORE | [address] | | | + + + + + MAGNESIUM, PLASMA (07/15/2014 10:38 AM PDT) + +---------+ + + + | Component | Value | Ref Range | Performed | Pathologist | | | | | At | Signature | + +---------+ + + + | MAGNESIUM,P | 1.2 (L) | 1.8 - 2.5 mg/dL | [facility] | | | [facility] | | | LABORATORY | | | | | | SERVICES, | | | | | | CORE | | + +---------+ + + + + + | Specimen | + + | Blood - Blood | + + + + + + + | Performing | Address | City/State/Zipcode | Phone Number | | Organization | | | | + + + + + | [facility] | [address] | [place] [address] | | | SERVICES, CORE | [address] | | | + + + + + RENAL FUNCTION SET (NA,K,CL,CO2,BUN,CREAT,GLUC,CA,PHOS,ALB ) (07/15/2014 10:38 AM PDT) + +---------+ + + + | Component | Value | Ref Range | Performed | Pathologist | | | | | At | Signature | + +---------+ + + + | GLUCOSE, | 137 (H) | 60 - 99 mg/dL | [facility] | | | PLASMA | | | LABORATORY | | | (LAB) | | | SERVICES, | | | | | | CORE | | + +---------+ + + + | BUN, PLASMA | 9 | 6 - 20 mg/dL | [facility] | | | (LAB) | | | LABORATORY | | | | | | SERVICES, | | | | | | CORE | | + +---------+ + + + | CREATININE | 0.96 | 0.60 - 1.10 | [facility] | | | PLASMA | | mg/dL | LABORATORY | | | (LAB) | | | SERVICES, | | | | | | CORE | | + +---------+ + + + | EGFR | >60 | >60 mL/min | [facility] | | | - | | | LABORATORY | | | CROATIAN | | | SERVICES, | | | | | | CORE | | + +---------+ + + + | EGFR NON | >60 | >60 mL/min | [facility] | | | -[facility] | | | LABORATORY | | | RICAN | | | SERVICES, | | | | | | CORE | | + +---------+ + + + | SODIUM, | 137 | 136 - 145 | [facility] | | | PLASMA | | mmol/L | LABORATORY | | | (LAB) | | | SERVICES, | | | | | | CORE | | + +---------+ + + + | POTASSIUM, | 3.1 (L) | 3.4 - 5.0 | [facility] | | | PLASMA | | mmol/L | LABORATORY | | | (LAB) | | | SERVICES, | | | | | | CORE | | + +---------+ + + + | CHLORIDE, | 99 | 97 - 108 mmol/L | [facility] | | | PLASMA | | | LABORATORY | | | (LAB) | | | SERVICES, | | | | | | CORE | | + +---------+ + + + | TOTAL CO2, | 31 | 21 - 32 mmol/L | [facility] | | | PLASMA | | | LABORATORY | | | (LAB) | | | SERVICES, | | | | | | CORE | | + +---------+ + + + | CALCIUM, | 8.0 (L) | 8.6 - 10.2 | [facility] | | | PLASMA | | mg/dL | LABORATORY | | | (LAB) | | | SERVICES, | | | | | | CORE | | + +---------+ + + + | ALBUMIN, | 3.1 (L) | 3.5 - 4.7 g/dL | [facility] | | | PLASMA | | | LABORATORY | | | (LAB) | | | SERVICES, | | | | | | CORE | | + +---------+ + + + | PHOSPHORUS, | 1.7 (L) | 2.4 - 4.7 mg/dL | [facility] | | | PLASMA | | | LABORATORY | | | (LAB) | | | SERVICES, | | | | | | CORE | | + +---------+ + + + | POTASSIUM | No Hemo | | [facility] | | | CMNT | | | LABORATORY | | | | | | SERVICES, | | | | | | CORE | | + +---------+ + + + | ANION GAP | 7 | mmol/L | [facility] | | | | | | LABORATORY | | | | | | SERVICES, | | | | | | CORE | | + +---------+ + + + | ANION | 9 | 4 - 11 mmol/L | [facility] | | | GAP(ALB | | | LABORATORY | | | CORRECTED) | | | SERVICES, | | | | | | CORE | | + +---------+ + + + + + | Specimen | + + | Blood - Blood | + + + + + | Narrative | Performed At | + + + | GFR is estimated using the MDRD equation recommended by the | [facility] | | National Kidney Disease Education Program. Estimated GFR | LABORATORY | | Interpretive Information: <60 mL/min/1.73 sq m | SERVICES, CORE | | Chronic Kidney Disease <15 mL/min/1.73 sq m | | | Kidney Failure Estimated GFR greater that 60 mL/min/1.73 sq m is of | | | limited clinical value. The MDRD equation is not valid in the | | | following situations: - Patients under 18 years of age - Severe | | | malnutrition or obesity - Vegetarian diet - Rapidly changing kidney | | | function | | + + + + + + + + | Performing | Address | City/State/Zipcode | Phone Number | | Organization | | | | + + + + + | [facility] | [address] | [place] [address] | | | SERVICES, CORE | [address] | | | + + + + + CAPILLARY BLOOD GLUCOSE (NO CHG), POC (07/15/2014 5:55 AM PDT) + +---------+ + + + | Component | Value | Ref Range | Performed | Pathologist | | | | | At | Signature | + +---------+ + + + | BLOOD | 135 (H) | 60 - 99 mg/dL | [facility] - | | | GLUCOSE, | | | [facility] | | | POC | | | [facility] | | | | | | OF CARE | | | | | | TESTS | | + +---------+ + + + + + | Specimen | + + | | + + + + + + + | Performing | Address | City/State/Zipcode | Phone Number | | Organization | | | | + + + + + | [facility] | [address] | [place], [place] | | | [facility] | [facility] | [address] | | | TESTS | | | | + + + + + TRANSTHORACIC ECHOCARDIOGRAM, ADULT (07/15/2014 12:00 AM PDT) + + + | Narrative | Performed At | + + + | | | | | | + + + + + | Procedure Note | + + | Cherry Woodard - 07/15/2014 2:57 PM PDT | + + CAPILLARY BLOOD GLUCOSE (NO CHG), POC (07/14/2014 11:40 PM PDT) + +---------+ + + + | Component | Value | Ref Range | Performed | Pathologist | | | | | At | Signature | + +---------+ + + + | BLOOD | 124 (H) | 60 - 99 mg/dL | [facility] - | | | GLUCOSE, | | | [facility] | | | POC | | | [facility] | | | | | | OF CARE | | | | | | TESTS | | + +---------+ + + + + + | Specimen | + + | | + + + + + + + | Performing | Address | City/State/Zipcode | Phone Number | | Organization | | | | + + + + + | [facility] | [address] | [place], [place] | | | [facility] | [address] | [address] | | | TESTS | | | | + + + + + ANTIBODY SCREEN (07/14/2014 8:02 PM PDT) + + + + + + | Component | Value | Ref Range | Performed | Pathologist | | | | | At | Signature | + + + + + + | Antibody | Negative | | [facility] | | | Screen | | | LABORATORY | | | | | | SERVICES, | | | | | | TRANSFUSION | | | | | | MEDICINE | | + + + + + + + + | Specimen | + + | Blood - Blood | + + + + + + + | Performing | Address | City/State/Zipcode | Phone Number | | Organization | | | | + + + + + | [facility] | [address] | [place] [address] | | | SERVICES, | [address] | | | | TRANSFUSION MEDICINE | | | | + + + + + ABO & RH TYPE (07/14/2014 8:02 PM PDT) + + + + + + | Component | Value | Ref Range | Performed | Pathologist | | | | | At | Signature | + + + + + + | ABO Group | O | | [facility] | | | | | | LABORATORY | | | | | | SERVICES, | | | | | | TRANSFUSION | | | | | | MEDICINE | | + + + + + + | Rh Type | Positive | | [facility] | | | | | | LABORATORY | | | | | | SERVICES, | | | | | | TRANSFUSION | | | | | | MEDICINE | | + + + + + + + + | Specimen | + + | Blood - Blood | + + + + + + + | Performing | Address | City/State/Zipcode | Phone Number | | Organization | | | | + + + + + | [facility] | [address] | [place] [address] | | | SERVICES, | [address] | | | | TRANSFUSION MEDICINE | | | | + + + + + CBC (HEMOGRAM) ONLY (07/14/2014 8:02 PM PDT) + + + + + + | Component | Value | Ref Range | Performed | Pathologist | | | | | At | Signature | + + + + + + | WHITE CELL | 13.99 (H) | 4.40 - 11.00 | [facility] | | | COUNT | | K/cu mm | LABORATORY | | | | | | SERVICES, | | | | | | CORE | | + + + + + + | RED CELL | 3.87 (L) | 4.00 - 5.20 | [facility] | | | COUNT | | M/cu mm | LABORATORY | | | | | | SERVICES, | | | | | | CORE | | + + + + + + | HEMOGLOBIN | 12.4 | 12.0 - 16.0 | [facility] | | | | | g/dL | LABORATORY | | | | | | SERVICES, | | | | | | CORE | | + + + + + + | HEMATOCRIT | 37.9 | 36.0 - 46.0 % | [facility] | | | | | | LABORATORY | | | | | | SERVICES, | | | | | | CORE | | + + + + + + | MCV | 97.9 (H) | 80.0 - 96.0 fL | [facility] | | | | | | LABORATORY | | | | | | SERVICES, | | | | | | CORE | | + + + + + + | MCHC | 32.7 | 33.0 - 35.5 | [facility] | | | | | g/dL | LABORATORY | | | | | | SERVICES, | | | | | | CORE | | + + + + + + | RDW SD | 50.6 (H) | 35.1 - 46.3 fL | [facility] | | | | | | LABORATORY | | | | | | SERVICES, | | | | | | CORE | | + + + + + + | PLATELET | 182 | 150 - 400 K/cu | [facility] | | | COUNT | | mm | LABORATORY | | | | | | SERVICES, | | | | | | CORE | | + + + + + + | MPV | 11.0 | 9.7 - 12.3 fL | [facility] | | | | | | LABORATORY | | | | | | SERVICES, | | | | | | CORE | | + + + + + + | NRBC% | 0.0 | 0.0 - 0.3 % | [facility] | | | | | | LABORATORY | | | | | | SERVICES, | | | | | | CORE | | + + + + + + | NRBC# | 0.00 | 0.00 - 0.02 | [facility] | | | | | K/cu mm | LABORATORY | | | | | | SERVICES, | | | | | | CORE | | + + + + + + + + | Specimen | + + | Blood - Blood | + + + + + + + | Performing | Address | City/State/Zipcode | Phone Number | | Organization | | | | + + + + + | [facility] | [address] | [place] [address] | | | SERVICES, CORE | [address] | | | + + + + + LIPASE, PLASMA (07/14/2014 8:02 PM PDT) + +-------+ + + + | Component | Value | Ref Range | Performed | Pathologist | | | | | At | Signature | + +-------+ + + + | LIPASE | 229 | 152 - 353 U/L | [facility] | | | (LAB) | | | LABORATORY | | | | | | SERVICES, | | | | | | CORE | | + +-------+ + + + + + | Specimen | + + | Blood - Blood | + + + + + + + | Performing | Address | City/State/Zipcode | Phone Number | | Organization | | | | + + + + + | [place] [facility] | [address] | [place] [address] | | | SERVICES, CORE | [address] | | | + + + + + COMPLETE METABOLIC SET (NA,K,CL,CO2,BUN,CREAT,GLUC,CA,AST,ALT,BILI TOTAL,ALK PHOS,ALB,PROT TOTAL) (07/14/2014 8:02 PM PDT) + +---------+ + + + | Component | Value | Ref Range | Performed | Pathologist | | | | | At | Signature | + +---------+ + + + | GLUCOSE, | 128 (H) | 60 - 99 mg/dL | [facility] | | | PLASMA | | | LABORATORY | | | (LAB) | | | SERVICES, | | | | | | CORE | | + +---------+ + + + | BUN, PLASMA | 12 | 6 - 20 mg/dL | [facility] | | | (LAB) | | | LABORATORY | | | | | | SERVICES, | | | | | | CORE | | + +---------+ + + + | CREATININE | 1.04 | 0.60 - 1.10 | [facility] | | | PLASMA | | mg/dL | LABORATORY | | | (LAB) | | | SERVICES, | | | | | | CORE | | + +---------+ + + + | EGFR | >60 | >60 mL/min | [facility] | | | - | | | LABORATORY | | | CROATIAN | | | SERVICES, | | | | | | CORE | | + +---------+ + + + | EGFR NON | 58 (L) | >60 mL/min | [facility] | | | -SANDY | | | LABORATORY | | | RICAN | | | SERVICES, | | | | | | CORE | | + +---------+ + + + | SODIUM, | 136 | 136 - 145 | [facility] | | | PLASMA | | mmol/L | LABORATORY | | | (LAB) | | | SERVICES, | | | | | | CORE | | + +---------+ + + + | POTASSIUM, | 3.3 (L) | 3.4 - 5.0 | [facility] | | | PLASMA | | mmol/L | LABORATORY | | | (LAB) | | | SERVICES, | | | | | | CORE | | + +---------+ + + + | CHLORIDE, | 98 | 97 - 108 mmol/L | [facility] | | | PLASMA | | | LABORATORY | | | (LAB) | | | SERVICES, | | | | | | CORE | | + +---------+ + + + | TOTAL CO2, | 30 | 21 - 32 mmol/L | [facility] | | | PLASMA | | | LABORATORY | | | (LAB) | | | SERVICES, | | | | | | CORE | | + +---------+ + + + | CALCIUM, | 8.8 | 8.6 - 10.2 | [facility] | | | PLASMA | | mg/dL | LABORATORY | | | (LAB) | | | SERVICES, | | | | | | CORE | | + +---------+ + + + | BILIRUBIN | 1.0 | 0.3 - 1.2 mg/dL | [facility] | | | TOTAL | | | LABORATORY | | | | | | SERVICES, | | | | | | CORE | | + +---------+ + + + | TOTAL | 7.6 | 6.4 - 8.2 g/dL | [facility] | | | PROTEIN, | | | LABORATORY | | | PLASMA | | | SERVICES, | | | (LAB) | | | CORE | | + +---------+ + + + | ALBUMIN, | 3.5 | 3.5 - 4.7 g/dL | [facility] | | | PLASMA | | | LABORATORY | | | (LAB) | | | SERVICES, | | | | | | CORE | | + +---------+ + + + | ALK PHOS | 67 | 42 - 98 U/L | [facility] | | | | | | LABORATORY | | | | | | SERVICES, | | | | | | CORE | | + +---------+ + + + | AST(SGOT) | 46 (H) | <=41 U/L | [facility] | | | | | | LABORATORY | | | | | | SERVICES, | | | | | | CORE | | + +---------+ + + + | ALT (SGPT) | 40 | <=60 U/L | [facility] | | | | | | LABORATORY | | | | | | SERVICES, | | | | | | CORE | | + +---------+ + + + | ANION | 9 | 4 - 11 mmol/L | [facility] | | | GAP(ALB | | | LABORATORY | | | CORRECTED) | | | SERVICES, | | | | | | CORE | | + +---------+ + + + | POTASSIUM | No Hemo | | [facility] | | | CMNT | | | LABORATORY | | | | | | SERVICES, | | | | | | CORE | | + +---------+ + + + | BILI T CMNT | No Hemo | | [facility] | | | | | | LABORATORY | | | | | | SERVICES, | | | | | | CORE | | + +---------+ + + + | AST CMNT | No Hemo | | [facility] | | | | | | LABORATORY | | | | | | SERVICES, | | | | | | CORE | | + +---------+ + + + | ANION GAP | 8 | mmol/L | [facility] | | | | | | LABORATORY | | | | | | SERVICES, | | | | | | CORE | | + +---------+ + + + + + | Specimen | + + | Blood - Blood | + + + + + | Narrative | Performed At | + + + | GFR is estimated using the MDRD equation recommended by the | [facility] | | National Kidney Disease Education Program. Estimated GFR | LABORATORY | | Interpretive Information: <60 mL/min/1.73 sq m | SERVICES, CORE | | Chronic Kidney Disease <15 mL/min/1.73 sq m | | | Kidney Failure Estimated GFR greater that 60 mL/min/1.73 sq m is of | | | limited clinical value. The MDRD equation is not valid in the | | | following situations: - Patients under 18 years of age - Severe | | | malnutrition or obesity - Vegetarian diet - Rapidly changing kidney | | | function | | + + + + + + + + | Performing | Address | City/State/Zipcode | Phone Number | | Organization | | | | + + + + + | [facility] | [address] | [place] [address] | | | SERVICES, CORE | [address] | | | + + + + + MAGNESIUM, PLASMA (07/14/2014 8:02 PM PDT) + +---------+ + + + | Component | Value | Ref Range | Performed | Pathologist | | | | | At | Signature | + +---------+ + + + | MAGNESIUM,P | 1.3 (L) | 1.8 - 2.5 mg/dL | [facility] | | | [facility] | | | LABORATORY | | | | | | SEVEN, | | | | | | CORE | | + +---------+ + + + + + | Specimen | + + | Blood - Blood | + + + + + + + | Performing | Address | City/State/Zipcode | Phone Number | | Organization | | | | + + + + + | [facility] | [address] | [place] [address] | | | MAGDA AMEZCUA | [address] | | | + + + + + CARDIOLOGY (07/14/2014 12:00 AM PDT) + + + | Narrative | Performed At | + + + | | | + + + CARDIOLOGY (07/14/2014 12:00 AM PDT) + + + | Narrative | Performed At | + + + | | | + + + CARDIOLOGY (07/14/2014 12:00 AM PDT) + + + | Narrative | Performed At | + + + | | | + + + CARDIOLOGY (07/14/2014 12:00 AM PDT) + + + | Narrative | Performed At | + + + | | | + + + documented in this encounter Visit Diagnoses Not on filedocumented in this encounter Administered Medications + +--------+ +--------+------+------+ | Medication Order | MAR | Action | Dose | Rate | Site | | | Action | Date | | | | + +--------+ +--------+------+------+ | heparin injection | Given | 07/20/19 | 3.1 mL | | | | INTRAPROCEDURE PRN, Starting Nguyen | | 15 5:46 | | | | | 07/19/14 at 1746, Until Nguyen | | PM PDT | | | | | 07/19/14 at 1806, line patency | | | | | | + +--------+ +--------+------+------+ +---+---+ | | | +---+---+ + +-------+ +------+---+---+ | lidocaine (XYLOCAINE) 10 mg/mL | Given | 07/20/19 | 8 mL | | | | (1 %) injection INTRAPROCEDURE | | 15 5:48 | | | | | PRN, Starting Nguyen 07/19/14 at | | PM PDT | | | | | 1748, Until Nguyen 07/19/14 at 1806 | | | | | | + +-------+ +------+---+---+ +---+---+ | | | +---+---+ + +-------+ +--------+---+---+ | thrombin 5000 unit topical | Given | 07/20/19 | 5,000 | | | | solution INTRAPROCEDURE PRN, | | 15 5:29 | Units | | | | Starting Nguyen 07/19/14 at 1729, | | PM PDT | | | | | Until Nguyen 07/19/14 at 1806 | | | | | | + +-------+ +--------+---+---+ +---+---+ | | | +---+---+ documented in this encounter
--- OUTSIDE RECORDS SUMMARY | ~2019-02-23 | XMS | Encounter Summary ---
Demographics + + + | Address | [address] | | | [place] [address] | + + + | Home Phone | | + + + | Preferred Language | Unknown | + + + | Marital Status | | + + + | Zoroastrian Affiliation | Unknown | + + + | Race | Unknown | + + + | Ethnic Group | Unknown | + + + Author + + + | Author | [facility] | | | and [place] | + + + | Organization | [facility] | | | and [place] | + + + | Address | Unknown | + + + | Phone | Unavailable | + + + Support + + +---------+ + | Name | Relationship | Address | Phone | + + +---------+ + | Gigi Nuno | ECON | Unknown | | + + +---------+ + Care Team Providers + +------+ + | Care Weights And Measures Sealer Name | Role | Phone | + +------+ + | Ophelia Villalta | PCP | | + +------+ + Reason for Visit Evaluate & Treat (Urgent) +--------+--------+ + + + + | Status | Reason | Specialty | Diagnoses / | Referred By | Referred To | | | | | Procedures | Contact | Contact | +--------+--------+ + + + + | Closed | | Nephrology | Diagnoses | Pawan, | Valeria | | | | | Unspecified | Ophelia Hartley, | [place], | | | | | essential | [place] [address] | | | | | hypertension | [address] | [address] | | | | | Procedures | [place], | [address] | | | | | [place] OFFICE | [place] [address] | [place] | | | | | OUTPATIENT | Phone: | [phone] Phone: | | | | | VISIT 25 | [phone] | [phone] | | | | | MINUTES | Fax: | Fax: | | | | | 12/21, | [phone] | [phone] | | | | | 12/06>PEND | | | | | | | RETRO | | | | | | | REFERRAL | | | | | | | AUTH - SENT | | | | | | | IN-BASKET TO | | | | | | | CIRCLE BEVELER | | | +--------+--------+ + + + + Encounter Details +--------+---------+ + + + | Date | Type | Department | Care Team | Description | +--------+---------+ + + + | 11/20/ | Office | [facility] | [place] W, | Essential | | 2015 | Visit | NEPHROLOGY [address] | hypertension | | | | [address] | [address] | (Primary Dx); | | | | [place], [place] | [place] [place] [address] | History of acute | | | | [address] | [phone] | renal failure; | | | | [phone] | | Obesity; Type 2 | | | | | | diabetes mellitus | | | | | | without complication | | | | | | (HCC) | +--------+---------+ + + + Social History + + + +--------+ + | Tobacco Use | Types | Packs/Day | Years | Date | | | | | Used | | + + + +--------+ + | Former Smoker | Cigarettes | 0.1 | | 03/29/1989 - | | | | | | 08/27/1989 | + + + +--------+ + + +---+---+---+ | Smokeless Tobacco: | | | | | Never Used | | | | + +---+---+---+ + + +---------+ + | Alcohol Use | Drinks/Week | oz/Week | Comments | + + +---------+ + | No | 0 Standard drinks | 0.0 | | | | or equivalent | | | + + +---------+ + [...] + + + | Blood Pressure | 110/70 | 11/20/2014 2:36 PM | | | | | PDT | | + + + + + | Pulse | 83 | 11/20/2014 2:36 PM | | | | | PDT | | + + + + + | Temperature | 36.4 C (97.6 F) | 11/20/2014 2:36 PM | | | | | PDT | | + + + + + | Respiratory Rate | 20 | 11/20/2014 2:36 PM | | | | | PDT | | + + + + + | Oxygen Saturation | 97% | 11/20/2014 2:36 PM | | | | | PDT | | + + + + + | Inhaled Oxygen | - | - | | | Concentration | | | | + + + + + | Weight | 180.9 kg (398 lb | 11/20/2014 2:36 PM | | | | 12.8 oz) | PDT | | + + + + + | Height | 167.6 cm (5' 6") | 11/20/2014 2:36 PM | | | | | PDT | | + + + + + | Body Mass Index | 64.37 | 11/20/2014 2:36 PM | | | | | PDT | | + + + + + documented in this encounter Patient Instructions Patient Instructions Park Shaw MD - 11/20/2014 3:17 PM PDT If you have not previously signed up for access to OYE!, please follow the instructions below to view your secure online medical record. OYE! allows you to review your After Vis it Summary, displays future appointments with [facility] clinics, and pay your bills . Additionally, if your physician uses [employer] software in the clinic, you may be able to send secure messages to your doctor, view your clinic ordered lab results, renew prescripti ons and schedule appointments. How Do I Sign Up? 1. In your Internet browser, go to [email or web address] 2. Click on the "Sign up with your activation code" button in the "New User?" box. This abby l take you to the New Member Sign Up page. 3. Enter your OYE! activation code exactly as it appears below. You will not need to use this code after you sign up. If you do not sign up before the expiration date, you must req uest a new code through your [place] or [place] participating clinic. OYE! Activation Code: [email or web address] Expires: 01/19/2015 14:08 4. Fill in the last four digits of your Social Security Number (xxxx) and Date of (mm /dd/yyyy) and click Next. 5. Create a [place] OYE! username. Your username cannot be changed, so think of one t hat is secure and easy to remember. 6. Create a OYE! password. You can change your password at any time. 7. Enter your security question and answer. This can be used at a later time if you forget your password. Click Next. 8. Enter your e-mail address. You will receive e-mail notification when new information is available in OYE!. 9. Click "Sign In". You may now view your medical record. For on-the-go access, download the free OYE! mobile link for iPhone and Android. Additional Information If you need assistance with OYE!, call the OYE! Help Desk at . The [place] Desk is available 24 hours a day,7 days a week. Also you can review the FAQs at [email or web address]. Please remember, OYE! should NOT be used for urgent needs. For all medical emergencies, call 911. documented in this encounter Progress Notes Park Shaw MD - 11/20/2014 2:44 PM PDTFormatting of this note might be different f rom the original. Nephrology Consult - New Visit Visit date: 11/20/2014 Primary care provider: KRYSTAL Ovalles HPI: Isa Nuno is a 44 y.o. female referred by KRYSTAL Vu, for history of renal fail ure. Isa is here with , Anson. In June 2014, pt was seen at [facility] for acute cholecystitis, had a complicated and prolonged surgery, which resulted in rhabdomyolysis. Pt developed acute kidney injury with serum cre atinine 7.1 mg/dL, CPK 42,000. Pt received hemodialysis, total of 3 treatments, before pt h ad improvement in urine output and kidney function. Prior to this event, pt's serum creatin ine was 0.94 - 1.0 mg/dL. Pt has history of hypertension, diagnosed in 2008, requiring medi cation. Pt has history of type 2 diabetes mellitus, on metformin therapy. Pt has a BMI of 64; pt is working to lose weight, and has lost approximately 35 pounds since Apr 2014. Pt is working on rebuilding her lower extremity strength. Pt has frequent back spasms. Pt takes only acetaminophen. No NSAID. Pt has history of interstitial cystitis, but has been asymptomatic for several years after adjusting diet and drinking green tea. Pt is mother of 5 children (ages 24, 22, 20, 15, 13) and 4 grandchildren. ROS: A 10-system review was performed, and was negative or noncontributory other than as st ated above. PMH: Patient Active Problem List Diagnosis Date Noted Essential hypertension 11/20/2014 Note Last Updated: 11/20/2014 Diagnosed around 2008 Mild intermittent asthma without complication 11/20/2014 Note Last Updated: 11/20/2014 Seasonal allergy triggers asthma GERD (gastroesophageal reflux disease) 11/20/2014 Obesity 11/20/2014 Type 2 diabetes mellitus without complication (HCC) 11/20/2014 History of acute renal failure 11/20/2014 Note Last Updated: 11/20/2014 In June 2014, ATN due to rhabdomyolysis in setting of prolonged surgery (9 hrs for compl icated acute cholecystitis), CPK 42,000, serum creatinine 7.1 mg/dL, required hemodialysis x 3 treatments. Past Surgical History Procedure Laterality Date Cholecystectomy, laparoscopic 07/16/14 Dilation and curettage of uterus Coccyx fracture surgery History Social History Marital Status: Spouse Name: Anson Number of Children: 5 Years of Education: N/A Occupational History Not on file. Social History Main Topics Smoking status: Former Smoker -- 0.10 packs/day Types: Cigarettes Start date: 03/29/1989 Quit date: 08/27/1989 Smokeless tobacco: Never Used Alcohol Use: No Drug Use: No Sexual Activity: Not on file Other Topics Concern Not on file Social History Narrative Family History Problem Relation Age of Onset COPD Father Heart failure Father Heart attack Mother Kidney disease Neg Hx Allergies Allergen Reactions Hydrochlorothiazide Over active bladder Lisinopril Nausea Only Losartan Nausea Only Dizzy Meperidine Nausea And Vomiting Morphine Other (See Comments) "Bad headaches" Outpatient Prescriptions Marked as Taking for the 11/20/14 encounter (Office Visit) with Brandee Shaw MD Medication Sig Dispense Refill acetaminophen (TYLENOL) 500 mg tablet Take 500 mg by mouth every 6 hours as needed for Pain. albuterol 2.5 mg/3 mL nebulizer solution Take 2.5 mg by nebulization every 6 hours as n eeded for Wheezing. albuterol 90 mcg/puff inhaler Inhale 2 puffs into the lungs every 6 hours as needed for Wheezing. aspirin 81 mg EC tablet Take 81 mg by mouth Daily. cholecalciferol (VITAMIN D-3) 1,000 units capsule Take 1,000 Units by mouth Daily. fluticasone (VERAMYST) 27.5 MCG/SPRAY nasal spray 2 sprays by Nasal route Daily as need ed. metFORMIN (GLUCOPHAGE-XR) 500 mg 24 hr tablet Take 500 mg by mouth 2 times daily. metoprolol tartrate (LOPRESSOR) 50 mg tablet Take 50 mg by mouth every morning. And 75 mg in the evening omeprazole (PRILOSEC) 20 mg capsule Take 20 mg by mouth every morning (before breakfast ). zinc sulfate 220 mg capsule Take 220 mg by mouth Daily. Physical Exam Filed Vitals: 11/20/14 1436 BP: 110/70 Pulse: 83 Temp: 36.4 C (97.6 F) TempSrc: Temporal Resp: 20 Height: 1.676 m (5' 6") Weight: 180.894 kg (398 lb 12.8 oz) SpO2: 97% BMI = 64 Constitutional: No distress. ENT: Oropharynx is clear and oral mucosa is moist. Eyes: Pupils are equal, round, and reactive to light. Conjunctiva is normal. Cardiovascular: Normal rate, regular rhythm and normal heart sounds. Exam reveals no verduzco p and no friction rub. No murmur heard. No carotid bruits. No pitting lower peripheral willow a. Lungs: Respiratory effort normal and breath sounds normal. No crackles or wheezes. Abdominal: Soft. Bowel sounds are present. No distension or tenderness. Musculoskeletal: No muscle tenderness. Skin: Skin is warm. No rash over extremities. Neurological: Alert. Memory appears intact. Psychiatric: Normal mood and affect. Speech is normal. Reviewed labs with patient. Abstract on 11/16/2014 Component Date Value Ref Range Status UA Blood, External 11/15/2014 Negative Final UA Glucose, External 11/15/2014 Normal Final UA Ketones, External 11/15/2014 Negative Final UA Ph, External 11/15/2014 5 5 - 9 Final UA Proteins, External 11/15/2014 Negative Final UA RBC, External 11/15/2014 0 Final UA Specific [place], External 11/15/2014 1.014 Final UA Leukocyte Esterase, External 11/15/2014 Negative Final Protein/Creatinine Ratio, External 11/15/2014 0.062 Final Abstract on 11/14/2014 Component Date Value Ref Range Status Creatinine, External 11/13/2014 1.11 0.6 - 1.35 Final eGFR, External 11/13/2014 53 Final WBC, External 11/13/2014 9.5 4.5 - 11 Final HGB, External 11/13/2014 12.4 12 - 16 Final HCT, External 11/13/2014 38.1 35 - 45 Final PLT, External 11/13/2014 211 140 - 440 Final Neutrophils %, External 11/13/2014 74.8 39 - 80 Final Lymphocytes %, External 11/13/2014 16.2* 24 - 44 Final Monocytes %, External 11/13/2014 6.8 0 - 12 Final Eosinophils %, External 11/13/2014 1.9 0 - 6 Final RBC, External 11/13/2014 4.17 3.8 - 5.1 Final MCV, External 11/13/2014 91 81 - 99 Final RDW, External 11/13/2014 14.8 10.5 - 15 Final Vitamin D, 25-Hydroxy, External 11/13/2014 33 30 - 100 Final Sodium, External 11/13/2014 138 132 - 143 Final Potassium, External 11/13/2014 4.1 3.6 - 5.1 Final Chloride, External 11/13/2014 102 95 - 112 Final Carbon Dioxide, External 11/13/2014 25 19 - 31 Final Calcium, External 11/13/2014 9.2 8.4 - 10.2 Final Phosphorus, External 11/13/2014 2.7 2.5 - 5 Final Albumin, External 11/13/2014 4.1 3.5 - 5 Final Glucose, External 11/13/2014 108* 70 - 100 Final BUN, External 11/13/2014 14 6 - 23 Final PTH Intact, External 11/13/2014 60.17 15 - 65 Final ASSESSMENT AND PLAN: ICD-9-CM ICD-10-CM 1. Essential hypertension 401.9 I10 Clinic BP is at goal. 2. History of acute renal failure V13.09 Z87.448 Pt has fully recovered from her ATN relate d to rhabdomyolysis in June 2014. Counseled pt regarding her risk for chronic kidney disease. -Good BP control, 130/80. -Weight loss, to avoid risk of obesity-related FSGS. -Avoidance of NSAID. -Optimal glycemic control. 3. Obesity 278.00 E66.9 Pt understands importance of weight loss. -Consider bariatric surgery 4. Type 2 diabetes mellitus without complication (HCC) 250.00 E11.9 On metformin. -Maintain HbA1c <= 7%. Thank you for the referral. Cc: KRYSTAL Vu documented in this encounter Plan of Treatment Not on filedocumented as of this encounter Visit Diagnoses + + | Diagnosis | + + | Essential hypertension - Primary Unspecified essential hypertension | + + | History of acute renal failure Personal history of other disorder of urinary system | + + | Obesity Obesity, unspecified | + + | Type 2 diabetes mellitus without complication (HCC) | + + documented in this encounter
--- OUTSIDE RECORDS SUMMARY | ~2019-02-23 | XMS | Encounter Summary ---
Demographics + + + | Address | [address] | | | [place] [address] | + + + | Home Phone | | + + + | Preferred Language | Unknown | + + + | Marital Status | | + + + | Pentecostalism Affiliation | PEN | + + + | Race | White | + + + | Ethnic Group | Not or | + + + Author + + + | Author | [facility] | + + + | Organization | [facility] | + + + | Address | Unknown | + + + | Phone | Unavailable | + + + Support + + + + + | Name | Relationship | Address | Phone | + + + + + | Gigi nuno | ECON | [address] | | | | [place] | | | | | [address] | | + + + + + Care Team Providers + +------+ + | Care Cafeteria Table Attendant Name | Role | Phone | + +------+ + | Ophelia Villalta | PCP | | + +------+ + Reason for Referral Consultation (Routine) +--------+--------+ + + + + | Status | Reason | Specialty | Diagnoses / | Referred By | Referred To | | | | | Procedures | Contact | Contact | +--------+--------+ + + + + | Closed | | Sleep | Diagnoses | Edil | Warren | | | | Medicine | Symptomatic | Snehal Cassidy | Disorder Med | | | | | | [address] | | | | | cholelithias | [address] | [address] | | | | | is | [place] | [place] | | | | | Procedures | [place], [place] | Mailcode: | | | | | CONSULT TO | [address] | [id number] | | | | | ADULT SLEEP | Phone: | [place] | | | | | [facility] | [phone] | Research | | | | | | Fax: | [place] 05F37 | | | | | | [phone] | [place], [place] | | | | | | | [address] | | | | | | | Phone: | | | | | | | [phone] | | | | | | | Fax: | | | | | | | [phone] | +--------+--------+ + + + + Reason for Visit + + + [...] +--------+--------+ + + + + Encounter Details +--------+ + + + + | Date | Type | Department | Care Team | Description | +--------+ + + + + | 07/14/ | Hospital | [facility] [address] | Deacon Mendez MD | | | 2014 - | Encounter | [address] | [address] | | | | | [place], [place] | [place], | | | 07/27/ | | [address] | [place] [address] | | | 2014 | | [phone] | [phone] | | | | | | | | | | | | Jerry Bañuelos MD | | | | | | [place] | | | | | | [facility] | | | | | | [address] | | | | | | [facility], | | | | | | [place] [address] | | | | | | [phone] | | | | | | | | +--------+ + + + + Social History + +-------+ [...] back pain wh o was transferred from [facility] in [facility] on 4 for abdominal pain, cholecy stitis and transferred for high-risk cholecystectomy. Underwent cholecystectomy on 4 at [facility]. Per gen surg, operation was [...] anuric.. Her CK peaked at >42K on 4/. A RIJ HD line was p laced [...] on discharge. She was discharged home to [place] with close follow up from her PCP and plans for a local referral to a general surgeon and a oracle erp developer for one visit, repeated labs to ensure [...] FAMILY Why: hospital follow up Contact information [facility] [address] [place] [address] Follow up with Local nephrology In 2 weeks. Contact information PCP will make referral Follow up with Local general surgery In 2 weeks. Contact information PCP will make a referral Follow Up Tests: None Need BMP within 1 week Determine when to start diuretics Nephrology and Gen Surg referral Discharging Attending: Jerry Bañuelos MD Physician Signature: Dhaval Peres MD Internal Medicine, PGY-3 Pager: [phone] Associated attestation - Jerry Bañuelos MD - 07/29/2014 11:36 AM PDTGeneral Medicine Att ending Note I personally evaluated the patient, performed the sosa elements of the physical examination, and personally formulated the assessment and plan with Dr. Peres. I have reviewed the [facility] documentation and I agree with the findings, assessment, advice, orders and plan as ey are documented. Jerry Bañuelos MD Cnc Mechan[employer] Clinical Hospitalist and Medicine Teaching Services [facility] DEPARTMENT: Hosp- [id number] Place of Service: [facility] Date of Service: 07/27/2014 CSN: [id number] Modifiers:GC Resident Involved: Yes Suggested CPT: 21971 Discharge Management < 30 minute I spent 10 minutes in coordination of care and aiia-mp-hvok with the patient and/or their s urrogate of which greater than 50% was spent counseling. documented in this encounter Discharge Instructions Instructions Zuleika Shaw - 07/27/2014 [employer] [facility] Physical and Occup ational therapies.- [phone]. Home health will come out early next [...] daily. | | | | | | release(/WILVER) | | | | | | + + + +---------+ + + | oxyCODONE, | Take 1 tablet by | 10 | 0 | 07/28/19 | | | immediate release, 5 | [...] Cr no w trending down. -Urine microscopy: Dalmatia brown casts -UOP picking up -Started on [...] Rosa Marti MD Internal Medicine PGY2 Pg [phone] Interval events/subjective: -no acute overnight events -feeling [...] % Intake/Output Summary (Last 24 hours) at 07/27/14919 Last data filed at 07/27/14 0830 Gross [...] -- -- AP -- -- -- -- -- TBILI 1.0 [...] = values in this interval not displayed. Jerry Rosenbaum M D - 07/26/2014 10:32 PM PDT [...] Chronic low back pain Jerry Bañuelos MD [employer] Clinical Hospitalist and Medicine Teaching Services [facility] DEPARTMENT: Hosp- [id number] Place of Service: - Date of Service: 07/26/2014 CSN: [id number] Modifiers:GC Resident Involved: Yes Suggested CPT: 69613 Subsequent Visit Exp Prob Foc/Mod Complexity 25 min I spent more than 20 minutes in coordination of care and lvxw-qn-ijov with the patient and/ or their surrogate of which 10 minutes was spent counseling. iccristina, Brenda Mariano MD - 07/26/2014 4:17 PM [...] Mayers MD Neurology PGY-1 Medicine Service Pager [phone] YNEWeellen, Brenda Frances MD - 07/26/2014 9:53 AM [...] Mark Division of Nephrology and Hypertension Pager #[phone] Office: [phone] [facility] DEPARTMENT: [id number]- NHT NEPHROLOGY [facility] Place of Service: [id number] - IP CSN: [id number] Suggested Modifier: GC Resident Involved Rosa Tobar [...] Cr no w trending down. -Urine microscopy: Dalmatia brown casts -UOP picking up -ok to remove Vigil today -Started on iHD 07/19/14 (Access: Right Tempt line placed 07/19/14) -Dialyzed last 07/23/14 with 3 liter UF. Tolerated it well -plan to hold off further iHD at this time -- would consider removing RIJ tomorrow am (leav e for today, primary team should touch base [...] Rosa Marti MD Internal Medicine PGY2 Pg [phone] Interval events/subjective: -no acute overnight events -feeling [...] = values in this interval not displayed. JavierTony - 7:09 AM PDT Medical Student Progress Note - for educational purposes only Overnight: -no acute events overnight -nephrology would like to take Vigil out today. Plan to remove IJ Wednesday, [...] labs: Mg, renal f(x) -Renal diet => hand trucker consult before d/c #Hypervolemic hyponatremia: Secondary to [...] heparin Diet: renal Code: full TONY Elizabeth erry Bañuelos MD - 07/25/2014 10:28 PM PDT General Medicine Attending Note I personally evaluated the patient, performed the sosa elements of the physical examination, and personally formulated the assessment and plan with Dr. Mera. I have reviewed the [facility] documentation and I agree with the [...] Chronic low back pain Jerry Bañuelos MD [employer] Clinical Hospitalist and Medicine Teaching Services [facility] DEPARTMENT: Hosp- [id number] Place of Service: IP - Date of Service: 07/25/2014 CSN: [id number] Modifiers:GC Resident Involved: Yes Suggested CPT: 75751 Subsequent Visit Exp Prob Foc/Mod Complexity 25 min I spent more than 20 minutes in coordination of care and yrnw-rn-zfqk with the patient and/ or their surrogate [...] Mark Division of Nephrology and Hypertension Pager #[phone] Office: [phone] [facility] DEPARTMENT: [id number]- [facility] NEPHROLOGY [facility] Place of Service: CSN: [id number] Suggested Modifier: GC Resident Involved Rosa Tobar [...] see how she tolerates this. -Urine microscopy: Dalmatia brown casts -UOP starting to slowly waste picker -please keep in Vigil for 1 more [...] Rosa Marti MD Internal Medicine PGY2 Pg [phone] Interval events/subjective: -no acute overnight events -feeling [...] CK 7423 07/23/2014 CK 9587 07/22/2014 [place] [address] 07/22/2014 [place] [address]80 07/21/2014 [place] 24858 07/21/2014 [place] [address] 07/21/2014 Urine Cr 316 Urine sodium 7 [...] above. Arielle Mera MD Internal Medicine Resident [id number] signed by Arielle Mera Md at 07/25/2014 [...] full TONY Elizabeth Jerry Rosenbaum MD - 07/24/2014 5:27 PM [...] Chronic low back pain Jerry Bañuelos MD Cnc Mechan[employer] Clinical Hospitalist and Medicine Teaching Services [facility] DEPARTMENT: Hosp- [id number] Place of Service: - [id number] Date of Service: 07/24/2014 CSN: [id number] Modifiers:GC Resident Involved: Yes Suggested CPT: 05986 Subsequent Visit Exp Prob Foc/Mod Complexity 25 min I spent more than 20 minutes in coordination of care and wbup-bl-jesl with the patient and/ or their surrogate [...] Mayers MD Neurology PGY-1 Medicine Service Pager [phone] Brenda Engle MD - 07/24/2014 9:48 AM PDTNephrology Attending [...] Mark Division of Nephrology and Hypertension Pager #[phone] Office: [phone] [facility] DEPARTMENT: [id number]- [facility] NEPHROLOGY [facility] Place of Service: [id number] - IP CSN: [id number] Suggested Modifier: GC Resident Involved Rosa Tobar [...] anuric: In setting of rhabdo -Urine microscopy: Dalmatia brown casts -Still very minimal urine out-put; [...] Rosa Marti MD Internal Medicine PGY2 Pg [phone] Interval events/subjective: -no acute overnight events -had [...] Intake/Output Summary (Last 24 hours) at 07/24/14 0975 Last data filed at 07/24/14 0403 Gross [...] 100.7 07/22/2014 RDW 56.4 07/22/2014 Recent Labs 07/14/14 2002 07/17/14 0255 07/22/14 1217 07/23/14 0520 07/24/14 0510 [...] CK 7423 07/23/2014 CK 9587 07/22/2014 [place] [address]678 07/22/2014 [place] [address]26 07/21/2014 [place] [address]25 07/21/2014 [place] [address] 07/21/2014 Urine Cr 316 Urine sodium 7 [...] dialysis, will need dialysis center arranged and oracle erp developer to follow. Discharge planning: -f/u EGS 2 weeks -outpatient polysomnography -ortho f/u scans as outpatient Routine care: DVT prophylaxis: heparin Diet: renal Code: usman Elizabeth Jerry Rosenbaum MD - 07/23/2014 10:38 PM PDT General Medicine Attending Note I personally evaluated the patient, performed the sosa elements of the physical examination, and personally formulated the assessment and plan with Dr. Mayers. [facility] and I agree with the [...] Chronic low back pain Jerry Bañuelos MD Cnc Mechanic Clinical Hospitalist and Medicine Teaching Services [facility] DEPARTMENT: Hosp- [id number] Place of Service: [facility] [id number] Date of Service: 07/23/2014 CSN: [id number] Modifiers:GC Resident Involved: Yes Suggested CPT: 48612 Subsequent Visit Detailed/High complexity 35 min I spent more than 40 minutes in coordination of care and vjim-oi-lqwb with the patient and/ or their surrogate of which greater than 50% was spent counseling. Brenda Lane MD - 07/23/2014 4:44 PM PDT GM3 [...] course c omplicated by rhabdo with anuric ABRBIE requiring HD. #Oliguric BARBIE #Rhabdo #Hyperhosphatemia - [...] Mayers MD Neurology PGY-1 Medicine Service Pager [phone] Brenda Engle MD - 07/23/2014 10:15 AM [...] Mark Division of Nephrology and Hypertension Pager #[phone] Office: [phone] [facility] DEPARTMENT: [id number] Place of Service: CSN: [id number] Suggested Modifier: GC Resident Involved Rosa Tobar [...] anuric: In setting of rhabdo -Urine microscopy: Dalmatia brown casts -Still very minimal urine out-put; [...] Rosa Marti MD Internal Medicine PGY2 Pg [phone] Interval events/subjective: -no acute overnight events -transferred to [facility] Team -denies any shortness of breath [...] (07/16/14 2000) O2 Delivery Device: Nasal cannula (07/23/14 0900) [...] ly reviewed. Recent Labs 07/14/14200107/17/14 0255 07/22/14 0556 07/22/14 1217 07/22/14 1934 07/22/14 2246 07/23/14 0520 NA 136 < > 134* < [...] 56.4 07/22/2014 Recent Labs 07/14/14200107/17/14 0255 07/22/14 0556 07/22/14 1217 07/23/14 0520 AST 46* -- 696* -- -- [...] CK 7423 07/23/2014 CK 9587 07/22/2014 [place] 45622 07/22/2014 [place] [address]92 07/21/2014 [place] 07580 07/21/2014 [place] 88900 07/21/2014 [place] [address]20 07/20/2014 Urine Cr 316 Urine sodium 7 [...] Intake/Output Summary (Last 24 hours) at 07/23/14 07 Last data filed at 07/23/14 0515 Gross [...] dialysis, will need dialysis center arranged and oracle erp developer to follow. Discharge planning: -f/u EGS 2 weeks -outpatient polysomnography -ortho f/u scans as outpatient Routine care: DVT prophylaxis: heparin Diet: renal Code: full TONY Elizabeth Brenda Lane MD - 07/22/2014 4:11 PM PDT GM3 PROGRESS NOTE/Transfer Accept Note Date: 07/22/2014 Hospital Day: 8 Author: BRENDA MAYERS MD, MD Attending Physician: Jerry Bañuelos MD Transfer Summary: Adapted from Dr. Case's excellent note 07/22/14: Ms. Nuno is a 43 yoF with morbid obesity, asthma, DM2, HTN, GERD, chronic low back pain wh o was transferred from [facility] in [facility] on 07/15 for abdominal pain, cholecy stitis and transferred for high-risk cholecystectomy. Now s/p cholecystectomy on 07/16 at [facility]. Per gen surg, operation was done [...] on 4. A RIJ HD line was placed on 07/19 and iHD w as initiated on 07/20. She continues on iHD with her last run 07/21, with next planned 07/23/14 . Given acute kidney failure, HD needs, and rhabdomyolysis, patient is being transferred to [facility] general medicine service. Of note, the ortho [...] Mayers MD Neurology PGY-1 Medicine Service Pager [phone] Raine, Ailyn Mcbride MD - 07/22/2014 7:01 AM PDTI saw and examined this patient with Dr. Garrett and agree with his findings and plan. Answered Mr. Nuno's many excellent questions today. Plan for HD tomorrow absent e/o renal recovery. [facility] DEPARTMENT: [id number] Place of Service: CSN: [id number] Suggested Modifier: GC Resident Involved Mark Arce [...] anuric: In setting of rhabdo -Urine microscopy: Dalmatia brown casts -Still very minimal urine out-put; essentially anuric-oliguric. -Started on iHD 07/19/14 (Access: Right Tempt line placed 07/19/14) -Dialyzed yesterday, 4/25/15 with 2.2 liter UF. Tolerated it well [...] questions. Osiel Garrett MD Nephrology Fellow Pager [phone] Interval events/subjective: Dialyzed yesterday No acute overnight [...] O2 (07/16/141999) O2 Delivery Device: Nasal cannula (07/22/14 042) 24 Hour Vital Min/Max: Systolic (24hrs), Av [...] personal ly reviewed. Recent Labs 07/14/14200107/17/14 0255 07/21/14 0534 07/21/14 1714 07/21/14 1928 07/21/14 1939 07/21/14 2251 NA 136 < > 134* < [...] 99.6 07/20/2014 RDW 54.9 07/20/2014 Recent Labs 07/14/14200107/17/14 0255 07/21/14 0534 07/21/14 1714 07/21/14 1939 AST 46* -- 696* -- -- [...] displayed. [place] [address] 07/21/2014 CK 76399 07/21/2014 CK 18226 07/21/2014 [place] 58197 07/20/2014 CK 19619 07/20/2014 CK >12655 07/20/2014 [place] [address]309 07/20/2014 [place] [address]6793 07/19/2014 Urine Cr 316 Urine sodium 7 TTE 07/15/14: EF normal Mild increased RVSP of 50 mmHg Urine spin revealed muddy brown casts Ailyn Ni MD - 0 07/21/2014 8:45 AM PDTI saw and examined patient on hemodialysis with Dr. Garrett and faustino mariano with his findings and plan. [facility] DEPARTMENT: [id number]- [facility] NEPHROLOGY [facility] Place of Service: CSN: [id number] Suggested Modifier: GC Resident Involved Mark Arce MD - 07/21/2014 8:45 AM PDT [...] anuric: In setting of rhabdo -Urine microscopy: Dalmatia brown casts -Very minimal improve to urine [...] questions. Osiel Garrett MD Nephrology Fellow Pager [phone] Interval events/subjective: Dialyzed yesterday, but was shorter [...] O2 (07/16/141999) O2 Delivery Device: Nasal cannula (07/21/14714) 24 Hour Vital Min/Max: Systolic (24hrs), Av [...] below were personal ly reviewed. Recent Labs 07/14/14 2002 07/17/14 0255 07/20/14 1037 07/20/144 07/20/14 2222 07/21/14 0534 NA 136 < [...] 07/20/2014 Recent Labs 07/14/14 2002 07/17/14 0255 07/20/14 1037 07/20/14203307/21/14 0534 AST 46* -- 696* -- -- [...] displayed. [place] [address] 07/21/2014 CK 47556 07/20/2014 CK 63388 07/20/2014 CK >30900 07/20/2014 [place] 85795 07/20/2014 [place] [address]41 07/19/2014 [place] 56648 07/19/2014 [place] [address] 07/19/2014 Urine Cr 316 Urine sodium 7 TTE 07/15/14: EF normal Mild increased RVSP of 50 mmHg Urine spin revealed muddy brown casts wkarla Aleena Gerardo, DO - 07/21/2014 6:23 AM PDT ON LICENSE OF [facility] DEPARTMENT OF SURGERY EMERGENCY GENERAL SURGERY Division [...] other applicable data points. Please refer to [place] for this information . PHYSICAL EXAM: LAST [...] referral to polysomnography when pt returns to [place] - Will ask RT to provide CPAP while inpt if able Discharge Plan: Requires acute care Signed: Aleena Boswell DO PGY-1 [facility] General Surgery EGS Surgery Service Pager: [phone] oKemi kwon MD - 07/20/2014 5:40 AM PDTEGS DAILY [...] bag Ext: WWP, BLE edema A/P: Vineet Reade is a 43 y.o. Female with BARBIE, [...] General Surgery Resident, R2 EGS Julien Pager [phone] Mark Arce MD - 07/19/2014 5:14 PM [...] concerns Osiel Garrett MD Nephrology Fellow Pager [phone] Darius Damico - 07/19/2014 2:04 PM PDTMed Student Procedure Note 07/19/2014 14:06 RUQ drain removed due to low drain output. The patient tolerated the procedure well. The dr tenorio site was clean and pink, without erythema or purulent material. The stitch was removed a nd the site was covered with clean gauze and medipore tape Darius Cantrell [id number] signed by Aleena Boswell DO at 07/19/2014 6:14 PM Richar Manjarrez MD - 07/19/2014 1:21 AM PDTInterval events [...] PM repeat CK we spoke with on-call oracle erp developer again who recommended d/c'ing IVF given that patient is o liguric to prevent fluid overload, and repeating BMP and CK at 5AM, which is ordered. Discus sed with on-call oracle erp developer and then with patient that there is [...] Craft MD R1, Department of General Surgery [facility] Pager [phone] ullab, Babita Silveira MD - 07/18/2014 10:26 PM PDTAcute Pain [...] on her back due to pain. Her [facility] team is concerned that she will [...] mg po BID for short-term. 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 --Offer heating pad and ice for back pain. --Use abdominal binder. --Consult PT for TENS unit. --Obtain thoracolumbar and lumbar spinal radiographs. APS will evaluate Ms. Nuno in the morning for consideration of trigger point injections. Discussed with attending physician, Yarely Boone MD who agrees with the above recommenda tions. Recommendations communicated to primary merchandise flow team leader, Rolando Case MD. Babita Grey MD Anesthesiology/[facility] Pager [phone] Snehal Pradhan MD - 07/18/2014 11:42 AM PDT ON LICENSE OF [facility] DEPARTMENT OF SURGERY EMERGENCY GENERAL SURGERY Division of Trauma and Critical Care Attending Physician: Deacon Mendez MD Progress Note Note Date: 07/18/2014 Admission Date: 07/14/2014 VINEET NUNO Hospital Day #4 HPI: 43 y/o morbidly [...] other applicable data points. Please refer to [facility] for this information . PHYSICAL EXAM: LAST [...] referral to polysomnography when pt returns to [place] - Will ask RT to provide CPAP while inpt if able Discharge Plan: Requires acute care Signed: Hien Solo MD [facility] General Surgery R1 Pager #[phone] Alverto Villegas MD - 07/17/2014 5:04 AM [...] stable, urinating. ALVERTO CASE MD SURGERY R-3 [id number] Ren Mendoza - 07/16/2014 6:58 PM PDTPatient extubated on 10L high flow oxymask with O2 sat of 88-90%. Virgilio bert on CPAP due to concern for respiratory insufficiency. Will transfer to ICU for closer mo nitoring of respiratory status and BIPAP. Electronically signed by Ren Castellanos at 2014 7:00 PM PDTChouMonica MD - 07/16/2014 4:56 PM PDTINPATIENT BRIEF OPERATIVE NOTE Procedure Date: 07/16/2014 Author: REN CASTELLANOS Attending Physician: Jaimee Valladares MD Assistants: Monica Yanez MD. Alex Whitehead [...] Gallbladder Complications: liver laceration Drains: subhepatic 19 Nepalese Piero drain in the gallbladder fossa Disposition: to florez Findings: Very large gallstone 2 x 3 cm obstructing the neck. Very edematous, thick gallbla dder wall. Dictatioon [id number] signed by Monica Yanez MD at 07/16/2014 7:38 PM PDTPeters onJune - 07/15/2014 2:36 PM PDTTransthoracic echocardiogram completed. [...] | + +--------+ + + + | LAPAROSCOPIC | | 07/16/2014 | | | | CHOLECYSTECOMY | | 12:14 PM | Cholecystolithiasis | | | | | PDT | [...] PST)PROCEDURE NOTE (05/02/2015 2:41 PM PST)PROCEDURE N OTE (05/02/2015 2:32 PM PST) + + | Transcriptions | + + | Yamilet Faculty - 07/26/2014 9:37 AM PDT | [...] Service: 07/16/2014 Attending | | Surgeon: Jaimee Valladares MD Solid Tire Finisher(s): Reji Whitehead MD. | | Solid Tire Finisher(s): Monica Yanez MD, R5. Ren Castellanos MD, [...] morbid obesity, the patient was transferred to [facility] for further evaluation and | | care. [...] | draped in normal sterile fashion. A part time receptionist-out was performed. We began with entry | [...] be monitored in the ICU overnight. Dr. Valladares was present and scrubbed for the | | critical portions of the case.Lee Miller MDLYC/MODLDD: 07/16/2014 | | 19:38:09DT: 07/16/2014 21:16:14Job #: [id number] was present for the critical | | portions of the procedure as described in the note for this encounter.Jaimee Valladares, | | LEE VALLADARES, [facility] [id number] [place] [address] | + + MAGNESIUM, PLASMA (07/27/2014 5:18 [...] | + + + + + | [facility] | [address] | [place] [address] | | | SERVICES, CORE | [address] | | | + + + [...] | | | LABORATORY | | | HONDURAN | | | SERVICES, | | | [...] the MDRD equation recommended by the | [facility] | | National Kidney Disease Education Program. [...] | + + + + + | [facility] | [address] | [place] [address] | | | SEVEN, MAGDA | [address] | | | + + + [...] | + + + + + | [facility] | [address] | [place] [address] | | | SERVICES, CORE | [address] | | | + + + [...] + | [facility] | [address] | [place] [address] | | | SERVICES, MAGDA | [address] | | | + + + [...] | | | LABORATORY | | | HONDURAN | | | SERVICES, | | | [...] | + + + + + | [facility] | [address] | [place] [address] | | | SERVICES, CORE | [address] | | | + + + + + MAGNESIUM, PLASMA (07/25/2014 7:45 AM PDT) + +-------+ + + + | Component | Value | Ref Range | Performed | Pathologist | | | | | At | Signature | + +-------+ + + + | MAGNESIUM,P | 2.0 | 1.8 - 2.5 mg/dL | [facility] | | | LASMA | | | [...] | + + + + + | [facility] | [address] | [place] [address] | | | SERVICES CORE | [address] | | | [...] | | | LABORATORY | | | HONDURAN | | | SERVICES, | | | [...] + + | [facility] | [address] | [place] [address] | | | SERVICES, CORE | [address] | | | + + + [...] | + + + + + | [facility] | [address] | [place] [address] | | | SERVICES, CORE | [address] | | | + + + [...] | | | LABORATORY | | | HONDURAN | | | SERVICES, | | | [...] the MDRD equation recommended by the | [facility] | | National Kidney Disease Education Program. [...] + | [facility] | [address] | [place] [address] | | | SERVICES, CORE | PARK [...] | + + + + + | [facility] | [address] | [place] [address] | | | SERVICES, CORE | PARK [...] (H) | 60 - 99 mg/dL | [facility] | | | GLUCOSE, | | [...] + | [facility] | [address] | [place], [place] | | | [facility] | [facility] | [address] | | | TESTS | | | [...] + | [facility] | [address] | [place] [address] | | | SERVICES, CORE | PARK [...] | | | LABORATORY | | | HONDURAN | | | SERVICES, | | | [...] | + + + + + | [facility] | [address] | [place] [address] | | | SERVICES, CORE | PARK [...] | + + + + + | [facility] | [address] | [place] [address] | | | SERVICES, CORE | [address] | | | + + + + + CARDIOLOGY (07/23/2014 12:00 AM PDT) + + + | Narrative | Performed At | + + + | | | | | | + + + + + | Procedure Note | + + | Other, Faculty - 07/23/2014 9:27 PM PDT | + + CARDIOLOGY (07/23/2014 12:00 AM PDT) + + + | Narrative | Performed At | + + + | | | | | | + + + + + | Procedure Note | + + | Cherry Woodard - 07/23/2014 10:10 AM PDT | + [...] | [facility] | [address] | [place], [place] | | | [facility] | [address] | [address] | | | TESTS | | | [...] | [facility] | [address] | [place], [place] | | | [facility] | [address] | [address] | | | TESTS | | | [...] + | [facility] | [address] | [place], [place] | | | [facility] | [address] | [address] | | | TESTS | | | [...] + | [facility] | [address] | [place] [address] | | | SERVICES, CORE | PARK [...] | | | LABORATORY | | | HONDURAN | | | SERVICES, | | | [...] | + + + + + | [facility] | [address] | [place] [address] | | | SERVICES, CORE | [address] | | | + + + + + CAPILLARY BLOOD GLUCOSE (NO CHG), POC (07/22/2014 10:13 AM PDT) + +---------+ + + + | Component | Value | Ref Range | Performed | Pathologist | | | | | At | Signature | + +---------+ + + + | BLOOD | 111 (H) | 60 - 99 mg/dL | [facility] | | | GLUCOSE, | | [...] + | [facility] | [address] | [place], [place] | | | [facility] | [address] | [address] | | | TESTS | | | [...] | + + + + + | [facility] | [address] | [place] [address] | | | SERVICES, CORE | [address] | | | + + + [...] | + + + + + | [facility] | [address] | [place] [address] | | | SERVICES, CORE | PARK [...] | | | LABORATORY | | | HONDURAN | | | SERVICES, | | | [...] equation recommended by the National | SERVICES, CORE | | Kidney Disease Education Program. Estimated [...] | + + + + + | [facility] [employer] [facility] | [address] | [place] [address] | | | SERVICES, MAGDA | [address] | | | + + + [...] + + | Other, Faculty - 07/23/2014 7:58 AM PDT | + + CARDIOLOGY (07/22/2014 12:00 AM PDT) + + + | Narrative | Performed At | + + + | | | | | | + + + + + | Procedure Note | + + | Cherry Woodard - 07/22/2014 6:06 PM PDT | + [...] | [facility] | [address] | [place], [place] | | | [facility] | [address] | [address] | | | TESTS | | | [...] + + | [facility] | [address] | [place] [address] | | | SERVICES, CORE | PARK [...] | | | LABORATORY | | | HONDURAN | | | SERVICES, | | | [...] | + + + + + | [facility] | [address] [address] | [place] [address] | | | SERVICES, MAGDA | [address] | | | + + + [...] | [facility] | [address] | [place], [place] | | | [facility] | [address] | [address] | | | TESTS | | | [...] + | [facility] | [address] | [place] [address] | | | SERVICES, CORE | PARK [...] | | | LABORATORY | | | HONDURAN | | | SERVICES, | | | [...] | + + + + + | [facility] | [address] | [place] [address] | | | MAGDA AMEZCUA | [address] | | | + + + + + CAPILLARY BLOOD GLUCOSE (NO CHG), POC (07/21/2014 5:00 PM PDT) + +-------+ + + + | Component | Value | Ref Range | Performed | Pathologist | | | | | At | Signature | + +-------+ + + + | BLOOD | 79 | 60 - 99 mg/dL | [facility] [...] | [facility] | [address] | [place], [place] | | | [facility] | [facility] | [address] | | | TESTS | | | | + + + + + CAPILLARY BLOOD GLUCOSE (NO CHG), POC (07/21/2014 3:50 PM PDT) + +-------+ + + + | Component | Value | Ref Range | Performed | Pathologist | | | | | At | Signature | + +-------+ + + + | BLOOD | 77 | 60 - 99 mg/dL | [facility] | | | GLUCOSE, | | [...] | [facility] | [address] | [place], [place] | | | [facility] [facility] | [address] | [address] | | | TESTS | | | [...] + | [facility] | [address] | [place], [place] | | | [facility] [place] | [facility] | [address] | | | TESTS | | | [...] + | [facility] | [address] | [place] [address] | | | SERVICES, CORE | PARK [...] | | | LABORATORY | | | HONDURAN | | | SERVICES, | | | [...] | + + + + + | [facility] | [address] | [place] [address] | | | SERVICES, CORE | [address] | | | + + + + + CAPILLARY BLOOD GLUCOSE (NO CHG), POC (07/20/2014 10:22 PM PDT) + +-------+ + + + | Component | Value | Ref Range | Performed | Pathologist | | | | | At | Signature | + +-------+ + + + | BLOOD | 93 | 60 - 99 mg/dL | [facility] [...] | [facility] | [address] | [place], [place] | | | [facility] | [address] | [address] | | | TESTS | | | [...] + | [facility] | [address] | [place] [address] | | | SERVICES, CORE | PARK [...] | | | LABORATORY | | | HONDURAN | | | SERVICES, | | | [...] | + + + + + | [facility] | [address] | [place] [address] | | | SEVEN, MAGDA | [address] | | | + + + [...] | | + +---------+ + + | [facility] DEPARTMENT OF | | | | | [...] | | | | | | ARCELIA SCHMAHMANN, | | | | | | MDAuthor: [...] | | + +---------+ + + | [facility] DEPARTMENT OF | | | | | [...] + | [facility] | [address] | [place] [address] | | | [place] | | | | + + + + + CK, PLASMA (07/20/2014 10:37 AM PDT) + + + + + + | Component | Value | Ref Range | Performed | Pathologist | | | | | At | Signature | + + + + + + | CK | >06591 (H) | 38 - 234 U/L | [...] | + + + + + | [facility] | [address] | [place] [address] | | | SERVICES, CORE | [address] | | | + + + [...] | | | LABORATORY | | | HONDURAN | | | SERVICES, | | | [...] the MDRD equation recommended by the | [facility] | | National Kidney Disease Education Program. [...] | + + + + + | [facility] | [address] | [place] [address] | | | MAGDA AMEZUCA | [address] | | | + + + [...] | + + + + + | [facility] | [address] | [place] [address] | | | SERVICES, CORE | [address] | | | + + + [...] + | [facility] | [address] | [place], [place] | | | [facility] | [address] | [address] | | | TESTS | | | [...] | + + + + + | [facility] | [address] | [place] [address] | | | SERVICES, CORE | [address] | | | + + + [...] + | [facility] | [address] | [place] [address] | | | SERVICES, CORE | PARK [...] | | | LABORATORY | | | HONDURAN | | | SERVICES, | | | [...] | + + + + + | [facility] | [address] | [place] [address] | | | SERVICES, CORE | [address] | | | + + + [...] + | [facility] | [address] | [place] [address] | | | SERVICES, CORE | PARK [...] | | | LABORATORY | | | HONDURAN | | | SERVICES, | | | [...] | + + + + + | [facility] | [address] | [place] [address] | | | SERVICES, CORE | [address] | | | + + + + + X-RAY PORTABLE CHEST 1 VIEW (07/19/2014 7:04 PM PDT) + + + + + + | Component | Value | Ref Range | Performed | Pathologist | | | | | At | Signature | + + + + + + | X-RAY | EXAM: ID CHEST 1 VIEW | | | | [...] + + + | [facility] | [address] | [place], [place] | | | [facility] | [address] | [address] | | | TESTS | | | [...] | + + + + + | [facility] [employer] | [address] | [place] [address] | | | SERVICES, CORE | PARK [...] | + + + + + | [facility] | [address] | [place] [address] | | | SERVICES, CORE | PARK [...] | + + + + + | [facility] | [address] | [place] [address] | | | SERVICES, CORE | PARK [...] + | [facility] | [address] | [place] [address] | | | SEVEN, MAGDA | [address] | | | + [...] | | | LABORATORY | | | HONDURAN | | | SERVICES, | | | [...] | + + + + + | [facility] | [address] | [place] [address] | | | SERVICES, CORE | [address] | | | + + + + + CAPILLARY BLOOD GLUCOSE (NO CHG), POC (07/19/2014 11:21 AM PDT) + +---------+ + + + | Component | Value | Ref Range | Performed | Pathologist | | | | | At | Signature | + +---------+ + + + | BLOOD | 105 (H) | 60 - 99 mg/dL | [facility] - | | | GLUCOSE, | | [...] + | [facility] | [address] | [place], [place] | | | [facility] | [address] | [address] | | | TESTS | | | [...] + | [facility] | [address] | [place] [address] | | | SERVICES, CORE | [address] | | | + + + + + MAGNESIUM, PLASMA (07/19/2014 5:17 AM PDT) + +-------+ + + + | Component | Value | Ref Range | Performed | Pathologist | | | | | At | Signature | + +-------+ + + + | MAGNESIUM,P | 1.8 | 1.8 - 2.5 mg/dL | [facility] | | | [facility] | | | LABORATORY | | | [...] + | [facility] | [address] | [place] [address] | | | SERVICES, CORE | PARK [...] | | | LABORATORY | | | HONDURAN | | | SERVICES, | | | [...] | + + + + + | [facility] | [address] | [place] [address] | | | MAGDA AMEZCUA | [address] | | | + + + [...] | + + + + + | [facility] | [address] | [place], [place] | | | [facility] [facility] | [address] | [address] | | | TESTS | | | [...] | + + + + + | [facility] | [address] | [place] [address] | | | SERVICES, CORE | [address] | | | + + + + + MAGNESIUM, PLASMA (07/18/2014 9:43 PM PDT) + +-------+ + + + | Component | Value | Ref Range | Performed | Pathologist | | | | | At | Signature | + +-------+ + + + | MAGNESIUM,P | 1.8 | 1.8 - 2.5 mg/dL | [facility] | | | LASMA | | | [...] | + + + + + | [facility] | [address] | [place] [address] | | | SERVICES, CORE | PARK [...] | | | LABORATORY | | | HONDURAN | | | SERVICES, | | | [...] | + + + + + | [facility] | [address] | [place] [address] | | | SERVICES, CORE | [address] | | | + + + + + CAPILLARY BLOOD GLUCOSE (NO CHG), POC (07/18/2014 8:37 PM PDT) + +-------+ + + + | Component | Value | Ref Range | Performed | Pathologist | | | | | At | Signature | + +-------+ + + + | BLOOD | 92 | 60 - 99 mg/dL | [facility] | | | GLUCOSE, | | [...] + | [facility] | [address] | [place], [place] | | | [facility] [place] | [address] | [address] | | | TESTS | | | | + + + + + MATEO NUGENT (07/18/2014 3:45 PM PDT) + + + [...] | + + + + + | [facility] | [address] | [place] [address] | | | SERVICES, CORE | [address] | | | + + + [...] + + + + | [facility] | Kirt (A) | None /hpf | [facility] | [...] + | [facility] | [address] | [place] [address] | | | SERVICES, CORE | PARK [...] | [facility] | [address] | [place], [place] | | | [facility] [place] | [facility] | [address] | | | TESTS | | | [...] (H) | 60 - 99 mg/dL | [facility] - | | | GLUCOSE, | | [...] | + + + + + | [facility] | [address] | [place], [place] | | | [facility] | [address] | [address] | | | TESTS | | | [...] | + + + + + | [facility] | [address] | [place] [address] | | | SEVEN, MAGDA | [address] | | | + [...] + + | [facility] | [address] | [place] [address] | | | SERVICES, CORE | [address] | | | + + + + + MAGNESIUM, PLASMA (07/18/2014 5:42 AM PDT) + +-------+ + + + | Component | Value | Ref Range | Performed | Pathologist | | | | | At | Signature | + +-------+ + + + | MAGNESIUM,P | 2.0 | 1.8 - 2.5 mg/dL | [facility] | | | LASMA | | | [...] + | [facility] | [address] | [place] [address] | | | SERVICES, CORE | PARK [...] | | | LABORATORY | | | HONDURAN | | | SERVICES, | | | [...] the MDRD equation recommended by the | [facility] | | National Kidney Disease Education Program. [...] | + + + + + | [facility] | [address] | [place] [address] | | | SEVEN, MAGDA | [address] | | | + + + + + CAPILLARY BLOOD GLUCOSE (NO CHG), POC (07/18/2014 12:28 AM PDT) + +---------+ + + + | Component | Value | Ref Range | Performed | Pathologist | | | | | At | Signature | + +---------+ + + + | BLOOD | 116 (H) | 60 - 99 mg/dL | [facility] - | | | GLUCOSE, | | [...] | [facility] | [address] | [place], [place] | | | [facility] [facility] | [address] | [address] | | | TESTS | | | [...] | + + + + + | [facility] | [address] | [place] [address] | | | MAGDA AMEZCUA | [address] | | | + + + [...] + + | [facility] | [address] | [place] [address] | | | MAGDA AMEZCUA | [address] | | | + + + [...] + + | [facility] | [address] | [place] [address] | | | SERVICES, CORE | PARK [...] (H) | 60 - 99 mg/dL | [facility] | | | PLASMA | | | [...] | | | LABORATORY | | | HONDURAN | | | SERVICES, | | | [...] the MDRD equation recommended by the | [facility] | | National Kidney Disease Education Program. Estimated GFR | LABORATORY | | Interpretive Information: <60 mL/min/1.73 sq m | [facility] | | Chronic Kidney Disease <15 mL/min/1.73 [...] | + + + + + | [facility] | [address] | [place] [address] | | | MAGDA AMEZCUA | [address] | | | + + + [...] + | [facility] | [address] | [place], [place] | | | [facility] | [address] | [address] | | | TESTS | | | [...] + | [facility] | [address] | [place], [place] | | | [facility] [facility] | [address] | [address] | | | TESTS | | | [...] | | | LABORATORY | | | HONDURAN | | | SERVICES, | | | [...] | + + + + + | [facility] | [address] | [place] [address] | | | SERVICES, CORE | [address] | | | + + + [...] + | [facility] | [address] | [place], [place] | | | [facility] [place] | [address] | [address] | | | TESTS | | | [...] | [facility] | [address] | [place], [place] | | | [place] [facility] | [facility] | [address] | | | TESTS | | | [...] + | [facility] | [address] | [place] [address] | | | SERVICES, CORE | PARK [...] | + + + + + | [facility] | [address] | [place] [address] | | | SERVICES, CORE | [address] | | | + + + [...] | | | LABORATORY | | | HONDURAN | | | SERVICES, | | | [...] | + + + + + | [facility] | [address] | [place] [address] | | | SERVICES, CORE | [address] | | | + + + [...] + | [facility] | [address] | [place], [place] | | | [facility] | [address] | [address] | | | TESTS | | | [...] | + + + + + | [facility] | [address] | [place] [address] | | | SERVICES, CORE | [address] | | | + + + + + MAGNESIUM, PLASMA (07/16/2014 6:29 AM PDT) + +-------+ + + + | Component | Value | Ref Range | Performed | Pathologist | | | | | At | Signature | + +-------+ + + + | MAGNESIUM,P | 2.2 | 1.8 - 2.5 mg/dL | [facility] | | | LASMA | | | [...] | + + + + + | [facility] | [address] | [place] [address] | | | SERVICES, CORE | PARK [...] | | | LABORATORY | | | HONDURAN | | | SERVICES, | | | [...] | + + + + + | [facility] | [address] | [place] [address] | | | SERVICES, CORE | [address] | | | + + + + + CAPILLARY BLOOD GLUCOSE (NO CHG), POC (07/16/2014 6:10 AM PDT) + +---------+ + + + | Component | Value | Ref Range | Performed | Pathologist | | | | | At | Signature | + +---------+ + + + | BLOOD | 124 (H) | 60 - 99 mg/dL | [facility] - | | | GLUCOSE, | | [...] + | [facility] | [address] | [place], [place] | | | [facility] | [address] | [address] | | | TESTS | | | [...] | CARDIOLOGY | | | | by: ANNAJOSÉ MIGUEL LUTHER | | | | | | 07-16-2014 08:22:27 | | | | + + + + + + + + | Specimen | + + | | + + + + + | Narrative | Performed At | + + + | | [facility] | | | CARDIOLOGY | + + + + + | Procedure Note | + + | Cherry Woodard - 07/16/2014 8:35 AM PDT | + + + + + + + | Performing | Address | City/State/Zipcode | Phone Number | | Organization | | | | + + + + + | [facility] | [address] | [place], [place] | | | CARDIOLOGY | [address] | [address] | | + + + + + [...] | | | | | Case Seen By:Daisah | | | | | | Musa/Student Pathology | | | | | | FellowChristian | | | | | | Attila | | | | | | M.Emily,Ph.D/Pathologist | | | | | | Clinical [...] region. | | | | | | Bullet Assembly Press Operator | | | | | | sections aresubmitted. | | | | | | Cassette | | | | | | Index:A1-2, | | | | | | motor vehicle field representative sections | | | | | | A1, perpendicular | | | | | | section of gallbladder | | | | | | neck A2, | | | | | | motor vehicle field representative | | | | | | [...] | + + + + + | [facility] | [address] | [place] [address] | | | PATHOLOGY | [address] | | | + [...] | [facility] | [address] | [place], [place] | | | [facility] [place] | [address] | [address] | | | TESTS | | | [...] + | [facility] | [address] | [place], [place] | | | [place] [facility] | [address] | [address] | | | TESTS | | | [...] | + + + + + | [facility] | [address] | [place] [address] | | | SERVICES, CORE | [address] | | | + + + [...] + + + + + | [facility] | [address] | [place], [place] | | | CARDIOLOGY | [address] | [address] | | + + + + + X-RAY PORTABLE CHEST 1 VIEW (07/15/2014 1:44 PM PDT) + + + + + + | Component | Value | Ref Range | Performed | Pathologist | | | | | At | Signature | + + + + + + | X-RAY | EXAM: ID CHEST 1 VIEW | | | | [...] | | + +---------+ + + | [facility] DEPARTMENT OF | | | | | [...] | [facility] | [address] | [place], [place] | | | [place] [facility] | [address] | [address] | | | TESTS | | | [...] | + + + + + | [facility] | [address] | [place] [address] | | | SERVICES, CORE | P[address] [...] + | [facility] | [address] | [place] [address] | | | SERVICES, CORE | P[address] [...] | | | LABORATORY | | | HONDURAN | | | SERVICES, | | | [...] | + + + + + | [facility] [employer] | [address] | [place] [address] | | | MAGDA AMEZCUA | [address] | | | + + + [...] + + | [facility] | [address] | [place], [place] | | | [facility] [facility] | [address] | [address] | | | TESTS | | | | + + + + + TRANSTHORACIC ECHOCARDIOGRAM, ADULT (07/15/2014 12:00 AM PDT) + + + | Narrative | Performed At | + + + | | | | | | + + + + + | Procedure Note | + + | Other, Faculty - 07/15/2014 2:57 PM PDT | + [...] | [facility] | [address] | [place], [place] | | | [facility] [facility] | [address] | [address] | | | TESTS | | | [...] | + + + + + | [facility] | [address] | [place] [address] | | | SERVICES, | [address] | | | | TRANSFUSION MEDICINE [...] + + | [facility] | [address] | [place] [address] | | | SERVICES, | [address] [...] + | [facility] | [address] | [place] [address] | | | SERVICES, CORE | [address] | | | + + + [...] + | [facility] | [address] | [place] [address] | | | SERVICES, CORE | [address] [...] | | | LABORATORY | | | HONDURAN | | | SERVICES, | | | [...] the MDRD equation recommended by the | [facility] | | National Kidney Disease Education Program. [...] | + + + + + | [facility] | [address] | [place] [address] | | | SEVEN, MAGDA | [address] | | | + + + [...] | + + + + + | [facility] | [address] | [place] [address] | | | SERVICES, CORE | [address] | | | + + + [...] + documented in this encounter Visit Diagnoses + + | Diagnosis | + + | Symptomatic cholelithiasis - Primary Calculus of gallbladder without mention of | | cholecystitis or obstruction | + + | Acute kidney injury (HCC) Acute kidney failure, unspecified | + + | Acute tubular necrosis (HCC) Acute kidney failure with lesion of tubular necrosis | + + | Morbid obesity (HCC) Morbid obesity | + + | Non-traumatic rhabdomyolysis | + + | Chronic back pain Backache, unspecified | + + | Physical deconditioning Debility, unspecified | + + | Hyponatremia with excess extracellular fluid volume Hyposmolality and/or hyponatremia | + + | Diabetes mellitus type 2, controlled, without complications (HCC) | + + | Essential hypertension | + + | Mild intermittent asthma without complication Unspecified asthma | + + | Gastroesophageal reflux disease without esophagitis Esophageal reflux | + + documented in this encounter Administered Medications + +--------+ +--------+------+------+ | Medication Order | MAR | Action | Dose | Rate | Site | | | Action | Date | | | | + +--------+ +--------+------+------+ | acetaminophen (TYLENOL) tablet | Given | 07/18/19 | 650 mg | | | | 325-650 mg 325-650 mg, oral, | | 15 6:59 | | | | | EVERY 4 HOURS NEEDED, Starting | | PM PDT | | | | | 07/14/14 at 1918, Until Nguyen | | | | | | | 07/19/14 at 1129, mild pain | | | | | | + +--------+ +--------+------+------+ +-------+ +--------+---+---+ | Given | 07/18/19 | 650 mg | | | | | 15 2:08 | | | | | | PM PDT | | | | +-------+ +--------+---+---+ | Given | 07/18/19 | 650 mg | | | | | 15 9:52 | | | | | | AM PDT | | | | +-------+ +--------+---+---+ +---+---+ | | | +---+---+ + +-------+ +--------+---+---+ | acetaminophen (TYLENOL) tablet | Given | 07/28/19 | 650 mg | | | | 650 mg 650 mg, oral, EVERY 6 | | 15 3:53 | | | | | HOURS, First dose (after last | | PM PDT | | | | | modification) on Wed07/19/14 at | | | | | | | 1600, Until Discontinued | | | | | | + +-------+ +--------+---+---+ +-------+ +--------+---+---+ | Given | 07/28/19 | 650 mg | | | | | 15 10:43 | | | | | | AM PDT | | | | +-------+ +--------+---+---+ | Given | 07/28/19 | 650 mg | | | | | 15 4:55 | | | | | | AM PDT | | | | +-------+ +--------+---+---+ +---+---+ | | | +---+---+ + +-------+ +------+---+---+ | alteplase (CATHFLO ACTIVASE) | Given | 07/21/19 | 2 mg | | | | injection 2 mg 2 mg, | | 15 2:13 | | | | | Intracatheter, ONCE, 1 dose, Fri | | PM PDT | | | | | 07/20/14 at 1345 | | | | | | + +-------+ +------+---+---+ +---+---+ | | | +---+---+ + +-------+ +------+---+---+ | alteplase (CATHFLO ACTIVASE) | Given | 07/21/19 | 2 mg | | | | injection 2 mg 2 mg, | | 15 2:12 | | | | | Intracatheter, ONCE, 1 dose, Fri | | PM PDT | | | | | 07/20/14 at 1345 | | | | | | + +-------+ +------+---+---+ +---+---+ | | | +---+---+ + +---------+ +-----+---+---+ | cefOXitin (MEFOXIN) IV 3 g 3 | New Bag | 07/17/19 | 3 g | | | | g, intravenous, EVERY 8 HOURS, | | 15 10:26 | | | | | First dose on 07/15/14 at | | AM PDT | | | | | 1100, Until Discontinued | | | | | | + +---------+ +-----+---+---+ +---------+ +-----+---+---+ | New Bag | 07/17/19 | 3 g | | | | | 15 4:07 | | | | | | AM PDT | | | | +---------+ +-----+---+---+ | New Bag | 07/16/19 | 3 g | | | | | 15 6:18 | | | | | | PM PDT | | | | +---------+ +-----+---+---+ +---+---+ | | | +---+---+ + +---------+ +-----+---+---+ | cefOXitin (MEFOXIN) IV 3 g 3 | New Bag | 07/17/19 | 3 g | | | | g, intravenous, ONCE, 1 dose, Mon | | 15 10:09 | | | | | 07/16/14 at 2100 | | PM PDT | | | | + +---------+ +-----+---+---+ +---+---+ | | | +---+---+ + +-------+ +------+---+---+ | cyclobenzaprine (FLEXERIL) | Given | 07/18/19 | 5 mg | | | | tablet 5 mg 5 mg, oral, THREE | | 15 4:41 | | | | | TIMES DAILY NEEDED, Starting | | AM PDT | | | | | 07/17/14 at 0353, Until Wed | | | | | | | 07/18/14 at 1646, muscle spasms | | | | | | + +-------+ +------+---+---+ +---+---+ | | | +---+---+ + +-------+ +-------+---+---+ | enoxaparin (LOVENOX) injection | Given | 07/18/19 | 40 mg | | | | 40 mg 40 mg, subcutaneous, EVERY | | 15 9:52 | | | | | EVENING, First dose on Wed | | PM PDT | | | | | 07/17/14 at 2100, Until | | | | | | | Discontinued | | | | | | + +-------+ +-------+---+---+ +---+---+ | | | +---+---+ + +-------+ +--------+---+---+ | heparin injection 5,000 Units | Given | 07/28/19 | 5,000 | | | | 5,000 Units, subcutaneous, EVERY | | 15 8:32 | Units | | | | 8 HOURS, First dose on Wed | | AM PDT | | | | | 07/18/14 at 1600, Until | | | | | | | Discontinued | | | | | | + +-------+ +--------+---+---+ +-------+ +--------+---+---+ | Given | 07/28/19 | 5,000 | | | | | 15 12:08 | Units | | | | | AM PDT | | | | +-------+ +--------+---+---+ | Given | 07/27/19 | 5,000 | | | | | 15 3:44 | Units | | | | | PM PDT | | | | +-------+ +--------+---+---+ +---+---+ | | | +---+---+ + +---------+ +--------+---+---+ | HYDROmorphone (DILAUDID) | New Bag | 07/17/19 | 0.4 mg | | | | injection 0.2-0.4 mg 0.2-0.4 mg, | | 15 10:09 | | | | | intravenous, EVERY 2 HOURS | | PM PDT | | | | | NEEDED, Starting 07/14/14 at | | | | | | | 1918, Until 07/16/14 at 2229, | | | | | | | severe pain | | | | | | + +---------+ +--------+---+---+ +---------+ +--------+---+---+ | New Bag | 07/17/19 | 0.4 mg | | | | | 15 7:18 | | | | | | PM PDT | | | | +---------+ +--------+---+---+ +---+---+ | | | +---+---+ + +---------+ +--------+---+---+ | HYDROmorphone (DILAUDID) | New Bag | 07/23/19 | 0.2 mg | | | | injection 0.2-0.4 mg 0.2-0.4 mg, | | 15 11:45 | | | | | intravenous, EVERY 2 HOURS | | AM PDT | | | | | NEEDED, Starting Wed07/19/14 at | | | | | | | 1329, Until Wed07/23/14 at 1338, | | | | | | | severe pain | | | | | | + +---------+ +--------+---+---+ +---------+ +--------+---+---+ | New Bag | 07/22/19 | 0.2 mg | | | | | 15 10:00 | | | | | | AM PDT | | | | +---------+ +--------+---+---+ | New Bag | 07/21/19 | 0.2 mg | | | | | 15 6:46 | | | | | | PM PDT | | | | +---------+ +--------+---+---+ +---+---+ | | | +---+---+ + +---------+ +------+---+---+ | HYDROmorphone (DILAUDID) | New Bag | 07/20/19 | 1 mg | | | | injection 0.5-1 mg 0.5-1 mg, | | 15 5:04 | | | | | intravenous, EVERY 2 HOURS | | AM PDT | | | | | NEEDED, Starting Wed07/16/14 at | | | | | | | 2229, Until Wed07/19/14 at 1329, | | | | | | | severe pain | | | | | | + +---------+ +------+---+---+ +---------+ +--------+---+---+ | New Bag | 07/19/19 | 1 mg | | | | | 15 8:32 | | | | | | PM PDT | | | | +---------+ +--------+---+---+ | New Bag | 07/19/19 | 0.3 mg | | | | | 15 1:01 | | | | | | AM PDT | | | | +---------+ +--------+---+---+ + +---+ | | | + +---+ | HYDROmorphone (DILAUDID) | | | injection 1 dose, Starting Mon | | | 07/16/14 at 1913, Until Mon | | | 07/16/14 at 1918 | | + +---+ | | | + +---+ + +-------+ +---------+---+---+ | insulin lispro (HUMALOG) | Given | 07/18/19 | 2 Units | | | | injection subcutaneous, FOUR | | 15 8:13 | | | | | TIMES DAILY, First dose on Sat | | PM PDT | | | | | 07/14/14 at 2200, Until | | | | | | | Discontinued | | | | | | + +-------+ +---------+---+---+ +-------+ +---------+---+---+ | Given | 07/18/19 | 2 Units | | | | | 15 2:20 | | | | | | PM PDT | | | | +-------+ +---------+---+---+ +---+---+ | | | +---+---+ + +---------+ +-------+-------+---+ | lactated ringers IV 100 mL/hr, | New Bag | 07/17/19 | 100 | 100 | | | intravenous, CONTINUOUS, | | 15 7:27 | mL/hr | mL/hr | | | Starting 07/14/14 at 2000, | | PM PDT | | | | | Until 07/17/14 at 1824 | | | | | | + +---------+ +-------+-------+---+ +---------+ +-------+-------+---+ | New Bag | 07/16/19 | 100 | 100 | | | | 15 4:39 | mL/hr | mL/hr | | | | PM PDT | | | | +---------+ +-------+-------+---+ | New Bag | 07/16/19 | 100 | 100 | | | | 15 6:25 | mL/hr | mL/hr | | | | AM PDT | | | | +---------+ +-------+-------+---+ +---+---+ | | | +---+---+ + +---------+ +--------+---+---+ | lactated ringers IV 500 mL, | New Bag | 07/18/19 | 500 mL | | | | intravenous, ONCE, 1 dose, Tue | | 15 2:35 | | | | | 07/17/14 at 0230 | | AM PDT | | | | + +---------+ +--------+---+---+ +---+---+ | | | +---+---+ + +---------+ + +---+---+ | lactated ringers IV 1,000 mL, | New Bag | 07/18/19 | 1,000 mL | | | | intravenous, ONCE, 1 dose, Tue | | 15 6:30 | | | | | 07/17/14 at 0545 | | AM PDT | | | | + +---------+ + +---+---+ +---+---+ | | | +---+---+ + +---------+ + +---+---+ | lactated ringers IV 1,000 mL, | New Bag | 07/18/19 | 1,000 mL | | | | intravenous, ONCE, 1 dose, Tue | | 15 9:50 | | | | | 07/17/14 at 0945 | | AM PDT | | | | + +---------+ + +---+---+ +---+---+ | | | +---+---+ + + + +---------+---+---+ | lidocaine (LIDODERM) 5 %(700 | Applied | 07/27/19 | 2 | | | | mg/patch) patch 2 patch 2 patch, | Patch | 15 9:20 | patches | | | | transdermal, EVERY 24 HOURS, | | PM PDT | | | | | First dose on Wed07/18/14 at | | | | | | | 2300, Until Discontinued | | | | | | + + + +---------+---+---+ + + +---------+---+---+ | Applied Patch | 07/27/19 | 2 | | | | | 15 12:10 | patches | | | | | AM PDT | | | | + + +---------+---+---+ | Applied Patch | 07/26/19 | 2 | | | | | 15 12:40 | patches | | | | | AM PDT | | | | + + +---------+---+---+ +---+---+ | | | +---+---+ + +---------+ +-----+---+---+ | magnesium sulfate in water IV | New Bag | 07/28/19 | 2 g | | | | (RTU) 2 g 2 g, intravenous, | | 15 8:30 | | | | | ONCE, 1 dose, 07/27/14 at 0745 | | AM PDT | | | | + +---------+ +-----+---+---+ +---+---+ | | | +---+---+ + +---------+ +-----+---+---+ | magnesium sulfate in water IV | New Bag | 07/16/19 | 4 g | | | | (RTU) 4 g 4 g, intravenous, | | 15 7:42 | | | | | ONCE, 1 dose, Lin 07/15/14 at 1915 | | PM PDT | | | | + +---------+ +-----+---+---+ +---+---+ | | | +---+---+ + +-------+ +-------+---+---+ | metoprolol tartrate (LOPRESSOR) | Given | 07/18/19 | 25 mg | | | | tablet 25 mg 25 mg, oral, ONCE, | | 15 9:50 | | | | | 1 dose, Jose Daniel 07/17/14 at 1000 | | AM PDT | | | | + +-------+ +-------+---+---+ +---+---+ | | | +---+---+ + +-------+ +-------+---+---+ | metoprolol tartrate (LOPRESSOR) | Given | 07/18/19 | 50 mg | | | | tablet 50 mg 50 mg, oral, TWICE | | 15 8:46 | | | | | DAILY, First dose (after last | | AM PDT | | | | | modification) on Wed07/17/14 at | | | | | | | 0900, Until Discontinued | | | | | | + +-------+ +-------+---+---+ +-------+ +-------+---+---+ | Given | 07/17/19 | 50 mg | | | | | 15 10:14 | | | | | | PM PDT | | | | +-------+ +-------+---+---+ +---+---+ | | | +---+---+ + +-------+ +-------+---+---+ | metoprolol tartrate (LOPRESSOR) | Given | 07/17/19 | 75 mg | | | | tablet 75 mg 75 mg, oral, TWICE | | 15 10:22 | | | | | DAILY, First dose on [facility] 07/14/14 | | AM PDT | | | | | at 2100, Until Discontinued | | | | | | + +-------+ +-------+---+---+ +-------+ +-------+---+---+ | Given | 07/16/19 | 75 mg | | | | | 15 8:30 | | | | | | PM PDT | | | | +-------+ +-------+---+---+ | Given | 07/16/19 | 75 mg | | | | | 15 9:07 | | | | | | AM PDT | | | | +-------+ +-------+---+---+ +---+---+ | | | +---+---+ + +-------+ +-------+---+---+ | metoprolol tartrate (LOPRESSOR) | Given | 07/28/19 | 75 mg | | | | tablet 75 mg 75 mg, oral, TWICE | | 15 8:32 | | | | | DAILY, First dose (after last | | AM PDT | | | | | modification) on Wed07/17/14 at | | | | | | | 2100, Until Discontinued | | | | | | + +-------+ +-------+---+---+ +-------+ +-------+---+---+ | Given | 04/30/20 | 75 mg | | | | | 15 9:20 | | | | | | PM PDT | | | | +-------+ +-------+---+---+ | Given | 07/27/19 | 75 mg | | | | | 15 8:16 | | | | | | AM PDT | | | | +-------+ +-------+---+---+ +---+---+ | | | +---+---+ + +---------+ + +---+---+ | NaCl 0.9 % IV 1,000 mL, | New Bag | 07/18/19 | 1,000 mL | | | | intravenous, ONCE, 1 dose, Tue | | 15 7:05 | | | | | 07/17/14 at 1900 | | PM PDT | | | | + +---------+ + +---+---+ +---+---+ | | | +---+---+ + +---------+ +-------+-------+---+ | NaCl 0.9 % IV 150 mL/hr, | New Bag | 07/19/19 | 150 | 150 | | | intravenous, CONTINUOUS, Starting | | 15 2:33 | mL/hr | mL/hr | | | 07/17/14 at 1900, Until Wed | | AM PDT | | | | | 07/18/14 at 0306 | | | | | | + +---------+ +-------+-------+---+ +---+---+ | | | +---+---+ + +---------+ +-------+-------+---+ | NaCl 0.9 % IV 100 mL/hr, | New Bag | 07/19/19 | 100 | 100 | | | intravenous, CONTINUOUS, Starting | | 15 11:47 | mL/hr | mL/hr | | | 07/18/14 at 0315, Until Wed | | AM PDT | | | | | 07/18/14 at 1148 | | | | | | + +---------+ +-------+-------+---+ + + +-------+-------+---+ | Rate/Dose Change | 07/19/19 | 100 | 100 | | | | 15 3:57 | mL/hr | mL/hr | | | | AM PDT | | | | + + +-------+-------+---+ +---+---+ | | | +---+---+ + +---------+ +-------+-------+---+ | NaCl 0.9 % IV 100 mL/hr, | New Bag | 07/19/19 | 100 | 100 | | | intravenous, CONTINUOUS, Starting | | 15 3:56 | mL/hr | mL/hr | | | 07/18/14 at 1300, Until Nguyen | | PM PDT | | | | | 07/19/14 at 0025 | | | | | | + +---------+ +-------+-------+---+ +---+---+ | | | +---+---+ + +-------+ +---+---+---+ | nystatin (MYCOSTATIN) powder | Given | 07/28/19 | | | | | topical, TWICE DAILY, First dose | | 15 8:33 | | | | | on 07/24/14 at 2100, Until | | AM PDT | | | | | Discontinued | | | | | | + +-------+ +---+---+---+ +-------+ +---+---+---+ | Given | 07/27/19 | | | | | | 15 9:21 | | | | | | PM PDT | | | | +-------+ +---+---+---+ | Given | 07/26/19 | | | | | | 15 8:41 | | | | | | PM PDT | | | | +-------+ +---+---+---+ +---+---+ | | | +---+---+ + +-------+ +-------+---+---+ | omeprazole (PRILOSEC) capsule | Given | 07/28/19 | 20 mg | | | | 20 mg 20 mg, oral, DAILY, First | | 15 8:33 | | | | | dose on 07/15/14 at 0900, | | AM PDT | | | | | Until Discontinued | | | | | | + +-------+ +-------+---+---+ +-------+ +-------+---+---+ | Given | 07/27/19 | 20 mg | | | | | 15 8:17 | | | | | | AM PDT | | | | +-------+ +-------+---+---+ | Given | 07/26/19 | 20 mg | | | | | 15 8:03 | | | | | | AM PDT | | | | +-------+ +-------+---+---+ +---+---+ | | | +---+---+ + +---------+ +------+---+---+ | ondansetron (ZOFRAN) injection | New Bag | 07/19/19 | 4 mg | | | | 4 mg 4 mg, intravenous, EVERY 12 | | 15 9:41 | | | | | HOURS NEEDED, Starting Sat | | PM PDT | | | | | 07/14/14 at 1918, Until 07/27/14 | | | | | | | at 2214, nausea/vomiting | | | | | | + +---------+ +------+---+---+ +---+---+ | | | +---+---+ + +-------+ +------+---+---+ | oxyCODONE (immediate release) | Given | 07/20/19 | 5 mg | | | | (ROXICODONE) tablet 5 mg 5 mg, | | 15 12:55 | | | | | oral, ONCE, 1 dose, [facility] 07/19/14 | | AM PDT | | | | | at 0115 | | | | | | + +-------+ +------+---+---+ +---+---+ | | | +---+---+ + +-------+ +------+---+---+ | oxyCODONE (immediate release) | Given | 07/24/19 | 5 mg | | | | (ROXICODONE) tablet 5 mg 5 mg, | | 15 8:54 | | | | | oral, EVERY 3 HOURS NEEDED, | | AM PDT | | | | | Starting [facility] 07/19/14 at 1329, | | | | | | | Until 07/23/14 at 1338, | | | | | | | moderate pain, severe pain | | | | | | + +-------+ +------+---+---+ +-------+ +------+---+---+ | Given | 07/24/19 | 5 mg | | | | | 15 5:02 | | | | | | AM PDT | | | | +-------+ +------+---+---+ | Given | 07/24/19 | 5 mg | | | | | 15 12:17 | | | | | | AM PDT | | | | +-------+ +------+---+---+ +---+---+ | | | +---+---+ + +-------+ +------+---+---+ | oxyCODONE (immediate release) | Given | 07/25/19 | 5 mg | | | | (ROXICODONE) tablet 5 mg 5 mg, | | 15 9:54 | | | | | oral, EVERY 3 HOURS NEEDED, | | AM PDT | | | | | Starting 07/23/14 at 1343, | | | | | | | Until Wed07/25/14 at 1022, | | | | | | | moderate pain | | | | | | + +-------+ +------+---+---+ +-------+ +------+---+---+ | Given | 07/25/19 | 5 mg | | | | | 15 2:21 | | | | | | AM PDT | | | | +-------+ +------+---+---+ | Given | 07/24/19 | 5 mg | | | | | 15 11:13 | | | | | | PM PDT | | | | +-------+ +------+---+---+ +---+---+ | | | +---+---+ + +-------+ +------+---+---+ | oxyCODONE (immediate release) | Given | 07/27/19 | 5 mg | | | | (ROXICODONE) tablet 5 mg 5 mg, | | 15 9:27 | | | | | oral, EVERY 4 HOURS NEEDED, | | PM PDT | | | | | Starting 07/25/14 at 1400, | | | | | | | Until 07/27/14 at 2214, | | | | | | | moderate pain | | | | | | + +-------+ +------+---+---+ +-------+ +------+---+---+ | Given | 07/27/19 | 5 mg | | | | | 15 5:00 | | | | | | PM PDT | | | | +-------+ +------+---+---+ | Given | 07/27/19 | 5 mg | | | | | 15 12:10 | | | | | | AM PDT | | | | +-------+ +------+---+---+ +---+---+ | | | +---+---+ + +-------+ +-------+---+---+ | oxyCODONE (immediate release) | Given | 07/19/19 | 15 mg | | | | (ROXICODONE) tablet 5-15 mg 5-15 | | 15 1:01 | | | | | mg, oral, EVERY 3 HOURS | | AM PDT | | | | | NEEDED, Starting 07/14/14 at | | | | | | | 1918, Until 07/18/14 at 0112, | | | | | | | moderate pain, severe pain | | | | | | + +-------+ +-------+---+---+ +-------+ +-------+---+---+ | Given | 07/18/19 | 15 mg | | | | | 15 9:52 | | | | | | PM PDT | | | | +-------+ +-------+---+---+ | Given | 07/18/19 | 15 mg | | | | | 15 6:59 | | | | | | PM PDT | | | | +-------+ +-------+---+---+ +---+---+ | | | +---+---+ + +-------+ +-------+---+---+ | oxyCODONE (immediate release) | Given | 07/20/19 | 20 mg | | | | (ROXICODONE) tablet 5-20 mg 5-20 | | 15 4:10 | | | | | mg, oral, EVERY 3 HOURS | | AM PDT | | | | | NEEDED, Starting Wed07/18/14 at | | | | | | | 0112, Until Wed07/19/14 at 1329, | | | | | | | moderate pain, severe pain | | | | | | + +-------+ +-------+---+---+ +-------+ +-------+---+---+ | Given | 07/20/19 | 20 mg | | | | | 15 12:24 | | | | | | AM PDT | | | | +-------+ +-------+---+---+ | Given | 07/19/19 | 20 mg | | | | | 15 9:38 | | | | | | PM PDT | | | | +-------+ +-------+---+---+ +---+---+ | | | +---+---+ + +---------+ +--------+---+---+ | perflutren lipid microspheres | New Bag | 07/16/19 | 1.5 mL | | | | (DEFINITY) injection 1.5 mL 1.5 | | 15 1:00 | | | | | mL, intravenous, PROCEDURE ONCE, | | PM PDT | | | | | 1 dose, 07/15/14 at 1445 | | | | | | + +---------+ +--------+---+---+ +---+---+ | | | +---+---+ + +-------+ +------+---+---+ | polyethylene glycol (MIRALAX) | Given | 07/26/19 | 17 g | | | | powder 17 g 17 g, oral, DAILY, | | 15 8:03 | | | | | First dose on [facility] 07/19/14 at | | AM PDT | | | | | 0900, Until Discontinued | | | | | | + +-------+ +------+---+---+ +-------+ +------+---+---+ | Given | 07/25/19 | 17 g | | | | | 15 9:55 | | | | | | AM PDT | | | | +-------+ +------+---+---+ | Given | 07/24/19 | 17 g | | | | | 15 10:26 | | | | | | PM PDT | | | | +-------+ +------+---+---+ +---+---+ | | | +---+---+ + +---------+ +---------+---+---+ | potassium phosphate IV 30 mmol | New Bag | 07/16/19 | 30 mmol | | | | 30 mmol, intravenous, ONCE, 1 | | 15 8:26 | | | | | dose, 07/15/14 at 2030 | | PM PDT | | | | + +---------+ +---------+---+---+ +---+---+ | | | +---+---+ + +---------+ +---------+---+---+ | promethazine (PHENERGAN) | New Bag | 07/20/19 | 12.5 mg | | | | injection 6.25-12.5 mg 6.25-12.5 | | 15 9:05 | | | | | mg, intravenous, EVERY 8 HOURS | | AM PDT | | | | | NEEDED, Starting 07/18/14 | | | | | | | at 1548, Until Nguyen 07/19/14 at | | | | | | | 1129, nausea/vomiting | | | | | | + +---------+ +---------+---+---+ +---------+ +---------+---+---+ | New Bag | 07/20/19 | 12.5 mg | | | | | 15 1:27 | | | | | | AM PDT | | | | +---------+ +---------+---+---+ | New Bag | 07/19/19 | 12.5 mg | | | | | 15 5:24 | | | | | | PM PDT | | | | +---------+ +---------+---+---+ +---+---+ | | | +---+---+ + +-------+ + +---+---+ | senna-docusate (SENOKOT S) | Given | 07/26/19 | 1 tablet | | | | 8.6-50 mg 1 tablet 1 tablet, | | 15 8:41 | | | | | oral, TWICE DAILY, First dose on | | PM PDT | | | | | 07/14/14 at 2115, Until | | | | | | | Discontinued | | | | | | + +-------+ + +---+---+ +-------+ + +---+---+ | Given | 07/26/19 | 1 tablet | | | | | 15 8:03 | | | | | | AM PDT | | | | +-------+ + +---+---+ | Given | 07/25/19 | 1 tablet | | | | | 15 8:46 | | | | | | PM PDT | | | | +-------+ + +---+---+ +---+---+ | | | +---+---+ documented in this encounter
--- OUTSIDE RECORDS SUMMARY | ~2019-02-23 | XMS | Encounter Summary ---
Demographics + + + | Address | [address] | | | [place] [address] | + + + | Home Phone | | + + + | Preferred Language | Unknown | + + + | Marital Status | | + + + | Latter-Day Affiliation | Unknown | + + + | Race | Unknown | + + + | Ethnic Group | Unknown | + + + Author + + + | Author | [facility] | | | and [place] | + + + | Organization | [facility] | | | and [place] [...] Team Providers + +------+ + | Care Spray Gun Operator Name | Role | Phone | + +------+ + | Ophelia Villalta | PCP | | + +------+ + Encounter Details +--------+ + + + + | Date | Type | Department | Care Team | Description | +--------+ + + + + | 11/16/ | Abstract | [facility] [place] | [address] [place] [address], | | | 2014 | | NEPHROLOGY [address] | | | | | [address] | [address] | | | | | [place] | [place] [address] | | | | | [address] | [phone] | | | | | [phone] | | | +--------+ + + + [...] + + documented as of this encounter Plan of Treatment Not on filedocumented as of this encounter Procedures + +--------+ + + + | Procedure Name | Priori | Date/Time | Associated Diagnosis | Comments | | | ty | | | | + +--------+ + + + | EXTERNAL LAB: | Routin | 11/15/2014 | | Results for this | | URINALYSIS | e | | | procedure are in the | | | | | | results section. | + +--------+ + + + | EXTERNAL LAB: | Routin | 11/15/2014 | | Results for this | | PROTEIN/CREATININE | e | | | procedure are in the | | RATIO | | | | results section. | + +--------+ + + + documented in this encounter Results External Lab: Protein/Creatinine Ratio (11/15/2014) + +-------+ + + + | Component | Value | Ref Range | Performed | Pathologist | | | | | At | Signature | + +-------+ + + + | Protein/Cre | 0.062 | | EXTERNAL | | | atinine | | | LAB | | | Ratio, | | | | | | External | | | | | + +-------+ + + + + + | Specimen | + + | | + + + +---------+ + + | Performing | Address | City/State/Zipcode | Phone Number | | Organization | | | | + +---------+ + + | EXTERNAL LAB | | | | + +---------+ + + External Lab: Urinalysis (11/15/2014) + + + + + + | Component | Value | Ref Range | Performed | Pathologist | | | | | At | Signature | + + + + + + | UA Blood, | Negative | | EXTERNAL | | | External | | | LAB | | + + + + + + | UA Glucose, | Normal | | EXTERNAL | | | External | | | LAB | | + + + + + + | UA Ketones, | Negative | | EXTERNAL | | | External | | | LAB | | + + + + + + | UA Ph, | 5 | 5 - 9 | EXTERNAL | | | External | | | LAB | | + + + + + + | UA | Negative | | EXTERNAL | | | Proteins, | | | LAB | | | External | | | | | + + + + + + | UA RBC, | 0 | | EXTERNAL | | | External | | | LAB | | + + + + + + | UA Specific | 1.014 | | EXTERNAL | | | [place], | | | LAB | | | External | | | | | + + + + + + | UA | Negative | | EXTERNAL | | | Leukocyte | | | LAB | | | Esterase, | | | | | | External | | | | | + + + + + + + + | Resulting Agency Comment | + + | [facility] | + + + +---------+ + + | Performing | Address | City/State/Zipcode | Phone Number | | Organization | | | | + +---------+ + + | EXTERNAL LAB | | | | + +---------+ + + documented in this encounter Visit Diagnoses Not on filedocumented in this encounter"
--- OUTSIDE RECORDS SUMMARY | ~2019-02-23 | XMS | Encounter Summary ---
Demographics + + + | Address | [address] | | | [place] [address] | + + + | Home Phone | | + + + | Preferred Language | Unknown | + + + | Marital Status | | + + + | Druze Affiliation | Unknown | + + + | Race | Unknown | + + + | Ethnic Group | Unknown | + + + Author + + + | Author | [facility] | | | and [place] | + + + | Organization | [facility] | | | and [place] | [...] Team Providers + +------+ + | Care Fitter Armament Name | Role | Phone | + +------+ + PCP | Unavailable | + +------+ + Encounter Details +--------+ + + + + | Date | Type | Department | Care Team | Description | +--------+ + + + + | 01/10/ | Hospital | [facility] | Brett Calvo, | | | 2003 | Encounter | CONVERSION DEP [address] | [address] | | | | | [address] | [place], [place] | | | | | [place], [place] | [address] | | | | | [address] | | | | | | [phone] | | | +--------+ + + + + Social History + +-------+ +--------+------+ | Tobacco Use | Types | Packs/Day | Years | Date | | | | | Used | | + +-------+ +--------+------+ | Never Assessed | | | | | + +-------+ +--------+------+ + + + | Sex Assigned at [...] filedocumented as of this encounter Visit Diagnoses Not on filedocumented in this encounter"
--- OUTSIDE RECORDS SUMMARY | ~2019-02-23 | XMS | Encounter Summary ---
Demographics + + + | Address | [address] | | | [place] [address] | + + + | Home Phone | | + + + | Preferred Language | Unknown | + + + | Marital Status | | + + + | Orthodox Affiliation | PEN | + + + | Race | White | + + + | Ethnic Group | Not or | + + + Author + + + | Author | [facility] | + + + | Organization | [facility] | + + + | Address | Unknown | + + + | Phone | Unavailable | + + + Support + + + + + | Name | Relationship | Address | Phone | + + + + + | Gigi goddard | [address] | [address] | | | | | [place] | | | | | [address] | | + + + + + Care Team Providers + +------+ + | Care Press Box Custodian Name | Role | Phone | + +------+ + | Ophelia Villalta | PCP | | + +------+ + Encounter Details +--------+ + + + + | Date | Type | Department | Care Team | Description | +--------+ + + + + | 09/05/ | Documentati | Trauma Emergency | [facility] [phone] | | | 2015 | on | General Surgery at | [facility] | | | | | [address] [address] | [address] [place], [place] | | | | | [address] | [address] | | | | | Mailcode: [id number] | | | | | | Maris Rucker | | | | | | [address] [place], [place] | | | | | | [address] | | | | | | [phone] | | | +--------+ + + + [...]
--- OUTSIDE RECORDS SUMMARY | ~2019-02-23 | XMS | Encounter Summary ---
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 Name | Role | Phone | + +------+ + PCP | Unavailable | + +------+ + Encounter Details +--------+ + + + + | Date | Type | Department | Care Team | Description | +--------+ + + + + | 09/07/ | Abstract | [facility] | [address], | | | 2014 | | NEPHROLOGY [address] | [address] | | | | | [address] | [address] | | | | | [place] | [place] [address] | | | | | [address] | [phone] | | | | | [phone] | | | +--------+ + + + [...] +--------+ + + + | EXTERNAL LAB: BUN | Routin | 08/01/2014 | | Results for this | | | e | | | procedure are in the | | | | | | results section. | + +--------+ + + + | EXTERNAL LAB: | Routin | 08/01/2014 | | Results for this | | GLUCOSE | e | | | procedure are in the | | | | | | results section. | + +--------+ + + + | EXTERNAL LAB: | Routin | 08/01/2014 | | Results for this | | CALCIUM | e | | | procedure are in the | | | | | | results section. | + +--------+ + + + | EXTERNAL LAB: CARBON | Routin | 08/01/2014 | | Results for this | | DIOXIDE | e | | | procedure are in the | | | | | | results section. | + +--------+ + + + | EXTERNAL LAB: | Routin | 08/01/2014 | | Results for this | | CHLORIDE | e | | | procedure are in the | | | | | | results section. | + +--------+ + + + | EXTERNAL LAB: | Routin | 08/01/2014 | | Results for this | | POTASSIUM | e | | | procedure are in the | | | | | | results section. | + +--------+ + + + | EXTERNAL LAB: SODIUM | Routin | 08/01/2014 | | Results for this | | | e | | | procedure are in the | | | | | | results section. | + +--------+ + + + | EXTERNAL LAB: CBC | Routin | 08/01/2014 | | Results for this | | | e | | | procedure are in the | | | | | | results section. | + +--------+ + + + | EXTERNAL LAB: | Routin | 08/01/2014 | | Results for this | | MICROALBUMIN/CREATIN | e | | | procedure are in the | | INE RATIO, URINE | | | | results section. | + +--------+ + + + | EXTERNAL LAB: EGFR | Routin | 08/01/2014 | | Results for this | | | e | | | procedure are in the | | | | | | results section. | + +--------+ + + + | EXTERNAL LAB: | Routin | 08/01/2014 | | Results for this | | CREATININE | e | | | procedure are in the | | | | | | results section. | + +--------+ + + + | EXTERNAL LAB: BUN | Routin | 01/22/2014 | | Results for this | | | e | | | procedure are in the | | | | | | results section. | + +--------+ + + + | EXTERNAL LAB: CARBON | Routin | 01/22/2014 | | Results for this | | DIOXIDE | e | | | procedure are in the | | | | | | results section. | + +--------+ + + + | EXTERNAL LAB: | Routin | 01/22/2014 | | Results for this | | CHLORIDE | e | | | procedure are in the | | | | | | results section. | + +--------+ + + + | EXTERNAL LAB: | Routin | 01/22/2014 | | Results for this | | POTASSIUM | e | | | procedure are in the | | | | | | results section. | + +--------+ + + + | EXTERNAL LAB: SODIUM | Routin | 01/22/2014 | | Results for this | | | e | | | procedure are in the | | | | | | results section. | + +--------+ + + + | EXTERNAL LAB: | Routin | 01/22/2014 | | Results for this | | MICROALBUMIN/CREATIN | e | | | procedure are in the | | INE RATIO, URINE | | | | results section. | + +--------+ + + + | EXTERNAL LAB: EGFR | Routin | 01/22/2014 | | Results for this | | | e | | | procedure are in the | | | | | | results section. | + +--------+ + + + | EXTERNAL LAB: | Routin | 01/22/2014 | | Results for this | | CREATININE | e | | | procedure are in the | | | | | | results section. | + +--------+ + + + | EXTERNAL LAB: BUN | Routin | 10/23/2013 | | Results for this | | | e | | | procedure are in the | | | | | | results section. | + +--------+ + + + | EXTERNAL LAB: | Routin | 10/23/2013 | | Results for this | | GLUCOSE | e | | | procedure are in the | | | | | | results section. | + +--------+ + + + | EXTERNAL LAB: ALT | Routin | 10/23/2013 | | Results for this | | | e | | | procedure are in the | | | | | | results section. | + +--------+ + + + | EXTERNAL LAB: AST | Routin | 10/23/2013 | | Results for this | | | e | | | procedure are in the | | | | | | results section. | + +--------+ + + + | EXTERNAL LAB: | Routin | 10/23/2013 | | Results for this | | ALKALINE PHOSPHATASE | e | | | procedure are in the | | | | | | results section. | + +--------+ + + + | EXTERNAL LAB: | Routin | 10/23/2013 | | Results for this | | BILIRUBIN, TOTAL | e | | | procedure are in the | | | | | | results section. | + +--------+ + + + | EXTERNAL LAB: | Routin | 10/23/2013 | | Results for this | | ALBUMIN | e | | | procedure are in the | | | | | | results section. | + +--------+ + + + | EXTERNAL LAB: | Routin | 10/23/2013 | | Results for this | | CALCIUM | e | | | procedure are in the | | | | | | results section. | + +--------+ + + + | EXTERNAL LAB: CARBON | Routin | 10/23/2013 | | Results for this | | DIOXIDE | e | | | procedure are in the | | | | | | results section. | + +--------+ + + + | EXTERNAL LAB: | Routin | 10/23/2013 | | Results for this | | CHLORIDE | e | | | procedure are in the | | | | | | results section. | + +--------+ + + + | EXTERNAL LAB: | Routin | 10/23/2013 | | Results for this | | POTASSIUM | e | | | procedure are in the | | | | | | results section. | + +--------+ + + + | EXTERNAL LAB: SODIUM | Routin | 10/23/2013 | | Results for this | | | e | | | procedure are in the | | | | | | results section. | + +--------+ + + + | EXTERNAL LAB: | Routin | 10/23/2013 | | Results for this | | VITAMIN D, | e | | | procedure are in the | | 25-HYDROXY | | | | results section. | + +--------+ + + + | EXTERNAL LAB: CBC | Routin | 10/23/2013 | | Results for this | | | e | | | procedure are in the | | | | | | results section. | + +--------+ + + + | EXTERNAL LAB: TSH | Routin | 10/23/2013 | | Results for this | | | e | | | procedure are in the | | | | | | results section. | + +--------+ + + + | EXTERNAL LAB: | Routin | 10/23/2013 | | Results for this | | TRIGLYCERIDES | e | | | procedure are in the | | | | | | results section. | + +--------+ + + + | EXTERNAL LAB: | Routin | 10/23/2013 | | Results for this | | CHOLESTEROL, HDL | e | | | procedure are in the | | | | | | results section. | + +--------+ + + + | EXTERNAL LAB: | Routin | 10/23/2013 | | Results for this | | CHOLESTEROL, TOTAL | e | | | procedure are in the | | | | | | results section. | + +--------+ + + + | EXTERNAL LAB: | Routin | 10/23/2013 | | Results for this | | CHOLESTEROL, LDL | e | | | procedure are in the | | | | | | results section. | + +--------+ + + + | EXTERNAL LAB: | Routin | 10/23/2013 | | Results for this | | MICROALBUMIN/CREATIN | e | | | procedure are in the | | INE RATIO, URINE | | | | results section. | + +--------+ + + + | EXTERNAL LAB: EGFR | Routin | 10/23/2013 | | Results for this | | | e | | | procedure are in the | | | | | | results section. | + +--------+ + + + | EXTERNAL LAB: | Routin | 10/23/2013 | | Results for this | | CREATININE | e | | | procedure are in the | | | | | | results section. | + +--------+ + + + | HEMOGLOBIN A1C | Routin | 10/23/2013 | | Results for this | | | e | | | procedure are in the | | | | | | results section. | + +--------+ + + + documented in this encounter Results External Lab: GOVIND (08/01/2014) + +-------+ + + + | Component | Value | Ref Range | Performed | Pathologist | | | | | At | Signature | + +-------+ + + + | GOVIND, | 23 | | EXTERNAL | | | External | | | LAB | | + +-------+ + + + + +---------+ + + | Performing | Address | City/State/Zipcode | Phone Number | | Organization | | | | + +---------+ + + | EXTERNAL LAB | | | | + +---------+ + + External Lab: Glucose (08/01/2014) + +-------+ + + + | Component | Value | Ref Range | Performed | Pathologist | | | | | At | Signature | + +-------+ + + + | Glucose, | 87 | | EXTERNAL | | | External | | | LAB | | + +-------+ + + + + +---------+ + + | Performing | Address | City/State/Zipcode | Phone Number | | Organization | | | | + +---------+ + + | EXTERNAL LAB | | | | + +---------+ + + External Lab: Calcium (08/01/2014) + +-------+ + + + | Component | Value | Ref Range | Performed | Pathologist | | | | | At | Signature | + +-------+ + + + | Calcium, | 8.7 | | EXTERNAL | | | External | | | LAB | | + +-------+ + + + + +---------+ + + | Performing | Address | City/State/Zipcode | Phone Number | | Organization | | | | + +---------+ + + | EXTERNAL LAB | | | | + +---------+ + + External Lab: Carbon Dioxide (08/01/2014) + +-------+ + + + | Component | Value | Ref Range | Performed | Pathologist | | | | | At | Signature | + +-------+ + + + | Carbon | 23 | | EXTERNAL | | | Dioxide, | | | LAB | | | External | | | | | + +-------+ + + + + +---------+ + + | Performing | Address | City/State/Zipcode | Phone Number | | Organization | | | | + +---------+ + + | EXTERNAL LAB | | | | + +---------+ + + External Lab: Chloride (08/01/2014) + +-------+ + + + | Component | Value | Ref Range | Performed | Pathologist | | | | | At | Signature | + +-------+ + + + | Chloride, | 104 | | EXTERNAL | | | External | | | LAB | | + +-------+ + + + + +---------+ + + | Performing | Address | City/State/Zipcode | Phone Number | | Organization | | | | + +---------+ + + | EXTERNAL LAB | | | | + +---------+ + + External Lab: Potassium (08/01/2014) + +-------+ + + + | Component | Value | Ref Range | Performed | Pathologist | | | | | At | Signature | + +-------+ + + + | Potassium, | 4.6 | | EXTERNAL | | | External | | | LAB | | + +-------+ + + + + +---------+ + + | Performing | Address | City/State/Zipcode | Phone Number | | Organization | | | | + +---------+ + + | EXTERNAL LAB | | | | + +---------+ + + External Lab: Sodium (08/01/2014) + +-------+ + + + | Component | Value | Ref Range | Performed | Pathologist | | | | | At | Signature | + +-------+ + + + | Sodium, | 142 | | EXTERNAL | | | External | | | LAB | | + +-------+ + + + + +---------+ + + | Performing | Address | City/State/Zipcode | Phone Number | | Organization | | | | + +---------+ + + | EXTERNAL LAB | | | | + +---------+ + + External Lab: CBC (08/01/2014) + +-------+ + + + | Component | Value | Ref Range | Performed | Pathologist | | | | | At | Signature | + +-------+ + + + | WBC, | 5.7 | | EXTERNAL | | | External | | | LAB | | + +-------+ + + + | HGB, | 8.5 | | EXTERNAL | | | External | | | LAB | | + +-------+ + + + | HCT, | 27.6 | | EXTERNAL | | | External | | | LAB | | + +-------+ + + + | PLT, | 248 | | EXTERNAL | | | External | | | LAB | | + +-------+ + + + | Neutrophils | 72.1 | | EXTERNAL | | | %, | | | LAB | | | External | | | | | + +-------+ + + + | Lymphocytes | 19.0 | | EXTERNAL | | | %, | | | LAB | | | External | | | | | + +-------+ + + + | Monocytes | 7.1 | | EXTERNAL | | | %, External | | | LAB | | + +-------+ + + + | Eosinophils | 1.0 | | EXTERNAL | | | %, | | | LAB | | | External | | | | | + +-------+ + + + | RBC, | 2.74 | | EXTERNAL | | | External | | | LAB | | + +-------+ + + + | MCV, | 101 | | EXTERNAL | | | External | | | LAB | | + +-------+ + + + | RDW, | 15.4 | | EXTERNAL | | | External | | | LAB | | + +-------+ + + + + +---------+ + + | Performing | Address | City/State/Zipcode | Phone Number | | Organization | | | | + +---------+ + + | EXTERNAL LAB | | | | + +---------+ + + External Lab: Microalbumin/Creatinine Ratio, Urine (08/01/2014) + +-------+ + + + | Component | Value | Ref Range | Performed | Pathologist | | | | | At | Signature | + +-------+ + + + | Microalbumi | 15.1 | | EXTERNAL | | | n/Creatinin | | | LAB | | | e Ratio, | | | | | | External | | | | | + +-------+ + + + + + | Specimen | + + | Blood specimen | | (specimen) | + + + +---------+ + + | Performing | Address | City/State/Zipcode | Phone Number | | Organization | | | | + +---------+ + + | EXTERNAL LAB | | | | + +---------+ + + External Lab: eGFR (08/01/2014) + +-------+ + + + | Component | Value | Ref Range | Performed | Pathologist | | | | | At | Signature | + +-------+ + + + | eGFR, | 37 | | EXTERNAL | | | External | | | LAB | | + +-------+ + + + + + | Specimen | + + | Blood specimen | | (specimen) | + + + +---------+ + + | Performing | Address | City/State/Zipcode | Phone Number | | Organization | | | | + +---------+ + + | EXTERNAL LAB | | | | + +---------+ + + External Lab: Creatinine (08/01/2014) + +-------+ + + + | Component | Value | Ref Range | Performed | Pathologist | | | | | At | Signature | + +-------+ + + + | Creatinine, | 1.52 | | EXTERNAL | | | External | | | LAB | | + +-------+ + + + + + | Specimen | + + | Blood specimen | | (specimen) | + + + +---------+ + + | Performing | Address | City/State/Zipcode | Phone Number | | Organization | | | | + +---------+ + + | EXTERNAL LAB | | | | + +---------+ + + External Lab: GOVIND (01/22/2014) + +-------+ + + + | Component | Value | Ref Range | Performed | Pathologist | | | | | At | Signature | + +-------+ + + + | BUN, | 12 | | EXTERNAL | | | External | | | LAB | | + +-------+ + + + + +---------+ + + | Performing | Address | City/State/Zipcode | Phone Number | | Organization | | | | + +---------+ + + | EXTERNAL LAB | | | | + +---------+ + + External Lab: Carbon Dioxide (01/22/2014) + +-------+ + + + | Component | Value | Ref Range | Performed | Pathologist | | | | | At | Signature | + +-------+ + + + | Carbon | 27 | | EXTERNAL | | | Dioxide, | | | LAB | | | External | | | | | + +-------+ + + + + +---------+ + + | Performing | Address | City/State/Zipcode | Phone Number | | Organization | | | | + +---------+ + + | EXTERNAL LAB | | | | + +---------+ + + External Lab: Chloride (01/22/2014) + +-------+ + + + | Component | Value | Ref Range | Performed | Pathologist | | | | | At | Signature | + +-------+ + + + | Chloride, | 98 | | EXTERNAL | | | External | | | LAB | | + +-------+ + + + + +---------+ + + | Performing | Address | City/State/Zipcode | Phone Number | | Organization | | | | + +---------+ + + | EXTERNAL LAB | | | | + +---------+ + + External Lab: Potassium (01/22/2014) + +-------+ + + + | Component | Value | Ref Range | Performed | Pathologist | | | | | At | Signature | + +-------+ + + + | Potassium, | 4.2 | | EXTERNAL | | | External | | | LAB | | + +-------+ + + + + +---------+ + + | Performing | Address | City/State/Zipcode | Phone Number | | Organization | | | | + +---------+ + + | EXTERNAL LAB | | | | + +---------+ + + External Lab: Sodium (01/22/2014) + +-------+ + + + | Component | Value | Ref Range | Performed | Pathologist | | | | | At | Signature | + +-------+ + + + | Sodium, | 138 | | EXTERNAL | | | External | | | LAB | | + +-------+ + + + + +---------+ + + | Performing | Address | City/State/Zipcode | Phone Number | | Organization | | | | + +---------+ + + | EXTERNAL LAB | | | | + +---------+ + + External Lab: Microalbumin/Creatinine Ratio, Urine (01/22/2014) + +-------+ + + + | Component | Value | Ref Range | Performed | Pathologist | | | | | At | Signature | + +-------+ + + + | Microalbumi | 11.9 | | EXTERNAL | | | n/Creatinin | | | LAB | | | e Ratio, | | | | | | External | | | | | + +-------+ + + + + + | Specimen | + + | Blood specimen | | (specimen) | + + + +---------+ + + | Performing | Address | City/State/Zipcode | Phone Number | | Organization | | | | + +---------+ + + | EXTERNAL LAB | | | | + +---------+ + + External Lab: eGFR (01/22/2014) + +-------+ + + + | Component | Value | Ref Range | Performed | Pathologist | | | | | At | Signature | + +-------+ + + + | eGFR, | 60 | | EXTERNAL | | | External | | | LAB | | + +-------+ + + + + + | Specimen | + + | Blood specimen | | (specimen) | + + + +---------+ + + | Performing | Address | City/State/Zipcode | Phone Number | | Organization | | | | + +---------+ + + | EXTERNAL LAB | | | | + +---------+ + + External Lab: Creatinine (01/22/2014) + +-------+ + + + | Component | Value | Ref Range | Performed | Pathologist | | | | | At | Signature | + +-------+ + + + | Creatinine, | 1.01 | | EXTERNAL | | | External | | | LAB | | + +-------+ + + + + + | Specimen | + + | Blood specimen | | (specimen) | + + + +---------+ + + | Performing | Address | City/State/Zipcode | Phone Number | | Organization | | | | + +---------+ + + | EXTERNAL LAB | | | | + +---------+ + + Hemoglobin A1C (10/23/2013) + +-------+ + + + | Component | Value | Ref Range | Performed | Pathologist | | | | | At | Signature | + +-------+ + + + | Hemoglobin | 6.0 | % | EXTERNAL | | | A1c | | | LAB | | + +-------+ + + + + + | Specimen | + + | Blood specimen | | (specimen) | + + + +---------+ + + | Performing | Address | City/State/Zipcode | Phone Number | | Organization | | | | + +---------+ + + | EXTERNAL LAB | | | | + +---------+ + + External Lab: GOVIND (10/23/2013) + +-------+ + + + | Component | Value | Ref Range | Performed | Pathologist | | | | | At | Signature | + +-------+ + + + | BUN, | 14 | | EXTERNAL | | | External | | | LAB | | + +-------+ + + + + +---------+ + + | Performing | Address | City/State/Zipcode | Phone Number | | Organization | | | | + +---------+ + + | EXTERNAL LAB | | | | + +---------+ + + External Lab: Glucose (10/23/2013) + +-------+ + + + | Component | Value | Ref Range | Performed | Pathologist | | | | | At | Signature | + +-------+ + + + | Glucose, | 114 | | EXTERNAL | | | External | | | LAB | | + +-------+ + + + + +---------+ + + | Performing | Address | City/State/Zipcode | Phone Number | | Organization | | | | + +---------+ + + | EXTERNAL LAB | | | | + +---------+ + + External Lab: ALT (10/23/2013) + +-------+ + + + | Component | Value | Ref Range | Performed | Pathologist | | | | | At | Signature | + +-------+ + + + | ALT, | 31 | | EXTERNAL | | | External | | | LAB | | + +-------+ + + + + +---------+ + + | Performing | Address | City/State/Zipcode | Phone Number | | Organization | | | | + +---------+ + + | EXTERNAL LAB | | | | + +---------+ + + External Lab: AST (10/23/2013) + +-------+ + + + | Component | Value | Ref Range | Performed | Pathologist | | | | | At | Signature | + +-------+ + + + | AST, | 30 | | EXTERNAL | | | External | | | LAB | | + +-------+ + + + + +---------+ + + | Performing | Address | City/State/Zipcode | Phone Number | | Organization | | | | + +---------+ + + | EXTERNAL LAB | | | | + +---------+ + + External Lab: Alkaline Phosphatase (10/23/2013) + +-------+ + + + | Component | Value | Ref Range | Performed | Pathologist | | | | | At | Signature | + +-------+ + + + | ALP, | 58 | | EXTERNAL | | | External | | | LAB | | + +-------+ + + + + +---------+ + + | Performing | Address | City/State/Zipcode | Phone Number | | Organization | | | | + +---------+ + + | EXTERNAL LAB | | | | + +---------+ + + External Lab: Bilirubin, Total (10/23/2013) + +-------+ + + + | Component | Value | Ref Range | Performed | Pathologist | | | | | At | Signature | + +-------+ + + + | Bilirubin, | 0.7 | | EXTERNAL | | | Total, | | | LAB | | | External | | | | | + +-------+ + + + + +---------+ + + | Performing | Address | City/State/Zipcode | Phone Number | | Organization | | | | + +---------+ + + | EXTERNAL LAB | | | | + +---------+ + + External Lab: Albumin (10/23/2013) + +-------+ + + + | Component | Value | Ref Range | Performed | Pathologist | | | | | At | Signature | + +-------+ + + + | Albumin, | 4.4 | | EXTERNAL | | | External | | | LAB | | + +-------+ + + + + +---------+ + + | Performing | Address | City/State/Zipcode | Phone Number | | Organization | | | | + +---------+ + + | EXTERNAL LAB | | | | + +---------+ + + External Lab: Calcium (10/23/2013) + +-------+ + + + | Component | Value | Ref Range | Performed | Pathologist | | | | | At | Signature | + +-------+ + + + | Calcium, | 9.5 | | EXTERNAL | | | External | | | LAB | | + +-------+ + + + + +---------+ + + | Performing | Address | City/State/Zipcode | Phone Number | | Organization | | | | + +---------+ + + | EXTERNAL LAB | | | | + +---------+ + + External Lab: Carbon Dioxide (10/23/2013) + +-------+ + + + | Component | Value | Ref Range | Performed | Pathologist | | | | | At | Signature | + +-------+ + + + | Carbon | 32 | | EXTERNAL | | | Dioxide, | | | LAB | | | External | | | | | + +-------+ + + + + +---------+ + + | Performing | Address | City/State/Zipcode | Phone Number | | Organization | | | | + +---------+ + + | EXTERNAL LAB | | | | + +---------+ + + External Lab: Chloride (10/23/2013) + +-------+ + + + | Component | Value | Ref Range | Performed | Pathologist | | | | | At | Signature | + +-------+ + + + | Chloride, | 95 | | EXTERNAL | | | External | | | LAB | | + +-------+ + + + + +---------+ + + | Performing | Address | City/State/Zipcode | Phone Number | | Organization | | | | + +---------+ + + | EXTERNAL LAB | | | | + +---------+ + + External Lab: Potassium (10/23/2013) + +-------+ + + + | Component | Value | Ref Range | Performed | Pathologist | | | | | At | Signature | + +-------+ + + + | Potassium, | 3.3 | | EXTERNAL | | | External | | | LAB | | + +-------+ + + + + +---------+ + + | Performing | Address | City/State/Zipcode | Phone Number | | Organization | | | | + +---------+ + + | EXTERNAL LAB | | | | + +---------+ + + External Lab: Sodium (10/23/2013) + +-------+ + + + | Component | Value | Ref Range | Performed | Pathologist | | | | | At | Signature | + +-------+ + + + | Sodium, | 139 | | EXTERNAL | | | External | | | LAB | | + +-------+ + + + + +---------+ + + | Performing | Address | City/State/Zipcode | Phone Number | | Organization | | | | + +---------+ + + | EXTERNAL LAB | | | | + +---------+ + + External Lab: Vitamin D, 25-Hydroxy (10/23/2013) + +-------+ + + + | Component | Value | Ref Range | Performed | Pathologist | | | | | At | Signature | + +-------+ + + + | Vitamin D, | 14 | | EXTERNAL | | | 25-Hydroxy, | | | LAB | | | External | | | | | + +-------+ + + + + + | Specimen | + + | Blood specimen | | (specimen) | + + + +---------+ + + | Performing | Address | City/State/Zipcode | Phone Number | | Organization | | | | + +---------+ + + | EXTERNAL LAB | | | | + +---------+ + + External Lab: CBC (10/23/2013) + +-------+ + + + | Component | Value | Ref Range | Performed | Pathologist | | | | | At | Signature | + +-------+ + + + | WBC, | 10.1 | | EXTERNAL | | | External | | | LAB | | + +-------+ + + + | HGB, | 13.4 | | EXTERNAL | | | External | | | LAB | | + +-------+ + + + | HCT, | 40.6 | | EXTERNAL | | | External | | | LAB | | + +-------+ + + + | PLT, | 189 | | EXTERNAL | | | External | | | LAB | | + +-------+ + + + | Neutrophils | 70.2 | | EXTERNAL | | | %, | | | LAB | | | External | | | | | + +-------+ + + + | Lymphocytes | 21.4 | | EXTERNAL | | | %, | | | LAB | | | External | | | | | + +-------+ + + + | Monocytes | 6.6 | | EXTERNAL | | | %, External | | | LAB | | + +-------+ + + + | Eosinophils | 1.2 | | EXTERNAL | | | %, | | | LAB | | | External | | | | | + +-------+ + + + | RBC, | 4.21 | | EXTERNAL | | | External | | | LAB | | + +-------+ + + + | MCV, | 96 | | EXTERNAL | | | External | | | LAB | | + +-------+ + + + | RDW, | 14.4 | | EXTERNAL | | | External | | | LAB | | + +-------+ + + + + +---------+ + + | Performing | Address | City/State/Zipcode | Phone Number | | Organization | | | | + +---------+ + + | EXTERNAL LAB | | | | + +---------+ + + External Lab: TSH (10/23/2013) + +-------+ + + + | Component | Value | Ref Range | Performed | Pathologist | | | | | At | Signature | + +-------+ + + + | TSH, | 2.55 | | EXTERNAL | | | External | | | LAB | | + +-------+ + + + + + | Specimen | + + | Blood specimen | | (specimen) | + + + +---------+ + + | Performing | Address | City/State/Zipcode | Phone Number | | Organization | | | | + +---------+ + + | EXTERNAL LAB | | | | + +---------+ + + External Lab: Triglycerides (10/23/2013) + +-------+ + + + | Component | Value | Ref Range | Performed | Pathologist | | | | | At | Signature | + +-------+ + + + | Triglycerid | 245 | | EXTERNAL | | | es, | | | LAB | | | External | | | | | + +-------+ + + + + + | Specimen | + + | Blood specimen | | (specimen) | + + + +---------+ + + | Performing | Address | City/State/Zipcode | Phone Number | | Organization | | | | + +---------+ + + | EXTERNAL LAB | | | | + +---------+ + + External Lab: Cholesterol, HDL (10/23/2013) + +-------+ + + + | Component | Value | Ref Range | Performed | Pathologist | | | | | At | Signature | + +-------+ + + + | HDL | 46.1 | mg/dl | EXTERNAL | | | Cholesterol | | | LAB | | | , External | | | | | + +-------+ + + + + + | Specimen | + + | Blood specimen | | (specimen) | + + + +---------+ + + | Performing | Address | City/State/Zipcode | Phone Number | | Organization | | | | + +---------+ + + | EXTERNAL LAB | | | | + +---------+ + + External Lab: Cholesterol, Total (10/23/2013) + +-------+ + + + | Component | Value | Ref Range | Performed | Pathologist | | | | | At | Signature | + +-------+ + + + | Cholesterol | 202 | mg/dl | EXTERNAL | | | , Total, | | | LAB | | | External | | | | | + +-------+ + + + + + | Specimen | + + | Blood specimen | | (specimen) | + + + +---------+ + + | Performing | Address | City/State/Zipcode | Phone Number | | Organization | | | | + +---------+ + + | EXTERNAL LAB | | | | + +---------+ + + External Lab: Cholesterol, LDL (10/23/2013) + +-------+ + + + | Component | Value | Ref Range | Performed | Pathologist | | | | | At | Signature | + +-------+ + + + | LDL | 107 | | EXTERNAL | | | Cholesterol | | | LAB | | | , Direct, | | | | | | External | | | | | + +-------+ + + + + + | Specimen | + + | Blood specimen | | (specimen) | + + + +---------+ + + | Performing | Address | City/State/Zipcode | Phone Number | | Organization | | | | + +---------+ + + | EXTERNAL LAB | | | | + +---------+ + + External Lab: Microalbumin/Creatinine Ratio, Urine (10/23/2013) + +-------+ + + + | Component | Value | Ref Range | Performed | Pathologist | | | | | At | Signature | + +-------+ + + + | Microalbumi | 13.6 | | EXTERNAL | | | n/Creatinin | | | LAB | | | e Ratio, | | | | | | External | | | | | + +-------+ + + + + + | Specimen | + + | Blood specimen | | (specimen) | + + + +---------+ + + | Performing | Address | City/State/Zipcode | Phone Number | | Organization | | | | + +---------+ + + | EXTERNAL LAB | | | | + +---------+ + + External Lab: eGFR (10/23/2013) + +-------+ + + + | Component | Value | Ref Range | Performed | Pathologist | | | | | At | Signature | + +-------+ + + + | eGFR, | 58 | | EXTERNAL | | | External | | | LAB | | + +-------+ + + + + + | Specimen | + + | Blood specimen | | (specimen) | + + + +---------+ + + | Performing | Address | City/State/Zipcode | Phone Number | | Organization | | | | + +---------+ + + | EXTERNAL LAB | | | | + +---------+ + + External Lab: Creatinine (10/23/2013) + +-------+ + + + | Component | Value | Ref Range | Performed | Pathologist | | | | | At | Signature | + +-------+ + + + | Creatinine, | 1.03 | | EXTERNAL | | | External | | | LAB | | + +-------+ + + + + + | Specimen | + + | Blood specimen | | (specimen) | + + + +---------+ + + | Performing | Address | City/State/Zipcode | Phone Number | | Organization | | | | + +---------+ + + | EXTERNAL LAB | | | | + +---------+ + + documented in this encounter Visit Diagnoses Not on filedocumented in this encounter"
--- OUTSIDE RECORDS SUMMARY | ~2019-02-23 | XMS | Encounter Summary ---
Demographics + + + | Address | [address] | | | [place] [address] | + + + | Home Phone | | + + + | Preferred Language | Unknown | + + + | Marital Status | | + + + | Restoration Affiliation | Unknown | + + + | Race | Unknown | + + + | Ethnic Group | Unknown | + + + Author + + + | Author | [facility] | | | and [place] | + + + | Organization | [facility] | | | and [place] | [...] Team Providers + +------+ + | Care User Experience Manager Name | Role | Phone | + [...] | NEPHROLOGY [address] | [address] | | | | | [address] | [address] | | | | | [place] | [place] [address] | | | | | [address] | [phone] | | | | | [phone] | | | +--------+ + + + [...] 1.014 | | EXTERNAL | | | [place], | | | LAB | | | [...]
--- OUTSIDE RECORDS SUMMARY | ~2019-02-23 | XMS | Encounter Summary ---
Demographics + + + | Address | [address] | | | [place] [address] | + + + | Home Phone | | + + + | Preferred Language | Unknown | + + + | Marital Status | | + + + | Adventism Affiliation | Unknown | + + + | Race | Unknown | + + + | Ethnic Group | Unknown | + + + Author + + + | Author | [facility] | | | and [place] | + + + | Organization | [facility] | | | and [place] | [...] Team Providers + +------+ + | Care Toll Bridge Attendant Name | Role | Phone | + +------+ + PCP | Unavailable | + +------+ + Encounter Details +--------+ + + + + | Date | Type | Department | Care Team | Description | +--------+ + + + + | 08/29/ | Abstract | [facility] | Apurva Canales | | | 2014 | | NEPHROLOGY [address] | M, DO [address] | | | | | [address] | [address] | | | | | [place], [place] | [place] | | | | | [address] | [address] | | | | | [phone] | | | +--------+ + + + [...]
--- OUTSIDE RECORDS SUMMARY | ~2019-02-23 | XMS | Encounter Summary ---
Demographics + + + | Address | [address] | | | [place] [address] | + + + | Home Phone | | + + + | Preferred Language | Unknown | + + + | Marital Status | | + + + | Nondenominational Affiliation | PEN | + + + | Race | White | + + + | Ethnic Group | Not or | + + + Author + + + | Author | [facility] | + + + | Organization | [facility] | + + + | Address | Unknown | + + + | Phone | Unavailable | + + + Support + + + + + | Name | Relationship | Address | Phone | + + + + + | Gigi goddard | ECON | [address] | | | | | [place] | | | | | [address] | | + + + + + Care Team Providers + +------+ + | Care Headlight Adjuster Name | Role | Phone | + +------+ + | No Pcp Per Patient | PCP | Unavailable | + +------+ + Reason for Visit AUTH/CERT +--------+--------+ + + + + | [...] | +--------+ + + + + | 07/16/ | Anesthesia | 6A Intra Op [facility] | Ezio, | | | 2014 | Event | [facility] | Park Hopper MD | | | | | Admitting Desk | | | | | | Located on the 9 | | | | | | floor [address] | | | | | | [address] | | | | | | [place], [place] | | | | | | [address] | | | +--------+ + + + + Anesthesia Record + + + + + | Procedure Name | Responsible | Anesthesia Start | Anesthesia Stop Time | | | Anesthesiologist | Time | | + + + + + | lap cholecystectomy | Park Hopper | 07/16/14 1200 | 07/16/14 1753 | | (N/A Abdomen) | MD Ezio | | | + + + + + +----+---+ + + | Da | T | Event | Comment | | te | i | | | | | m | | | | | e | | | +----+---+ + + | 04 | 1 | An Start | | | /2 | 2 | | | | 0/ | 0 | | | | 20 | 0 | | | | 15 | | | | +----+---+ + + | | 1 | | | | | 2 | | | | | 0 | | | | | 3 | | | +----+---+ + + | | 1 | Pt. Check | Prior to anesthesia start, pt. Identified, examined, chart | | | 2 | | reviewed, PARQ held, anesthetic plan made or approved by | | | 0 | | attending anesthesiologist. NPO status confirmed as appropriate | | | 3 | | for procedure Preoperative evaluation: unchanged | +----+---+ + + | | 1 | An Start | | | | 2 | Data | | | | 0 | | | | | 6 | | | +----+---+ + + | | 1 | Vitals | Monitors applied Vital signs checked Patient ready for anesthesia | | | 2 | Checked | | | | 0 | | | | | 6 | | | +----+---+ + + | | 1 | Eq Check | Anesthesia machine checked Equipment verified | | | 2 | | | | | 1 | | | | | 4 | | | +----+---+ + + | | 1 | Std. Airway | | | | 2 | Mgt. | | | | 2 | | | | | 1 | | | +----+---+ + + | | 1 | Quick Note | OGT placed, new 18 g, R AC placed | | | 2 | | | | | 3 | | | | | 3 | | | +----+---+ + + | | 1 | Ready | | | | 2 | | | | | 3 | | | | | 9 | | | +----+---+ + + | | 1 | Preprocedur | Pt ID confirmed, informed consent obtained, insertion site | | | 3 | e Checklist | marked, equipment available | | | 1 | | | | | 3 | | | +----+---+ + + | | 1 | Abx held | Abx held for Medical Reason: Contraindicated or already receiving | | | 3 | Medical or | antibiotics | | | 1 | Surgical | | | | 3 | Reason | | +----+---+ + + | | 1 | Incision | | | | 3 | | | | | 1 | | | | | 6 | | | +----+---+ + + | | 1 | Surgery end | | | | 7 | | | | | 1 | | | | | 0 | | | +----+---+ + + | | 1 | an stop | | | | 7 | data | | | | 4 | | | | | 5 | | | +----+---+ + + | | 1 | Anesthesia | | | | 7 | End | | | | 5 | | | | | 3 | | | +----+---+ + + +------+ | Meds | +------+ + + + | Name | Total | + + + | propofol INF | 772,980 mcg | + + + | fentaNYL | 200 mcg | + + + | dexmedetomidine | 120 mcg | + + + | midazolam | 2 mg | + + + | rocuronium | 130 mg | + + + | dexamethasone | 6 mg | + + + | lidocaine 2% | 100 mg | + + + | metoclopramide | 10 mg | + + + | propofol | 300 mg | + + + | HYDROmorphone | 2 mg | + + + | labetalol | 20 mg | + + + | albuterol inhaler | 8 puff | + + + | neostigmine | 5 mg | + + + | glycopyrrolate | 0.8 mg | + + + | ondansetron | 4 mg | + + + | LR | 1,600 mL | + + + + + | Name | + + | O2 FR Avance (Total Liters) | + + | Air FR Avance (l/min) | + + | Insp Yaakov | + + | Et Yaakov | + + | Insp Sevo | + + | Et Sevo | + + + + | No blood administrations on file. | + + +--------+ + + + | Type | Details | Placement | Removal | +--------+ + + + | RETIRE | 07/14/14; 1953; 07/27/14; 1435; | 07/14/141953 by | 07/27/141435 by | | D - | No; 22; Right; Forearm; | Onelia Garza RN | Babita Driver RN | | Periph | Lidocaine; No; Positive; 1; | | | | eral | Therapy completed | | | | Line | | | | +--------+ + + + | RETIRE | 07/15/14; 2013; 07/18/14; No; ; | 07/15/142013 by | 07/18/14 0000 by | | D - | Left; Forearm; Lidocaine; No; | Sierra Lerma RN | Brenda Mckeon RN | | Periph | Positive; 1 | | | | eral | | | | | Line | | | | +--------+ + + + | RETIRE | 07/16/14; 07/26/14; 1600; No; | 07/16/14 0000 by | 07/26/14 1600 by | | D - | Musa; 16FR; yes | Lyudmila Gonzales RN | Lissy Blanton RN | | Uraletha | | | | | y Cath | | | | | | | | | | Placem | | | | | ent | | | | | (Christine | | | | | & Cath | | | | | Care | | | | | Daily | | | | | and Q | | | | | BM) | | | | +--------+ + + + | RETIRE | 07/16/14; Laparascopiic punctures | 07/16/14 0000 by | 01/14/17 1622 by | | D - | X5; No; abdomen; 01/14/17 | Lyudmila Gonzales RN | Discontinued After | | Incisi | (Automatic cleanup per RA | | Discharge | | on | 3006--contact admin for | | | | | questions.); 1622 (Automatic | | | | | cleanup per RA 3006--contact | | | | | admin for questions.) | | | +--------+ + + + | RETIRE | 07/16/14; 07/19/14; 1828; No; | 07/16/14 0000 by | 07/19/14 1828 by | | D - | 19Fr; Piero; Right, Outer; | Lyudmila Gonzales RN | Brenda Ga RN | | Drains | Abdomen | | | | | | | | | (wound | | | | | s/surg | | | | | ical) | | | | +--------+ + + + | RETIRE | 07/16/14; 0642; 07/18/14; No; | 07/16/14 0642 by | 07/18/14 0000 by | | D - | Right; Antecubital | Brenda Mckeon RN | Brenda Mckeon RN | | Periph | | | | | eral | | | | | Line | | | | +--------+ + + + documented in this encounter Social History + +-------+ +--------+------+ | Tobacco [...] in this encounter Administered Medications + +--------+ +---------+------+------+ | Medication Order | MAR | Action | Dose | Rate | Site | | | Action | Date | | | | + +--------+ +---------+------+------+ | albuterol (PROVENTIL, VENTOLIN) | Given | 07/17/19 | 8 puffs | | | | 90 mcg/actuation inhaler | | 15 3:45 | | | | | INTRAPROCEDURE PRN, Starting Mon | | PM PDT | | | | | 07/16/14 at 1545, Until Mon | | | | | | | 07/16/14 at 1753, dyspnea/SOB | | | | | | + +--------+ +---------+------+------+ +---+---+ | | | +---+---+ + +-------+ +------+---+---+ | dexamethasone (DECADRON) | Given | 07/17/19 | 6 mg | | | | injection INTRAPROCEDURE PRN, | | 15 12:30 | | | | | Starting Wed07/16/14 at 1230, | | PM PDT | | | | | Until Wed07/16/14 at 1753 | | | | | | + +-------+ +------+---+---+ +---+---+ | | | +---+---+ + +-------+ +--------+---+---+ | dexmedetomidine INTRAPROCEDURE | Given | 07/17/19 | 20 mcg | | | | PRN, Starting Wed07/16/14 at | | 15 4:41 | | | | | 1345, Until Wed07/16/14 at 1753 | | PM PDT | | | | + +-------+ +--------+---+---+ +-------+ +--------+---+---+ | Given | 07/17/19 | 20 mcg | | | | | 15 2:37 | | | | | | PM PDT | | | | +-------+ +--------+---+---+ | Given | 07/17/19 | 20 mcg | | | | | 15 2:07 | | | | | | PM PDT | | | | +-------+ +--------+---+---+ +---+---+ | | | +---+---+ + +-------+ +--------+---+---+ | fentaNYL citrate (PF) | Given | 07/17/19 | 50 mcg | | | | (SUBLIMAZE) injection | | 15 4:06 | | | | | INTRAPROCEDURE PRN, Starting Mon | | PM PDT | | | | | 07/16/14 at 1324, Until Mon | | | | | | | 07/16/14 at 1753, sedation | | | | | | + +-------+ +--------+---+---+ +-------+ +---------+---+---+ | Given | 07/17/19 | 50 mcg | | | | | 15 1:24 | | | | | | PM PDT | | | | +-------+ +---------+---+---+ | Given | 07/17/19 | 100 mcg | | | | | 15 12:18 | | | | | | PM PDT | | | | +-------+ +---------+---+---+ +---+---+ | | | +---+---+ + +-------+ +--------+---+---+ | glycopyrrolate (ROBINUL) | Given | 07/17/19 | 0.8 mg | | | | injection INTRAPROCEDURE PRN, | | 15 4:30 | | | | | Starting Wed07/16/14 at 1630, | | PM PDT | | | | | Until Wed07/16/14 at 1753 | | | | | | + +-------+ +--------+---+---+ +---+---+ | | | +---+---+ + +-------+ +--------+---+---+ | HYDROmorphone (DILAUDID) | Given | 07/17/19 | 0.4 mg | | | | injection INTRAPROCEDURE PRN, | | 15 4:41 | | | | | Starting Wed07/16/14 at 1429, | | PM PDT | | | | | Until Wed07/16/14 at 1753, | | | | | | | sedation | | | | | | + +-------+ +--------+---+---+ +-------+ +--------+---+---+ | Given | 07/17/19 | 0.4 mg | | | | | 15 4:32 | | | | | | PM PDT | | | | +-------+ +--------+---+---+ | Given | 07/17/19 | 0.4 mg | | | | | 15 4:06 | | | | | | PM PDT | | | | +-------+ +--------+---+---+ +---+---+ | | | +---+---+ + +-------+ +-------+---+---+ | labetalol (TRANDATE) IV | Given | 07/17/19 | 10 mg | | | | injection intravenous, | | 15 3:39 | | | | | INTRAPROCEDURE PRN, Starting Mon | | PM PDT | | | | | 07/16/14 at 1519, Until Mon | | | | | | | 07/16/14 at 1753 | | | | | | + +-------+ +-------+---+---+ +-------+ +------+---+---+ | Given | 07/17/19 | 5 mg | | | | | 15 3:24 | | | | | | PM PDT | | | | +-------+ +------+---+---+ | Given | 07/17/19 | 5 mg | | | | | 15 3:19 | | | | | | PM PDT | | | | +-------+ +------+---+---+ +---+---+ | | | +---+---+ + + + +---+---+---+ | lactated ringers IV | given by | 07/17/19 | | | | | INTRAPROCEDURE CONTINUOUS PRN, | | 15 5:52 | | | | | Starting Wed07/16/14 at 1206, | anesthes | PM PDT | | | | | Until Wed07/16/14 at 1753 | iology | | | | | + + + +---+---+---+ + + +---+---+---+ | given by anesthesiology | 07/17/19 | | | | | | 15 3:29 | | | | | | PM PDT | | | | + + +---+---+---+ | given by anesthesiology | 07/17/19 | | | | | | 15 2:09 | | | | | | PM PDT | | | | + + +---+---+---+ +---+---+ | | | +---+---+ + +-------+ +--------+---+---+ | lidocaine PF (XYLOCAINE MPF) 20 | Given | 07/17/19 | 100 mg | | | | mg/mL (2 %) injection | | 15 12:19 | | | | | INTRAPROCEDURE PRN, Starting Mon | | PM PDT | | | | | 07/16/14 at 1219, Until Mon | | | | | | | 07/16/14 at 1753 | | | | | | + +-------+ +--------+---+---+ +---+---+ | | | +---+---+ + +-------+ +-------+---+---+ | metoclopramide HCl (REGLAN) | Given | 07/17/19 | 10 mg | | | | injection intravenous, | | 15 12:30 | | | | | INTRAPROCEDURE PRN, Starting Mon | | PM PDT | | | | | 07/16/14 at 1230, Until Mon | | | | | | | 07/16/14 at 1753, nausea/vomiting | | | | | | + +-------+ +-------+---+---+ +---+---+ | | | +---+---+ + +-------+ +------+---+---+ | midazolam (VERSED) injection | Given | 07/17/19 | 2 mg | | | | INTRAPROCEDURE PRN, Starting Mon | | 15 12:02 | | | | | 07/16/14 at 1202, Until Mon | | PM PDT | | | | | 07/16/14 at 1753, sedation | | | | | | + +-------+ +------+---+---+ +---+---+ | | | +---+---+ + +-------+ +------+---+---+ | neostigmine (PROSTIGMIN) | Given | 07/17/19 | 5 mg | | | | injection intravenous, | | 15 4:41 | | | | | INTRAPROCEDURE PRN, Starting Mon | | PM PDT | | | | | 07/16/14 at 1641, Until Mon | | | | | | | 15 at 1753 | | | | | | + +-------+ +------+---+---+ +---+---+ | | | +---+---+ + +-------+ +------+---+---+ | ondansetron (ZOFRAN) injection | Given | 07/17/19 | 4 mg | | | | INTRAPROCEDURE PRN, Starting Mon | | 15 4:41 | | | | | 15 at 1641, Until Mon | | PM PDT | | | | | 15 at 1753 | | | | | | + +-------+ +------+---+---+ +---+---+ | | | +---+---+ + +---------+ + +--------+---+ | propofol (DIPRIVAN) injection | New Bag | 07/17/19 | 25 | 29.73 | | | INTRAPROCEDURE CONTINUOUS PRN, | | 15 1:14 | mcg/kg/m | mL/hr | | | Starting Wed07/16/14 at 1314, | | PM PDT | in | | | | Until Wed07/16/14 at 1753 | | | | | | + +---------+ + +--------+---+ +---+---+ | | | +---+---+ + +-------+ +-------+---+---+ | propofol INTRAPROCEDURE PRN, | Given | 07/17/19 | 20 mg | | | | Starting Wed07/16/14 at 1219, | | 15 4:41 | | | | | Until Wed07/16/14 at 1753 | | PM PDT | | | | + +-------+ +-------+---+---+ +-------+ +-------+---+---+ | Given | 07/17/19 | 20 mg | | | | | 15 4:32 | | | | | | PM PDT | | | | +-------+ +-------+---+---+ | Given | 07/17/19 | 20 mg | | | | | 15 4:28 | | | | | | PM PDT | | | | +-------+ +-------+---+---+ +---+---+ | | | +---+---+ + +-------+ +-------+---+---+ | rocuronium (ZEMURON) injection | Given | 07/17/19 | 20 mg | | | | INTRAPROCEDURE PRN, Starting Mon | | 15 3:05 | | | | | 07/16/14 at 1222, Until Mon | | PM PDT | | | | | 07/16/14 at 1753, Neuromuscular | | | | | | | block | | | | | | + +-------+ +-------+---+---+ +-------+ +-------+---+---+ | Given | 07/17/19 | 10 mg | | | | | 15 2:51 | | | | | | PM PDT | | | | +-------+ +-------+---+---+ | Given | 07/17/19 | 10 mg | | | | | 15 2:38 | | | | | | PM PDT | | | | +-------+ +-------+---+---+ +---+---+ | | | +---+---+ documented in this encounter"
--- OUTSIDE RECORDS SUMMARY | ~2019-02-23 | XMS | Encounter Summary ---
Demographics + + + | Address | [address] | | | [place] [address] | + + + | Home Phone | | + + + | Preferred Language | Unknown | + + + | Marital Status | | + + + | Church Affiliation | PEN | + + + | Race | White | + + + | Ethnic Group | Not or | + + + Author + + + | Author | [facility] | + + + | Organization | [facility] | + + + | Address | Unknown | + + + | Phone | Unavailable | + + + Support + + + + + | Name | Relationship | Address | Phone | + + + + + | Gigi goddard | ECON | [address] | | | | | [place] | | | | | [address] | | + + + + + Care Team Providers + +------+ + | Care [employer] Name | Role | Phone | + [...] | on | General Surgery at | [facility] | | | | | [facility] [address] | [address] [place], [place] | | | | | [address] | [address] | | | | | Mailcode: [id number] | | | | | | Maris Rucker | | | | | | [address] [place], [place] | | | | | | [address] | | | | | | [phone] | | | +--------+ + + + [...]
--- OUTSIDE RECORDS SUMMARY | ~2019-02-23 | XMS | Encounter Summary ---
Demographics + + + | Address | [address] | | | [place] [address] | + + + | Home Phone | | + + + | Preferred Language | Unknown | + + + | Marital Status | | + + + | Yarsanism Affiliation | Unknown | + + + | Race | Unknown | + + + | Ethnic Group | Unknown | + + + Author + + + | Author | [facility] | | | and [place] | + + + | Organization | [facility] | | | and [place] [...] Team Providers + +------+ + | Care Safety Intern Name | Role | Phone | + +------+ + PCP | Unavailable | + +------+ + Encounter Details +--------+ + + + + | Date | Type | Department | Care Team | Description | +--------+ + + + + | 12/13/ | Hospital | [facility] | | | | 2003 | Encounter | [facility] | | | | | [facility] [address] | | | | | | [place] | | | | | | [address] | | | | | | [phone] | | | +--------+ + + + [...]
--- OUTSIDE RECORDS SUMMARY | ~2019-02-23 | XMS | Encounter Summary ---
Demographics + + + | Address | [address] | | | [place] [address] | + + + | Home Phone | | + + + | Preferred Language | Unknown | + + + | Marital Status | | + + + | Orthodox Affiliation | Unknown | + + + | Race | Unknown | + + + | Ethnic Group | Unknown | + + + Author + + + | Author | [facility] | | | and [place] | + + + | Organization | [facility] | | | and [place] [...] Team Providers + +------+ + | Care Citrus Picker Name | Role | Phone | + +------+ + | Ophelia Villalta | PCP | | + +------+ + Encounter Details +--------+ + + + + | Date | Type | Department | Care Team | Description | +--------+ + + + + | 11/14/ | Abstract | [facility] [place] | [address], | | | 2014 | | NEPHROLOGY [address] | [address] | | | | | [address] | [address] | | | | | [place] | [place] [id number] | | | | | [address] | [phone] | | | | | [phone] | | | +--------+ + + + [...] | EXTERNAL LAB: BUN | Routin | 11/13/2014 | | Results for this | | | e | | | procedure are in the | | | | | | results section. | + +--------+ + + + | EXTERNAL LAB: | Routin | 11/13/2014 | | Results for this | | GLUCOSE | e | | | procedure are in the | | | | | | results section. | + +--------+ + + + | EXTERNAL LAB: | Routin | 11/13/2014 | | Results for this | | ALBUMIN | e | | | procedure are in the | | | | | | results section. | + +--------+ + + + | EXTERNAL LAB: | Routin | 11/13/2014 | | Results for this | | PHOSPHORUS | e | | | procedure are in the | | | | | | results section. | + +--------+ + + + | EXTERNAL LAB: | Routin | 11/13/2014 | | Results for this | | CALCIUM | e | | | procedure are in the | | | | | | results section. | + +--------+ + + + | EXTERNAL LAB: CARBON | Routin | 11/13/2014 | | Results for this | | DIOXIDE | e | | | procedure are in the | | | | | | results section. | + +--------+ + + + | EXTERNAL LAB: | Routin | 11/13/2014 | | Results for this | | CHLORIDE | e | | | procedure are in the | | | | | | results section. | + +--------+ + + + | EXTERNAL LAB: | Routin | 11/13/2014 | | Results for this | | POTASSIUM | e | | | procedure are in the | | | | | | results section. | + +--------+ + + + | EXTERNAL LAB: SODIUM | Routin | 11/13/2014 | | Results for this | | | e | | | procedure are in the | | | | | | results section. | + +--------+ + + + | EXTERNAL LAB: | Routin | 11/13/2014 | | Results for this | | VITAMIN D, | e | | | procedure are in the | | 25-HYDROXY | | | | results section. | + +--------+ + + + | EXTERNAL LAB: HORACIO | Routin | 11/13/2014 | | Results for this | | INTACT | e | | | procedure are in the | | | | | | results section. | + +--------+ + + + | EXTERNAL LAB: POWER | Routin | 11/13/2014 | | Results for this | | | e | | | procedure are in the | | | | | | results section. | + +--------+ + + + | EXTERNAL LAB: INDER | Routin | 11/13/2014 | | Results for this | | | e | | | procedure are in the | | | | | | results section. | + +--------+ + + + | EXTERNAL LAB: | Routin | 11/13/2014 | | Results for this | | CREATININE | e | | | procedure are in the | | | | | | results section. | + +--------+ + + + documented in this encounter Results External Lab: PTH, Intact (11/13/2014) + +-------+ + + + | Component | Value | Ref Range | Performed | Pathologist | | | | | At | Signature | + +-------+ + + + | PTH Intact, | 60.17 | 15 - 65 | EXTERNAL | | | External | [...] + +---------+ + + External Lab: GOVIND (11/13/2014) + +-------+ + + + | Component | Value | Ref Range | Performed | Pathologist | | | | | At | Signature | + +-------+ + + + | GOVIND, | 14 | 6 - 23 | EXTERNAL | | | External | | | LAB | | + +-------+ + + + + + | Resulting Agency Comment | + + | [facility] | + + + +---------+ + + | Performing | Address | City/State/Zipcode | Phone Number | | Organization | | | | + +---------+ + + | EXTERNAL LAB | | | | + +---------+ + + External Lab: Glucose (11/13/2014) + +---------+ + + + | Component | Value | Ref Range | Performed | Pathologist | | | | | At | Signature | + +---------+ + + + | Glucose, | 108 (A) | 70 - 100 | EXTERNAL | | | External | | | LAB | | + +---------+ + + + + + | Resulting Agency Comment | + + | [facility] | + + + +---------+ + + | Performing | Address | City/State/Zipcode | Phone Number | | Organization | | | | + +---------+ + + | EXTERNAL LAB | | | | + +---------+ + + External Lab: Albumin (11/13/2014) + +-------+ + + + | Component | Value | Ref Range | Performed | Pathologist | | | | | At | Signature | + +-------+ + + + | Albumin, | 4.1 | 3.5 - 5 | EXTERNAL | | | External | | | LAB | | + +-------+ + + + + + | Resulting Agency Comment | + + | [facility] | + + + +---------+ + + | Performing | Address | City/State/Zipcode | Phone Number | | Organization | | | | + +---------+ + + | EXTERNAL LAB | | | | + +---------+ + + External Lab: Phosphorus (11/13/2014) + +-------+ + + + | Component | Value | Ref Range | Performed | Pathologist | | | | | At | Signature | + +-------+ + + + | Phosphorus, | 2.7 | 2.5 - 5 | EXTERNAL | | | External | | | LAB | | + +-------+ + + + + + | Resulting Agency Comment | + + | [facility] | + + + +---------+ + + | Performing | Address | City/State/Zipcode | Phone Number | | Organization | | | | + +---------+ + + | EXTERNAL LAB | | | | + +---------+ + + External Lab: Calcium (11/13/2014) + +-------+ + + + | Component | Value | Ref Range | Performed | Pathologist | | | | | At | Signature | + +-------+ + + + | Calcium, | 9.2 | 8.4 - 10.2 | EXTERNAL | | | External | | | LAB | | + +-------+ + + + + + | Resulting Agency Comment | + + | [facility] | + + + +---------+ + + | Performing | Address | City/State/Zipcode | Phone Number | | Organization | | | | + +---------+ + + | EXTERNAL LAB | | | | + +---------+ + + External Lab: Carbon Dioxide (11/13/2014) + +-------+ + + + | Component | Value | Ref Range | Performed | Pathologist | | | | | At | Signature | + +-------+ + + + | Carbon | 25 | 19 - 31 | EXTERNAL | | | Dioxide, | | | LAB | | | External | | | | | + +-------+ + + + + + | Resulting Agency Comment | + + | [facility] | + + + +---------+ + + | Performing | Address | City/State/Zipcode | Phone Number | | Organization | | | | + +---------+ + + | EXTERNAL LAB | | | | + +---------+ + + External Lab: Chloride (11/13/2014) + +-------+ + + + | Component | Value | Ref Range | Performed | Pathologist | | | | | At | Signature | + +-------+ + + + | Chloride, | 102 | 95 - 112 | EXTERNAL | | | External | | | LAB | | + +-------+ + + + + + | Resulting Agency Comment | + + | [facility] | + + + +---------+ + + | Performing | Address | City/State/Zipcode | Phone Number | | Organization | | | | + +---------+ + + | EXTERNAL LAB | | | | + +---------+ + + External Lab: Potassium (11/13/2014) + +-------+ + + + | Component | Value | Ref Range | Performed | Pathologist | | | | | At | Signature | + +-------+ + + + | Potassium, | 4.1 | 3.6 - 5.1 | EXTERNAL | | | External | | | LAB | | + +-------+ + + + + + | Resulting Agency Comment | + + | [facility] | + + + +---------+ + + | Performing | Address | City/State/Zipcode | Phone Number | | Organization | | | | + +---------+ + + | EXTERNAL LAB | | | | + +---------+ + + External Lab: Sodium (11/13/2014) + +-------+ + + + | Component | Value | Ref Range | Performed | Pathologist | | | | | At | Signature | + +-------+ + + + | Sodium, | 138 | 132 - 143 | EXTERNAL | | | External | | | LAB | | + +-------+ + + + + + | Resulting Agency Comment | + + | [facility] | + + + +---------+ + + | Performing | Address | City/State/Zipcode | Phone Number | | Organization | | | | + +---------+ + + | EXTERNAL LAB | | | | + +---------+ + + External Lab: Vitamin D, 25-Hydroxy (11/13/2014) + +-------+ + + + | Component | Value | Ref Range | Performed | Pathologist | | | | | At | Signature | + +-------+ + + + | Vitamin D, | 33 | 30 - 100 | EXTERNAL | | | 25-Hydroxy, | | | LAB | | | External | | | | | + +-------+ + + + + + | Specimen | + + | Blood specimen | | (specimen) | + + + + | Resulting Agency Comment | + + | [facility] | + + + +---------+ + + | Performing | Address | City/State/Zipcode | Phone Number | | Organization | | | | + +---------+ + + | EXTERNAL LAB | | | | + +---------+ + + External Lab: CBC (11/13/2014) + + + + + + | Component | Value | Ref Range | Performed | Pathologist | | | | | At | Signature | + + + + + + | WBC, | 9.5 | 4.5 - 11 | EXTERNAL | | | External | | | LAB | | + + + + + + | HGB, | 12.4 | 12 - 16 | EXTERNAL | | | External | | | LAB | | + + + + + + | HCT, | 38.1 | 35 - 45 | EXTERNAL | | | External | | | LAB | | + + + + + + | PLT, | 211 | 140 - 440 | EXTERNAL | | | External | | | LAB | | + + + + + + | Neutrophils | 74.8 | 39 - 80 | EXTERNAL | | | %, | | | LAB | | | External | | | | | + + + + + + | Lymphocytes | 16.2 (A) | 24 - 44 | EXTERNAL | | | %, | | | LAB | | | External | | | | | + + + + + + | Monocytes | 6.8 | 0 - 12 | EXTERNAL | | | %, External | | | LAB | | + + + + + + | Eosinophils | 1.9 | 0 - 6 | EXTERNAL | | | %, | | | LAB | | | External | | | | | + + + + + + | RBC, | 4.17 | 3.8 - 5.1 | EXTERNAL | | | External | | | LAB | | + + + + + + | MCV, | 91 | 81 - 99 | EXTERNAL | | | External | | | LAB | | + + + + + + | RDW, | 14.8 | 10.5 - 15 | EXTERNAL | | | External | [...] + +---------+ + + External Lab: eGFR (11/13/2014) + +-------+ + + + | Component | Value | Ref Range | Performed | Pathologist | | | | | At | Signature | + +-------+ + + + | eGFR, | 53 | | EXTERNAL | | | External | | | LAB | | + +-------+ + + + + + | Specimen | + + | Blood specimen | | (specimen) | + + + + | Resulting Agency Comment | + + | [facility] | + + + +---------+ + + | Performing | Address | City/State/Zipcode | Phone Number | | Organization | | | | + +---------+ + + | EXTERNAL LAB | | | | + +---------+ + + External Lab: Creatinine (11/13/2014) + +-------+ + + + | Component | Value | Ref Range | Performed | Pathologist | | | | | At | Signature | + +-------+ + + + | Creatinine, | 1.11 | 0.6 - 1.35 | EXTERNAL | | | External | | | LAB | | + +-------+ + + + + + | Specimen | + + | Blood specimen | | (specimen) | + + + + | Resulting Agency [...]
--- OUTSIDE RECORDS SUMMARY | ~2019-02-23 | XMS | Encounter Summary ---
Demographics + + + | Address | [address] | | | [place] [address] | + + + | Home Phone | | + + + | Preferred Language | Unknown | + + + | Marital Status | | + + + | Mu-Ism Affiliation | PEN | + + + | Race | White | + + + | Ethnic Group | Not or | + + + Author + + + | Author | [facility] | + + + | Organization | [facility] | + + + | Address | Unknown | + + + | Phone | Unavailable | + + + Support + + + + + | Name | Relationship | Address | Phone | + + + + + | Gigi goddard | ECON | [address] | | | | [place] | | | | | [address] | | + + + + + Care Team Providers + +------+ + | Care Rotor Casting Machine Setup Operator Name | Role | Phone | [...] | | | 2014 | Event | [facility] | Park Hopper MD | | | | | Admitting Desk | | | | | | Located on the 9 | | | | | | floor [address] | | | | | | [address] | | | | | | [place], [place] | | | | | | [address] | | | +--------+ + + + [...]
--- OUTSIDE RECORDS SUMMARY | ~2019-02-23 | XMS | Encounter Summary ---
Demographics + + + | Address | [address] | | | [place] [address] | + + + | Home Phone | | + + + | Preferred Language | Unknown | + + + | Marital Status | | + + + | Zoroastrian Affiliation | PEN | + + + | Race | White | + + + | Ethnic Group | Not or | + + + Author + + + | Author | [facility] | + + + | Organization | [facility] | + + + | Address | Unknown | + + + | Phone | Unavailable | + + + Support + + + + + | Name | Relationship | Address | Phone | + + + + + | Gigi goddard | ECON | [address] | | | | | [place] | | | | | [address] | | + + + + + Care Team Providers + +------+ + | Care Drop Wirer Name | Role | Phone | + +------+ + | Ophelia Villalta | PCP | | + +------+ + Encounter Details +--------+ + + + + | Date | Type | Department | Care Team | Description | +--------+ + + + + | 07/09/ | Document-Sc | UNKNOWN DEPARTMENT | Unknown . | | | 2015 | anned | [address] | | | | | | [address] | | | | | | [place] | | | | | | [address] | | | +--------+ + + + [...] | + +--------+ + + + | RADIOLOGY | | 07/09/2014 | | Results for this | | | | 12:00 AM | | procedure are in the | | | | PDT | | results section. | + +--------+ + + + documented in this encounter Results RADIOLOGY (07/09/2014 12:00 AM PDT) + + + | Narrative | Performed At | + + + | | | + + + documented in this encounter Visit Diagnoses Not on filedocumented in this encounter"
--- OUTSIDE RECORDS SUMMARY | ~2019-02-23 | XMS | Encounter Summary ---
Demographics + + + | Address | [address] | | | [place] [address] | + + + | Home Phone | | + + + | Preferred Language | Unknown | + + + | Marital Status | | + + + | Confucianist Affiliation | Unknown | + + + | Race | Unknown | + + + | Ethnic Group | Unknown | + + + Author + + + | Author | [facility] | | | and [place] | + + + | Organization | [facility] | | | and [place] [...] Team Providers + +------+ + | Care Utilization Supervisor Name | Role | Phone | + +------+ + PCP | Unavailable | + +------+ + Encounter Details +--------+ + + + + | Date | Type | Department | Care Team | Description | +--------+ + + + + | 09/10/ | Orders Only | [facility] [place] | [address], | Chronic kidney | | 2015 | | NEPHROLOGY [address] [place] | disease, stage III | | | | [address] | [address] [place] | (moderate) (Primary | | | | [place] [address] | [place] [address] | Dx); Acute kidney | | | | [address] | [phone] | failure with lesion | | | | [phone] | | of tubular necrosis | | | | | | (HCC); Essential | | | | | | hypertension | +--------+ + + + + Social [...] + documented as of this encounter Progress Pauline Millard RN - 09/10/2014 9:39 AM [facility] for nephrology appt on 11/20/14 sent to [place] do cumented in this encounter Plan of Treatment + +---------+--------+ + + | Name | Type | Priori | Associated Diagnoses | Order Schedule | | | | ty | | | + +---------+--------+ + + | Renal Function Panel | Lab | Routin | Chronic kidney | Expected: 11/13/2014 | | | | e | disease, stage III | (Approximate), | | | | | (moderate) Acute | Expires: 09/10/2015 | | | | | kidney failure with | | | | | | lesion of tubular | | | | | | necrosis (HCC) | | | | | | Essential | | | | | | hypertension | | + +---------+--------+ + + | Protein/Creatinine | Lab | Routin | Chronic kidney | Expected: 11/13/2014 | | Ratio, Urine | | e | disease, stage III | (Approximate), | | | | | (moderate) Acute | Expires: 09/10/2015 | | | | | kidney failure with | | | | | | lesion of tubular | | | | | | necrosis (HCC) | | | | | | Essential | | | | | | hypertension | | + +---------+--------+ + + | Urinalysis, Reflex | Lab | Routin | Chronic kidney | Expected: 11/13/2014 | | Microscopic and/or | | e | disease, stage III | (Approximate), | | Culture | | | (moderate) Acute | Expires: 09/10/2015 | | | | | kidney failure with | | | | | | lesion of tubular | | | | | | necrosis (HCC) | | | | | | Essential | | | | | | hypertension | | + +---------+--------+ + + | CBC with | Lab | Routin | Chronic kidney | Expected: 11/13/2014 | | Differential | | e | disease, stage III | (Approximate), | | | | | (moderate) Acute | Expires: 09/10/2015 | | | | | kidney failure with | | | | | | lesion of tubular | | | | | | necrosis (HCC) | | | | | | Essential | | | | | | hypertension | | + +---------+--------+ + + | Vitamin D, | Lab | Routin | Chronic kidney | Expected: 11/13/2014 | | 25-Hydroxy | | e | disease, stage III | (Approximate), | | | | | (moderate) Acute | Expires: 09/10/2015 | | | | | kidney failure with | | | | | | lesion of tubular | | | | | | necrosis (HCC) | | | | | | Essential | | | | | | hypertension | | + +---------+--------+ + + | Parathyroid Hormone, | Lab | Routin | Chronic kidney | Expected: 11/13/2014 | | Intact | | e | disease, stage III | (Approximate), | | | | | (moderate) Acute | Expires: 09/10/2015 | | | | | kidney failure with | | | | | | lesion of tubular | | | | | | necrosis (HCC) | | | | | | Essential | | | | | | hypertension | | + +---------+--------+ + + | US Renal Limited | Imaging | Routin | Chronic kidney | Expected: 09/10/2014 | | | | e | disease, stage III | (Approximate), | | | | | (moderate) Acute | Expires: 09/10/2015 | | | | | kidney failure with | | | | | | lesion of tubular | | | | | | necrosis (HCC) | | | | | | Essential | | | | | | hypertension | | + +---------+--------+ + + documented as of this encounter Visit Diagnoses + + | Diagnosis | + + | Chronic kidney disease, stage III (moderate) (HCC) - Primary Chronic kidney disease, | | Stage III (moderate) | + + | Acute kidney failure with lesion of tubular necrosis (HCC) Acute kidney failure with | | lesion of tubular necrosis | + + | Essential hypertension Unspecified essential hypertension | + + documented in this encounter"
--- OUTSIDE RECORDS SUMMARY | ~2019-02-23 | XMS | Encounter Summary ---
Demographics + + + | Address | [address] | | | [place] [address] | + + + | Home Phone | | + + + | Preferred Language | Unknown | + + + | Marital Status | | + + + | Catholic Affiliation | PEN | + + + | Race | White | + + + | Ethnic Group | Not or | + + + Author + + + | Author | [facility] | + + + | Organization | [facility] | + + + | Address | Unknown | + + + | Phone | Unavailable | + + + Support + + + + + | Name | Relationship | Address | Phone | + + + + + | Gigi nuno | ECON | [address] | | | | [place] | | | | | [address] | | + + + + + Care Team Providers + +------+ + | Care Boiler House Operator Name | Role | Phone | [...] Description | +--------+---------+ + + + | 07/16/ | Surgery | 6A Intra Op [facility] | Jaimee Gomez, | lap cholecystectomy | | 2014 | | [facility] | MD [address] | | | | | Admitting Desk | [place], [place] | | | | | Located on the | [address] | | | | | floor [address] [facility] | [phone] | | | | | [address] | | | | | | [place], [place] | | | | | | [address] | | | +--------+---------+ + + + [...] back pain wh o was transferred from [facility] in [facility] on 07/15 for abdominal pain, cholecy stitis [...] on discharge. She was discharged home to [place] with close follow up from her PCP and plans for a local referral to a general surgeon and a fur grader for one visit, repeated labs to ensure [...] you get home Follow up with Ophelia Hartley Pawan On 07/31/2014. Specialty: NURSE PRACTITIONER FAMILY Why: hospital follow up Contact information [facility] [address] [facility] [facility] [address] [place] [address] [place] [address] Follow up with Local nephrology In 2 weeks. Contact information PCP will make referral Follow up with Local general surgery In 2 weeks. Contact information PCP will make a referral Follow Up Tests: None Need BMP within 1 week Determine when to start diuretics Nephrology and Gen Surg referral Discharging Attending: Jerry Bañuelos MD Physician Signature: Dhaval Peres MD Internal Medicine, PGY-3 Pager: [phone] Associated attestation - Jerry Bañuelos MD - 07/29/2014 11:36 AM PDTGeneral Medicine Att ending Note I personally evaluated the patient, performed the sosa elements of the physical examination, and personally formulated the assessment and plan with Dr. Peres. I have reviewed the [facility] documentation and I agree with the findings, assessment, advice, orders and plan as vince park are documented. Jerry Bañuelos MD Loan Assistant Clinical Hospitalist and Medicine Teaching Services [facility] DEPARTMENT: Hosp- [id number] Place of Service: Date of Service: 07/27/2014 CSN: [id number] Modifiers:GC Resident Involved: Yes Suggested CPT: 95521 Discharge Management < 30 minute I spent 10 minutes in coordination of care and wllv-rp-bisn with the patient and/or their s urrogate of which greater than 50% was spent counseling. documented in this encounter Discharge Instructions Instructions Zuleika Shaw - 07/27/2014 [facility] and Occup ational therapies.- [phone]. Home health will come out early next [...] Cr no w trending down. -Urine microscopy: [place] brown casts -UOP picking up -Started on [...] Rosa Marti MD Internal Medicine PGY2 Pg [phone] Interval events/subjective: -no acute overnight events -feeling [...] = values in this interval not displayed. hJerry rich M D - 07/26/2014 10:32 PM [...] Chronic low back pain Jerry Bañuelos MD Loan Assistant Clinical Hospitalist and Medicine Teaching Services [facility] DEPARTMENT: Hosp- [id number] Place of Service: - Date of Service: 07/26/2014 CSN: [id number] Modifiers:GC Resident Involved: Yes Suggested CPT: 45211 Subsequent Visit Exp Prob Foc/Mod Complexity 25 min I spent more than 20 minutes in coordination of care and bdsm-fd-bbzr with the patient and/ or their surrogate [...] Mayers MD Neurology PGY-1 Medicine Service Pager [phone] eiss, Brenda Frances MD - 07/26/2014 9:53 [...] Mark Division of Nephrology and Hypertension Pager #[phone] Office: [phone] [facility] DEPARTMENT: [id number]- DET NEPHROLOGY [facility] Place of Service: IP CSN: [id number] Suggested Modifier: GC Resident Involved Rosa Tobar [...] Cr no w trending down. -Urine microscopy: [place] brown casts -UOP picking up -ok to [...] Rosa Marti MD Internal Medicine PGY2 Pg [phone] Interval events/subjective: -no acute overnight events -feeling [...] Intake/Output Summary (Last 24 hours) at 07/26/14 0943 Last data filed at 07/26/14 0830 Gross [...] labs: Mg, renal f(x) -Renal diet => dust box tender consult before d/c #Hypervolemic hyponatremia: Secondary to [...] with Dr. Mera. I have reviewed the [facility] documentation and I agree with the findings, [...] Chronic low back pain Jerry Bañuelos MD Loan Assistant Clinical Hospitalist and Medicine Teaching Services [facility] DEPARTMENT: Hosp- [id number] Place of Service: - Date of Service: 07/25/2014 CSN: [id number] Modifiers:GC Resident Involved: Yes Suggested CPT: 67077 Subsequent Visit Exp Prob Foc/Mod Complexity 25 min I spent more than 20 minutes in coordination of care and ikod-fm-xjur with the patient and/ or their surrogate [...] Mark Division of Nephrology and Hypertension Pager #[phone] Office: [phone] [facility] DEPARTMENT: [id number] NEPHROLOGY [facility] Place of Service: CSN: [id number] Suggested Modifier: GC Resident Involved Rosa Tobar [...] see how she tolerates this. -Urine microscopy: [place] brown casts -UOP starting to slowly worm picker -please keep in Vigil for 1 [...] Rosa Marti MD Internal Medicine PGY2 Pg [phone] Interval events/subjective: -no acute overnight events -feeling [...] CK 7423 07/23/2014 CK 9587 07/22/2014 [place] 95891 07/22/2014 [place] 53269 07/21/2014 [place] 28144 07/21/2014 [place] 71984 07/21/2014 Urine Cr 316 Urine sodium 7 [...] above. Arielle Mera MD Internal Medicine Resident [id number] signed by Arielle Mera Md at 07/25/2014 [...] Chronic low back pain Jerry Bañuelos MD Loan Assistant Clinical Hospitalist and Medicine Teaching Services [facility] DEPARTMENT: Hosp- [id number] Place of Service: - Date of Service: 07/24/2014 CSN: [id number] Modifiers:GC Resident Involved: Yes Suggested CPT: 69082 Subsequent Visit Exp Prob Foc/Mod Complexity 25 min I spent more than 20 minutes in coordination of care and kjdt-mr-thrn with the patient and/ or their surrogate [...] Mayers MD Neurology PGY-1 Medicine Service Pager [phone] eiss, Brenda Frances MD - 07/24/2014 9:48 [...] Mark Division of Nephrology and Hypertension Pager #[phone] Office: [phone] [facility] DEPARTMENT: [id number]- NHT NEPHROLOGY [facility] Place of Service: [id number] - CSN: [id number] Suggested Modifier: GC Resident Involved Rosa Tobar [...] anuric: In setting of rhabdo -Urine microscopy: [place] brown casts -Still very minimal urine out-put; [...] Rosa Marti MD Internal Medicine PGY2 Pg [phone] Interval events/subjective: -no acute overnight events -had [...] Intake/Output Summary (Last 24 hours) at 07/24/14 0913 Last data filed at 07/24/14 0403 Gross [...] CK 7423 07/23/2014 CK 9587 07/22/2014 [place] 65478 07/22/2014 [place] 82247 07/21/2014 [place] 14998 07/21/2014 [place] 38462 07/21/2014 Urine Cr 316 Urine sodium 7 [...] dialysis, will need dialysis center arranged and fur grader to follow. Discharge planning: -f/u EGS 2 [...] Chronic low back pain Jerry Bañuelos MD Loan Assistant Clinical Hospitalist and Medicine Teaching Services [facility] DEPARTMENT: Hosp- [id number] Place of Service: - Date of Service: 07/23/2014 CSN: [id number] Modifiers:GC Resident Involved: Yes Suggested CPT: 86175 Subsequent Visit Detailed/High complexity 35 min I spent more than 40 minutes in coordination of care and ehwe-sl-mblf with the patient and/ or their surrogate [...] Mayers MD Neurology PGY-1 Medicine Service Pager [phone] Brenda Engle MD - 07/23/2014 10:15 AM [...] Mark Division of Nephrology and Hypertension Pager #[phone] Office: [phone] [facility] DEPARTMENT: [id number] NEPH[facility]OLOGY [facility] Place of Service: [id number] - CSN: [id number] Suggested Modifier: GC Resident Involved Rosa Tobar [...] anuric: In setting of rhabdo -Urine microscopy: [place] brown casts -Still very minimal urine out-put; [...] Rosa Marti MD Internal Medicine PGY2 Pg [phone] Interval events/subjective: -no acute overnight events -transferred to [facility] Team -denies any shortness of breath -feeling [...] below were personal ly reviewed. Recent Labs 04/18/200107/17/1425407/22/1455507/22/14121607/22/14 1934 07/22/14224507/23/14 0520 NA 136 < > [...] CK 7423 07/23/2014 CK 9587 07/22/2014 [place] [address]40 07/22/2014 CK 94493 07/21/2014 CK 91515 07/21/2014 CK 65514 07/21/2014 [place] 01211 07/20/2014 Urine Cr 316 Urine sodium 7 [...] Intake/Output Summary (Last 24 hours) at 07/23/14 0745 Last data filed at 07/23/14 0515 Gross [...] dialysis, will need dialysis center arranged and fur grader to follow. Discharge planning: -f/u EGS 2 weeks -outpatient polysomnography -ortho f/u scans as outpatient Routine care: DVT prophylaxis: heparin Diet: renal Code: full TONY Elizabeth YNERice, Brenda Mariano MD - 07/22/2014 4:11 PM PDT GM3 PROGRESS NOTE/Transfer Accept Note Date: 07/22/2014 Hospital Day: 8 Author: BRENDA MAYERS MD, MD Attending Physician: Jerry Bañuelos MD Transfer Summary: Adapted from Dr. Case's excellent note 07/22/14: Ms. Nuno is a 43 yoF with morbid obesity, asthma, DM2, HTN, GERD, chronic low back pain wh o was transferred from [facility] in [facility] on 07/15 for abdominal pain, cholecy stitis and transferred for high-risk cholecystectomy. Now s/p cholecystectomy on 07/16 at [facility]. Per gen surg, operation [...] and rhabdomyolysis, patient is being transferred to [facility] general medicine service. Of note, the ortho [...] Mayers MD Neurology PGY-1 Medicine Service Pager [phone] Ailyn Ni MD - 07/22/2014 7:01 AM PDTI saw and examined this patient with Dr. Garrett and agree with his findings and plan. Answered Mr. Nuno's many excellent questions today. Plan for HD tomorrow absent e/o renal recovery. [facility] DEPARTMENT: [id number] NE[facility]OLOG[facility] Place of Service: [id number] - CSN: [id number] Suggested Modifier: GC Resident Involved Mark Arce [...] anuric: In setting of rhabdo -Urine microscopy: [place] brown casts -Still very minimal urine out-put; [...] questions. Osiel Garrett MD Nephrology Fellow Pager [phone] Interval events/subjective: Dialyzed yesterday No acute overnight [...] below were personal ly reviewed. Recent Labs 07/14/14200107/17/1425407/21/1453307/21/14171307/21/14192707/21/14 19307/21/14 2251 NA 136 < > 134* < [...] 99.6 07/20/2014 RDW 54.9 07/20/2014 Recent Labs 07/14/14200107/17/1425407/21/1453307/21/14171315 1939 AST 46* -- 696* -- -- [...] displayed. [place] [address] 07/21/2014 CK 99580 07/21/2014 CK 72979 07/21/2014 CK 01332 07/20/2014 CK 65255 07/20/2014 CK >15082 07/20/2014 CK 15854 07/20/2014 CK 13500 07/19/2014 Urine Cr 316 Urine sodium 7 TTE 07/15/14: EF normal Mild increased RVSP of 50 mmHg Urine spin revealed muddy brown casts Ailyn Ni MD - 0 07/21/2014 8:45 AM PDTI saw and examined patient on hemodialysis with Dr. Garrett and faustino mariano with his findings and plan. [facility] DEPARTMENT: [id number] NE[facility]OLOG[facility] Place of Service: CSN: [id number] Suggested Modifier: GC Resident Involved Mark Arce [...] anuric: In setting of rhabdo -Urine microscopy: [place] brown casts -Very minimal improve to urine [...] questions. Osiel Garrett MD Nephrology Fellow Pager [phone] Interval events/subjective: Dialyzed yesterday, but was shorter [...] 189* -- -- -- -- -- AP -- 89 -- -- -- -- -- [...] Recent Labs 07/14/14 2002 07/17/14 0255 07/20/14 [facility] 07/20/14203307/21/14 0534 AST 46* -- 696* -- [...] displayed. [place] [address] 07/21/2014 CK 64012 07/20/2014 CK 28048 07/20/2014 CK >43550 07/20/2014 CK 84613 07/20/2014 [place] 20511 07/19/2014 CK 24260 07/19/2014 [place] 31158 07/19/2014 Urine Cr 316 Urine sodium 7 TTE 07/15/14: EF normal Mild increased RVSP of 50 mmHg Urine spin revealed muddy brown casts Aleena Estrella DO - 07/21/2014 6:23 AM PDT [facility] DEPARTMENT OF SURGERY EMERGENCY GENERAL SURGERY Division [...] other applicable data points. Please refer to [employer] for this information . PHYSICAL EXAM: LAST [...] 2143 07/19/14 0517 07/20/14 0231 07/20/14 1037 07/20/144 07/20/14 2222 NA 127* -- 126* < [...] referral to polysomnography when pt returns to [place] - Will ask RT to provide CPAP while inpt if able Discharge Plan: Requires acute care Signed: Aleena Boswell DO PGY-1 [facility] General Surgery EGS Surgery Service Pager: [phone] oops, Kemi Mariano MD - 07/20/2014 5:40 [...] General Surgery Resident, R2 EGS Julien Pager [phone] Mark Arce MD - 07/19/2014 5:14 PM [...] concerns Osiel Garrett MD Nephrology Fellow Pager [phone] Darius Damico - 07/19/2014 2:04 PM PDTMed Student Procedure Note 07/19/2014 14:06 RUQ drain removed due to low drain output. The patient tolerated the procedure well. The dr tenorio site was clean and pink, without erythema or purulent material. The stitch was removed a nd the site was covered with clean gauze and medipore tape Darius Cantrell [id number] signed by Aleena Boswell DO at 07/19/2014 [...] PM repeat CK we spoke with on-call fur grader again who recommended d/c'ing IVF given that patient is o liguric to prevent fluid overload, and repeating BMP and CK at 5AM, which is ordered. Discus sed with on-call fur grader and then with patient that there is [...] Craft MD R1, Department of General Surgery [facility] Pager [phone] YNETBabita hairston MD - 07/18/2014 10:26 PM [...] on her back due to pain. Her the neuromedical center team is concerned that she will develop [...] mg po BID for short-term. --Continue remote PROFESSOR OF RELIGIOUS STUDIES while on opioids and diazepam. --Offer heating pad and ice for back pain. --Use abdominal binder. --Consult PT for TENS unit. --Obtain thoracolumbar and lumbar spinal radiographs. APS will evaluate Ms. Nuno in the morning for consideration of trigger point injections. Discussed with attending physician, Yarely Boone MD who agrees with the above recommenda tions. Recommendations communicated to primary steam box hand, Rolando Case MD. Babita Grey MD Anesthesiology/[facility] Pager [phone] Snehal Pradhan MD - 07/18/2014 11:42 AM PDT [facility] DEPARTMENT OF SURGERY EMERGENCY GENERAL SURGERY Division [...] other applicable data points. Please refer to [facility] for this information . PHYSICAL EXAM: LAST [...] Requires acute care Signed: Hien Solo MD [facility] General Surgery R1 Pager #[phone] Alverto Villegas MD - 07/17/2014 5:04 AM [...] stable, urinating. ALVERTO CASE MD SURGERY R-[id number] Ren Mendoza - 07/16/2014 6:58 PM PDTPatient [...] Gallbladder Complications: liver laceration Drains: subhepatic 19 Czech Piero drain in the gallbladder fossa Disposition: to florez Findings: Very large gallstone 2 x 3 cm obstructing the neck. Very edematous, thick gallbla dder wall. Dictatioon [id number] signed by Monica Yanez MD at 07/16/2014 [...] Attending | | Surgeon: Jaimee Gomez MD Orthopedic Shoes Salesperson(s): Reji Whitehead MD. | | Orthopedic Shoes Salesperson(s): Monica Yanez MD, R5. Ren Castellanos MD, [...] morbid obesity, the patient was transferred to [facility] for further evaluation and | | care. [...] | draped in normal sterile fashion. A director call center sales-out was performed. We began with entry | [...] 07/16/2014 | | 19:38:09DT: 07/16/2014 21:16:14Job #: [id number] was present for the critical | | portions of the procedure as described in the note for this encounter.Jaimee Gomez, | | [id number] [place] [address] | + + MAGNESIUM, PLASMA (07/27/2014 5:18 [...] [facility] | [address] | [place] [address] | | | SERVICES, CORE | PARK [...] | | | LABORATORY | | | [place] | | | SERVICES, | | | [...] | + + + + + | [facility] | [address] | [place] [address] | | | SERVICES, CORE | PARK [...] [facility] | [address] | [place] [address] | | | SERVICES, CORE | PARK [...] | + + + + + | [facility] | [address] | [place] [address] | | | SERVICES, CORE | KODI [...] | | | LABORATORY | | | [place] | | | SERVICES, | | | [...] the MDRD equation recommended by the | [facility] | | National Kidney Disease Education Program. [...] | + + + + + | [facility] | [address] | [place] [address] | | | SEVEN, CORE | [address] | | | + + + + + MAGNESIUM, PLASMA (07/25/2014 7:45 AM PDT) + +-------+ + + + | Component | Value | Ref Range | Performed | Pathologist | | | | | At | Signature | + +-------+ + + + | MAGNESIUM,P | 2.0 | 1.8 - 2.5 mg/dL | [facility] | | | TERRANCEMA | | | [...] | + + + + + | [facility] | [address] | [place] [address] | | | SERVICES, CORE | PARK [...] | | | LABORATORY | | | [place] | | | SERVICES, | | | [...] the MDRD equation recommended by the | [facility] | | National Kidney Disease Education Program. [...] | + + + + + | [facility] | [address] | [place] [address] | | | SEVEN, MAGDA | KODI [...] [facility] | [address] | [place] [address] | | | SERVICES, CORE | PARK [...] (H) | 60 - 99 mg/dL | [facility] | | | PLASMA | | | [...] | | | LABORATORY | | | [place] | | | SERVICES, | | | [...] | + + + + + | [facility] | [address] | [place] [address] | | | SEVEN, MAGDA | KODI [...] | + + + + + | [facility] | [address] | [place] [address] | | | MAGDA AMEZCUA | KODI [...] [facility] | [address] | [place], [place] | | | KRISTEN GREENE OF [facility] | [address] | [address] | | | TESTS | | | [...] | + + + + + | [facility] | [address] [facility] | [place] [address] | | | SERVICES, CORE | KODI [...] | | | LABORATORY | | | [place] | | | SERVICES, | | | [...] the MDRD equation recommended by the | [facility] | | National Kidney Disease Education Program. [...] [facility] | [address] | [place] [address] | | | SERVICES, CORE | PARK [...] | + + + + + | [facility] | [address] | [place] [address] | | | SERVICES, CORE | KODI [...] [facility] | [address] | [place], [place] | | | KRISTEN GREENE OF CARE | [address] | [address] | | | TESTS | | | [...] [facility] | [address] | [place], [place] | | | KRISTEN GREENE OF CARE | [address] | [address] | | | TESTS | | | [...] [facility] | [address] | [place], [place] | | | [facility] [facility] | [address] | [address] | | | TESTS | | | [...] | + + + + + | [facility] | [address] | [place] [address] | | | SERVICES, CORE | KODI [...] | | | LABORATORY | | | [place] | | | SERVICES, | | | [...] the MDRD equation recommended by the | [facility] | | National Kidney Disease Education Program. [...] | + + + + + | [facility] | [address] | [place] [address] | | | MAGDA AMEZCUA | KODI [...] - [facility] | [address] | [place], [place] | | | [facility] POINT OF CARE | [address] | [address] | | | TESTS | | | [...] [facility] | [address] | [place] [address] | | | SERVICES, CORE | PARK [...] (H) | 38 - 234 U/L | [facility] | | | | | | LABORATORY [...] [facility] | [address] | [place] [address] | | | SERVICES, CORE | PARK [...] | | | LABORATORY | | | [place] | | | SERVICES, | | | [...] equation recommended by the National | SERVICES, [facility] | | Kidney Disease Education Program. Estimated [...] | + + + + + | [facility] | [address] [facility] | [place] [address] | | | SERVICES, [facility] | [address] | | | + [...] [place] | [address] | [place], [place] | | | KRISTEN GREENE OF CARE | [facility] | [address] | | | TESTS | | | | + + + + + CK, PLASMA (07/21/2014 7:39 PM PDT) + + + + + + | Component | Value | Ref Range | Performed | Pathologist | | | | | At | Signature | + + + + + + | CK | 12,077 (H) | 38 - 234 U/L | [facility] | | | | | | LABORATORY [...] | + + + + + | [facility] | [address] | [place] [address] | | | SERVICES, CORE | PARK [...] | | | LABORATORY | | | [place] | | | SERVICES, | | | [...] | + + + + + | [facility] | [address] | [place] [address] | | | SERVICES, CORE | KODI [...] 92 | 60 - 99 mg/dL | [facility] - | | | GLUCOSE, | | [...] [place] | [address] | [place], [place] | | | KRISTEN GREENE OF [place] | [address] | [address] | | | TESTS | | | [...] [facility] | [address] | [place] [address] | | | SERVICES, CORE | PARK [...] | | | LABORATORY | | | [place] | | | SERVICES, | | | [...] | + + + + + | [facility] | [address] | [place] [address] | | | SERVICES, CORE | PARK [...] 79 | 60 - 99 mg/dL | [facility] - | | | GLUCOSE, | | [...] [place] | [address] | [place], [place] | | | KRISTEN GREENE OF [place] | [facility] | [address] | | | TESTS | | | [...] [facility] | [address] | [place], [place] | | | KRISTEN GREENE OF CARE | [facility] | [address] | | | TESTS | | | [...] [place] | [address] | [place], [place] | | | K[facility]STEN GREENE OF [facility] | [facility] | [address] | | | TESTS | | | [...] | + + + + + | [facility] | [address] | [place] [address] | | | SERVICES, CORE | [facility] | | | + + + [...] | | | LABORATORY | | | [place] | | | SERVICES, | | | [...] the MDRD equation recommended by the | [facility] | | National Kidney Disease Education Program. [...] | + + + + + | [facility] | [address] | [place] [address] | | | SERVICES, CORE | KODI [...] 93 | 60 - 99 mg/dL | [facility] - | | | GLUCOSE, | | [...] [place] | [address] | [place], [place] | | | [facility] POINT OF CARE | [facility] | [address] | | | TESTS | | | [...] | + + + + + | [facility] | [address] | [place] [address] | | | SERVICES, CORE | KODI [...] | | | LABORATORY | | | [place] | | | SERVICES, | | | [...] | + + + + + | [facility] | [address] | [place] [address] | | | SERVICES, CORE | KODI [...] | | + +---------+ + + | [facility] DEPARTMENT OF | | | | | [...] + | [facility] - | [address] | [place] [address] | | | [place] | | | | + + + + + CK, PLASMA (07/20/2014 10:37 AM PDT) + + + + + + | Component | Value | Ref Range | Performed | Pathologist | | | | | At | Signature | + + + + + + | CK | >03783 (H) | 38 - 234 U/L | [...] + | [facility] | [address] | [place] [address] | | | SERVICES, CORE | PARK [...] | | | LABORATORY | | | [place] | | | SERVICES, | | | [...] | + + + + + | [facility] | [address] | [place] [address] | | | SERVICES, CORE | PARK [...] [facility] | [address] | [place] [address] | | | SERVICES, CORE | KODI [...] - [facility] | [address] | [place], [place] | | | [place] [facility] | [address] | [address] | | | TESTS | | | [...] [facility] | [address] | [place] [address] | | | SERVICES, CORE | PARK [...] | + + + + + | [facility] | [address] [facility] | [place] [address] | | | SERVICES, CORE | KODI [...] | | | LABORATORY | | | [place] | | | SERVICES, | | | [...] [facility] | [address] | [place] [address] | | | SERVICES, CORE | PARK [...] | + + + + + | [facility] | [address] | [place] [address] | | | SERVICES, CORE | PARK [...] | | | LABORATORY | | | [place] | | | SERVICES, | | | [...] the MDRD equation recommended by the | [facility] | | National Kidney Disease Education Program. [...] | + + + + + | [facility] | [address] [facility] [facility] | [place] [address] | | | SERVICES, CORE | [address] | | | + + + + + X-RAY PORTABLE CHEST 1 VIEW (07/19/2014 7:04 PM PDT) + + + + + + | Component | Value | Ref Range | Performed | Pathologist | | | | | At | Signature | + + + + + + | X-RAY | EXAM: NE CHEST 1 VIEW | | | | [...] | | + +---------+ + + | [facility] DEPARTMENT OF | | | | | [...] [facility] | [address] | [place], [place] | | | [place] [facility] | [address] | [address] | | | TESTS | | | [...] [facility] | [address] | [place] [address] | | | SERVICES, CORE | PARK [...] [facility] | [address] | [place] [address] | | | MAGDA AMEZCUA | KODI [...] | + + + + + | [facility] | [address] | [place] [address] | | | SERVICES, CORE | PARK [...] | + + + + + | [facility] | [address] [facility] | [place] [address] | | | SERVICES, CORE | KODI [...] | | | LABORATORY | | | [place] | | | SERVICES, | | | [...] | + + + + + | [facility] | [address] [facility] | [place] [address] | | | MAGDA AMEZCUA | KODI [...] - [facility] | [address] | [place], [place] | | | [place] [facility] | [address] | [address] | | | TESTS | | | [...] | + + + + + | [facility] | [address] | [place] [address] | | | SERVICES, CORE | KODI [...] [facility] | [address] | [place] [address] | | | SERVICES, CORE | PARK [...] | | | LABORATORY | | | [place] | | | SERVICES, | | | [...] | + + + + + | [facility] | [address] | [place] [address] | | | SERVICES, CORE | KODI [...] (H) | 60 - 99 mg/dL | [facility] - | | | GLUCOSE, | | [...] [facility] | [address] | [place], [place] | | | K[facility]ST[facility] | [facility] | [address] | | | TESTS | | | [...] | + + + + + | [facility] | [address] | [place] [address] | | | SERVICES, CORE | PARK [...] [facility] | [address] | [place] [address] | | | SERVICES, CORE | PARK [...] | | | LABORATORY | | | [place] | | | SERVICES, | | | [...] the MDRD equation recommended by the | [facility] | | National Kidney Disease Education Program. [...] | + + + + + | [facility] | [address] | [place] [address] | | | SERVICES, [facility] | [address] | | | + [...] - [facility] | [address] | [place], [place] | | | [place] [facility] | [address] | [address] | | | TESTS | | | [...] [facility] | [address] | [place] [address] | | | SERVICES, CORE | PARK [...] | + + + + + | [facility] | [address] | [place] [address] | | | SERVICES, CORE | KODI [...] (H) | 60 - 99 mg/dL | [facility] - | | | GLUCOSE, | | [...] [facility] | [address] | [place], [place] | | | [place] [facility] | [address] | [address] | | | TESTS | | | [...] [facility] | [address] | [place], [place] | | | [facility] | [facility] | [address] | | | TESTS | | | [...] [facility] | [address] | [place] [address] | | | SERVICES, CORE | PARK [...] | + + + + + | [facility] | [address] | [place] [address] | | | SERVICES, CORE | KODI [...] [facility] | [address] | [place] [address] | | | SERVICES, CORE | PARK [...] | | | LABORATORY | | | [place] | | | SERVICES, | | | [...] | + + + + + | [facility] | [address] | [place] [address] | | | SEVEN, MAGDA | KODI [...] [facility] | [address] | [place], [place] | | | [place] [facility] | [facility] | [address] | | | TESTS | | | [...] [facility] | [address] | [place] [address] | | | SERVICES, CORE | PARK [...] | + + + + + | [facility] | [address] | [place] [address] | | | SERVICES, CORE | PARK [...] + | [facility] | [address] | [place] [address] | | | SEVEN, MAGDA | KODI [...] | | | LABORATORY | | | [place] | | | SERVICES, | | | [...] | + + + + + | [facility] | [address] | [place] [address] | | | SERVICES, CORE | KODI [...] [facility] | [address] | [place], [place] | | | [facility] | [address] | [address] | | | TESTS | | | [...] - [facility] | [address] | [place], [place] | | | [place] | [address] | [address] | | | TESTS | | | [...] | | | LABORATORY | | | [place] | | | SERVICES, | | | [...] the MDRD equation recommended by the | [facility] | | National Kidney Disease Education Program. [...] | + + + + + | [facility] | [address] | [place] [address] | | | MAGDA AMEZCUA | KODI [...] (H) | 60 - 99 mg/dL | [facility] - | | | GLUCOSE, | | [...] [facility] | [address] | [place], [place] | | | [facility] [place] | [address] | [address] | | | TESTS | | | [...] [place] | [address] | [place], [place] | | | [facility] [place] | [facility] | [address] | | | TESTS | | | [...] | + + + + + | [facility] | [address] | [place] [address] | | | SERVICES, CORE | PARK [...] [facility] | [address] | [place] [address] | | | SERVICES, CORE | PARK [...] | | | LABORATORY | | | [place] | | | SERVICES, | | | [...] the MDRD equation recommended by the | [facility] | | National Kidney Disease Education Program. [...] | + + + + + | [facility] | [address] | [place] [address] | | | MAGDA AMEZCUA | KODI [...] - [facility] | [address] | [place], [place] | | | [place] [facility] | [address] | [address] | | | TESTS | | | [...] [facility] | [address] | [place] [address] | | | SERVICES, CORE | [address] | | | + + + + + MAGNESIUM, PLASMA (07/16/2014 6:29 AM PDT) + +-------+ + + + | Component | Value | Ref Range | Performed | Pathologist | | | | | At | Signature | + +-------+ + + + | MAGNESIUM,P | 2.2 | 1.8 - 2.5 mg/dL | [facility] | | | LASMA | | | [...] [facility] | [address] | [place] [address] | | | SERVICES, CORE | PARK [...] | | | LABORATORY | | | [place] | | | SERVICES, | | | [...] | + + + + + | [facility] | [address] | [place] [address] | | | SEVEN, MAGDA | KODI [...] Nelly [facility] | [address] | [place], [place] | | | [facility] OF [facility] | [facility] | [address] | | | TESTS | | | [...] DEPT OF | [address] | [place], [place] | | | CARDIOLOGY | [address] | [address] | | + + + + + [...] region. | | | | | | Account Executive Key Accounts | | | | | | sections aresubmitted. | | | | | | Cassette | | | | | | Index:A1-2, | | | | | | physician relations representative sections | | | | | | A1, perpendicular | | | | | | section of gallbladder | | | | | | neck A2, | | | | | | physician relations representative | | | | | | [...] | + + + + + | [facility] | [address] | [place] [address] | | | PATHOLOGY | [address] [...] (H) | 60 - 99 mg/dL | [facility] - | | | GLUCOSE, | | [...] [place] | [address] | [place], [place] | | | [place] [facility] | [address] | [address] | | | TESTS | | | [...] [facility] | [address] | [place], [place] | | | [facility] | [address] | [address] | | | TESTS | | | [...] | + + + + + | [facility] | [address] | [place] [address] | | | SEVEN, MAGDA | KODI [...] DEPT OF | [address] | [place], [place] | | | CARDIOLOGY | [address] | [address] | | + + + + + X-RAY PORTABLE CHEST 1 VIEW (07/15/2014 1:44 PM PDT) + + + + + + | Component | Value | Ref Range | Performed | Pathologist | | | | | At | Signature | + + + + + + | X-RAY | EXAM: NE CHEST 1 VIEW | | | | [...] | | + +---------+ + + | [facility] DEPARTMENT OF | | | | | [...] [facility] | [address] | [place], [place] | | | [facility] | [address] | [address] | | | TESTS | | | [...] | + + + + + | [facility] | [address] | [place] [address] | | | SERVICES, CORE | KODI [...] [facility] | [address] | [place] [address] | | | SERVICES, CORE | PARK [...] | | | LABORATORY | | | [place] | | | SERVICES, | | | [...] | + + + + + | [facility] | [address] | [place] [address] | | | SERVICES, CORE | PARK [...] (H) | 60 - 99 mg/dL | [facility] - | | | GLUCOSE, | | [...] [place] | [address] | [place], [place] | | | [facility] [place] | [facility] | [address] | | | TESTS | | | [...] [facility] | [address] | [place], [place] | | | [facility] | [address] | [address] | | | TESTS | | | [...] [facility] | [address] | [place] [address] | | | SERVICES, | [address] [...] | + + + + + | [facility] | [address] | [place] [address] | | | SERVICES, | [address] [...] [facility] | [address] | [place] [address] | | | SERVICES, CORE | PARK [...] | + + + + + | [facility] | [address] [facility] | [place] [address] | | | SERVICES, CORE | PARK [...] | | | LABORATORY | | | [place] | | | SERVICES, | | | [...] | + + + + + | [facility] | [address] | [place] [address] | | | SERVICES, CORE | PARK [...] | + + + + + | [facility] | [address] | [place] [address] | | | MAGDA AMEZCUA | KODI [...] + | Diagnosis | + + | Cholecystolithiasis Calculus of gallbladder without mention of cholecystitis or | | obstruction | + + documented in this encounter Administered Medications + +--------+ +-------+------+ + | Medication Order | MAR | Action | Dose | Rate | Site | | | Action | Date | | | | + +--------+ +-------+------+ + | bupivacaine (PF) | Given | 07/17/19 | 32 mL | | Surgical | | (MARCAINE,SENSORCAINE-MPF) | | 15 2:42 | | | Site | | injection INTRAPROCEDURE PRN, | | PM PDT | | | | | Starting 07/16/14 at 1442, | | | | | | | Until Wed07/16/14 at 1739 | | | | | | + +--------+ +-------+------+ + +---+---+ | | | +---+---+ documented in this encounter
--- OUTSIDE RECORDS SUMMARY | ~2019-02-23 | XMS | Encounter Summary ---
Demographics + + + | Address | [address] | | | [place] [address] | + + + | Home Phone | | + + + | Preferred Language | Unknown | + + + | Marital Status | | + + + | Jainism Affiliation | PEN | + + + | Race | White | + + + | Ethnic Group | Not or | + + + Author + + + | Author | [facility] | + + + | Organization | [facility] | + + + | Address | Unknown | + + + | Phone | Unavailable | + + + Support + + + + + | Name | Relationship | Address | Phone | + + + + + | Gigi goddard | [address] | [address] | | | | [place] | | | | | [address] | | + + + + + Care Team Providers + +------+ + | Care Electrician'S Helper Name | Role | Phone | + +------+ + | No Pcp Per Patient | PCP | Unavailable | + +------+ + Reason for Visit + + + | Reason | Comments | + + + | Cholelithiasis | | + + + Encounter Details +--------+ + + + + | Date | Type | Department | Care Team | Description | +--------+ + + + + | 07/13/ | Emergency | [facility] | | | | 2014 - | | Department [address] | | | | | [address] | | | | 07/14/ | | [facility] | | | | 2014 | | [place], [place] | | | | | | [address] | | | | | | [phone] | | | +--------+ + + + [...] + + documented as of this encounter Medications at Time of Discharge [...] patches to | 60 | 0 | 05//20 | | | mg/patch) topical | skin [...] tablet by | 10 | 0 | 05//20 | | | immediate release, 5 | [...]
--- OUTSIDE RECORDS SUMMARY | ~2019-02-23 | XMS | Encounter Summary ---
Demographics + + + | Address | [address] | | | [place] [address] | + + + | Home Phone | | + + + | Preferred Language | Unknown | + + + | Marital Status | | + + + | Faith Affiliation | Unknown | + + + | Race | Unknown | + + + | Ethnic Group | Unknown | + + + Author + + + | Author | [facility] | | | and [place] | + + + | Organization | [facility] | | | and [place] [...] Team Providers + +------+ + | Care Utility Sales Representative Name | Role | Phone | + [...] | NEPHROLOGY [address] | | | | | [address] | [address] | | | | | [place] | [place] [address] | | | | | [address] | [phone] | | | | | [phone] | | | +--------+ + + + [...] | EXTERNAL LAB: BUN | Routin | 07/14/2014 | | Results for this | | | e | | | procedure are in the | | | | | | results section. | + +--------+ + + + | EXTERNAL LAB: | Routin | 07/14/2014 | | Results for this | | GLUCOSE | e | | | procedure are in the | | | | | | results section. | + +--------+ + + + | EXTERNAL LAB: | Routin | 07/14/2014 | | Results for this | | CALCIUM | e | | | procedure are in the | | | | | | results section. | + +--------+ + + + | EXTERNAL LAB: CARBON | Routin | 07/14/2014 | | Results for this | | DIOXIDE | e | | | procedure are in the | | | | | | results section. | + +--------+ + + + | EXTERNAL LAB: | Routin | 07/14/2014 | | Results for this | | CHLORIDE | e | | | procedure are in the | | | | | | results section. | + +--------+ + + + | EXTERNAL LAB: | Routin | 07/14/2014 | | Results for this | | POTASSIUM | e | | | procedure are in the | | | | | | results section. | + +--------+ + + + | EXTERNAL LAB: SODIUM | Routin | 07/14/2014 | | Results for this | | | e | | | procedure are in the | | | | | | results section. | + +--------+ + + + | EXTERNAL LAB: EGFR | Routin | 07/14/2014 | | Results for this | | | e | | | procedure are in the | | | | | | results section. | + +--------+ + + + | EXTERNAL LAB: | Routin | 07/14/2014 | | Results for this | | CREATININE | e | | | procedure are in the | | | | | | results section. | + +--------+ + + + | EXTERNAL LAB: BUN | Routin | 07/12/2014 | | Results for this | | | e | | | procedure are in the | | | | | | results section. | + +--------+ + + + | EXTERNAL LAB: | Routin | 07/12/2014 | | Results for this | | GLUCOSE | e | | | procedure are in the | | | | | | results section. | + +--------+ + + + | EXTERNAL LAB: ALT | Routin | 07/12/2014 | | Results for this | | | e | | | procedure are in the | | | | | | results section. | + +--------+ + + + | EXTERNAL LAB: AST | Routin | 07/12/2014 | | Results for this | | | e | | | procedure are in the | | | | | | results section. | + +--------+ + + + | EXTERNAL LAB: | Routin | 07/12/2014 | | Results for this | | ALKALINE PHOSPHATASE | e | | | procedure are in the | | | | | | results section. | + +--------+ + + + | EXTERNAL LAB: | Routin | 07/12/2014 | | Results for this | | BILIRUBIN, TOTAL | e | | | procedure are in the | | | | | | results section. | + +--------+ + + + | EXTERNAL LAB: | Routin | 07/12/2014 | | Results for this | | ALBUMIN | e | | | procedure are in the | | | | | | results section. | + +--------+ + + + | EXTERNAL LAB: | Routin | 07/12/2014 | | Results for this | | PROTEIN, TOTAL | e | | | procedure are in the | | | | | | results section. | + +--------+ + + + | EXTERNAL LAB: | Routin | 07/12/2014 | | Results for this | | CALCIUM | e | | | procedure are in the | | | | | | results section. | + +--------+ + + + | EXTERNAL LAB: CARBON | Routin | 07/12/2014 | | Results for this | | DIOXIDE | e | | | procedure are in the | | | | | | results section. | + +--------+ + + + | EXTERNAL LAB: | Routin | 07/12/2014 | | Results for this | | CHLORIDE | e | | | procedure are in the | | | | | | results section. | + +--------+ + + + | EXTERNAL LAB: | Routin | 07/12/2014 | | Results for this | | POTASSIUM | e | | | procedure are in the | | | | | | results section. | + +--------+ + + + | EXTERNAL LAB: SODIUM | Routin | 07/12/2014 | | Results for this | | | e | | | procedure are in the | | | | | | results section. | + +--------+ + + + | EXTERNAL LAB: | Routin | 07/12/2014 | | Results for this | | URINALYSIS | e | | | procedure are in the | | | | | | results section. | + +--------+ + + + | EXTERNAL LAB: CBC | Routin | 07/12/2014 | | Results for this | | | e | | | procedure are in the | | | | | | results section. | + +--------+ + + + | EXTERNAL LAB: EGFR | Routin | 07/12/2014 | | Results for this | | | e | | | procedure are in the | | | | | | results section. | + +--------+ + + + | EXTERNAL LAB: | Routin | 07/12/2014 | | Results for this | | CREATININE | e | | | procedure are in the | | | | | | results section. | + +--------+ + + + documented in this encounter Results External Lab: GOVIND (07/14/2014) + +-------+ + + + | Component | Value | Ref Range | Performed | Pathologist | | | | | At | Signature | + +-------+ + + + | BUN, | 16 | | EXTERNAL | | | External | | | LAB | | + +-------+ + + + + +---------+ + + | Performing | Address | City/State/Zipcode | Phone Number | | Organization | | | | + +---------+ + + | EXTERNAL LAB | | | | + +---------+ + + External Lab: Glucose (07/14/2014) + +-------+ + + + | Component | Value | Ref Range | Performed | Pathologist | | | | | At | Signature | + +-------+ + + + | Glucose, | 144 | | EXTERNAL | | | External | | | LAB | | + +-------+ + + + + +---------+ + + | Performing | Address | City/State/Zipcode | Phone Number | | Organization | | | | + +---------+ + + | EXTERNAL LAB | | | | + +---------+ + + External Lab: Calcium (07/14/2014) + +-------+ + + + | Component [...] +---------+ + + External Lab: Carbon Dioxide (07/14/2014) + +-------+ + + + | Component | Value | Ref Range | Performed | Pathologist | | | | | At | Signature | + +-------+ + + + | Carbon | 26 | | EXTERNAL | | | Dioxide, | | | LAB | | | External | | | | | + +-------+ + + + + +---------+ + + | Performing | Address | City/State/Zipcode | Phone Number | | Organization | | | | + +---------+ + + | EXTERNAL LAB | | | | + +---------+ + + External Lab: Chloride (07/14/2014) + +-------+ + + + | Component | Value | Ref Range | Performed | Pathologist | | | | | At | Signature | + +-------+ + + + | Chloride, | 99 | | EXTERNAL | | | External | | | LAB | | + +-------+ + + + + +---------+ + + | Performing | Address | City/State/Zipcode | Phone Number | | Organization | | | | + +---------+ + + | EXTERNAL LAB | | | | + +---------+ + + External Lab: Potassium (07/14/2014) + +-------+ + + + | Component | Value | Ref Range | Performed | Pathologist | | | | | At | Signature | + +-------+ + + + | Potassium, | 3.8 | | EXTERNAL | | | External | | | LAB | | + +-------+ + + + + +---------+ + + | Performing | Address | City/State/Zipcode | Phone Number | | Organization | | | | + +---------+ + + | EXTERNAL LAB | | | | + +---------+ + + External Lab: Sodium (07/14/2014) + +-------+ + + + | Component | Value | Ref Range | Performed | Pathologist | | | | | At | Signature | + +-------+ + + + | Sodium, | 135 | | EXTERNAL | | | External | | | LAB | | + +-------+ + + + + +---------+ + + | Performing | Address | City/State/Zipcode | Phone Number | | Organization | | | | + +---------+ + + | EXTERNAL LAB | | | | + +---------+ + + External Lab: eGFR (07/14/2014) + +-------+ + + + | Component | Value | Ref Range | Performed | Pathologist | | | | | At | Signature | + +-------+ + + + | eGFR, | 65 | | EXTERNAL | | | External [...] + +---------+ + + External Lab: Creatinine (07/14/2014) + +-------+ + + + | Component | Value | Ref Range | Performed | Pathologist | | | | | At | Signature | + +-------+ + + + | Creatinine, | 0.94 | | EXTERNAL | | | External [...] + +---------+ + + External Lab: GOVIND (07/12/2014) + +-------+ + + + | Component | Value | Ref Range | Performed | Pathologist | | | | | At | Signature | + +-------+ + + + | BUN, | 20 | | EXTERNAL | | | External | | | LAB | | + +-------+ + + + + +---------+ + + | Performing | Address | City/State/Zipcode | Phone Number | | Organization | | | | + +---------+ + + | EXTERNAL LAB | | | | + +---------+ + + External Lab: Glucose (07/12/2014) + +-------+ + + + | Component | Value | Ref Range | Performed | Pathologist | | | | | At | Signature | + +-------+ + + + | Glucose, | 158 | | EXTERNAL | | | External | | | LAB | | + +-------+ + + + + +---------+ + + | Performing | Address | City/State/Zipcode | Phone Number | | Organization | | | | + +---------+ + + | EXTERNAL LAB | | | | + +---------+ + + External Lab: ALT (07/12/2014) + +-------+ + + + | Component | Value | Ref Range | Performed | Pathologist | | | | | At | Signature | + +-------+ + + + | ALT, | 36 | | EXTERNAL | | | External | | | LAB | | + +-------+ + + + + +---------+ + + | Performing | Address | City/State/Zipcode | Phone Number | | Organization | | | | + +---------+ + + | EXTERNAL LAB | | | | + +---------+ + + External Lab: AST (07/12/2014) + +-------+ + + + | Component | Value | Ref Range | Performed | Pathologist | | | | | At | Signature | + +-------+ + + + | AST, | 36 | | EXTERNAL | | | External | | | LAB | | + +-------+ + + + + +---------+ + + | Performing | Address | City/State/Zipcode | Phone Number | | Organization | | | | + +---------+ + + | EXTERNAL LAB | | | | + +---------+ + + External Lab: Alkaline Phosphatase (07/12/2014) + +-------+ + + + | Component | Value | Ref Range | Performed | Pathologist | | | | | At | Signature | + +-------+ + + + | ALP, | 35 | | EXTERNAL | | | External | | | LAB | | + +-------+ + + + + +---------+ + + | Performing | Address | City/State/Zipcode | Phone Number | | Organization | | | | + +---------+ + + | EXTERNAL LAB | | | | + +---------+ + + External Lab: Bilirubin, Total (07/12/2014) + +-------+ + + + | Component | Value | Ref Range | Performed | Pathologist | | | | | At | Signature | + +-------+ + + + | Bilirubin, | 0.4 | | EXTERNAL | | | Total, | | | LAB | | | External | | | | | + +-------+ + + + + +---------+ + + | Performing | Address | City/State/Zipcode | Phone Number | | Organization | | | | + +---------+ + + | EXTERNAL LAB | | | | + +---------+ + + External Lab: Albumin (07/12/2014) + +-------+ + + + | Component | Value | Ref Range | Performed | Pathologist | | | | | At | Signature | + +-------+ + + + | Albumin, | 4.2 | | EXTERNAL | | | External | | | LAB | | + +-------+ + + + + +---------+ + + | Performing | Address | City/State/Zipcode | Phone Number | | Organization | | | | + +---------+ + + | EXTERNAL LAB | | | | + +---------+ + + External Lab: Protein, Total (07/12/2014) + +-------+ + + + | Component | Value | Ref Range | Performed | Pathologist | | | | | At | Signature | + +-------+ + + + | Protein, | 7.4 | | EXTERNAL | | | Total, | | | LAB | | | External | | | | | + +-------+ + + + + +---------+ + + | Performing | Address | City/State/Zipcode | Phone Number | | Organization | | | | + +---------+ + + | EXTERNAL LAB | | | | + +---------+ + + External Lab: Calcium (07/12/2014) + +-------+ + + + | Component | Value | Ref Range | Performed | Pathologist | | | | | At | Signature | + +-------+ + + + | Calcium, | 9.8 | | EXTERNAL | | | External | | | LAB | | + +-------+ + + + + +---------+ + + | Performing | Address | City/State/Zipcode | Phone Number | | Organization | | | | + +---------+ + + | EXTERNAL LAB | | | | + +---------+ + + External Lab: Carbon Dioxide (07/12/2014) + +-------+ + + + | Component | Value | Ref Range | Performed | Pathologist | | | | | At | Signature | + +-------+ + + + | Carbon | 31 | | EXTERNAL | | | Dioxide, | | | LAB | | | External | | | | | + +-------+ + + + + +---------+ + + | Performing | Address | City/State/Zipcode | Phone Number | | Organization | | | | + +---------+ + + | EXTERNAL LAB | | | | + +---------+ + + External Lab: Chloride (07/12/2014) + +-------+ + + + | Component | Value | Ref Range | Performed | Pathologist | | | | | At | Signature | + +-------+ + + + | Chloride, | 94 | | EXTERNAL | | | External | | | LAB | | + +-------+ + + + + +---------+ + + | Performing | Address | City/State/Zipcode | Phone Number | | Organization | | | | + +---------+ + + | EXTERNAL LAB | | | | + +---------+ + + External Lab: Potassium (07/12/2014) + +-------+ + + + | Component | Value | Ref Range | Performed | Pathologist | | | | | At | Signature | + +-------+ + + + | Potassium, | 2.7 | | EXTERNAL | | | External | | | LAB | | + +-------+ + + + + +---------+ + + | Performing | Address | City/State/Zipcode | Phone Number | | Organization | | | | + +---------+ + + | EXTERNAL LAB | | | | + +---------+ + + External Lab: Sodium (07/12/2014) + +-------+ + + + | Component | Value | Ref Range | Performed | Pathologist | | | | | At | Signature | + +-------+ + + + | Sodium, | 136 | | EXTERNAL | | | External | | | LAB | | + +-------+ + + + + +---------+ + + | Performing | Address | City/State/Zipcode | Phone Number | | Organization | | | | + +---------+ + + | EXTERNAL LAB | | | | + +---------+ + + External Lab: Urinalysis (07/12/2014) + + + + + + | Component | Value | Ref Range | Performed | Pathologist | | | | | At | Signature | + + + + + + | UA Blood, | negative | | EXTERNAL | | | External | | | LAB | | + + + + + + | UA Glucose, | normal | | EXTERNAL | | | External | | | LAB | | + + + + + + | UA Ketones, | negative | | EXTERNAL | | | External | | | LAB | | + + + + + + | UA Ph, | 6 | | EXTERNAL | | | External | | | LAB | | + + + + + + | UA | negative | | EXTERNAL | | | Proteins, | | | LAB | | | External | | | | | + + + + + + | UA RBC, | 0 | | EXTERNAL | | | External | | | LAB | | + + + + + + | UA Specific | 1.012 | | EXTERNAL | | | [place], | | | LAB | | | External | | | | | + + + + + + | UA | negative | | EXTERNAL | | | Leukocyte | | | LAB | | | Esterase, | | | | | | External | | | | | + + + + + + + +---------+ + + | Performing | Address | City/State/Zipcode | Phone Number | | Organization | | | | + +---------+ + + | EXTERNAL LAB | | | | + +---------+ + + External Lab: CBC (07/12/2014) + +-------+ + + + | Component | Value | Ref Range | Performed | Pathologist | | | | | At | Signature | + +-------+ + + + | WBC, | 10 | | EXTERNAL | | | External | | | LAB | | + +-------+ + + + | HGB, | 12.6 | | EXTERNAL | | | External | | | LAB | | + +-------+ + + + | HCT, | 39.1 | | EXTERNAL | | | External | | | LAB | | + +-------+ + + + | PLT, | 192 | | EXTERNAL | | | External | | | LAB | | + +-------+ + + + | RBC, | 3.98 | | EXTERNAL | | | External | | | LAB | | + +-------+ + + + | MCV, | 99 | | EXTERNAL | | | External | | | LAB | | + +-------+ + + + | RDW, | 14 | | EXTERNAL | | | External | | | LAB | | + +-------+ + + + + +---------+ + + | Performing | Address | City/State/Zipcode | Phone Number | | Organization | | | | + +---------+ + + | EXTERNAL LAB | | | | + +---------+ + + External Lab: eGFR (07/12/2014) + +-------+ + + + | Component | Value | Ref Range | Performed | Pathologist | | | | | At | Signature | + +-------+ + + + | eGFR, | 51 | | EXTERNAL | | | External [...] + +---------+ + + External Lab: Creatinine (07/12/2014) + +-------+ + + + | Component | Value | Ref Range | Performed | Pathologist | | | | | At | Signature | + +-------+ + + + | Creatinine, | 1.15 | | EXTERNAL | | | External [...]
--- OUTSIDE RECORDS SUMMARY | ~2019-02-23 | XMS | Encounter Summary ---
Demographics + + + | Address | [address] | | | [place] [address] | + + + | Home Phone | | + + + | Preferred Language | Unknown | + + + | Marital Status | | + + + | Mandaen Affiliation | PEN | + + + | Race | White | + + + | Ethnic Group | Not or | + + + Author + + + | Author | [facility] | + + + | Organization | [facility] | + + + | Address | Unknown | + + + | Phone | Unavailable | + + + Support + + + + + | Name | Relationship | Address | Phone | + + + + + | Gigi nuno | ECON | [address] | | | | [place] | | | | | [address] | | + + + + + Care Team Providers + +------+ + | Care Customer Sales Specialist Name | Role | Phone | + [...] | Hemodialysis | | 2014 | | [facility] | MD [address] | catheter placement | | | | Admitting Desk | [place], [place] | | | | | Located on the | [address] | | | | | floor [address] [facility] | [phone] | | | | | [address] | | | | | | [place], [place] | | | | | | [address] | | | +--------+---------+ + + + [...] back pain wh o was transferred from [facility] in [facility] on 07/15 for abdominal pain, cholecy stitis [...] on discharge. She was discharged home to [place] with close follow up from her PCP and plans for a local referral to a general surgeon and a inseminator for one visit, repeated labs to ensure [...] FAMILY Why: hospital follow up Contact information [facility] Care [address] [place] [address] [place] [address] Follow up with Local nephrology In 2 weeks. Contact information PCP will make referral Follow up with Local general surgery In 2 weeks. Contact information PCP will make a referral Follow Up Tests: None Need BMP within 1 week Determine when to start diuretics Nephrology and Gen Surg referral Discharging Attending: Jerry Bañuelos MD Physician Signature: Dhaval Peres MD Internal Medicine, PGY-3 Pager: [phone] Associated attestation - Jerry Bañuelos MD - 07/29/2014 11:36 AM PDTGeneral Medicine Att ending Note I personally evaluated the patient, performed the sosa elements of the physical examination, and personally formulated the assessment and plan with Dr. Peres. I have reviewed the [facility] documentation and I agree with the findings, assessment, advice, orders and plan as vince park are documented. Jerry Bañuelos MD Scientific Programmer Analyst Clinical Hospitalist and Medicine Teaching Services [facility] DEPARTMENT: Hosp- [id number] Place of Service: Date of Service: 07/27/2014 CSN: [id number] Modifiers:GC Resident Involved: Yes Suggested CPT: 67167 Discharge Management < 30 minute I spent 10 minutes in coordination of care and tqxg-ag-vqya with the patient and/or their s urrogate of which greater than 50% was spent counseling. documented in this encounter Discharge Instructions Instructions Zuleika Shaw - 07/27/2014 [facility] for home Physical and Occup ational therapies.- [phone]. Home health will come out early next week to see you, vinec park will call you to set up [...] Cr no w trending down. -Urine microscopy: [place] brown casts -UOP picking up -Started on [...] Rosa Marti MD Internal Medicine PGY2 Pg [phone] Interval events/subjective: -no acute overnight events -feeling [...] Chronic low back pain Jerry Bañuelos MD Scientific Programmer Analyst Clinical Hospitalist and Medicine Teaching Services [facility] DEPARTMENT: Hosp- [id number] Place of Service: - Date of Service: 07/26/2014 CSN: [id number] Modifiers:GC Resident Involved: Yes Suggested CPT: 40464 Subsequent Visit Exp Prob Foc/Mod Complexity 25 min I spent more than 20 minutes in coordination of care and dtfz-vr-urta with the patient and/ or their surrogate [...] Mayers MD Neurology PGY-1 Medicine Service Pager [phone] eiss, Brenda Frances MD - 07/26/2014 9:53 [...] Mark Division of Nephrology and Hypertension Pager #[phone] Office: [phone] [facility] DEPARTMENT: [id number] [facility] Place of Service: [id number] - IP CSN: [id number] Suggested Modifier: GC Resident Involved Rosa Tobar M D - 07/26/2014 9:53 AM PDT Nephrology Inpatient Consult Follow Up Note IDENTIFICATION: PATIENT NAME: Vine[place] Nuno : 1970 DATE OF ADMISSION: 07/14/2014 DATE OF SERVICE: 07/26/2014 HOSPITAL DAY: 12 PCP: RKYSTAL Malagon REQUESTING PROVIDER: General Surgery Team REASON [...] Cr no w trending down. -Urine microscopy: [place] brown casts -UOP picking up -ok to [...] Rosa Marti MD Internal Medicine PGY2 Pg [phone] Interval events/subjective: -no acute overnight events -feeling [...] labs: Mg, renal f(x) -Renal diet => color card maker consult before d/c #Hypervolemic hyponatremia: Secondary to [...] with Dr. Mera. I have reviewed the [facility] documentation and I agree with the findings, [...] Chronic low back pain Jerry Bañuelos MD Scientific Programmer Analyst Clinical Hospitalist and Medicine Teaching Services [facility] DEPARTMENT: Hosp- [id number] Place of Service: - Date of Service: 07/25/2014 CSN: [id number] Modifiers:GC Resident Involved: Yes Suggested CPT: 17465 Subsequent Visit Exp Prob Foc/Mod Complexity 25 min I spent more than 20 minutes in coordination of care and kdxj-gf-bnuz with the patient and/ or their surrogate [...] Mark Division of Nephrology and Hypertension Pager #[phone] Office: [phone] [facility] DEPARTMENT: [id number]OLOG[facility] Place of Service: CSN: [id number] Suggested Modifier: GC Resident Involved Rosa Tobar [...] see how she tolerates this. -Urine microscopy: [place] brown casts -UOP starting to slowly pick up attendant -please keep in Vigil for 1 more [...] Rosa Marti MD Internal Medicine PGY2 Pg [phone] Interval events/subjective: -no acute overnight events -feeling [...] CK 7423 07/23/2014 CK 9587 07/22/2014 [place] [address] 07/22/2014 [place] 24586 07/21/2014 [place] 28784 07/21/2014 [place] 68878 07/21/2014 Urine Cr 316 Urine sodium 7 [...] above. Arielle Mera MD Internal Medicine Resident [id number] signed by Arielle Mera Md at 07/25/2014 [...] Chronic low back pain Jerry Bañuelos MD Scientific Programmer Analyst Clinical Hospitalist and Medicine Teaching Services [facility] DEPARTMENT: Hosp- [id number] Place of Service: - Date of Service: 07/24/2014 CSN: [id number] Modifiers:GC Resident Involved: Yes Suggested CPT: 21440 Subsequent Visit Exp Prob Foc/Mod Complexity 25 min I spent more than 20 minutes in coordination of care and thsu-ek-xurp with the patient and/ or their surrogate [...] Mayers MD Neurology PGY-1 Medicine Service Pager [phone] eiss, Brenda Frances MD - 07/24/2014 9:48 [...] Mark Division of Nephrology and Hypertension Pager #[phone] Office: [phone] [facility] DEPARTMENT: [id number] [facility] NEPHROLOGY [facility] Place of Service: 53718 - CSN: [id number] Suggested Modifier: GC Resident Involved Rosa Tobar [...] anuric: In setting of rhabdo -Urine microscopy: [place] brown casts -Still very minimal urine out-put; [...] Rosa Marti MD Internal Medicine PGY2 Pg [phone] Interval events/subjective: -no acute overnight events -had [...] Intake/Output Summary (Last 24 hours) at 07/24/14 0962 Last data filed at 07/24/14 0403 Gross [...] CK 7423 07/23/2014 CK 9587 07/22/2014 CK 50823 07/22/2014 [place] 98328 07/21/2014 [place] 08274 07/21/2014 [place] 99349 07/21/2014 Urine Cr 316 Urine sodium 7 [...] dialysis, will need dialysis center arranged and inseminator to follow. Discharge planning: -f/u EGS 2 [...] Chronic low back pain Jerry Bañuelos MD Scientific Programmer Analyst Clinical Hospitalist and Medicine Teaching Services [facility] DEPARTMENT: Hosp- [id number] Place of Service: - [id number] Date of Service: 07/23/2014 CSN: [id number] Modifiers:GC Resident Involved: Yes Suggested CPT: 99127 Subsequent Visit Detailed/High complexity 35 min I spent more than 40 minutes in coordination of care and qkvl-de-gknd with the patient and/ or their surrogate [...] Mayers MD Neurology PGY-1 Medicine Service Pager [phone] Brenda Engle MD - 07/23/2014 10:15 AM [...] Mark Division of Nephrology and Hypertension Pager #[phone] Office: [phone] [facility] DEPARTMENT: [id number] Place of Service: [id number] - CSN: [id number] Suggested Modifier: GC Resident Involved Rosa Tobar [...] anuric: In setting of rhabdo -Urine microscopy: [place] brown casts -Still very minimal urine out-put; [...] Rosa Marti MD Internal Medicine PGY2 Pg [phone] Interval events/subjective: -no acute overnight events -transferred to [facility] Team -denies any shortness of breath -feeling [...] CK 7423 07/23/2014 CK 9587 07/22/2014 CK 02672 07/22/2014 CK 36113 07/21/2014 CK 09069 07/21/2014 [place] 78382 07/21/2014 [place] 85135 07/20/2014 Urine Cr 316 Urine sodium 7 [...] dialysis, will need dialysis center arranged and inseminator to follow. Discharge planning: -f/u EGS 2 [...] back pain wh o was transferred from [facility] in [facility] on 07/15 for abdominal pain, cholecy stitis and transferred for high-risk cholecystectomy. Now s/p cholecystectomy on 07/16 at [facility]. Per gen surg, operation was [...] and rhabdomyolysis, patient is being transferred to [facility] general medicine service. Of note, the [...] Mayers MD Neurology PGY-1 Medicine Service Pager [phone] Ailyn Ni MD - 07/22/2014 7:01 AM PDTI saw and examined this patient with Dr. Garrett and agree with his findings and plan. Answered Mr. Nuno's many excellent questions today. Plan for HD tomorrow absent e/o renal recovery. [facility] DEPARTMENT: [id number] Place of Service: 34620 - CSN: [id number] Suggested Modifier: GC Resident Involved Mark Arce [...] anuric: In setting of rhabdo -Urine microscopy: [place] brown casts -Still very minimal urine out-put; [...] questions. Osiel Garrett MD Nephrology Fellow Pager [phone] Interval events/subjective: Dialyzed yesterday No acute overnight [...] displayed. [place] [address] 07/21/2014 CK 00318 07/21/2014 CK 00797 07/21/2014 CK 04891 07/20/2014 CK 82385 07/20/2014 CK >71050 07/20/2014 [place] 26979 07/20/2014 [place] 84081 07/19/2014 Urine Cr 316 Urine sodium 7 TTE 07/15/14: EF normal Mild increased RVSP of 50 mmHg Urine spin revealed muddy brown casts Ailyn Ni MD - 0 07/21/2014 8:45 AM PDTI saw and examined patient on hemodialysis with Dr. Garrett and faustino mariano with his findings and plan. [facility] DEPARTMENT: [id number] Place of Service: CSN: [id number] Suggested Modifier: GC Resident Involved Mark Arce [...] anuric: In setting of rhabdo -Urine microscopy: [place] brown casts -Very minimal improve to urine [...] questions. Osiel Garrett MD Nephrology Fellow Pager [phone] Interval events/subjective: Dialyzed yesterday, but was shorter [...] displayed. [place] [address] 07/21/2014 CK 80581 07/20/2014 CK 14016 07/20/2014 CK >01466 07/20/2014 CK 66458 07/20/2014 CK 83672 07/19/2014 CK 65555 07/19/2014 [place] 39936 07/19/2014 Urine Cr 316 Urine sodium 7 TTE 07/15/14: EF normal Mild increased RVSP of 50 mmHg Urine spin revealed muddy brown casts Aleena Estrella DO - 07/21/2014 6:23 AM PDT [facility] DEPARTMENT OF SURGERY EMERGENCY GENERAL SURGERY Division [...] other applicable data points. Please refer to [employer] for this information . PHYSICAL EXAM: LAST [...] referral to polysomnography when pt returns to [place] - Will ask RT to provide CPAP while inpt if able Discharge Plan: Requires acute care Signed: Aleena Boswell DO PGY-1 [facility] General Surgery EGS Surgery Service Pager: [phone] oops, Kemi Mariano MD - 07/20/2014 5:40 [...] General Surgery Resident, R2 EGS Julien Pager [phone] Mark Arce MD - 07/19/2014 5:14 PM [...] concerns Osiel Garrett MD Nephrology Fellow Pager [phone] Darius Damico - 07/19/2014 2:04 PM PDTMed Student Procedure Note 07/19/2014 14:06 RUQ drain removed due to low drain output. The patient tolerated the procedure well. The dr tenorio site was clean and pink, without erythema or purulent material. The stitch was removed a nd the site was covered with clean gauze and medipore tape Darius Cantrell [id number] signed by Aleena Boswell DO at 07/19/2014 [...] PM repeat CK we spoke with on-call inseminator again who recommended d/c'ing IVF given that patient is o liguric to prevent fluid overload, and repeating BMP and CK at 5AM, which is ordered. Discus sed with on-call inseminator and then with patient that there is [...] Craft MD R1, Department of General Surgery [facility] Pager [phone] YNETBabita hairston MD - 07/18/2014 10:26 PM [...] on her back due to pain. Her [facility] team is concerned that she will [...] mg po BID for short-term. 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 --Offer heating pad and ice for back pain. --Use abdominal binder. --Consult PT for TENS unit. --Obtain thoracolumbar and lumbar spinal radiographs. APS will evaluate Ms. Nuno in the morning for consideration of trigger point injections. Discussed with attending physician, Yarely Boone MD who agrees with the above recommenda tions. Recommendations communicated to primary instrument repairer steam plant, Rolando Case MD. Babita Grey MD Anesthesiology/[facility] APS Pager [phone] Snehal Pradhan MD - 07/18/2014 11:42 AM PDT [facility] DEPARTMENT OF SURGERY EMERGENCY GENERAL SURGERY Division [...] other applicable data points. Please refer to [facility] for this information . PHYSICAL EXAM: [...] referral to polysomnography when pt returns to [place] - Will ask RT to provide CPAP while inpt if able Discharge Plan: Requires acute care Signed: Hien Solo MD [facility] General Surgery R1 Pager #[phone] Alverto Villegas MD - 07/17/2014 5:04 AM [...] stable, urinating. ALVERTO CASE MD SURGERY R-3 [id number] Ren Mendoza - 07/16/2014 6:58 PM PDTPatient [...] Gallbladder Complications: liver laceration Drains: subhepatic [address] drain in the gallbladder fossa Disposition: to florez Findings: Very large gallstone 2 x 3 cm obstructing the neck. Very edematous, thick gallbla dder wall. Dictatioon [id number] signed by Monica Yanez MD at 07/16/2014 [...] Attending | | Surgeon: Jaimee Gomez MD Sheet Tester(s): Reji Whitehead MD. | | Sheet Tester(s): Monica Yanez MD, R5. Ren Castellanos MD, [...] morbid obesity, the patient was transferred to [facility] for further evaluation and | | [...] draped in normal sterile fashion. A time lock expert-out was performed. We began with entry | [...] 07/16/2014 | | 19:38:09DT: 07/16/2014 21:16:14Job #: [id number] was present for the critical | | portions of the procedure as described in the note for this encounter.Jaimee Gomez, | | [id number] [place] [address] | + + MAGNESIUM, PLASMA (07/27/2014 5:18 [...] [facility] | [address] | [place] [address] | | | SERVICES, CORE | PARK [...] | | | LABORATORY | | | MALAWIAN | | | SERVICES, | | | [...] | + + + + + | [facility] | [address] | [place] [address] | | | SERVICES, CORE | PARK [...] [facility] | [address] | [place] [address] | | | SERVICES, CORE | PARK [...] | + + + + + | [facility] | [address] | [place] [address] | | | SERVICES, CORE | KODI [...] | | | LABORATORY | | | MALAWIAN | | | SERVICES, | | | [...] the MDRD equation recommended by the | [facility] | | National Kidney Disease Education Program. [...] | + + + + + | [facility] | [address] | [place] [address] | | | SEVEN, CORE | [address] | | | + + + + + MAGNESIUM, PLASMA (07/25/2014 7:45 AM PDT) + +-------+ + + + | Component | Value | Ref Range | Performed | Pathologist | | | | | At | Signature | + +-------+ + + + | MAGNESIUM,P | 2.0 | 1.8 - 2.5 mg/dL | [facility] | | | TERRANCEMA | | | [...] | + + + + + | [facility] | [address] | [place] [address] | | | SERVICES, CORE | PARK [...] | | | LABORATORY | | | MALAWIAN | | | SERVICES, | | | [...] the MDRD equation recommended by the | [facility] | | National Kidney Disease Education Program. [...] | + + + + + | [facility] | [address] | [place] [address] | | | SEVEN, MAGDA | KODI [...] [facility] | [address] | [place] [address] | | | SERVICES, CORE | PARK [...] (H) | 60 - 99 mg/dL | [facility] | | | PLASMA | | | [...] | | | LABORATORY | | | MALAWIAN | | | SERVICES, | | | [...] | + + + + + | [facility] | [address] | [place] [address] | | | SEVEN, MAGDA | KODI [...] | + + + + + | [facility] | [address] | [place] [address] | | | MAGDA AMEZCUA | KODI [...] [facility] | [address] | [place], [place] | | | KRISTEN GREENE OF [facility] | [address] | [address] | | | TESTS | | | [...] | + + + + + | [facility] | [address] [facility] | [place] [address] | | | SERVICES, CORE | KODI [...] | | | LABORATORY | | | MALAWIAN | | | SERVICES, | | | [...] the MDRD equation recommended by the | [facility] | | National Kidney Disease Education [...] [facility] | [address] | [place] [address] | | | SERVICES, CORE | PARK [...] | + + + + + | [facility] | [address] | [place] [address] | | | SERVICES, CORE | KODI [...] [facility] | [address] | [place], [place] | | | KRISTEN GREENE OF CARE | [address] | [address] | | | TESTS | | | [...] [facility] | [address] | [place], [place] | | | KRISTEN GREENE OF CARE | [address] | [address] | | | TESTS | | | [...] [facility] | [address] | [place], [place] | | | RAMONA WADDELL OF [facility] | [address] | [address] | | | TESTS | | | [...] | + + + + + | [facility] | [address] | [place] [address] | | | SERVICES, CORE | KODI [...] | | | LABORATORY | | | MALAWIAN | | | SERVICES, | | | [...] the MDRD equation recommended by the | [facility] | | National Kidney Disease Education [...] | + + + + + | [facility] | [address] | [place] [address] | | | MAGDA AMEZCUA | KODI [...] - [facility] | [address] | [place], [place] | | | RAMONA POINT OF CARE | [address] | [address] | | | TESTS | | | [...] [facility] | [address] | [place] [address] | | | SERVICES, CORE | PARK [...] (H) | 38 - 234 U/L | [facility] | | | | | | LABORATORY [...] [facility] | [address] | [place] [address] | | | SERVICES, CORE | PARK [...] | | | LABORATORY | | | MALAWIAN | | | SERVICES, | | | [...] equation recommended by the National | SERVICES, [facility] | | Kidney Disease Education Program. Estimated [...] | + + + + + | [facility] | [address] [facility] | [place] [address] | | | SERVICES, [facility] | [address] | | | + [...] [facility] | [address] | [place], [place] | | | KRISTEN GREENE OF CARE | [facility] | [address] | | | TESTS | | | | + + + + + CK, PLASMA (07/21/2014 7:39 PM PDT) + + + + + + | Component | Value | Ref Range | Performed | Pathologist | | | | | At | Signature | + + + + + + | CK | 12,077 (H) | 38 - 234 U/L | [facility] | | | | | | [...] | + + + + + | [facility] | [address] | [place] [address] | | | SERVICES, CORE | PARK [...] | | | LABORATORY | | | MALAWIAN | | | SERVICES, | | | [...] | + + + + + | [facility] | [address] | [place] [address] | | | SERVICES, CORE | KODI [...] 92 | 60 - 99 mg/dL | [facility] - | | | GLUCOSE, | | [...] [facility] | [address] | [place], [place] | | | KRISTEN GREENE OF DULCE | [address] | [address] | | | TESTS | | | [...] [facility] | [address] | [place] [address] | | | SERVICES, CORE | PARK [...] | | | LABORATORY | | | MALAWIAN | | | SERVICES, | | | [...] | + + + + + | [facility] | [address] | [place] [address] | | | SERVICES, CORE | PARK [...] 79 | 60 - 99 mg/dL | [facility] - | | | GLUCOSE, | [...] [facility] | [address] | [place], [place] | | | KRISTEN GREENE OF D[place]CE | [facility] | [address] | | | TESTS | | | [...] [facility] | [address] | [place], [place] | | | KRISTEN GREENE OF CARE | [facility] | [address] | | | TESTS | | | [...] [facility] | [address] | [place], [place] | | | KRISTEN GREENE OF [facility] | [facility] | [address] | | | TESTS | | | [...] | + + + + + | [facility] | [address] | [place] [address] | | | SERVICES, CORE | KODI [...] | | | LABORATORY | | | MALAWIAN | | | SERVICES, | | | [...] the MDRD equation recommended by the | [facility] | | National Kidney Disease Education [...] | + + + + + | [facility] | [address] | [place] [address] | | | SERVICES, CORE | KODI [...] 93 | 60 - 99 mg/dL | [facility] - | | | GLUCOSE, | [...] [facility] | [address] | [place], [place] | | | RAMONA POINT OF CARE | [facility] | [address] | | | TESTS | | | [...] | + + + + + | [facility] | [address] | [place] [address] | | | SERVICES, CORE | KODI [...] | | | LABORATORY | | | MALAWIAN | | | SERVICES, | | | [...] | + + + + + | [facility] | [address] | [place] [address] | | | SERVICES, CORE | KODI [...] | | + +---------+ + + | [facility] DEPARTMENT OF | | | | [...] + | [facility] - | [address] | [place] [address] | | | [place] | | | | + + + + + CK, PLASMA (07/20/2014 10:37 AM PDT) + + + + + + | Component | Value | Ref Range | Performed | Pathologist | | | | | At | Signature | + + + + + + | CK | >77459 (H) | 38 - 234 U/L | [...] [facility] | [address] | [place] [address] | | | SERVICES, CORE | PARK [...] | | | LABORATORY | | | MALAWIAN | | | SERVICES, | | | [...] | + + + + + | [facility] | [address] | [place] [address] | | | SERVICES, CORE | PARK [...] [facility] | [address] | [place] [address] | | | SERVICES, CORE | KODI [...] - [facility] | [address] | [place], [place] | | | [place] POINT OF [facility] | [address] | [address] | | | TESTS | | | [...] [facility] | [address] | [place] [address] | | | SERVICES, CORE | PARK [...] | + + + + + | [facility] | [address] [facility] | [place] [address] | | | SERVICES, CORE | KODI [...] | | | LABORATORY | | | MALAWIAN | | | SERVICES, | | | [...] [facility] | [address] | [place] [address] | | | SERVICES, CORE | PARK [...] | + + + + + | [facility] | [address] | [place] [address] | | | SERVICES, CORE | PARK [...] | | | LABORATORY | | | MALAWIAN | | | SERVICES, | | | [...] the MDRD equation recommended by the | [facility] | | National Kidney Disease Education [...] | + + + + + | [facility] | [address] [facility] | [place] [address] | | | SERVICES, CORE | PARK [...] | | + +---------+ + + | [facility] DEPARTMENT OF | | | | [...] [facility] | [address] | [place], [place] | | | [place] POINT OF CARE | [address] | [address] | | | TESTS | | | [...] [facility] | [address] | [place] [address] | | | SERVICES, CORE | PARK [...] [facility] | [address] | [place] [address] | | | MAGDA AMEZCUA | KODI [...] | + + + + + | [facility] | [address] | [place] [address] | | | SERVICES, CORE | PARK [...] | + + + + + | [facility] | [address] [facility] | [place] [address] | | | SERVICES, CORE | KODI [...] | | | LABORATORY | | | MALAWIAN | | | SERVICES, | | | [...] | + + + + + | [facility] | [address] [facility] | [place] [address] | | | MAGDA AMEZCUA | KODI [...] - [place] | [address] | [place], [place] | | | [place] POINT OF CARE | [address] | [address] | | | TESTS | | | [...] | + + + + + | [facility] | [address] | [place] [address] | | | SERVICES, CORE | KODI [...] [facility] | [address] | [place] [address] | | | SERVICES, CORE | PARK [...] | | | LABORATORY | | | MALAWIAN | | | SERVICES, | | | [...] | + + + + + | [facility] | [address] | [place] [address] | | | SERVICES, CORE | KODI [...] (H) | 60 - 99 mg/dL | [facility] - | | | GLUCOSE, | | [...] [facility] | [address] | [place], [place] | | | KRISTEN GREENE OF D[place]CE | [facility] | [address] | | | TESTS | | | [...] | + + + + + | [facility] | [address] | [place] [address] | | | SERVICES, CORE | PARK [...] [facility] | [address] | [place] [address] | | | SERVICES, CORE | PARK [...] | | | LABORATORY | | | MALAWIAN | | | SERVICES, | | | [...] the MDRD equation recommended by the | [facility] | | National Kidney Disease Education [...] | + + + + + | [facility] | [address] | [place] [address] | | | SERVICES, [facility] | [address] | | | + [...] - OCT[place] | [address] | [place], [place] | | | [place] POINT OF [facility] | [address] | [address] | | | TESTS | | | [...] [facility] | [address] | [place] [address] | | | SERVICES, CORE | PARK [...] | + + + + + | [facility] | [address] | [place] [address] | | | SERVICES, CORE | KODI [...] (H) | 60 - 99 mg/dL | [facility] - | | | GLUCOSE, | [...] [facility] | [address] | [place], [place] | | | [place] POINT OF CARE | [address] | [address] | | | TESTS | | | [...] [facility] | [address] | [place], [place] | | | ISAIAS GREENE [facility] | [facility] | [address] | | | TESTS | | | [...] [facility] | [address] | [place] [address] | | | SERVICES, CORE | PARK [...] | + + + + + | [facility] | [address] | [place] [address] | | | SERVICES, CORE | KODI [...] [facility] | [address] | [place] [address] | | | SERVICES, CORE | PARK [...] | | | LABORATORY | | | MALAWIAN | | | SERVICES, | | | [...] | + + + + + | [facility] | [address] | [place] [address] | | | SEVEN, MAGDA | KODI [...] [facility] | [address] | [place], [place] | | | [place] POINT OF CARE | [facility] | [address] | | | TESTS | | | [...] [facility] | [address] | [place] [address] | | | SERVICES, CORE | PARK [...] | + + + + + | [facility] | [address] | [place] [address] | | | SERVICES, CORE | PARK [...] [facility] | [address] | [place] [address] | | | SEVEN, MAGDA | KODI [...] | | | LABORATORY | | | MALAWIAN | | | SERVICES, | | | [...] | + + + + + | [facility] | [address] | [place] [address] | | | SERVICES, CORE | KODI [...] [facility] | [address] | [place], [place] | | | KRISTEN GREENE OF CARE | [address] | [address] | | | TESTS | | | [...] - [place] | [address] | [place], [place] | | | COROZAL POINT OF [facility] | [address] | [address] | | | TESTS | | | [...] | | | LABORATORY | | | MALAWIAN | | | SERVICES, | | | [...] the MDRD equation recommended by the | [facility] | | National Kidney Disease Education [...] | + + + + + | [facility] | [address] | [place] [address] | | | MAGDA AMEZCUA | KODI [...] (H) | 60 - 99 mg/dL | [facility] - | | | GLUCOSE, | [...] [place] | [address] | [place], [place] | | | KRISTEN GREENE OF [place] | [address] | [address] | | | TESTS | | | [...] [place] | [address] | [place], [place] | | | KRISTEN GREENE OF [place] | [facility] | [address] | | | TESTS | | | [...] | + + + + + | [facility] | [address] | [place] [address] | | | SERVICES, CORE | PARK [...] [facility] | [address] | [place] [address] | | | SERVICES, CORE | PARK [...] | | | LABORATORY | | | MALAWIAN | | | SERVICES, | | | [...] the MDRD equation recommended by the | [facility] | | National Kidney Disease Education [...] | + + + + + | [facility] | [address] | [place] [address] | | | MAGDA AMEZCUA | KODI [...] - [facility] | [address] | [place], [place] | | | [place] POINT OF CARE | [address] | [address] | | | TESTS | | | [...] [facility] | [address] | [place] [address] | | | SERVICES, CORE | [address] | | | + + + + + MAGNESIUM, PLASMA (07/16/2014 6:29 AM PDT) + +-------+ + + + | Component | Value | Ref Range | Performed | Pathologist | | | | | At | Signature | + +-------+ + + + | MAGNESIUM,P | 2.2 | 1.8 - 2.5 mg/dL | [facility] | | | LASMA | | [...] [facility] | [address] | [place] [address] | | | SERVICES, CORE | PARK [...] | | | LABORATORY | | | MALAWIAN | | | SERVICES, | | | [...] | + + + + + | [facility] | [address] | [place] [address] | | | SEVEN, MAGDA | KODI [...] Nelly [facility] | [address] | [place], [place] | | | KRISTEN GREENE OF [facility] | [facility] | [address] | | | TESTS | | | [...] DEPT OF | [address] | [place], [place] | | | CARDIOLOGY | [address] | [address] | | + + + + + [...] region. | | | | | | Audiovisual Production Specialist | | | | | | sections aresubmitted. | | | | | | Cassette | | | | | | Index:A1-2, | | | | | | direct marketing representative sections | | | | | | A1, perpendicular | | | | | | section of gallbladder | | | | | | neck A2, | | | | | | direct marketing representative | | | | | | [...] | + + + + + | [facility] | [address] | [place] [address] | | | PATHOLOGY | [address] [...] (H) | 60 - 99 mg/dL | [facility] - | | | GLUCOSE, | [...] [facility] | [address] | [place], [place] | | | [place] POINT OF CARE | [address] | [address] | | | TESTS | | | [...] [place] | [address] | [place], [place] | | | KRISTEN GREENE OF CARE | [address] | [address] | | | TESTS | | | [...] | + + + + + | [facility] | [address] | [place] [address] | | | SEVEN, MAGDA | KODI [...] DEPT OF | [address] | [place], [place] | | | CARDIOLOGY | [address] | [address] | | + + + + + [...] | | + +---------+ + + | [facility] DEPARTMENT OF | | | | [...] [facility] | [address] | [place], [place] | | | KRISTEN GREENE OF CARE | [address] | [address] | | | TESTS | | | [...] | + + + + + | [facility] | [address] | [place] [address] | | | SERVICES, CORE | KODI [...] [facility] | [address] | [place] [address] | | | SERVICES, CORE | PARK [...] | | | LABORATORY | | | MALAWIAN | | | SERVICES, | | | [...] | + + + + + | [facility] | [address] | [place] [address] | | | SERVICES, CORE | PARK [...] (H) | 60 - 99 mg/dL | [facility] - | | | GLUCOSE, | [...] [place] | [address] | [place], [place] | | | KRISTEN GREENE OF [place] | [facility] | [address] | | | TESTS | | | [...] [facility] | [address] | [place], [place] | | | KRISTEN GREENE OF CARE | [address] | [address] | | | TESTS | | | [...] [facility] | [address] | [place] [address] | | | SERVICES, | [address] [...] | + + + + + | [facility] | [address] | [place] [address] | | | SERVICES, | [address] [...] [facility] | [address] | [place] [address] | | | SERVICES, CORE | PARK [...] | + + + + + | [facility] | [address] [facility] | [place] [address] | | | SERVICES, CORE | PARK [...] | | | LABORATORY | | | MALAWIAN | | | SERVICES, | | | [...] | + + + + + | [facility] | [address] | [place] [address] | | | SERVICES, CORE | PARK [...] | + + + + + | [facility] | [address] | [place] [address] | | | MAGDA AMEZCUA | [address] [...]
--- OUTSIDE RECORDS SUMMARY | ~2019-02-23 | XMS | Encounter Summary ---
Demographics + + + | Address | [address] | | | [place] [address] | + + + | Home Phone | | + + + | Preferred Language | Unknown | + + + | Marital Status | | + + + | Bahai Affiliation | Unknown | + + + | Race | Unknown | + + + | Ethnic Group | Unknown | + + + Author + + + | Author | [facility] | | | and [place] | + + + | Organization | [facility] | | | and [place] [...] Team Providers + +------+ + | Care Orthophotography Technician Name | Role | Phone | + +------+ + | Opheila Villalta | PCP | | + +------+ [...] | | hypertension | DEVIN LÓPEZ | [address] | | | | | Procedures | [place], | [address] | | | | | [place] OFFICE | [place] [address] | [place] | | | | | OUTPATIENT | Phone: | [address] Phone: | | | | | VISIT 25 | [phone] | [phone] | | | | | MINUTES | Fax: | Fax: | | | | | 12/21, | [phone] | [phone] | | | | | 12/06>PEND | | | | | | | RETRO | | | | | | | REFERRAL | | | | | | | AUTH - SENT | | | | | | | IN-BASKET TO | | | | | | | [employer] | | | +--------+--------+ + + + + Encounter Details +--------+---------+ + + + | Date | Type | Department | Care Team | Description | +--------+---------+ + + + | 11/20/ | Office | [facility] [place] | [address], | Essential | | 2015 | Visit | NEPHROLOGY [address] | hypertension | | | | [address] | [address] | (Primary Dx); | | | | [place], [place] | [facility] [place] [place] [address] | History of acute | | | | [address] | [phone] | renal failure; | | | | [phone] | | Obesity; Type 2 | | [...] not previously signed up for access to [employer], please follow the instructions below to view your secure online medical record. [employer] allows you to review your After Vis it Summary, displays future appointments with [facility] clinics, and pay your bills . Additionally, if your physician uses [employer] software in the clinic, you may be able to send secure messages to your doctor, view your clinic ordered lab results, renew prescripti ons and schedule appointments. How Do I Sign Up? 1. In your Internet browser, go to [email or web address] 2. Click on the "Sign up with your activation code" button in the "New User?" box. This abby l take you to the New Member Sign Up page. 3. Enter your [employer] activation code exactly as it appears below. You will not need to use this code after you sign up. If you do not sign up before the expiration date, you must req uest a new code through your Riva or Riva participating clinic. [employer] Activation Code: [email or web address] Expires: 01/19/2015 14:08 4. Fill in the last four digits of your Social Security Number (xxxx) and Date of (mm /dd/yyyy) and click Next. 5. Create a [facility] [employer] username. Your username cannot be changed, so think of one t hat is secure and easy to remember. 6. Create a [employer] password. You can change your password at any time. 7. Enter your security question and answer. This can be used at a later time if you forget your password. Click Next. 8. Enter your e-mail address. You will receive e-mail notification when new information is available in [employer]. 9. Click "Sign In". You may now view your medical record. For on-the-go access, download the free [employer] mobile link for iPhone and Android. Additional Information If you need assistance with [employer], call the [employer] Help Desk at . The [employer] Desk is available 24 hours a day,7 days a week. Also you can review the FAQs at [email or web address]. Please remember, [employer] should NOT be used for urgent needs. [...] fail ure. Isa is here with , nAson. In June 2014, pt was seen at [facility] for acute cholecystitis, had a complicated and [...] RBC, External 11/15/2014 0 Final UA Specific [place], External 11/15/2014 1.014 Final UA Leukocyte Esterase, [...]
--- OUTSIDE RECORDS SUMMARY | ~2019-02-23 | XMS | Encounter Summary ---
Demographics + + + | Address | [address] | | | [place] [address] | + + + | Home Phone | | + + + | Preferred Language | Unknown | + + + | Marital Status | | + + + | Gnosticist Affiliation | Unknown | + + + | Race | Unknown | + + + | Ethnic Group | Unknown | + + + Author + + + | Author | [facility] | | | and [place] | + + + | Organization | [facility] | | | and [...] Team Providers + +------+ + | Care Operations Tech Name | Role | Phone | + [...] | NEPHROLOGY [address] | | | | | [address] | [address] | | | | | [place] | [place] [address] | | | | | [address] | [phone] | | | | | [phone] | | | +--------+ + + + [...] 1.012 | | EXTERNAL | | | [place], | | | LAB | | | [...]
--- OUTSIDE RECORDS SUMMARY | ~2019-02-23 | XMS | Encounter Summary ---
Demographics + + + | Address | [address] | | | [place] [address] | + + + | Home Phone | | + + + | Preferred Language | Unknown | + + + | Marital Status | | + + + | Jain Affiliation | PEN | + + + | Race | White | + + + | Ethnic Group | Not or | + + + Author + + + | Author | [facility] | + + + | Organization | [facility] | + + + | Address | Unknown | + + + | Phone | Unavailable | + + + Support + + + + + | Name | Relationship | Address | Phone | + + + + + | Gigi nuno | ECON | [address] | | | | [place] | | | | | [address] | | + + + + + Care Team Providers + +------+ + | Care Tank Farm Operator Name | Role | Phone | [...] lap cholecystectomy | | 2014 | | [facility] | MD [address] | | | | | Admitting Desk | [place], [place] | | | | | Located on the | [address] | | | | | floor [address] [facility] | [phone] | | | | | [address] | | | | | | [place], [place] | | | | | | [address] | | | +--------+---------+ + + + [...] wh o was transferred from [facility] on 07/15 for abdominal pain, cholecy [...] referral to a general surgeon and a administrative tech for one visit, repeated labs to ensure [...] FAMILY Why: hospital follow up Contact information [facility] Care [address] [place] [address] [place] [address] Follow up with Local nephrology In 2 weeks. Contact information PCP will make referral Follow up with Local general surgery In 2 weeks. Contact information PCP will make a referral Follow Up Tests: None Need BMP within 1 week Determine when to start diuretics Nephrology and Gen Surg referral Discharging Attending: Jerry Bañuelos MD Physician Signature: Dhaval Peres MD Internal Medicine, PGY-3 Pager: [phone] Associated attestation - Jerry Bañuelos MD - 07/29/2014 11:36 AM PDTGeneral Medicine Att ending Note I personally evaluated the patient, performed the sosa elements of the physical examination, and personally formulated the assessment and plan with Dr. Peres. I have reviewed the [facility] documentation and I agree with the findings, assessment, advice, orders and plan as vince park are documented. Jerry Bañuelos MD Systems Navigator Clinical Hospitalist and Medicine Teaching Services [facility] DEPARTMENT: Hosp- [id number] Place of Service: Date of Service: 07/27/2014 CSN: [id number] Modifiers:GC Resident Involved: Yes Suggested CPT: 13780 Discharge Management < 30 minute I spent 10 minutes in coordination of care and ohdz-rp-gzdq with the patient and/or their s urrogate of which greater than 50% was spent counseling. documented in this encounter Discharge Instructions Instructions Zuleika Shaw - 07/27/2014 [email or web address] Physical and Occup ational therapies.- [phone]. Home health will come out early next [...] Cr no w trending down. -Urine microscopy: [place] brown casts -UOP picking up -Started on [...] Rosa Marti MD Internal Medicine PGY2 Pg [phone] Interval events/subjective: -no acute overnight events -feeling [...] low back pain Jerry Bañuelos MD Systems Navigator Clinical Hospitalist and Medicine Teaching Services [facility] DEPARTMENT: Hosp- [id number] Place of Service: - Date of Service: 07/26/2014 CSN: [id number] Modifiers:GC Resident Involved: Yes Suggested CPT: 49280 Subsequent Visit Exp Prob Foc/Mod Complexity 25 min I spent more than 20 minutes in coordination of care and jaej-qm-cuqk with the patient and/ or their surrogate [...] Mayers MD Neurology PGY-1 Medicine Service Pager [phone] eiss, Brenda Frances MD - 07/26/2014 9:53 [...] Mark Division of Nephrology and Hypertension Pager #[phone] Office: [phone] [facility] DEPARTMENT: [id number]- RIT NEPHROLOGY [facility] Place of Service: IP CSN: [id number] Suggested Modifier: GC Resident Involved Rosa Tobar [...] Cr no w trending down. -Urine microscopy: [place] brown casts -UOP picking up -ok to [...] Rosa Marti MD Internal Medicine PGY2 Pg [phone] Interval events/subjective: -no acute overnight events -feeling [...] Intake/Output Summary (Last 24 hours) at 07/26/14 0902 Last data filed at 07/26/14 0830 Gross [...] labs: Mg, renal f(x) -Renal diet => oracle erp architect consult before d/c #Hypervolemic hyponatremia: Secondary to [...] with Dr. Mera. I have reviewed the [facility] documentation and I agree with [...] low back pain Jerry Bañuelos MD Systems Navigator Clinical Hospitalist and Medicine Teaching Services [facility] DEPARTMENT: Hosp- [id number] Place of Service: - Date of Service: 07/25/2014 CSN: [id number] Modifiers:GC Resident Involved: Yes Suggested CPT: 61168 Subsequent Visit Exp Prob Foc/Mod Complexity 25 min I spent more than 20 minutes in coordination of care and nvyx-tn-gred with the patient and/ or their surrogate [...] Mark Division of Nephrology and Hypertension Pager #[phone] Office: [phone] [facility] DEPARTMENT: [id number] NEPHROLOGY [facility] Place of Service: CSN: [id number] Suggested Modifier: GC Resident Involved Rosa Tobar [...] see how she tolerates this. -Urine microscopy: [place] brown casts -UOP starting to slowly pick [...] Rosa Marti MD Internal Medicine PGY2 Pg [phone] Interval events/subjective: -no acute overnight events -feeling [...] CK 7423 07/23/2014 CK 9587 07/22/2014 [place] 42473 07/22/2014 [place] 59770 07/21/2014 [place] 98915 07/21/2014 [place] [address]7450 07/21/2014 Urine Cr 316 Urine sodium 7 [...] above. Arielle Mera MD Internal Medicine Resident [id number] signed by Arielle Mera Md at 07/25/2014 [...] low back pain Jerry Bañuelos MD Systems Navigator Clinical Hospitalist and Medicine Teaching Services [facility] DEPARTMENT: Hosp- [id number] Place of Service: - Date of Service: 07/24/2014 CSN: [id number] Modifiers:GC Resident Involved: Yes Suggested CPT: 63468 Subsequent Visit Exp Prob Foc/Mod Complexity 25 min I spent more than 20 minutes in coordination of care and ckum-iq-lfdk with the patient and/ or their surrogate [...] improving Hypervolemic in the setting of anuric BARIBE. She is at risk for pulmonary edema [...] Mayers MD Neurology PGY-1 Medicine Service Pager [phone] eiss, Brenda Frances MD - 07/24/2014 9:48 [...] Mark Division of Nephrology and Hypertension Pager #[phone] Office: [phone] [facility] DEPARTMENT: [id number] NHT NEPHROLOGY [facility] Place of Service: [id number] - CSN: [id number] Suggested Modifier: GC Resident Involved Rosa Tobar [...] anuric: In setting of rhabdo -Urine microscopy: [place] brown casts -Still very minimal urine out-put; [...] Rosa Marti MD Internal Medicine PGY2 Pg [phone] Interval events/subjective: -no acute overnight events -had [...] Intake/Output Summary (Last 24 hours) at 07/24/14 0911 Last data filed at 07/24/14 0403 Gross [...] CK 7423 07/23/2014 CK 9587 07/22/2014 [place] 31712 07/22/2014 [place] 97125 07/21/2014 [place] 25794 07/21/2014 [place] [address]18 07/21/2014 Urine Cr 316 Urine sodium 7 [...] dialysis, will need dialysis center arranged and administrative tech to follow. Discharge planning: -f/u EGS 2 [...] low back pain Jerry Bañuelos MD Systems Navigator Clinical Hospitalist and Medicine Teaching Services [facility] DEPARTMENT: Hosp- [id number] Place of Service: - Date of Service: 07/23/2014 CSN: [id number] Modifiers:GC Resident Involved: Yes Suggested CPT: 28087 Subsequent Visit Detailed/High complexity 35 min I spent more than 40 minutes in coordination of care and mhkm-mo-nkbv with the patient and/ or their surrogate [...] course c omplicated by rhabdo with anuric BRABIE requiring HD. #Oliguric BARBIE #Rhabdo #Hyperhosphatemia - [...] Mayers MD Neurology PGY-1 Medicine Service Pager [phone] Brenda Engle MD - 07/23/2014 10:15 AM [...] Mark Division of Nephrology and Hypertension Pager #[phone] Office: [phone] [facility] DEPARTMENT: [id number] NEPHROLOGY [facility] Place of Service: [id number] - CSN: [id number] Suggested Modifier: GC Resident Involved Rosa Tobar [...] anuric: In setting of rhabdo -Urine microscopy: [place] brown casts -Still very minimal urine out-put; [...] Rosa Marti MD Internal Medicine PGY2 Pg 82305 Interval events/subjective: -no acute overnight events -transferred to [facility] Team -denies any shortness of breath -feeling [...] CK 7423 07/23/2014 CK 9587 07/22/2014 CK 23766 07/22/2014 CK 25377 07/21/2014 [place] 02910 07/21/2014 CK 30945 07/21/2014 CK 13201 07/20/2014 Urine Cr 316 Urine sodium 7 TTE 07/15/14: EF normal Mild increased RVSP of 50 mmHg Urine spin revealed muddy brown casts Toyn Herrera - 7:07 AM PDT Medical Student [...] Intake/Output Summary (Last 24 hours) at 07/23/14 0796 Last data filed at 07/23/14 0515 Gross [...] dialysis, will need dialysis center arranged and administrative tech to follow. Discharge planning: -f/u EGS 2 [...] wh o was transferred from [facility] on 07/15 for abdominal pain, cholecy [...] and rhabdomyolysis, patient is being transferred to [facility] general medicine service. Of note, the ortho [...] Mayers MD Neurology PGY-1 Medicine Service Pager [phone] Ailyn Ni MD - 07/22/2014 7:01 AM PDTI saw and examined this patient with Dr. Garrett and agree with his findings and plan. Answered Mr. Nuno's many excellent questions today. Plan for HD tomorrow absent e/o renal recovery. [facility] DEPARTMENT: [id number] NEPHROLOGY [facility] Place of Service: [id number] - CSN: [id number] Suggested Modifier: GC Resident Involved Mark Arce [...] anuric: In setting of rhabdo -Urine microscopy: [place] brown casts -Still very minimal urine out-put; [...] questions. Osiel Garrett MD Nephrology Fellow Pager [phone] Interval events/subjective: Dialyzed yesterday No acute overnight [...] displayed. [place] [address] 07/21/2014 CK 39846 07/21/2014 [place] 85107 07/21/2014 [place] 48497 07/20/2014 CK 20369 07/20/2014 CK >23688 07/20/2014 CK 56414 07/20/2014 CK 90563 07/19/2014 Urine Cr 316 Urine sodium 7 TTE 07/15/14: EF normal Mild increased RVSP of 50 mmHg Urine spin revealed muddy brown casts Ailyn Ni MD - 0 07/21/2014 8:45 AM PDTI saw and examined patient on hemodialysis with Dr. Garrett and faustino mariano with his findings and plan. [facility] DEPARTMENT: [id number] NEPHROLOGY [facility] Place of Service: CSN: [id number] Suggested Modifier: GC Resident Involved Mark Arce [...] anuric: In setting of rhabdo -Urine microscopy: [place] brown casts -Very minimal improve to urine [...] questions. Osiel Garrett MD Nephrology Fellow Pager [phone] Interval events/subjective: Dialyzed yesterday, but was shorter [...] Recent Labs 07/14/14 2002 07/17/14 0255 07/20/14 [facility] 07/20/14203307/21/14 0534 AST 46* -- 696* -- [...] displayed. [place] [address] 07/21/2014 CK 25714 07/20/2014 CK 65306 07/20/2014 CK >36741 07/20/2014 [place] 07886 07/20/2014 CK 45958 07/19/2014 CK 74319 07/19/2014 CK 88870 07/19/2014 Urine Cr 316 Urine sodium 7 TTE 07/15/14: EF normal Mild increased RVSP of 50 mmHg Urine spin revealed muddy brown casts Aleena Estrella DO - 07/21/2014 6:23 AM PDT [facility] DEPARTMENT OF SURGERY EMERGENCY GENERAL SURGERY Division [...] other applicable data points. Please refer to [employer] ([employer]) for this information . PHYSICAL EXAM: LAST [...] acute care Signed: Aleena Boswell DO PGY-1 [facility] General Surgery EGS Surgery Service Pager: [phone] oops, Kemi Mariano MD - 07/20/2014 5:40 [...] General Surgery Resident, R2 EGS Julien Pager [phone] Mark Arce MD - 07/19/2014 5:14 PM [...] concerns Osiel Garrett MD Nephrology Fellow Pager [phone] Darius Damico - 07/19/2014 2:04 PM PDTMed Student Procedure Note 07/19/2014 14:06 RUQ drain removed due to low drain output. The patient tolerated the procedure well. The dr tenorio site was clean and pink, without erythema or purulent material. The stitch was removed a nd the site was covered with clean gauze and medipore tape Darius Cantrell [id number] signed by Aleena Boswell DO at 07/19/2014 [...] PM repeat CK we spoke with on-call administrative tech again who recommended d/c'ing IVF given that patient is o liguric to prevent fluid overload, and repeating BMP and CK at 5AM, which is ordered. Discus sed with on-call administrative tech and then with patient that there is [...] to continu e to follow closely overnight. Rihcar Craft MD R1, Department of General Surgery [facility] Pager [phone] YNETaBbita hairston MD - 07/18/2014 10:26 PM PDTAcute [...] on her back due to pain. [facility] is concerned that she will [...] mg po BID for short-term. 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 --Offer heating pad and ice for back pain. --Use abdominal binder. --Consult PT for TENS unit. --Obtain thoracolumbar and lumbar spinal radiographs. APS will evaluate Ms. Nuno in the morning for consideration of trigger point injections. Discussed with attending physician, Yarely Boone MD who agrees with the above recommenda tions. Recommendations communicated to primary steam tank operator, Rolando Case MD. Babita Grey MD Anesthesiology/[facility] APS Pager [phone] Snehal Pradhan MD - 07/18/2014 11:42 AM PDT [facility] DEPARTMENT OF SURGERY EMERGENCY GENERAL SURGERY Division [...] other applicable data points. Please refer to [facility] for this information . PHYSICAL EXAM: [...] Requires acute care Signed: Hien Solo MD [facility] General Surgery R1 Pager #[phone] Alverto Villegas MD - 07/17/2014 5:04 AM [...] stable, urinating. ALVERTO CASE MD SURGERY R-3 [id number] Ren Mendoza - 07/16/2014 6:58 PM PDTPatient [...] Gallbladder Complications: liver laceration Drains: subhepatic 19 Divehi Piero drain in the gallbladder fossa Disposition: to florez Findings: Very large gallstone 2 x 3 cm obstructing the neck. Very edematous, thick gallbla dder wall. Dictatioon [id number] signed by Monica Yanez MD at 07/16/2014 [...] Attending | | Surgeon: Jaimee Gomez MD Hose Seamer(s): Reji Whitehead MD. | | Hose Seamer(s): Monica Yanez MD, R5. Ren Castellanos MD, [...] morbid obesity, the patient was transferred to [facility] for further evaluation and | | [...] | draped in normal sterile fashion. A horse race timer-out was performed. We began with entry | [...] 07/16/2014 | | 19:38:09DT: 07/16/2014 21:16:14Job #: [id number] was present for the critical | | portions of the procedure as described in the note for this encounter.Jaimee Gomez, | | [id number] [place] [address] | + + MAGNESIUM, PLASMA (07/27/2014 5:18 [...] [facility] | [address] | [place] [address] | | | SERVICES, CORE | PARK [...] | | | LABORATORY | | | [place] | | | SERVICES, | | | [...] | + + + + + | [employer] | [address] | [place] [address] | | | SERVICES, CORE | PARK [...] [facility] | [address] | [place] [address] | | | SERVICES, CORE | PARK [...] | + + + + + | [facility] | [address] | [place] [address] | | | SERVICES, CORE | KODI [...] | | | LABORATORY | | | [place] | | | SERVICES, | | | [...] the MDRD equation recommended by the | [facility] | | National Kidney Disease Education Program. [...] | + + + + + | [facility] | [address] | [place] [address] | | | SEVEN, CORE | [address] | | | + + + + + MAGNESIUM, PLASMA (07/25/2014 7:45 AM PDT) + +-------+ + + + | Component | Value | Ref Range | Performed | Pathologist | | | | | At | Signature | + +-------+ + + + | MAGNESIUM,P | 2.0 | 1.8 - 2.5 mg/dL | [facility] | | | TERRANCEMA | | | [...] | + + + + + | [facility] | [address] | [place] [address] | | | SERVICES, CORE | PARK [...] | | | LABORATORY | | | [place] | | | SERVICES, | | | [...] the MDRD equation recommended by the | [facility] | | National Kidney Disease Education Program. [...] | + + + + + | [facility] | [address] | [place] [address] | | | SEVEN, MAGDA | KODI [...] [facility] | [address] | [place] [address] | | | SERVICES, CORE | PARK [...] (H) | 60 - 99 mg/dL | [facility] | | | PLASMA | | | [...] | | | LABORATORY | | | [place] | | | SERVICES, | | | [...] | + + + + + | [facility] | [address] | [place] [address] | | | SEVEN, MAGDA | KODI [...] | + + + + + | [facility] | [address] | [place] [address] | | | MAGDA AMEZCUA | KODI [...] [facility] | [address] | [place], [place] | | | KRISTEN GREENE OF [facility] | [address] | [address] | | | TESTS | | | [...] | + + + + + | [facility] | [address] | [place] [address] | | | SERVICES, CORE | KODI [...] | | | LABORATORY | | | [place] | | | SERVICES, | | | [...] the MDRD equation recommended by the | [facility] | | National Kidney Disease Education [...] [facility] | [address] | [place] [address] | | | SERVICES, CORE | PARK [...] | + + + + + | [facility] | [address] | [place] [address] | | | SERVICES, CORE | [address] | | | + + + + + CARDIOLOGY (07/23/2014 12:00 AM PDT) + + + | Narrative | Performed At | + + + | | | | | | + + + + + | Procedure Note | + + | Cherry Wodoard - 07/23/2014 9:27 PM PDT | + [...] [facility] | [address] | [place], [place] | | | KRISTEN GREENE OF CARE | [address] | [address] | | | TESTS | | | [...] [facility] | [address] | [place], [place] | | | KRISTEN GREENE OF CARE | [address] | [address] | | | TESTS | | | [...] [facility] | [address] | [place], [place] | | | [place] OF [facility] | [address] | [address] | | | TESTS | | | [...] | + + + + + | [facility] | [address] | [place] [address] | | | SERVICES, CORE | KODI [...] | | | LABORATORY | | | [place] | | | SERVICES, | | | [...] the MDRD equation recommended by the | [facility] | | National Kidney Disease Education [...] | + + + + + | [facility] | [address] | [place] [address] | | | MAGDA AMEZCUA | KODI [...] - [facility] | [address] | [place], [place] | | | [place] POINT OF CARE | [address] | [address] | | | TESTS | | | [...] [facility] | [address] | [place] [address] | | | SERVICES, CORE | PARK [...] (H) | 38 - 234 U/L | [facility] | | | | | | LABORATORY [...] [facility] | [address] | [place] [address] | | | SERVICES, CORE | PARK [...] | | | LABORATORY | | | [place] | | | SERVICES, | | | [...] equation recommended by the National | SERVICES, [facility] | | Kidney Disease Education Program. Estimated [...] | + + + + + | [facility] | [address] | [place] [address] | | | SERVICES, [facility] | [address] | | | + [...] [facility] | [address] | [place], [place] | | | KRISTEN GREENE OF CARE | [facility] | [address] | | | TESTS | | | | + + + + + CK, PLASMA (07/21/2014 7:39 PM PDT) + + + + + + | Component | Value | Ref Range | Performed | Pathologist | | | | | At | Signature | + + + + + + | CK | 12,077 (H) | 38 - 234 U/L | [facility] | | | | | | [...] | + + + + + | [facility] | [address] | [place] [address] | | | SERVICES, CORE | PARK [...] | | | LABORATORY | | | [place] | | | SERVICES, | | | [...] | + + + + + | [facility] | [address] | [place] [address] | | | SERVICES, CORE | KODI [...] 92 | 60 - 99 mg/dL | [facility] - | | | GLUCOSE, | | [...] [facility] | [address] | [place], [place] | | | KRISTEN GREENE OF [place] | [address] | [address] | | | TESTS | | | [...] [facility] | [address] | [place] [address] | | | SERVICES, CORE | PARK [...] | | | LABORATORY | | | [place] | | | SERVICES, | | | [...] | + + + + + | [facility] | [address] | [place] [address] | | | SERVICES, CORE | PARK [...] 79 | 60 - 99 mg/dL | [facility] - | | | GLUCOSE, | [...] [facility] | [address] | [place], [place] | | | KRISTEN GREENE OF [place] | [facility] | [address] | | | TESTS | | | [...] [facility] | [address] | [place], [place] | | | KRISTEN GREENE OF CARE | [facility] | [address] | | | TESTS | | | [...] [facility] | [address] | [place], [place] | | | K[facility]EN GREENE OF [facility] | [facility] | [address] | | | TESTS | | | [...] | + + + + + | [facility] | [address] | [place] [address] | | | SERVICES, CORE | KODI [...] | | | LABORATORY | | | [place] | | | SERVICES, | | | [...] the MDRD equation recommended by the | [facility] | | National Kidney Disease Education [...] | + + + + + | [facility] | [address] | [place] [address] | | | SERVICES, CORE | KODI [...] 93 | 60 - 99 mg/dL | [facility] - | | | GLUCOSE, | [...] [facility] | [address] | [place], [place] | | | [place] POINT OF CARE | [facility] | [address] | | | TESTS | | | [...] | + + + + + | [facility] | [address] | [place] [address] | | | SERVICES, CORE | KODI [...] | | | LABORATORY | | | [place] | | | SERVICES, | | | [...] | + + + + + | [facility] [employer] [facility] | [address] | [place] [address] | | | SERVICES, CORE | KODI [...] | | + +---------+ + + | [facility] DEPARTMENT OF | | | | [...] + | [facility] - | [address] | [place] [address] | | | [place] | | | | + + + + + CK, PLASMA (07/20/2014 10:37 AM PDT) + + + + + + | Component | Value | Ref Range | Performed | Pathologist | | | | | At | Signature | + + + + + + | CK | >97457 (H) | 38 - 234 U/L | [...] [facility] | [address] | [place] [address] | | | SERVICES, CORE | PARK [...] | | | LABORATORY | | | [place] | | | SERVICES, | | | [...] | + + + + + | [facility] | [address] | [place] [address] | | | SERVICES, CORE | PARK [...] [facility] | [address] | [place] [address] | | | SERVICES, CORE | KODI [...] | | POC | | | KRISTEN RGEENE | | | | | | OF [...] - [facility] | [address] | [place], [place] | | | [place]INT [facility] | [address] | [address] | | | TESTS | | | [...] [facility] | [address] | [place] [address] | | | SERVICES, CORE | PARK [...] | + + + + + | [facility] | [address] | [place] [address] | | | SERVICES, CORE | KODI [...] | | | LABORATORY | | | [place] | | | SERVICES, | | | [...] [facility] | [address] | [place] [address] | | | SERVICES, CORE | PARK [...] | + + + + + | [facility] | [address] | [place] [address] | | | SERVICES, CORE | PARK [...] | | | LABORATORY | | | [place] | | | SERVICES, | | | [...] the MDRD equation recommended by the | [facility] | | National Kidney Disease Education [...] | + + + + + | [facility] | [address] | [place] [address] | | | SERVICES, CORE | [address] | | | + + + + + X-RAY PORTABLE CHEST 1 VIEW (07/19/2014 7:04 PM PDT) + + + + + + | Component | Value | Ref Range | Performed | Pathologist | | | | | At | Signature | + + + + + + | X-RAY | EXAM: [place] CHEST 1 VIEW | | | | [...] | | + +---------+ + + | [facility] DEPARTMENT OF | | | | [...] [facility] | [address] | [place], [place] | | | [place]INT OF CARE | [address] | [address] | | | TESTS | | | [...] [facility] | [address] | [place] [address] | | | SERVICES, CORE | PARK [...] [facility] | [address] | [place] [address] | | | MAGDA AMEZCUA | KODI [...] | + + + + + | [facility] | [address] | [place] [address] | | | SERVICES, CORE | PARK [...] | + + + + + | [facility] | [address] | [place] [address] | | | SERVICES, CORE | KODI [...] | | | LABORATORY | | | [place]LANDER | | | SERVICES, | | | [...] | + + + + + | [facility] | [address] | [place] [address] | | | MAGDA AMEZCUA | KODI [...] - [place] | [address] | [place], [place] | | | [place]INT OF CARE | [address] | [address] | | | TESTS | | | [...] | + + + + + | [facility] | [address] | [place] [address] | | | SERVICES, CORE | KODI [...] [facility] | [address] | [place] [address] | | | SERVICES, CORE | PARK [...] | | | LABORATORY | | | [place]LANDER | | | SERVICES, | | | [...] | + + + + + | [facility] | [address] | [place] [address] | | | SERVICES, CORE | KODI [...] (H) | 60 - 99 mg/dL | [facility] - | | | GLUCOSE, | | [...] [facility] | [address] | [place], [place] | | | [facility] [place] | [facility] | [address] | | | TESTS | | | [...] | + + + + + | [facility] | [address] | [place] [address] | | | SERVICES, CORE | PARK [...] [facility] | [address] | [place] [address] | | | SERVICES, CORE | PARK [...] | | | LABORATORY | | | P[place] ISLANDER | | | SERVICES, | | | [...] the MDRD equation recommended by the | [facility] | | National Kidney Disease Education [...] | + + + + + | [facility] | [address] | [place] [address] | | | SERVICES, [facility] | [address] | | | + [...] - [place] | [address] | [place], [place] | | | [place]INT OF [facility] | [address] | [address] | | | TESTS | | | [...] [facility] | [address] | [place] [address] | | | SERVICES, CORE | PARK [...] | + + + + + | [facility] | [address] | [place] [address] | | | SERVICES, CORE | KODI [...] (H) | 60 - 99 mg/dL | [facility] - | | | GLUCOSE, | [...] [facility] | [address] | [place], [place] | | | [place]INT OF CARE | [address] | [address] | | | TESTS | | | [...] [facility] | [address] | [place], [place] | | | [facility] | [facility] | [address] | | | TESTS | | | [...] [facility] | [address] | [place] [address] | | | SERVICES, CORE | PARK [...] | + + + + + | [facility] | [address] | [place] [address] | | | SERVICES, CORE | KODI [...] [facility] | [address] | [place] [address] | | | SERVICES, CORE | PARK [...] | | | LABORATORY | | | [place] ISLANDER | | | SERVICES, | | | [...] | + + + + + | [facility] | [address] | [place] [address] | | | SEVEN, MAGDA | KODI [...] [facility] | [address] | [place], [place] | | | [place]INT OF CARE | [facility] | [address] | | | TESTS | | | [...] [facility] | [address] | [place] [address] | | | SERVICES, CORE | PARK [...] | + + + + + | [facility] | [address] | [place] [address] | | | SERVICES, CORE | PARK [...] [facility] | [address] | [place] [address] | | | SEVEN, MAGDA | KODI [...] | | | LABORATORY | | | P[place] ISLANDER | | | SERVICES, | | | [...] | + + + + + | [facility] | [address] | [place] [address] | | | SERVICES, CORE | KODI [...] [facility] | [address] | [place], [place] | | | K[facility]EN GREENE [facility] CARE | [address] | [address] | | | TESTS | | | [...] - [facility] | [address] | [place], [place] | | | [place] | [address] | [address] | | | TESTS | | | [...] | | | LABORATORY | | | [place] ISLANDER | | | SERVICES, | | | [...] the MDRD equation recommended by the | [facility] | | National Kidney Disease Education [...] | + + + + + | [facility] | [address] | [place] [address] | | | MAGDA AMEZCUA | KODI [...] (H) | 60 - 99 mg/dL | [facility] - | | | GLUCOSE, | [...] [place] | [address] | [place], [place] | | | [facility] [place] | [address] | [address] | | | TESTS | | | [...] [place] | [address] | [place], [place] | | | [facility] [place] | [facility] | [address] | | | TESTS | | | [...] | + + + + + | [facility] | [address] | [place] [address] | | | SERVICES, CORE | PARK [...] [facility] | [address] | [place] [address] | | | SERVICES, CORE | PARK [...] | | | LABORATORY | | | [place]LANDER | | | SERVICES, | | | [...] the MDRD equation recommended by the | [facility] | | National Kidney Disease Education [...] | + + + + + | [facility] | [address] | [place] [address] | | | MAGDA AMEZCUA | KODI [...] - [facility] | [address] | [place], [place] | | | [place]INT OF CARE | [address] | [address] | | | TESTS | | | [...] [facility] | [address] | [place] [address] | | | SERVICES, CORE | [address] | | | + + + + + MAGNESIUM, PLASMA (07/16/2014 6:29 AM PDT) + +-------+ + + + | Component | Value | Ref Range | Performed | Pathologist | | | | | At | Signature | + +-------+ + + + | MAGNESIUM,P | 2.2 | 1.8 - 2.5 mg/dL | [facility] | | | LASMA | | [...] [facility] | [address] | [place] [address] | | | SERVICES, CORE | PARK [...] | | | LABORATORY | | | P[place] ISLANDER | | | SERVICES, | | | [...] | + + + + + | [facility] [employer] | [address] | [place] [address] | | | SEVEN, MAGDA | KODI [...] Nelly [facility] | [address] | [place], [place] | | | [facility] OF [facility] | [facility] | [address] | | | TESTS | | | [...] DEPT OF | [address] | [place], [place] | | | CARDIOLOGY | [address] | [address] | | + + + + + [...] region. | | | | | | Bindery Machine Tender | | | | | | sections aresubmitted. | | | | | | Cassette | | | | | | Index:A1-2, | | | | | | support representative sections | | | | | | A1, perpendicular | | | | | | section of gallbladder | | | | | | neck A2, | | | | | | support representative | | | | | | [...] | + + + + + | [facility] | [address] | [place] [address] | | | PATHOLOGY | [address] [...] (H) | 60 - 99 mg/dL | [facility] - | | | GLUCOSE, | [...] [facility] | [address] | [place], [place] | | | [place] POINT OF CARE | [address] | [address] | | | TESTS | | | [...] [facility] | [address] | [place], [place] | | | [facility] GREENE [facility] CARE | [address] | [address] | | | TESTS | | | [...] | + + + + + | [facility] | [address] | [place] [address] | | | SEVEN, MAGDA | KODI [...] DEPT OF | [address] | [place], [place] | | | CARDIOLOGY | [address] | [address] | | + + + + + X-RAY PORTABLE CHEST 1 VIEW (07/15/2014 1:44 PM PDT) + + + + + + | Component | Value | Ref Range | Performed | Pathologist | | | | | At | Signature | + + + + + + | X-RAY | EXAM: [place] CHEST 1 VIEW | | | | [...] | | + +---------+ + + | [facility] DEPARTMENT OF | | | | [...] [facility] | [address] | [place], [place] | | | [facility] CARE | [address] | [address] | | | TESTS | | | [...] | + + + + + | [facility] | [address] | [place] [address] | | | SERVICES, CORE | KODI [...] [facility] | [address] | [place] [address] | | | SERVICES, CORE | PARK [...] | | | LABORATORY | | | [place] ISLANDER | | | SERVICES, | | | [...] | + + + + + | [facility] | [address] | [place] [address] | | | SERVICES, CORE | PARK [...] (H) | 60 - 99 mg/dL | [facility] - | | | GLUCOSE, | [...] [facility] | [address] | [place], [place] | | | [facility] | [facility] | [address] | | | TESTS | | | [...] [facility] | [address] | [place], [place] | | | [facility] CARE | [address] | [address] | | | TESTS | | | [...] [facility] | [address] | [place] [address] | | | SERVICES, | [address] [...] | + + + + + | [facility] | [address] | [place] [address] | | | SERVICES, | [address] [...] [facility] | [address] | [place] [address] | | | SERVICES, CORE | PARK [...] | + + + + + | [facility] | [address] | [place] [address] | | | SERVICES, CORE | PARK [...] | | | LABORATORY | | | [place] ISLANDER | | | SERVICES, | | | [...] | + + + + + | [facility] | [address] | [place] [address] | | | SERVICES, CORE | PARK [...] | + + + + + | [facility] | [address] | [place] [address] | | | MAGDA AMEZCUA | [address] [...]
--- OUTSIDE RECORDS SUMMARY | ~2019-02-23 | XMS | Clinical Summary ---
Demographics + + + | Address | [address] | | | [place] [address] | + + + | Home Phone | | + + + | Preferred Language | Unknown | + + + | Marital Status | | + + + | Episcopalian Affiliation | Unknown | + + + | Race | Unknown | + + + | Ethnic Group | Unknown | + + + Author + + + | Author | [facility] (Historical as of | | | 11-12-18) | + + + | Organization | [facility] (Historical as of | | | 11-12-18) | + + + | Address | Unknown | + + + | Phone | Unavailable | + + + Support + + + + + | Name | Relationship | Address | Phone | + + + + + | Gigi Nuno | ECON | [address] | | | | | [place] | | | | | [address] | | + + + + + Care Team Providers + +------+ + | Care Weights And Measures Inspector Name | Role | Phone | + +------+ + | Scotty Ronquillo MD | PP | | + +------+ + Allergies Not on File Current Medications Not on file Active Problems Not on file Social History + +-------+ +--------+------+ | Tobacco [...] on file | | + + + Plan of Treatment Not on file Results Not on filefrom Last 3 Months"
--- OUTSIDE RECORDS SUMMARY | ~2019-02-23 | XMS | Encounter Summary ---
Demographics + + + | Address | [address] | | | [place] [address] | + + + | Home Phone | | + + + | Preferred Language | Unknown | + + + | Marital Status | | + + + | Buddhism Affiliation | Unknown | + + + | Race | Unknown | + + + | Ethnic Group | Unknown | + + + Author + + + | Author | [facility] | | | and [place] | + + + | Organization | [facility] | | | and [place] [...] Team Providers + +------+ + | Care Program Counselor Name | Role | Phone | + +------+ + PCP | Unavailable | + +------+ + Encounter Details +--------+ + + + + | Date | Type | Department | Care Team | Description | +--------+ + + + + | 12/13/ | Hospital | [facility] | | | | 2003 | Encounter | [facility] | | | | | | CENTER [address] | | | | | | [place] | | | | | | [address] | | | | | | [phone] | | | +--------+ + + + [...]
--- OUTSIDE RECORDS SUMMARY | ~2019-02-23 | XMS | Encounter Summary ---
Demographics + + + | Address | [address] | | | [place] [address] | + + + | Home Phone | | + + + | Preferred Language | Unknown | + + + | Marital Status | | + + + | Adventist Affiliation | PEN | + + + | Race | White | + + + | Ethnic Group | Not or | + + + Author + + + | Author | [facility] | + + + | Organization | [facility] | + + + | Address | Unknown | + + + | Phone | Unavailable | + + + Support + + + + + | Name | Relationship | Address | Phone | + + + + + | Gigi goddard | ECON | [address] | | | | [place] | | | | | [address] | | + + + + + Care Team Providers + +------+ + | Care Heading Maker Name | Role | Phone | + +------+ + | Ophelia Villalta | PCP | | + +------+ + Encounter Details +--------+ + + + + | Date | Type | Department | Care Team | Description | +--------+ + + + + | 07/13/ | Document-Sc | UNKNOWN DEPARTMENT | Unknown . | | | 2015 | anned | [address] | | | | | | [address] | | | | | | [place] | | | | | | [address] | | | +--------+ + + + [...] + + + | RADIOLOGY | | 07/13/2014 | | Results for this | | | | 12:00 AM | | procedure are in the | | | | PDT | | results section. | + +--------+ + + + documented in this encounter Results RADIOLOGY (07/13/2014 12:00 AM PDT) + + + | Narrative | Performed At | + + + | | | + + + documented in this encounter Visit Diagnoses Not on filedocumented in this encounter"
--- OUTSIDE RECORDS SUMMARY | ~2019-02-23 | XMS | Encounter Summary ---
Demographics + + + | Address | [address] | | | [place] [address] | + + + | Home Phone | | + + + | Preferred Language | Unknown | + + + | Marital Status | | + + + | Restorationism Affiliation | Unknown | + + + | Race | Unknown | + + + | Ethnic Group | Unknown | + + + Author + + + | Author | [facility] | | | and [place] | + + + | Organization | [facility] | | | and [place] | [...] Team Providers + +------+ + | Care Middle School History Teacher Name | Role | Phone | + +------+ + PCP | Unavailable | + +------+ + Encounter Details +--------+ + + + + | Date | Type | Department | Care Team | Description | +--------+ + + + + | 01/10/ | Hospital | [facility] | Brett Calvo, | | | 2003 | Encounter | CONVERSION DEP [address] | [address] | | | | | [address] | [place], [place] | | | | | [place], [place] | [address] | | | | | [address] | | | | | | [phone] | | | +--------+ + + + [...]
--- OUTSIDE RECORDS SUMMARY | ~2019-02-23 | XMS | Clinical Summary ---
Demographics + + + | Address | [address] | | | [place] [address] | + + + | Home Phone | | + + + | Preferred Language | Unknown | + + + | Marital Status | | + + + | Pentecostalism Affiliation | PEN | + + + | Race | White | + + + | Ethnic Group | Not or | + + + Author + + + | Author | [facility] | + + + | Organization | [facility] | + + + | Address | Unknown | + + + | Phone | Unavailable | + + + Support + + + + + | Name | Relationship | Address | Phone | + + + + + | Gigi goddard | ECON | [address] | | | | | [place] | | | | | [address] | | + + + + + Care Team Providers + +------+ + | Care Incinerator Attendant Name | Role | Phone | + +------+ + | Ophelia Villalta | PCP | | + +------+ + Source Comments GINGER is fully live on both EpicCare Ambulatory and EpicCare InPatient.[facility] Allergies + + + + + + | Active Allergy | Reactions | Severity | Noted | Comments | | | | | Date | | + + + + + + | Meperidine (Pf) | Nausea and Vomiting | | 07/15/19 | | | | | | 15 | | + + + + + + | Morphine | Nausea | | 07/15/19 | "I can't describe | | | | | 15 | it. It just makes me | | | | | | feel sick." | + + + + + + Medications + + + +---------+------+------+-------+ | Medication | Sig | Dispensed | Refills | Star | End | Statu | | | | | | t | Date | s | | | | | | Date | | | + + + +---------+------+------+-------+ | oxyCODONE, | Take 1 tablet by | 10 | 0 | 05/0 | | Activ | | immediate release, 5 | mouth every four | tablet | | 1/20 | | e | | mg oral tablet | hours as needed for | | | 15 | | | | | moderate pain. | | | | | | + + + +---------+------+------+-------+ | lidocaine 5 %(700 | Apply 2 patches to | 60 | 0 | 05/0 | | Activ | | mg/patch) topical | skin every | patch | | 1/20 | | e | | adhesive | twenty-four hours. | | | 15 | | | | patch,medicated | Apply [...] | period. | | | | | | + + + +---------+------+------+-------+ | albuterol 90 | Inhale 2 puffs every | 18 g | 0 | 05/0 | | Activ | | mcg/actuation | four hours as | | | 1/20 | | e | | inhalation HFA | needed. | | | 15 | | | | aerosol inhaler | | | | | | | + + + +---------+------+------+-------+ | acetaminophen 325 | Take 2 tablets by | | 0 | 05/0 | | Activ | | mg oral tablet | mouth every six | | | 1/20 | | e | | | hours. | | | 15 | | | + + + +---------+------+------+-------+ | polyethylene | Take 17 g by mouth | 119 g | 0 | 05/0 | | Activ | | glycol 17 gram/dose | once daily. | | | 1/20 | | e | | oral powder | | | | 15 | | | + + + +---------+------+------+-------+ | senna-docusate | Take 1 tablet by | 60 | 0 | 05/0 | | Activ | | 8.6-50 mg oral | mouth two times | tablet | | 1/20 | | e | | tablet | daily. | | | 15 | | | + + + +---------+------+------+-------+ | metoprolol | Take 50 mg by mouth | | 0 | | | Activ | | tartrate 50 mg oral | two times daily. | | | | | e | | tablet | | | | | | | + + + +---------+------+------+-------+ | metFORMIN 500 mg | Take 500 mg by mouth | | 0 | | | Activ | | oral tablet | once daily. | | | | | e | + + + +---------+------+------+-------+ | omeprazole 20 mg | Take 20 mg by mouth | | 0 | | | Activ | | oral capsule,delayed | once daily. | | | | | e | | release(/WILVER) | | | | | | | + + + +---------+------+------+-------+ | aspirin 81.25 mg | Take by mouth once | | 0 | | | Activ | | oral tablet | daily. | | | | | e | + + + +---------+------+------+-------+ | zinc sulfate 220 | Take 50 mg by mouth | | 0 | | | Activ | | (50) mg oral capsule | once daily. | | | | | e | + + + +---------+------+------+-------+ | cholecalciferol, | Take 1,000 Units by | | 0 | | | Activ | | Vitamin D3, 1,000 | mouth once daily. | | | | | e | | unit oral tablet | | | | | | | + + + +---------+------+------+-------+ | ferrous sulfate | Take by mouth once | | 0 | | | Activ | | 325 mg (65 mg iron) | daily. Patient does | | | | | e | | oral tablet | not know dose that | | | | | | | | she takes. | | | | | | + + + +---------+------+------+-------+ Active Problems + + + | Problem | Noted Date | + + + | Acute kidney injury | 07/25/2014 | + + + | Acute tubular necrosis | 07/25/2014 | + + + | Morbid obesity | 07/25/2014 | + + + | Non-traumatic rhabdomyolysis | 07/25/2014 | + + + | Chronic back pain | 07/25/2014 | + + + | Physical deconditioning | 07/25/2014 | + + + | Hyponatremia with excess extracellular fluid volume | 07/25/2014 | + + + | Diabetes mellitus type 2, controlled, without complications | 07/25/2014 | + + + | Essential hypertension | 07/25/2014 | + + + | Mild intermittent asthma without complication | 07/25/2014 | + + + | Gastroesophageal reflux disease without esophagitis | 07/25/2014 | + + + | Symptomatic cholelithiasis | 07/14/2014 | + + + Social History + +-------+ [...] recent travel history available. | + + Last Filed Vital Signs + + + [...] | | + + + + + Plan of Treatment + + + + + | Health Maintenance | Due Date | Last Done | Comments | + + + + + | Pneumococcal | | | | | vaccination (1 of 1 | 7 | | | | - PPSV23) | | | | + + + + + | Influenza (Flu) | | | | | vaccination (#1) | 9 | | | + + + + + Implants + +------+--------+ +--------+--------+--------+ | Implanted | Type | Area | Manufacture | Device | Shelf | Model | | | | | r | | Expira | / | | | | | | Identi | tion | Serial | | | | | | fier | Date | / Lot | + +------+--------+ +--------+--------+--------+ | Floseal 5mm - | | N/A: | FLANAGAN | | 11/26/ | [id number] | | [id number]: Qty: 1 on | | Abdome | HEALTHCARE | | 2016 | 0 / | | 07/16/2014 by Jaimee Gomez | | n | | | | /[id number] | | MD Juan Daniel at [facility] | | | | | | 131 | | LOC | | | | | | | + +------+--------+ +--------+--------+--------+ | Catheter Dialysis 13x20 | | Right: | MEDCOMP | | 12/26/ | [id number] | | Duosplit Tray - | | Neck | | | 2014 | IJT / | | [id number]: Qty: 1 on | | | | | | /[id number] | | 07/19/2014 by Kemi Posadas | | | | | | 30 | | MD Cristina at [facility] | | | | | | | | LOC | | | | | | | + +------+--------+ +--------+--------+--------+ Results Not on filefrom Last 3 Months Insurance + +--------+ +--------+-------+---------+--------+ | Payer | Benefi | Subscriber | Effect | Phone | Address | Type | | | t Plan | ID | summer | | | | | | / | | Dates | | | | | | Group | | | | | | + +--------+ +--------+-------+---------+--------+ | PERSONNEL AND PAYROLL TECHNICIAN MEDICAID | PERSONNEL AND PAYROLL TECHNICIAN | xxxxxxxx | | | | Medica | | | [place] | | 014-Pr | | | id | | | [place] | | esent | | | | + +--------+ +--------+-------+---------+--------+ + +--------+ +--------+ + + | Guarantor Name | Accoun | Relation to | Date | Phone | Billing Address | | | t Type | Patient | of | | | | | | | | | | + +--------+ +--------+ + + | Isa Goddard | Person | Self | [birth year] [address][birth year] | | | al/Fam | | 1971 | [phone] | [place] [address] | | | dat | | | 0 (Home) | | + +--------+ +--------+ + + Advance Directives + + + + + | Code Status | Date | Date | Comments | | | Activated | Inactivated | | + + + + + | Full Code | 07/14/2014 | 07/27/2014 | | | | 7:19 PM | 10:14 PM | | + + + + +
--- OUTSIDE RECORDS SUMMARY | ~2019-02-23 | XMS | Encounter Summary ---
Demographics + + + | Address | [address] | | | [place] [address] | + + + | Home Phone | | + + + | Preferred Language | Unknown | + + + | Marital Status | | + + + | Advent Affiliation | Unknown | + + + | Race | Unknown | + + + | Ethnic Group | Unknown | + + + Author + + + | Author | [facility] | | | and [place] | + + + | Organization | [facility] | | [...] Team Providers + +------+ + | Care Statistical Developer Name | Role | Phone | + +------+ + PCP | Unavailable | + +------+ + Encounter Details +--------+ + + + + | Date | Type | Department | Care Team | Description | +--------+ + + + + | 10/08/ | Hospital | [facility] | | | | 2005 | Encounter | MED CTR XRAY [address] | | | | | | [address] | | | | | | [place] [address] | | | | | | [phone] | | | +--------+ + + + [...]
--- OUTSIDE RECORDS SUMMARY | ~2019-02-23 | XMS | Encounter Summary ---
Demographics + + + | Address | [address] | | | [place] [address] | + + + | Home Phone | | + + + | Preferred Language | Unknown | + + + | Marital Status | | + + + | Anabaptist Affiliation | Unknown | + + + | Race | Unknown | + + + | Ethnic Group | Unknown | + + + Author + + + | Author | [facility] | | | and [place] | + + + | Organization | [facility] | | | and [...] Team Providers + +------+ + | Care Bi Lead Name | Role | Phone | + [...] | NEPHROLOGY [address] | | | | | [address] | [address] | | | | | [place] | [place] [id number] | | | | | [id number] | [phone] | | | | | [phone] | | | +--------+ + + + [...]
--- OUTSIDE RECORDS SUMMARY | ~2019-02-23 | XMS | Encounter Summary ---
Demographics + + + | Address | [address] | | | [place] [address] | + + + | Home Phone | | + + + | Preferred Language | Unknown | + + + | Marital Status | | + + + | Jewish Affiliation | Unknown | + + + | Race | Unknown | + + + | Ethnic Group | Unknown | + + + Author + + + | Author | [facility] | | | and [place] | + + + | Organization | [facility] | | | and [place] [...] Team Providers + +------+ + | Care Side Panel Padder Name | Role | Phone | + [...] NEPHROLOGY [address] [place] | disease, stage III | | | | [address] | [address] [place] | (moderate) (Primary | | | | [place] | [place] [address] | Dx); Acute kidney | | | | [address] | [phone] | failure with lesion | | | | [phone] | | of tubular necrosis | | [...]
--- OUTSIDE RECORDS SUMMARY | ~2019-02-23 | XMS | Clinical Summary ---
Demographics + + + | Address | [address] | | | [place] [address] | + + + | Home Phone | | + + + | Preferred Language | Unknown | + + + | Marital Status | | + + + | Taoist Affiliation | Unknown | + + + | Race | Unknown | + + + | Ethnic Group | Unknown | + + + Author + + + | Author | [facility] (Histor[facility] as of | | | 11-12-18) | + + + | Organization | [facility] (Historical as of | | | 11-12-18) [...] [place] | | | | | [address] | | + + + + + Care Team Providers + +------+ + | Care Trash Man Name | Role | Phone | + [...]
--- OUTSIDE RECORDS SUMMARY | ~2019-02-23 | XMS | Encounter Summary ---
Demographics + + + | Address | [address] | | | [place] [address] | + + + | Home Phone | | + + + | Preferred Language | Unknown | + + + | Marital Status | | + + + | Confucianist Affiliation | Unknown | + + + | Race | Unknown | + + + | Ethnic Group | Unknown | + + + Author + + + | Author | [facility] | | | and [place] | + + + | Organization | [facility] | | | and [place] | [...] Team Providers + +------+ + | Care Pet Walker Name | Role | Phone | + [...] | | [address] | [place] | | | | | [place], [place] | [place] | | | | | [address] | [address] | | | | | [phone] | | | +--------+ + + + [...]
--- OUTSIDE RECORDS SUMMARY | ~2019-02-23 | XMS | Clinical Summary ---
Demographics + + + | Address | [address] | | | [place] [address] | + + + | Home Phone | | + + + | Preferred Language | Unknown | + + + | Marital Status | | + + + | Yarsani Affiliation | Unknown | + + + | Race | Unknown | + + + | Ethnic Group | Unknown | + + + Author + + + | Author | [facility] | | | and [place] | + + + | Organization | [facility] | | | and [...] Team Providers + +------+ + | Care Engineering Supervisor Name | Role | Phone | + +------+ + | Scotty Rnoquillo | PCP | | + +------+ + Allergies + + + + + + | Active Allergy | Reactions | Severity | Noted | Comments | | | | | Date | | + + + + + + | Meperidine | Nausea And Vomiting | | 08/30/19 | | | | | | 15 | | + + + + + + | Hydrochlorothiazide | | | 08/30/19 | Over active | | | | | 15 | bladder | + + + + + + | Lisinopril | Nausea Only | | 08/30/19 | | | | | | 15 | | + + + + + + | Losartan | Nausea Only | | 08/30/19 | Dizzy | | | | | 15 | | + + + + + + | Morphine | Other (See Comments) | | 11/21/19 | "Bad headaches" | | | | | 15 | | + + + + + + Medications + + + +---------+------+------+-------+ | Medication | Sig | Dispensed | Refills | Star | End | Statu | | | | | | t | Date | s | | | | | | Date | | | + + + +---------+------+------+-------+ | albuterol 2.5 mg/3 | Take 2.5 mg by | | 0 | | | Activ | | mL nebulizer | nebulization every 6 | | | | | e | | solution | hours as needed for | | | | | | | | Wheezing. | | | | | | + + + +---------+------+------+-------+ | fluticasone | 2 sprays by Nasal | | 0 | | | Activ | | (VERAMYST) 27.5 | route Daily as | | | | | e | | MCG/SPRAY nasal | needed. | | | | | | | spray | | | | | | | + + + +---------+------+------+-------+ | aspirin 81 mg EC | Take 81 mg by mouth | | 0 | | | Activ | | tablet | Daily. | | | | | e | + + + +---------+------+------+-------+ | albuterol 90 | Inhale 2 puffs into | | 0 | | | Activ | | mcg/puff inhaler | the lungs every 6 | | | | | e | | | hours as needed for | | | | | | | | Wheezing. | | | | | | + + + +---------+------+------+-------+ | metFORMIN | Take 500 mg by mouth | | 0 | | | Activ | | (GLUCOPHAGE-XR) 500 | 2 times daily. | | | | | e | | mg 24 hr tablet | | | | | | | + + + +---------+------+------+-------+ | omeprazole | Take 20 mg by mouth | | 0 | | | Activ | | (PRILOSEC) 20 mg | every morning | | | | | e | | capsule | (before breakfast). | | | | | | + + + +---------+------+------+-------+ | metoprolol | Take 50 mg by mouth | | 0 | | | Activ | | tartrate (LOPRESSOR) | every morning. And | | | | | e | | 50 mg tablet | 75 mg in the evening | | | | | | + + + +---------+------+------+-------+ | cholecalciferol | Take 1,000 Units by | | 0 | | | Activ | | (VITAMIN D-3) 1,000 | mouth Daily. | | | | | e | | units capsule | | | | | | | + + + +---------+------+------+-------+ | zinc sulfate 220 | Take 220 mg by mouth | | 0 | | | Activ | | mg capsule | Daily. | | | | | e | + + + +---------+------+------+-------+ | acetaminophen | Take 500 mg by mouth | | 0 | | | Activ | | (TYLENOL) 500 mg | every 6 hours as | | | | | e | | tablet | needed for Pain. | | | | | | + + + +---------+------+------+-------+ Active Problems + + + | Problem | Noted Date | + + + | Essential hypertension | 11/20/2014 | + + + + + | Overview: Diagnosed around 2008 | + + + + + | Mild intermittent asthma without complication | 11/20/2014 | + + + + + | Overview: Seasonal allergy triggers asthma | + + + + + | GERD (gastroesophageal reflux disease) | 11/20/2014 | + + + | Obesity | 11/20/2014 | + + + | Type 2 diabetes mellitus without complication | 11/20/2014 | + + + | History of acute renal failure | 11/20/2014 | + + + + + | Overview: In June 2014, ATN due to rhabdomyolysis in setting | | of prolonged surgery (9 hrs for complicated acute | | cholecystitis), CPK 42,000, serum creatinine 7.1 mg/dL, required | | hemodialysis x 3 treatments. | + + Family History + + +------+ + | Medical History | Relation | Name | Comments | + + +------+ + | COPD | Father | | | + + +------+ + | Heart failure | Father | | | + + +------+ + | Heart attack | Mother | | | + + +------+ + | Kidney disease | Neg Hx | | | + + +------+ + + +------+ + + | Relation | Name | Status | Comments | + +------+ + + | Father | | | Congestive heart failure | | | | (Age | | | | | 55) | | + +------+ + + | Mother | | Alive | | + +------+ + + Social History + + + [...] | + + + + + | Vaccine: | | | | | Dtap/Tdap/Td (1 - | 0 | | | | Tdap) | | | | + + + + + | Cervical Cancer | | | | | Screening (Pap) | 1 | | | + + + + + | Breast Cancer | | | | | Screening | 6 | | | + + + + + | Vaccine: Influenza | | | | | (#1) | 9 | | | + + + + + Results Not on filefrom Last 3 Months Insurance + +--------+ +--------+ +---------+--------+ | Payer | Benefi | Subscriber | Effect | Phone | Address | Type | | | t Plan | ID | summer | | | | | | / | | Dates | | | | | | Group | | | | | | + +--------+ +--------+ +---------+--------+ | [employer] | [employer] | [id number] | 09/27/19 | [phone] | | Medica | | MEDICAID HMO | HEALTH | | 14-Pre | 1 | | id | | | MDCD | | sent | | | | | | [place] | | | | | | + +--------+ +--------+ +---------+--------+ + +--------+ +--------+ + + | Guarantor Name | Accoun | Relation to | Date | Phone | Billing Address | | | t Type | Patient | of | | | | | | | | | | + +--------+ +--------+ + + | Isa Nuno | Person | Self | [birth year] | [address] | | | al/Fam | | 1971 | [phone] | [place] [address] | | | dat | | | 0 (Home) | | + +--------+ +--------+ + + Advance Directives + + + + + | Type | Date Recorded | Patient | Explanation | | | | Weaver Apprentice | | + + + + + | Power of | | | | | [facility] | | | | + + + + + | Advance | | | | | Directive | | | | + + + + +
--- OUTSIDE RECORDS SUMMARY | ~2019-02-23 | XMS | Encounter Summary ---
Demographics + + + | Address | [address] | | | [place] [address] | + + + | Home Phone | | + + + | Preferred Language | Unknown | + + + | Marital Status | | + + + | Protestant Affiliation | PEN | + + + | Race | White | + + + | Ethnic Group | Not or | + + + Author + + + | Author | [facility] | + + + | Organization | [facility] | + + + | Address | Unknown | + + + | Phone | Unavailable | + + + Support + + + + + | Name | Relationship | Address | Phone | + + + + + | Gigi [place]dard | [address] | | | | | [place] | | | | | [address] | | + + + + + Care Team Providers + +------+ + | Care Outside Laborer Name | Role | Phone | + +------+ + | Ophelia Villalta | PCP | | + +------+ + Encounter Details +--------+ + + + + | Date | Type | Department | Care Team | Description | +--------+ + + + + | 07/09/ | Document-Sc | UNKNOWN DEPARTMENT | Unknown . | | | 2015 | anned | [address] | | | | | | [address] | | | | | | [place] | | | | | | [address] | | | +--------+ + + + [...]
--- OUTSIDE RECORDS SUMMARY | ~2019-02-23 | XMS | Encounter Summary ---
Demographics + + + | Address | [address] | | | [place] [address] | + + + | Home Phone | | + + + | Preferred Language | Unknown | + + + | Marital Status | | + + + | Sikhism Affiliation | Unknown | + + + | Race | Unknown | + + + | Ethnic Group | Unknown | + + + Author + + + | Author | [facility] | | | and [place] | + + + | Organization | [facility] | | | and [place] [...] Team Providers + +------+ + | Care Cnc Lathe Machine Operator Name | Role | Phone | [...] | NEPHROLOGY [address] | [address] | | | | | [address] | [address] | | | | | [place] | [place] [address] | | | | | [address] | [phone] | | | | | [phone] | | | +--------+ + + + [...]
--- OUTSIDE RECORDS SUMMARY | ~2019-02-23 | XMS | Encounter Summary ---
Demographics + + + | Address | [address] | | | [place] [address] | + + + | Home Phone | | + + + | Preferred Language | Unknown | + + + | Marital Status | | + + + | Yazidism Affiliation | PEN | + + + | Race | White | + + + | Ethnic Group | Not or | + + + Author + + + | Author | [facility] | + + + | Organization | [facility] | + + + | Address | Unknown | + + + | Phone | Unavailable | + + + Support + + + + + | Name | Relationship | Address | Phone | + + + + + | Gigi goddard | [address] | [address] | | | | | [place] | | | | | [address] | | + + + + + Care Team Providers + +------+ + | Care Certified Registered Locksmith Name | Role | Phone | + [...] | +--------+ + + + + | 07/19/ | Anesthesia | 6A Intra Op [facility] | Mar Mckeon MD | | | 2015 | Event | [facility] | [address] [address] | | | | | Admitting Desk | [address] | | | | | Located on the 9 | [place], [place] | | | | | floor [address] | [address] | | | | | [facility] | [phone] | | | | | [place], [place] | | | | | | [address] | Jb [place], | | | | | | | | +--------+ + + + + Anesthesia Record + + + + + | Procedure Name | Responsible | Anesthesia Start | Anesthesia Stop Time | | | Anesthesiologist | Time | | + + + + + | Hemodialysis | Mar Mckeon MD | 07/19/14 1636 | 07/19/14 1815 | | catheter placement | | | | + + + + + +----+---+ + + | Da | T | Event | Comment | | te | i | | | | | m | | | | | e | | | +----+---+ + + | 04 | 1 | | | | /2 | 5 | | | | 3/ | 5 | | | | 20 | 2 | | | | 15 | | | | +----+---+ + + | | 1 | Pt. Check | Prior to anesthesia start, pt. Identified, examined, chart | | | 5 | | reviewed, PARSusi held, anesthetic plan made or approved by | | | 5 | | attending anesthesiologist. NPO status confirmed as appropriate | | | 2 | | for procedure Preoperative evaluation: unchanged | +----+---+ + + | | 1 | Eq Check | Anesthesia machine checked Equipment verified | | | 6 | | | | | 0 | | | | | 2 | | | +----+---+ + + | | 1 | An Start | | | | 6 | | | | | 3 | | | | | 6 | | | +----+---+ + + | | 1 | An Start | | | | 6 | Data | | | | 4 | | | | | 1 | | | +----+---+ + + | | 1 | Vitals | Monitors applied Vital signs checked Patient ready for anesthesia | | | 6 | Checked | | | | 4 | | | | | 4 | | | +----+---+ + + | | 1 | Std. Airway | | | | 6 | Mgt. | | | | 5 | | | | | 1 | | | +----+---+ + + | | 1 | Ready | | | | 6 | | | | | 5 | | | | | 8 | | | +----+---+ + + | | 1 | Abx held | Abx held for Medical Reason: Contraindicated or already receiving | | | 7 | Medical or | antibiotics | | | 0 | Surgical | | | | 5 | Reason | | +----+---+ + + | | 1 | Timeout | | | | 7 | | | | | 2 | | | | | 9 | | | +----+---+ + + | | 1 | Incision | | | | 7 | | | | | 3 | | | | | 2 | | | +----+---+ + + | | 1 | Surgery end | | | | 7 | | | | | 5 | | | | | 4 | | | +----+---+ + + | | 1 | An Extubate | Neuromuscular function Intact. Pharynx suctioned. Patient obeys | | | 8 | | commands. Adequate pulmonary mechanics. | | | 0 | | | | | 2 | | | +----+---+ + + | | 1 | an stop | | | | 8 | data | | | | 0 | | | | | 6 | | | +----+---+ + + | | 1 | Anesthesia | Awake, drowsy, vss, report to RN. | | | 8 | End | | | | 1 | | | | | 5 | | | +----+---+ + + +------+ | Meds | +------+ + +---------+ | Name | Total | + +---------+ | propofol | 320 mg | + +---------+ | succinylcholine | 200 mg | + +---------+ | alfentanil | 400 mcg | + +---------+ | PHENYLEPHrine | 700 mcg | + +---------+ | lidocaine 2% | 60 mg | + +---------+ | NS | 500 mL | + +---------+ + + | Name | + + | O2 FR Avance (Total Liters) | + + | Insp Yaakov | + + | Et Yaakov | + + + + | No blood administrations on file. | + + +--------+ + + + | Type | Details | Placement | Removal | +--------+ + + + | RETIRE | 07/14/14; 1953; 07/27/14; 143; | 07/14/141953 by | 07/27/14 1436 by | | D - | No; [...] 1600 by | | D - | Vigil; 16FR; yes | Lyudmila Gonzales RN | Lissy Blanton RN | | Gal | | | | | y Cath [...] + + | RETIRE | 07/16/14; 07/19/14; 1827; No; | 07/16/14 0000 by | 07/19/141827 by | | D - | 19Fr; Piero; Right, Outer; | Lyudmila Gonzales RN | Brenda Ga RN | | Drains | Abdomen | | | | | | | | | (wound | | | | | s/surg | | | | | ical) | | | | +--------+ + + + | RETIRE | 07/19/14; (in [place]); 07/27/14; | 07/19/14 0000 by | 07/27/14 1438 by | | D - | 1438; Hemodialysis Catheter; | Nafisa Quevedo RN | Babita Driver RN | | Cent[facility] | Right; Neck; Jugular; 2 | | | | l Line | | | | +--------+ + + + | RETIRE | 07/19/14; 163; 07/23/14; 2329; | 07/19/14 1636 by | 07/23/14 2330 by | | D - | arrow catheter used for PIV- | Mar Mckeon MD | Harsh Dle Real RN | | Periph | venous; 20; Right; Antecubital; | | | | eral | Lidocaine; Yes; Positive; 1 | | | | Line | | | | +--------+ + + + | RETIRE | 07/19/14; 1751; right IJ; Correct | 07/19/141751 by | 07/27/14 143 by | | D - | pt ID, Correct side/site; Yes; | Kamryn Bustamante, | Babita Driver RN | | Hemodi | Yes; Hat, Mask, Sterile Gown, | RN | | | alysis | Sterile Gloves; Hat, Mask, | | | | | Sterile Gown, Sterile Gloves; | | | | Access | Yes; Yes; Yes; Yes; Yes; | | | | | Complete; no; right; (Duo Split | | | | | IJ ); 07/27/14; 1439 | | | +--------+ + + + [...] | | | + +--------+ +---------+------+------+ | alfentanil (ALFENTA) injection | Given | 07/20/19 | 400 mcg | | | | INTRAPROCEDURE PRN, Starting Nguyen | | 15 4:51 | | | | | 07/19/14 at 1651, Until Nguyen | | PM PDT | | | | | 07/19/14 at 1806 | | | | | | + +--------+ +---------+------+------+ +---+---+ | | | +---+---+ + +-------+ +-------+---+---+ | lidocaine PF (XYLOCAINE MPF) 20 | Given | 07/20/19 | 60 mg | | | | mg/mL (2 %) injection | | 15 4:51 | | | | | INTRAPROCEDURE PRN, Starting Nguyen | | PM PDT | | | | | 07/19/14 at 1651, Until Nguyen | | | | | | | 07/19/14 at 1806 | | | | | | + +-------+ +-------+---+---+ +---+---+ | | | +---+---+ + + + +---+---+---+ | NaCl 0.9 % IV INTRAPROCEDURE | given by | 07/20/19 | | | | | CONTINUOUS PRN, Starting Nguyen | | 15 5:48 | | | | | 07/19/14 at 1636, Until Nguyen | anesthes | PM PDT | | | | | 07/19/14 at 1806 | iology | | | | | + + + +---+---+---+ +---------+ +---+---+---+ | New Bag | 07/20/19 | | | | | | 15 4:36 | | | | | | PM PDT | | | | +---------+ +---+---+---+ +---+---+ | | | +---+---+ + +-------+ +---------+---+---+ | PHENYLEPHrine 100mcg/mL IV | Given | 07/20/19 | 200 mcg | | | | syringe INTRAPROCEDURE PRN, | | 15 5:26 | | | | | Starting Nguyen 07/19/14 at 1702, | | PM PDT | | | | | Until Nguyne 07/19/14 at 1806 | | | | | | + +-------+ +---------+---+---+ +-------+ +---------+---+---+ | Given | 07/20/19 | 100 mcg | | | | | 15 5:15 | | | | | | PM PDT | | | | +-------+ +---------+---+---+ | Given | 07/20/19 | 150 mcg | | | | | 15 5:02 | | | | | | PM PDT | | | | +-------+ +---------+---+---+ +---+---+ | | | +---+---+ + +-------+ +-------+---+---+ | propofol INTRAPROCEDURE PRN, | Given | 07/20/19 | 20 mg | | | | Starting Nguyen 07/19/14 at 1651, | | 15 5:47 | | | | | Until Nguyen 07/19/14 at 1806 | | PM PDT | | | | + +-------+ +-------+---+---+ +-------+ +-------+---+---+ | Given | 07/20/19 | 50 mg | | | | | 15 5:12 | | | | | | PM PDT | | | | +-------+ +-------+---+---+ | Given | 07/20/19 | 50 mg | | | | | 15 5:09 | | | | | | PM PDT | | | | +-------+ +-------+---+---+ +---+---+ | | | +---+---+ + +-------+ +--------+---+---+ | SUCCINYLCHOLINE CHLORIDE 20 | Given | 07/20/19 | 200 mg | | | | MG/ML INJ (PROSED/RSI) | | 15 4:51 | | | | | INTRAPROCEDURE PRN, Starting Nguyen | | PM PDT | | | | | 07/19/14 at 1651, Until Nguyen | | | | | | | 07/19/14 at 1806, Neuromuscular | | | | | | | block | | | | | | + +-------+ +--------+---+---+ +---+---+ | | | +---+---+ documented in this encounter"
--- OUTSIDE RECORDS SUMMARY | ~2019-02-23 | XMS | Clinical Summary ---
Demographics + + + | Address | [address] | | | [place] [address] | + + + | Home Phone | | + + + | Preferred Language | Unknown | + + + | Marital Status | | + + + | Buddhism Affiliation | PEN | + + + [...] [place] | | | | | [address] | | + + + + + Care Team Providers + +------+ + | Care Sleeping Bag Filler Name | Role | Phone | + +------+ + | Ophelia Villalta | PCP | | + +------+ + Source Comments [facility] is fully live on both EpicCare Ambulatory and EpicCare InPatient.[facility] Allergies + + + + + + [...] N/A: | FLANAGAN | | 11/26/ | [id number] | | [id number]: Qty: 1 on | | Abdome | HEALTHCARE | | 2016 | 0 / | | 07/16/2014 by Jaimee Gomez | | n | | | | /[id number] | | MD Juan Daniel at [facility] | | | | | | 131 | | LOC | | | | | | | + +------+--------+ +--------+--------+--------+ | Catheter Dialysis 13x20 | | Right: | MEDCOMP | | 12/26/ | [id number] | | Duosplit Tray - | | Neck | | | 2014 | IJT / | | [id number]: Qty: 1 on | | | | | | /MBQA2 | | 07/19/2014 by Kemi Posadas | | | | | | 30 | | MD Cristina at [facility] | | | | | [...] | | | + +--------+ +--------+-------+---------+--------+ | DONKEY ENGINE FIRER/FIREMAN MEDICAID | DONKEY ENGINE FIRER/FIREMAN | xxxxxxxx | | | | Medica [...] | 1971 | [phone] | [place] [address] | | | dat | | | [...]
--- OUTSIDE RECORDS SUMMARY | ~2019-02-23 | XMS | Encounter Summary ---
Demographics + + + | Address | [address] | | | [place] [address] | + + + | Home Phone [...] + + + | Author | [facility] | + + + | Organization | [facility] | + + + | Address | Unknown | + + + | Phone | Unavailable | + + + Support + + + + + | Name | Relationship | Address | Phone | + + + + + | Gigi nuno | ECON | [address] | | | | | [place] | | | | | [address] | | + + + + + Care Team Providers + +------+ + | Care Clinical Lab Clerk Name | Role | Phone | + [...] | | | | | Procedures | [place], [place] | Mailcode: | | | | | CONSULT TO | [address] | [id number] | | | | | ADULT SLEEP | Phone: | [place] | | | | | [facility] | [phone] | Research | | | | | | Fax: | [place] [address]R26 | | | | | | [phone] | [place], [place] | | | | | | | [address] | | | | | | | Phone: | | | | | | | [phone] | | | | | | | Fax: | | | | | | | [phone] | +--------+--------+ + + + + Reason [...] Harvey Kaye | | | | | [place], [place] | [place], | | | [birth year]/ | | [address] | [place] [address] | | | 2014 | | [phone] | [phone] | | | | | | | | | | | | Jerry Bañuelos MD | | | | | | [place] | | | | | | [facility] | | | | | | [address] | | | | | | [facility], | | | | | | [place] [address] | | | | | | [phone] | | | | | | | [...] transferred from [facility] in [facility] on 4 for abdominal pain, cholecy stitis [...] on discharge. She was discharged home to [place] with close follow up from her PCP and plans for a local referral to a general surgeon and a butt sawyer for one visit, repeated labs to ensure [...] FAMILY Why: hospital follow up Contact information [facility] [address] [place] [address] Follow up with Local nephrology In 2 weeks. Contact information PCP will make referral Follow up with Local general surgery In 2 weeks. Contact information PCP will make a referral Follow Up Tests: None Need BMP within 1 week Determine when to start diuretics Nephrology and Gen Surg referral Discharging Attending: Jerry Bañuelos MD Physician Signature: Dhaval Peres MD Internal Medicine, PGY-3 Pager: [phone] Associated attestation - Jerry Bañuelos MD - 07/29/2014 11:36 AM PDTGeneral Medicine Att ending Note I personally evaluated the patient, performed the sosa elements of the physical examination, and personally formulated the assessment and plan with Dr. Peres. I have reviewed the [facility] documentation and I agree with the findings, assessment, advice, orders and plan as ey are documented. Jerry Bañuelos MD [facility] Clinical Hospitalist and Medicine Teaching Services [facility] DEPARTMENT: Hosp- [id number] Place of Service: [facility] Date of Service: 07/27/2014 CSN: [id number] Modifiers:GC Resident Involved: Yes Suggested CPT: 67359 Discharge Management < 30 minute I spent 10 minutes in coordination of care and wcob-mx-jjzi with the patient and/or their s urrogate of which greater than 50% was spent counseling. documented in this encounter Discharge Instructions Instructions Zuleika Shaw - 07/27/2014 [facility] for home Physical and Occup ational therapies.- [phone]. Home health will come out early next [...] Cr no w trending down. -Urine microscopy: Paron brown casts -UOP picking up -Started on [...] Rosa Marti MD Internal Medicine [place]Y2 Pg [phone] Interval events/subjective: -no acute overnight events -feeling [...] Chronic low back pain Jerry Bañuelos MD [employer] Clinical Hospitalist and Medicine Teaching Services [facility] DEPARTMENT: Hosp- [id number] Place of Service: - Date of Service: 07/26/2014 CSN: [id number] Modifiers:GC Resident Involved: Yes Suggested CPT: 65866 Subsequent Visit Exp Prob Foc/Mod Complexity 25 min I spent more than 20 minutes in coordination of care and gkxy-ux-rlsn with the patient and/ or their surrogate [...] Mayers MD Neurology PGY-1 Medicine Service Pager [phone] YNEWeellen, Brenda Frances MD - 07/26/2014 9:53 [...] Mark Division of Nephrology and Hypertension Pager #[phone] Office: [phone] [facility] DEPARTMENT: [id number] NHT NEPHROLOGY [facility] Place of Service: [id number] - IP CSN: [id number] Suggested Modifier: GC Resident Involved Rosa Tobar [...] Cr no w trending down. -Urine microscopy: Paron brown casts -UOP picking up -ok to [...] Rosa Marti MD Internal Medicine PGY2 Pg [phone] Interval events/subjective: -no acute overnight events -feeling [...] labs: Mg, renal f(x) -Renal diet => skilled nursing case manager consult before d/c #Hypervolemic hyponatremia: Secondary to [...] with Dr. Mera. I have reviewed the [facility] documentation and I agree with the [...] Chronic low back pain Jerry Bañuelos MD [employer] Clinical Hospitalist and Medicine Teaching Services [facility] DEPARTMENT: Hosp- [id number] Place of Service: IP - Date of Service: 07/25/2014 CSN: [id number] Modifiers:GC Resident Involved: Yes Suggested CPT: 74583 Subsequent Visit Exp Prob Foc/Mod Complexity 25 min I spent more than 20 minutes in coordination of care and vstr-io-dlas with the patient and/ or their surrogate [...] Mark Division of Nephrology and Hypertension Pager #[phone] Office: [phone] [facility] DEPARTMENT: [id number]- NHT NEPHROLOGY [facility] Place of Service: CSN: [id number] Suggested Modifier: GC Resident Involved Rosa Tobar [...] see how she tolerates this. 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 Arielle Mera MD Internal Medicine Resident [id number] signed by Arielle Mera Md at 07/25/2014 [...] Chronic low back pain Jerry Bañuelos MD [employer] Clinical Hospitalist and Medicine Teaching Services [facility] DEPARTMENT: Hosp- [id number] Place of Service: - [id number] Date of Service: 07/24/2014 CSN: [id number] Modifiers:GC Resident Involved: Yes Suggested CPT: 36851 Subsequent Visit Exp Prob Foc/Mod Complexity 25 min I spent more than 20 minutes in coordination of care and yvky-ex-adyz with the patient and/ or their surrogate [...] Mayers MD Neurology PGY-1 Medicine Service Pager [phone] Brenda Engle MD - 07/24/2014 9:48 AM [...] Mark Division of Nephrology and Hypertension Pager #[phone] Office: [phone] [facility] DEPARTMENT: [id number]- NHT NEPHROLOGY [facility] Place of Service: [id number] - IP CSN: [id number] Suggested Modifier: GC Resident Involved Rosa Tobar [...] anuric: In setting of rhabdo -Urine microscopy: Paron brown casts -Still very minimal urine out-put; [...] Rosa Marti MD Internal Medicine PGY2 Pg [phone] Interval events/subjective: -no acute overnight events -had [...] Intake/Output Summary (Last 24 hours) at 07/24/14 0917 Last data filed at 07/24/14 0403 Gross [...] CK 7423 07/23/2014 CK 9587 07/22/2014 [place] 29410 07/22/2014 [place] 72182 07/21/2014 [place] 35380 07/21/2014 [place] 55151 07/21/2014 Urine Cr 316 Urine sodium 7 [...] dialysis, will need dialysis center arranged and butt sawyer to follow. Discharge planning: -f/u EGS 2 [...] with Dr. Mayers. [facility] and I [...] Chronic low back pain Jerry Bañuelos MD [employer] Clinical Hospitalist and Medicine Teaching Services [facility] DEPARTMENT: Hosp- [id number] Place of Service: [facility] [id number] Date of Service: 07/23/2014 CSN: [id number] Modifiers:GC Resident Involved: Yes Suggested CPT: 69466 Subsequent Visit Detailed/High complexity 35 min I spent more than 40 minutes in coordination of care and gbfy-nd-wtvt with the patient and/ or their surrogate [...] Mayers MD Neurology PGY-1 Medicine Service Pager [phone] Brenda Engle MD - 07/23/2014 10:15 AM [...] Mark Division of Nephrology and Hypertension Pager #[phone] Office: [phone] [facility] DEPARTMENT: [id number] NEPHROLOGY [facility] Place of Service: CSN: [id number] Suggested Modifier: GC Resident Involved Rosa Tobar [...] anuric: In setting of rhabdo -Urine microscopy: Paron brown casts -Still very minimal urine out-put; [...] Rosa Marti MD Internal Medicine PGY2 Pg [phone] Interval events/subjective: -no acute overnight events -transferred to [facility] Team -denies any shortness of breath -feeling [...] CK 7423 07/23/2014 CK 9587 07/22/2014 CK 11216 07/22/2014 CK 91348 07/21/2014 [place] 54938 07/21/2014 CK 83872 07/21/2014 [place] 05384 07/20/2014 Urine Cr 316 Urine sodium 7 [...] dialysis, will need dialysis center arranged and butt sawyer to follow. Discharge planning: -f/u EGS 2 [...] transferred from [facility] in [facility] on 07/15 for abdominal pain, cholecy stitis and transferred for high-risk cholecystectomy. Now s/p cholecystectomy on 07/16 at [facility]. Per gen surg, operation was [...] and rhabdomyolysis, patient [facility] general medicine service. Of note, the ortho [...] consistently trending down, CK 9587 today. Phos nyaely d at 6.1 on 07/21, now down [...] Mayers MD Neurology PGY-1 Medicine Service Pager [phone] Raine, Ailyn Mcbride MD - 07/22/2014 7:01 AM PDTI saw and examined this patient with Dr. Garrett and agree with his findings and plan. Answered Mr. Nuno's many excellent questions today. Plan for HD tomorrow absent e/o renal recovery. [facility] DEPARTMENT: [id number] NEPHROLOGY [facility] Place of Service: CSN: [id number] Suggested Modifier: GC Resident Involved Mark Arce MD - 07/22/2014 7:01 AM PDT Nephrology Inpatient Consult Follow Up Note IDENTIFICATION: PATIENT NAME: Vinete Nuno : 1970 DATE OF ADMISSION: 07/14/2014 [...] anuric: In setting of rhabdo -Urine microscopy: Paron brown casts -Still very minimal urine out-put; [...] questions. Osiel Garrett MD Nephrology Fellow Pager [phone] Interval events/subjective: Dialyzed yesterday No acute overnight [...] displayed. [place] [address] 07/21/2014 CK 11787 07/21/2014 CK 22962 07/21/2014 CK 35365 07/20/2014 CK 25052 07/20/2014 CK >28890 07/20/2014 [place] 56610 07/20/2014 CK 27936 07/19/2014 Urine Cr 316 Urine sodium 7 TTE 07/15/14: EF normal Mild increased RVSP of 50 mmHg Urine spin revealed muddy brown casts Ailyn Ni MD - 0 07/21/2014 8:45 AM PDTI saw and examined patient on hemodialysis with Dr. Garrett and faustino mariano with his findings and plan. [facility] DEPARTMENT: [id number]- [facility] NEPHROLOGY [facility] Place of Service: CSN: [id number] Suggested Modifier: GC Resident Involved Mark Arce [...] anuric: In setting of rhabdo -Urine microscopy: Paron brown casts -Very minimal improve to urine [...] questions. Osiel Garrett MD Nephrology Fellow Pager [phone] Interval events/subjective: Dialyzed yesterday, but was shorter [...] displayed. [place] [address] 07/21/2014 CK 95258 07/20/2014 CK 81008 07/20/2014 CK >76225 07/20/2014 CK 83621 07/20/2014 CK 12580 07/19/2014 [place] 62595 07/19/2014 [place] 07551 07/19/2014 Urine Cr 316 Urine sodium 7 TTE 07/15/14: EF normal Mild increased RVSP of 50 mmHg Urine spin revealed muddy brown casts wkarla Aleena Gerardo, DO - 07/21/2014 6:23 AM PDT [facility] DEPARTMENT OF SURGERY EMERGENCY GENERAL SURGERY Division [...] other applicable data points. Please refer to [facility] for this information . PHYSICAL EXAM: LAST [...] referral to polysomnography when pt returns to [place] - Will ask RT to provide CPAP while inpt if able Discharge Plan: Requires acute care Signed: Aleena Boswell DO PGY-1 [facility] General Surgery EGS Surgery Service Pager: [phone] oKemi kwon MD - 07/20/2014 5:40 AM [...] General Surgery Resident, R2 EGS Julien Pager [phone] Mark Arce MD - 07/19/2014 5:14 PM [...] concerns Osiel Garrett MD Nephrology Fellow Pager [phone] Darius Damico - 07/19/2014 2:04 PM PDTMed Student Procedure Note 07/19/2014 14:06 RUQ drain removed due to low drain output. The patient tolerated the procedure well. The dr tenorio site was clean and pink, without erythema or purulent material. The stitch was removed a nd the site was covered with clean gauze and medipore tape Darius Cantrell [id number] signed by Aleena Boswell DO at 07/19/2014 [...] PM repeat CK we spoke with on-call butt sawyer again who recommended d/c'ing IVF given that patient is o liguric to prevent fluid overload, and repeating BMP and CK at 5AM, which is ordered. Discus sed with on-call butt sawyer and then with patient that there is [...] Craft MD R1, Department of General Surgery [facility] [place] Pager [phone] ullab, Babita Silveira MD - 07/18/2014 10:26 [...] on her back due to pain. Her [facility] team is concerned that she [...] mg po BID for short-term. --Continue remote HOSPICE NURSE while on opioids and diazepam. --Offer heating pad and ice for back pain. --Use abdominal binder. --Consult PT for TENS unit. --Obtain thoracolumbar and lumbar spinal radiographs. APS will evaluate Ms. Nuno in the morning for consideration of trigger point injections. Discussed with attending physician, Yarely Boone MD who agrees with the above recommenda tions. Recommendations communicated to primary lift team technician, Rolando Case MD. Babita Grey MD Anesthesiology/[facility] APS Pager [phone] Snehal Pradhan MD - 07/18/2014 11:42 AM PDT [facility] DEPARTMENT OF SURGERY EMERGENCY GENERAL SURGERY Division [...] other applicable data points. Please refer to [facility] for this information . PHYSICAL [...] Requires acute care Signed: Hien Solo MD [facility] General Surgery R1 Pager #[phone] Alverto Villegas MD - 07/17/2014 5:04 AM [...] stable, urinating. ALVERTO CASE MD SURGERY R-3 [id number] Ren Mendoza - 07/16/2014 6:58 PM PDTPatient [...] Gallbladder Complications: liver laceration Drains: subhepatic 19 Stateless Piero drain in the gallbladder fossa Disposition: to florez Findings: Very large gallstone 2 x 3 cm obstructing the neck. Very edematous, thick gallbla dder wall. Dictatioon [id number] signed by Monica Yanez MD at 07/16/2014 [...] Attending | | Surgeon: Jaimee Valladares MD Accounts Receivable Analyst(s): Reji Whitehead MD. | | Accounts Receivable Analyst(s): Monica Yanez MD, R5. Ren Castellanos MD, [...] morbid obesity, the patient was transferred to [facility] for further evaluation and | [...] | draped in normal sterile fashion. A recruiting specialist-out was performed. We began with entry | [...] 07/16/2014 | | 19:38:09DT: 07/16/2014 21:16:14Job #: [id number] was present for the critical | | portions of the procedure as described in the note for this encounter.Jaimee Valladares, | | LEE VALLADARES, [facility] [id number] [place] [address] | + + MAGNESIUM, PLASMA (07/27/2014 5:18 [...] | + + + + + | [facility] | [address] | [place] [address] | | | SERVICES, CORE | GHADA [...] | | | LABORATORY | | | COOK ISLANDER | | | SERVICES, | | [...] the MDRD equation recommended by the | [facility] | | National Kidney Disease Education Program. [...] | + + + + + | [facility] LABORATORY | [address] | [place] [address] | | | SEVEN, MAGDA | GHADA [...] | + + + + + | [facility] | [address] | [place] [address] | | | SERVICES, CORE | GHADA [...] [facility] | [address] | [place] [address] | | | SERVICES, MAGDA | GHADA [...] | | | LABORATORY | | | COOK ISLANDER | | | SERVICES, | | [...] | + + + + + | [facility] | [address] | [place] [address] | | | SERVICES, CORE | [address] | | | + + + + + MAGNESIUM, PLASMA (07/25/2014 7:45 AM PDT) + +-------+ + + + | Component | Value | Ref Range | Performed | Pathologist | | | | | At | Signature | + +-------+ + + + | MAGNESIUM,P | 2.0 | 1.8 - 2.5 mg/dL | [facility] | | | LAS[facility] | [...] | + + + + + | [facility] | [address] | [place] [address] | | | SERVICES CORE | PARK [...] | | | LABORATORY | | | COOK ISLANDER | | | SERVICES, | | [...] [facility] | [address] | [place] [address] | | | SERVICES, CORE | GHADA [...] | + + + + + | [facility] | [address] | [place] [address] | | | SERVICES, CORE | GHADA [...] | | | LABORATORY | | | COOK ISLANDER | | | SERVICES, | | [...] the MDRD equation recommended by the | [facility] | | National Kidney Disease [...] [facility] | [address] | [place] [address] | | | SERVICES, CORE | PARK [...] | + + + + + | [facility] | [address] | [place] [address] | | | SERVICES, CORE | PARK [...] (H) | 60 - 99 mg/dL | [facility] - | | | GLUCOSE, | | [...] [facility] | [address] | [place], [place] | | | [place] [place] [facility] [place] | [facility] | [address] | | | TESTS | | | [...] [facility] | [address] | [place] [address] | | | SERVICES, CORE | PARK [...] | | | LABORATORY | | | COOK ISLANDER | | | SERVICES, | | [...] | + + + + + | [facility] | [address] | [place] [address] | | | SERVICES, CORE | PARK [...] [facility] | [address] | [place] [address] | | | SERVICES, CORE | PARK [...] [facility] | [address] | [place], [place] | | | [facility] GRE[facility] OF CARE | [address] | [address] | | | TESTS | | | [...] [facility] | [address] | [place], [place] | | | [place] [facility]ARE | [address] | [address] | | | TESTS | | | [...] [facility] | [address] | [place], [place] | | | [place] [facility]ARE | [address] | [address] | | | TESTS | | | [...] [facility] | [address] | [place] [address] | | | SERVICES, CORE | PARK [...] | | | LABORATORY | | | COOK ISLANDER | | | SERVICES, | | [...] | + + + + + | [facility] | [address] | [place] [address] | | | SERVICES, CORE | GHADA [...] (H) | 60 - 99 mg/dL | [facility] - | | | GLUCOSE, | | [...] [facility] | [address] | [place], [place] | | | [place] [facility]ARE | [address] | [address] | | | TESTS | | | [...] | + + + + + | [facility] | [address] | [place] [address] | | | SERVICES, CORE | GHADA [...] | + + + + + | [facility] | [address] | [place] [address] | | | SERVICES, CORE | PARK [...] | | | LABORATORY | | | COOK ISLANDER | | | SERVICES, | | [...] | + + + + + | [facility] | [address] | [place] [address] | | | SERVICES, MAGDA | GHADA [...] [facility] | [address] | [place], [place] | | | [place] [facility] CARE | [address] | [address] | | | TESTS | | | [...] [facility] | [address] | [place] [address] | | | SERVICES, CORE | PARK [...] | | | LABORATORY | | | COOK ISLANDER | | | SERVICES, | | [...] | + + + + + | [facility] | [address] | [place] [address] | | | SERVICES, MAGDA | GHADA [...] [facility] | [address] | [place], [place] | | | [place] [facility] CARE | [address] | [address] | | | TESTS | | | [...] [facility] | [address] | [place] [address] | | | SERVICES, CORE | PARK [...] | | | LABORATORY | | | COOK ISLANDER | | | SERVICES, | | [...] | + + + + + | [facility] | [address] | [place] [address] | | | MAGDA AMEZCUA | GHADA [...] [facility] | [address] | [place], [place] | | | [facility] [place] | [facility] | [address] | | | TESTS | | | [...] [facility] | [address] | [place], [place] | | | [place] [facility] OF CARE | [address] | [address] | | | TESTS | | | [...] [facility] | [address] | [place], [place] | | | [place] | [facility] | [address] | | | TESTS | | | [...] [facility] | [address] | [place] [address] | | | SERVICES, CORE | PARK [...] | | | LABORATORY | | | COOK ISLANDER | | | SERVICES, | | [...] | + + + + + | [facility] | [address] | [place] [address] | | | SERVICES, CORE | GHADA [...] [facility] | [address] | [place], [place] | | | [facility] GRE[facility] OF CARE | [address] | [address] | | | TESTS | | | [...] [facility] | [address] | [place] [address] | | | SERVICES, CORE | PARK [...] | | | LABORATORY | | | COOK ISLANDER | | | SERVICES, | | [...] | + + + + + | [facility] | [address] | [place] [address] | | | SEVEN, MAGDA | GHADA [...] | | + +---------+ + + | [facility] DEPARTMENT OF | | | [...] | | + +---------+ + + | [facility] DEPARTMENT OF | | | [...] + | [facility] - | [address] | [place] [address] | | | [place] | | | | + + + + + CK, PLASMA (07/20/2014 10:37 AM PDT) + + + + + + | Component | Value | Ref Range | Performed | Pathologist | | | | | At | Signature | + + + + + + | CK | >73193 (H) | 38 - 234 U/L | [...] | + + + + + | [facility] | [address] | [place] [address] | | | SERVICES, CORE | GHADA [...] | | | LABORATORY | | | COOK ISLANDER | | | SERVICES, | | [...] the MDRD equation recommended by the | [facility] | | National Kidney Disease [...] | + + + + + | [facility] | [address] | [place] [address] | | | MAGDA AMEZCUA | GHADA [...] | + + + + + | [facility] | [address] | [place] [address] | | | SERVICES, CORE | GHADA [...] [facility] | [address] | [place], [place] | | | [place] | [address] | [address] | | | TESTS | | | [...] | + + + + + | [facility] | [address] | [place] [address] | | | SERVICES, CORE | GHADA [...] [facility] | [address] | [place] [address] | | | SERVICES, CORE | PARK [...] | | | LABORATORY | | | COOK ISLANDER | | | SERVICES, | | [...] | + + + + + | [facility] | [address] | [place] [address] | | | SERVICES, CORE | GHADA [...] [facility] | [address] | [place] [address] | | | SERVICES, CORE | PARK [...] | | | LABORATORY | | | COOK ISLANDER | | | SERVICES, | | [...] | + + + + + | [facility] | [address] | [place] [address] | | | SERVICES, CORE | [address] | | | + + + + + X-RAY PORTABLE CHEST 1 VIEW (07/19/2014 7:04 PM PDT) + + + + + + | Component | Value | Ref Range | Performed | Pathologist | | | | | At | Signature | + + + + + + | X-RAY | EXAM: VT CHEST 1 VIEW | | | | [...] + + + | [facility] | [address] | [place], [place] | | | [place] [facility] | [address] | [address] | | | TESTS | | | [...] | + + + + + | [facility] | [address] | [place] [address] | | | SERVICES, CORE | PARK [...] | + + + + + | [facility] | [address] | [place] [address] | | | SERVICES, CORE | PARK [...] | + + + + + | [facility] | [address] | [place] [address] | | | SERVICES, CORE | PARK [...] [facility] | [address] | [place] [address] | | | SEVEN, MAGDA | PARK [...] | | | LABORATORY | | | COOK ISLANDER | | | SERVICES, | | [...] | + + + + + | [facility] | [address] | [place] [address] | | | SERVICES, CORE | GHADA [...] (H) | 60 - 99 mg/dL | [facility] - | | | GLUCOSE, [...] [facility] | [address] | [place], [place] | | | [facility] | [address] | [address] | | | TESTS | | | [...] [facility] | [address] | [place] [address] | | | SERVICES, CORE | PARK [...] [facility] | [address] | [place] [address] | | | SERVICES, CORE | PARK [...] | | | LABORATORY | | | COOK ISLANDER | | | SERVICES, | | [...] | + + + + + | [facility] | [address] | [place] [address] | | | MAGDA AMEZCUA | GHADA [...] [facility] | [address] | [place], [place] | | | [facility] | [address] | [address] | | | TESTS | | | [...] | + + + + + | [facility] | [address] | [place] [address] | | | SERVICES, CORE | [address] | | | + + + + + MAGNESIUM, PLASMA (07/18/2014 9:43 PM PDT) + +-------+ + + + | Component | Value | Ref Range | Performed | Pathologist | | | | | At | Signature | + +-------+ + + + | MAGNESIUM,P | 1.8 | 1.8 - 2.5 mg/dL | [facility] | | | LASMA | [...] | + + + + + | [facility] | [address] | [place] [address] | | | SERVICES, CORE | PARK [...] | | | LABORATORY | | | COOK ISLANDER | | | SERVICES, | | [...] | + + + + + | [facility] | [address] | [place] [address] | | | SERVICES, CORE | GHADA [...] 92 | 60 - 99 mg/dL | [facility] - | | | GLUCOSE, | | [...] [facility] | [address] | [place], [place] | | | [facility] | [address] | [address] | | | TESTS | | | [...] | + + + + + | [facility] | [address] | [place] [address] | | | SERVICES, CORE | GHADA [...] [facility] | [address] | [place] [address] | | | SERVICES, CORE | PARK [...] [facility] | [address] | [place], [place] | | | [facility] [place] | [facility] | [address] | | | TESTS | | | [...] (H) | 60 - 99 mg/dL | [facility] - | | | GLUCOSE, [...] [facility] | [address] | [place], [place] | | | [facility] | [address] | [address] | | | TESTS | | | [...] | + + + + + | [facility] | [address] | [place] [address] | | | SEVEN, MAGDA | PARK [...] LABORATORY | [address] | [place] [address] | | | SERVICES, CORE | [address] | | | + + + + + MAGNESIUM, PLASMA (07/18/2014 5:42 AM PDT) + +-------+ + + + | Component | Value | Ref Range | Performed | Pathologist | | | | | At | Signature | + +-------+ + + + | MAGNESIUM,P | 2.0 | 1.8 - 2.5 mg/dL | [facility] | | | L[facility] | | | [...] [facility] | [address] | [place] [address] | | | SERVICES, CORE | PARK [...] | | | LABORATORY | | | COOK ISLANDER | | | SERVICES, | | [...] the MDRD equation recommended by the | [facility] | | National Kidney Disease [...] | + + + + + | [facility] | [address] | [place] [address] | | | SEVEN, MAGDA | GHADA [...] (H) | 60 - 99 mg/dL | [facility] - | | | GLUCOSE, [...] [facility] | [address] | [place], [place] | | | [facility] | [address] | [address] | | | TESTS | | | [...] | + + + + + | [facility] | [address] | [place] [address] | | | MAGDA AMEZCUA | [address] [...] [facility] | [address] | [place] [address] | | | MAGDA AMEZCUA | GHADA [...] [facility] | [address] | [place] [address] | | | SERVICES, CORE | PARK [...] (H) | 60 - 99 mg/dL | [facility] | | | PLASMA | | | [...] | | | LABORATORY | | | COOK ISLANDER | | | SERVICES, | | [...] the MDRD equation recommended by the | [facility] | | National Kidney Disease Education Program. Estimated GFR | LABORATORY | | Interpretive Information: <60 mL/min/1.73 sq m | [facility] | | Chronic Kidney Disease <15 mL/min/1.73 [...] | + + + + + | [facility] | [address] | [place] [address] | | | MAGDA AMEZCUA | GHADA [...] [facility] | [address] | [place], [place] | | | [facility] | [address] | [address] | | | TESTS | | | [...] [facility] | [address] | [place], [place] | | | [facility] | [address] | [address] | | | TESTS | | | [...] | | | LABORATORY | | | COOK ISLANDER | | | SERVICES, | | [...] | + + + + + | [facility] | [address] | [place] [address] | | | SERVICES, CORE | GHADA [...] [facility] | [address] | [place], [place] | | | [facility] | [address] | [address] | | | TESTS | | | [...] [facility] | [address] | [place], [place] | | | [facility] | [facility] | [address] | | | TESTS | | | [...] [facility] | [address] | [place] [address] | | | SERVICES, CORE | PARK [...] | + + + + + | [facility] | [address] | [place] [address] | | | SERVICES, CORE | GHADA [...] | | | LABORATORY | | | COOK ISLANDER | | | SERVICES, | | [...] | + + + + + | [facility] | [address] | [place] [address] | | | SERVICES, CORE | GHADA [...] [facility] | [address] | [place], [place] | | | [facility] [place] | [address] | [address] | | | TESTS | | | [...] | + + + + + | [facility] | [address] | [place] [address] | | | SERVICES, CORE | [address] | | | + + + + + MAGNESIUM, PLASMA (07/16/2014 6:29 AM PDT) + +-------+ + + + | Component | Value | Ref Range | Performed | Pathologist | | | | | At | Signature | + +-------+ + + + | MAGNESIUM,P | 2.2 | 1.8 - 2.5 mg/dL | [facility] | | | LASMA | [...] | + + + + + | [facility] | [address] | [place] [address] | | | SERVICES, CORE | PARK [...] | | | LABORATORY | | | COOK ISLANDER | | | SERVICES, | | [...] | + + + + + | [facility] | [address] | [place] [address] | | | SERVICES, CORE | GHADA [...] (H) | 60 - 99 mg/dL | [facility] - | | | GLUCOSE, [...] [facility] | [address] | [place], [place] | | | [facility] | [address] | [address] | | | TESTS | | | [...] DEPT OF | [address] | [place], [place] | | | CARDIOLOGY | [address] | [address] | | + + + + + [...] region. | | | | | | Neck Skewer | | | | | | sections aresubmitted. | | | | | | Cassette | | | | | | Index:A1-2, | | | | | | sales representative womens health sections | | | | | | A1, perpendicular | | | | | | section of gallbladder | | | | | | neck A2, | | | | | | sales representative womens health | | | | | | wallDJW/rdl [...] | + + + + + | [facility] | [address] | [place] [address] | | | PATHOLOGY | [address] [...] [facility] | [address] | [place], [place] | | | [facility] [place] | [address] | [address] | | | TESTS | | | [...] - [facility] | [address] | [place], [place] | | | [facility] | [address] | [address] | | | TESTS | | | [...] | + + + + + | [facility] | [address] | [place] [address] | | | SERVICES, CORE | GHADA [...] + | [facility] | [address] | [place], [place] | | | CARDIOLOGY | [address] | [address] | | + + + + + X-RAY PORTABLE CHEST 1 VIEW (07/15/2014 1:44 PM PDT) + + + + + + | Component | Value | Ref Range | Performed | Pathologist | | | | | At | Signature | + + + + + + | X-RAY | EXAM: VT CHEST 1 VIEW | | | | [...] | | + +---------+ + + | [facility] DEPARTMENT OF | | | [...] [facility] | [address] | [place], [place] | | | [facility] | [address] | [address] | | | TESTS | | | [...] | + + + + + | [facility] | [address] | [place] [address] | | | SERVICES, CORE | PARK [...] [facility] | [address] | [place] [address] | | | SERVICES, CORE | PARK [...] | | | LABORATORY | | | COOK ISLANDER | | | SERVICES, | | [...] | + + + + + | [facility] | [address] | [place] [address] | | | MAGDA AMEZCUA | GHADA [...] [facility] | [address] | [place] | | | [facility] | [address] | [address] | | | TESTS | | | [...] [facility] | [address] | [place], [place] | | | [facility] | [address] | [address] | | | TESTS | | | [...] | + + + + + | [facility] | [address] | [place] [address] | | | SERVICES, | [address] [...] [facility] | [address] | [place] [address] | | | SERVICES, | [address] [...] [facility] | [address] | [place] [address] | | | SERVICES, CORE | GHADA [...] [facility] | [address] | [place] [address] | | | SERVICES, CORE | PARK [...] | | | LABORATORY | | | COOK ISLANDER | | | SERVICES, | | [...] the MDRD equation recommended by the | [facility] | | National Kidney Disease Education Program. [...] | + + + + + | [facility] | [address] | [place] [address] | | | SEVEN, MAGDA | GHADA [...] | + + + + + | [facility] | [address] | [place] [address] | | | SERVICES, CORE | [address] [...] | | | DAILY, First dose on [facility] 07/14/14 | | AM [...] | | | oral, ONCE, 1 dose, [facility] 07/19/14 | | AM PDT | | [...] PDT | | | | | Starting [facility] 07/19/14 at 1329, | | | | [...] | | | | First dose on [facility] 07/19/14 at | | AM PDT | [...]
--- OUTSIDE RECORDS SUMMARY | ~2019-02-23 | XMS | Encounter Summary ---
Demographics + + + | Address | [address] | | | [place] [address] | + + + | Home Phone | | + + + | Preferred Language | Unknown | + + + | Marital Status | | + + + | Jewish Affiliation | PEN | + + + | Race | White | + + + | Ethnic Group | Not or | + + + Author + + + | Author | [facility] | + + + | Organization | [facility] | + + + | Address | Unknown | + + + | Phone | Unavailable | + + + Support + + + + + | Name | Relationship | Address | Phone | + + + + + | Gigi goddard | ECON | [address] | | | | | [place] | | | | | [address] | | + + + + + Care Team Providers + +------+ + | Care Census Enumerator Name | Role | Phone | + +------+ + | Ophelia Villalta | PCP | | + +------+ + Encounter Details +--------+ + + + + | Date | Type | Department | Care Team | Description | +--------+ + + + + | 07/13/ | Document-Sc | UNKNOWN DEPARTMENT | Unknown . | | | 2015 | anned | [address] | | | | | | [address] | | | | | | [place] | | | | | | [address] | | | +--------+ + + + [...]
--- OUTSIDE RECORDS SUMMARY | ~2019-02-23 | XMS | Encounter Summary ---
Demographics + + + | Address | [address] | | | [place] [address] | + + + | Home Phone | | + + + | Preferred Language | Unknown | + + + | Marital Status | | + + + | Evangelical Affiliation | Unknown | + + + | Race | Unknown | + + + | Ethnic Group | Unknown | + + + Author + + + | Author | [facility] | | | and [place] | + + + | Organization | [facility] | | | and [place] | [...] Team Providers + +------+ + | Care Hvac Residential Service Technician Name | Role | Phone | + +------+ + PCP | Unavailable | + +------+ + Encounter Details +--------+ + + + + | Date | Type | Department | Care Team | Description | +--------+ + + + + | 10/08/ | Hospital | [facility] | | | | 2005 | Encounter | MED CTR XRAY [address] | | | | | | [address] | | | | | | [place] [address] | | | | | | [phone] | | | +--------+ + + + [...]
--- OUTSIDE RECORDS SUMMARY | ~2019-02-23 | XMS | Encounter Summary ---
Demographics + + + | Address | [address] | | | [place] [address] | + + + | Home Phone | | + + + | Preferred Language | Unknown | + + + | Marital Status | | + + + | Congregation Affiliation | PEN | + + + | Race | White | + + + | Ethnic Group | Not or | + + + Author + + + | Author | [facility] | + + + | Organization | [facility] | + + + | Address | Unknown | + + + | Phone | Unavailable | + + + Support + + + + + | Name | Relationship | Address | Phone | + + + + + | Gigi goddard | ECON | [address] | | | | | [place] | | | | | [address] | | + + + + + Care Team Providers + +------+ + | Care Winder Helper Name | Role | Phone | [...] + + | 07/13/ | Emergency | [facility] Emergency | | | | 2014 - | | Department [address] | | | | | [address] | | | | 07/14/ | | [facility] | | | | 2014 | | [place], [place] | | | | | | [address] | | | | | | [phone] | | | +--------+ + + + [...]
--- OUTSIDE RECORDS SUMMARY | ~2019-02-23 | XMS | Clinical Summary ---
Demographics + + + | Address | [address] | | | [place] [address] | + + + | Home Phone | | + + + | Preferred Language | Unknown | + + + | Marital Status | | + + + | Protestant Affiliation | Unknown | + + + | Race | Unknown | + + + | Ethnic Group | Unknown | + + + Author + + + | Author | [facility] | | | and [place] | + + + | Organization | [facility] | | | and [place] [...] Team Providers + +------+ + | Care Automotive Refinish Technician Name | Role | Phone | + +------+ + | Scotty Ronquillo | PCP | | + +------+ + [...] | [facility] | [facility] | [id number] | 09/27/19 | [phone] | | Medica [...] | 1971 | [phone] | [place] [address] | | | dat | | | 0 (Home) | | + +--------+ +--------+ + + Advance Directives + + + + + | Type | Date Recorded | Patient | Explanation | | | | Web Press Operator Helper Offset | | + + + + + | Power of | | | | | Rn Hematology | | | | + + + + + | Advance | | | | | Directive | | | | + + + + +
--- OUTSIDE RECORDS SUMMARY | ~2019-02-23 | XMS | Encounter Summary ---
Demographics + + + | Address | [address] | | | [place] [address] | + + + | Home Phone | | + + + | Preferred Language | Unknown | + + + | Marital Status | | + + + | Samaritan Affiliation | PEN | + + + | Race | White | + + + | Ethnic Group | Not or | + + + Author + + + | Author | [facility] | + + + | Organization | [facility] | + + + | Address | Unknown | + + + | Phone | Unavailable | + + + Support + + + + + | Name | Relationship | Address | Phone | + + + + + | Gigi goddard | ECON | [address] | | | | | [place] | | | | | [address] | | + + + + + Care Team Providers + +------+ + | Care Lubrication Supervisor Name | Role | Phone | [...] | | | 2015 | Event | [facility] | [address] | | | | | Admitting Desk | [address] | | | | | Located on the [address] | [place], [place] | | | | | floor [address] | [address] | | | | | [facility] | [phone] | | | | | [place], [place] | | | | | | [address] | Jb Linton, | | | | [...] PIV- | Mar Mckeon MD | Harsh Del Real RN | | Periph | venous; [...]
[~2019-02-23 17:58] MED LIST: ALBUTEROL SULF8.5 GM INH; ASPIRIN EC81 MG PO; EFFER-K 10 MEQ10 MEQ PO; LASIX40 MG PO; METFORMIN HCL500 MG PO; METOPROLOL TART50 MG PO; PRILOSEC20 MG PO; VITAMIN D5000 UNIT PO; ZINC50 MG
[2019-02-23] MEDS ORDERED: OMEPRAZOLE20 MG PO (18:09)
[2019-02-23] MEDS ORDERED: DOXYCYCLINE HY100 MG PO (19:11)
[2019-02-23] MEDS ORDERED: PREDNISONE20 MG PO (19:11)
[2019-02-23] MEDS ORDERED: PRINIVIL10 MG PO (19:12)
[2019-02-23] MEDS ORDERED: QVAR REDIHALE10.6 GM INH (19:14)
[2019-02-23] MEDS ORDERED: HYDROCHLOROTHIA25 MG PO (19:21)
== END 2019-02-23 19:35 | disposition home or self-care (01) ==
LOC: ED 17:58
DX: J45.909 Unspecified asthma, uncomplicated (principal); E66.9 Obesity, unspecified; I10 Essential (primary) hypertension; Z88.8 Allergy status to other drugs, medicaments and biological substances; Z88.5 Allergy status to narcotic agent; Z79.899 Other long term (current) drug therapy; Z79.82 Long term (current) use of aspirin
CPT/HCPCS: 71046; 80053; 83880; 84484; 85025; 99283-25; J7512

== ENCOUNTER 2024-09-15 22:14 | Emergency (ER) | payer BC ==
[~2024-09-15] VITALS: Ht 172.7 cm; Wt 170.0 kg
[~2024-09-15 22:14] MED LIST changes: +DOXYCYCLINE HY100 MG PO; +HYDROCHLOROTHIA25 MG PO; +OMEPRAZOLE20 MG PO; +PREDNISONE20 MG PO; +PRINIVIL10 MG PO; +QVAR REDIHALE10.6 GM INH
[2024-09-15] MEDS ORDERED: AMOXICILLIN/CLAVULANATE K 875 MG TAB PO ONE (23:00)
[2024-09-15] MEDS ORDERED: dilTIAZem HCL 25 MG/5 ML VIAL IV ONE (23:00)
[2024-09-15 23:03] LABS: BASOPHILS 0.3 % (0.1-1.2); EOSINOPHILS 0.3 % (0.7-5.8); HEMATOCRIT 43.3 % (34.1-44.9); LYMPHOCYTES 11.7 % (19.3-51.7); MCH 30.4 PG (25.6-32.2); MCHC 32.3 g/dL (32.2-35.5); MCV 94.1 fL (79.4-94.8); PLATELET COUNT 162 K/uL (182-369)
[2024-09-15 23:18] LABS: ALBUMIN 3.9 g/dL (3.4-5.0); ANION GAP 11.3 (7-21); BILIRUBIN, TOTAL 0.5 mg/dL (0.2-1.0); BUN/CREATININE RATIO 14.16 (6.0-28.6); CALCIUM 9.2 mg/dL (8.5-10.1); CREATININE, SERUM 1.2 mg/dL (0.55-1.02); POTASSIUM 4.3 mmol/L (3.5-5.1); PROTEIN, TOTAL 7.8 g/dL (6.4-8.2)
[2024-09-15] MEDS ORDERED: AMOXICILLIN/CLAVULANATE K 875 MG HOME.PACK PO ONE (23:30)
[2024-09-15] MEDS ORDERED: AMOX TR-K CLV1 EAC1 PO (23:32)
[2024-09-15 23:48] VITALS: BP 152/78
== END 2024-09-15 23:50 | disposition home or self-care (01) ==
LOC: ED 22:14
PROVIDERS: Internal Medicine
DX: L03.211 Cellulitis of face (principal); I10 Essential (primary) hypertension; J45.909 Unspecified asthma, uncomplicated; Z88.5 Allergy status to narcotic agent; Z79.899 Other long term (current) drug therapy
CPT/HCPCS: 36415; 80053; 85025; 99283